=== PATIENT | female | born 1960 | race Caucasian/White ===

== ENCOUNTER → 2016-07-01 | Day surgery (SDC) | payer OTHER ==
[2016-06-04 15:28] VITALS: BMI 42.0
[~2016-07-01] VITALS: Ht 160 cm; Wt 109.1 kg
[~2016-07-01] MED LIST: AMLO-114 PO; ASPI81TA28 PO; ATOR-26 PO; ATROPINE SULFATE 0.1 MG/ML 5ML SYR IV PRN; BUPIVACAINE/EPINEPHRINE 0.5% MPF 1:200,000 30 ML VIAL ONE; CEFAZOLIN 2000 MG/60 ML D5W 60 ML IV SCH; CHOL1TAB42 PO; CRDCD180 PO; EpHEDrine SULFATE INJ 50 MG/ML AMP IV PRN; FENTANYL CITRATE INJ 50 MCG/1 ML 2 ML VIAL IV PRN; FENTANYL CITRATE INJ 50 MCG/1 ML 2 ML VIAL ONE; FRS/40 PO; GLYCOPYRROLATE INJ 0.2 MG/ML VIAL ONE; HYDR-5688 PO; HYDROCODONE/ACETAMOPHEN 5/325MG TAB PO PRN; INSDGI SC; KETAMINE HCL INJ 50 MG/ML 10 ML VIAL ONE; LACTATED RINGER'S 1000ML IV SCH; LEVO50TA60 PO; LIDOCAINE HCL 2% 2 ML VIAL (20MG/ML) ONE; METO1TAB66 PO; MIDAZOLAM HCL 1 MG/ML 2ML VIAL ONE; NSS 1000ML IV SCH; NVLGI/PEN SC; ONDANSETRON INJ 2 MG/ML 2 ML VIAL IV PRN; ONDANSETRON INJ 2 MG/ML 2 ML VIAL ONE; PROPOFOL IV EMULSION 10 MG/ML 20 ML VIAL IV ONE; SODIUM CHLORIDE 0.9% 1000ML 1,000 ML IV SCH; TOLT2TAB9 PO
[2016-07-01 10:46] VITALS: BP 142/60; PULSE 72; TEMP 36.9; O2SAT 96; Ht 160 cm; Wt 109.1 kg
--- NOTE | 2016-07-01 11:43 | History and Physical ---
History & Physical Date Jul 01, 2016. Chief Complaint abnormality found on mammogram...pt was unable to tolerate laying prone for stereotactic bx. History of Present Illness The patient is a 55 year old female with complaints of Past Medical/Surgical History Medical Problems: (1) Diabetes mellitus (2) Edema (3) Hypertension (4) Hypothyroidism (5) Obesity Additional History Hepatic Disease: No Endocrine Disorder: Yes Kidney Disease: Yes Hypertension: Yes Heart Disease: No Bleeding Tendencies: No Infectious Diseases: No Allergies Coded Allergies: Lisinopril (Verified Adverse Reaction, Mild, cough, 07/01/16) Home Medications Scheduled Amlodipine (Norvasc), 10 MG PO QAM Aspirin (Aspirin Ec), 81 MG PO HS Atorvastatin (Lipitor), 80 MG PO HS Cholecalciferol (Vitamin D), 5,000 UNITS PO HS Diltiazem HCl (Diltiazem HCl ER), 180 MG PO QAM Furosemide (Lasix), 40 MG PO BID Insulin Aspart (Novolog Flexpen), 6 UNITS SC QAM Insulin Glargine (Lantus), 40 SC BID Levothyroxine Sodium (Levoxyl), 0.05 MG PO QAM Metoprolol Succinate (Toprol Xl), 75 MG PO BID Tolterodine Tartrate (Tolterodine Tartrate), 2 MG PO BID Physical Examination Skin: warm/dry Eyes: normal inspection, EOMI Head: normocephalic, atraumatic Neck: supple, no adenopathy Respiratory/Chest: no respiratory distress Cardiovascular: no edema Abdomen / GI: non tender Back: normal inspection Extremities: normal inspection Diagnosis left breast mammographic abnormality Plan of Treatment wire LOC with excisional breast bx see office H&P for history details discussed risks/options/ questions answered ok to proceed.
--- NOTE | 2016-07-01 13:35 | Discharge Instructions ---
Discharge Instructions Date of Service Jul 01, 2016. Admission Reason for Admission: Lt Breast Microcalcs, Chronic Kidney Ds/Hosp Loc Discharge Discharge Diagnosis / Problem: abnormal mammogram Discharge Goals Goal(s): Diagnostic testing Activity Recommendations Activity Limitations: as noted below Lifting Limitations: no more than 10 pounds, until after follow-up appointment Exercise/Sports Limitations: until after follow-up appointment May Resume Sexual Activity: after follow-up appointment Shower/Bathe: tomorrow . Instructions / Follow-Up Instructions / Follow-Up follow up with dr. edwards in 1-2 weeks. call [phone] if any questions/ concerns Current Hospital Diet Patient's current hospital diet: Discharge Diet Recommended Diet: Regular Diet Procedures Procedures Performed: excisional breast biopsy Pending Studies Studies pending at discharge: yes List of pending studies: pathology report Medical Emergencies . Who to Call and When: Medical Emergencies: If at any time you feel your situation is an emergency, please call 911 immediately. . Non-Emergent Contact Non-Emergency issues call your: Primary Care Provider, Surgeon Call Non-Emergent contact if: temperature is above 101, wound has increased drainage, wound has increased redness, wound has increased pain . "Provider Documentation" section prepared by Nael Edwards. VTE Core Measure Inpt VTE Proph given/why not?: SCD's
--- NOTE | 2016-07-01 14:40 | [facility] Operative Report ---
Operative Report Operative Date Jul 01, 2016. Pre-Operative Diagnosis Abnoral Mammogram, Left Post-Operative Diagnosis same Procedure(s) Performed excision biopsy of left breast abnormality Surgeon Electrolog Operator Surgeon(s) None Estimated Blood Loss 25ML Findings normal breast tissue throughout Specimens A. Left Breast Mass, 1 Long silk lateral , 2 short superior. Anesthesia MAC/local Complication(s) None Disposition Recovery Room / PACU I attest to the content of the Intraoperative Record and any orders documented therein. Any exceptions are noted below.
--- NOTE | 2016-07-01 14:41 | Medical Student: [facility] ---
Immediate Operative Summary Operative Date Jul 01, 2016. Pre-Operative Diagnosis left breast mass Post-Operative Diagnosis same Procedure(s) Performed excisional left breast biopsy w needle localization Surgeon Dr. Edwards Flight Tower Dispatcher Surgeon(s) none Estimated Blood Loss 25cc Findings normal appearing breast tissue w needle Specimens left breast mass Anesthesia local Complication(s) None Disposition Recovery Room / PACU
--- NOTE | 2016-07-01 15:10 | Anesthesiology Progress Note ---
Anesthesia Post Op Note Date & Time Jul 01, 2016 at 15:11 Vital Signs Pain Intensity: 0 Vital Signs Past 12 Hours Date Time Temp Pulse Resp B/P Pulse Ox O2 Delivery O2 Flow Rate FiO2 07/01/16 15:05 65 18 138/64 93 Nasal Cannula 1 07/01/16 14:55 69 17 139/69 92 Nasal Cannula 2 07/01/16 14:45 56 20 127/62 94 Nasal Cannula 2 07/01/16 14:38 36.4 69 12 125/61 99 Mask 10 07/01/16 10:46 36.9 72 18 142/60 96 Room Air Notes Mental Status: alert / awake / arousable, participated in evaluation Pt Amnestic to Procedure: Yes Nausea / Vomiting: adequately controlled Pain: adequately controlled Airway Patency, RR, SpO2: stable & adequate BP & HR: stable & adequate Hydration State: stable & adequate Anesthetic Complications: no major complications apparent
[2016-07-01 15:23] VITALS: BP 139/67; PULSE 69; TEMP 36.6; O2SAT 98
--- NOTE | 2016-07-01 15:49 | OPERATIVE REPORT ---
DATE OF OPERATION: 07/01/2016 PREOPERATIVE DIAGNOSIS: Abnormality of the left breast/patient unable to tolerate stereotactic biopsy. POSTOPERATIVE DIAGNOSIS: Same. PROCEDURE: Left breast excisional biopsy with needle localization. SURGEON: Dr. Edwards. ESTIMATED BLOOD LOSS: Approximately 30 mL. COMPLICATIONS: No immediate. ANESTHESIA: Monitored anesthesia care with local Marcaine. DESCRIPTION OF PROCEDURE: Prior to coming to the operating room, the patient was taken to the radiology department where ultrasound and mammographic guidance was used to place a guidewire into the area of abnormality seen on mammogram. She was then brought to the operating suite. She was taken into the OR, placed supine and given some IV sedation. It was titrated to effect. After she was adequately sedated, we then sterilely prepped and draped the left breast area including the guidewire. After timeout, I then injected the area with Marcaine and epinephrine. We created the field block around the entire area. I then used a 15 blade scalpel to make a horizontal skin incision. We used electrocautery to create skin flaps. I continued to circumferentially take down breast tissue 360 degrees around the guidewire. Eventually I cut the guidewire and pulled it through the skin and delivered it out through the incision itself. Bleeding was controlled using electrocautery or clamp and tie with 3-0 silk ties. Eventually I was able to completely get below the area of the guidewire and we removed the specimen in 1 piece. It was marked such that 2 short sutures were superior and 1 long one was lateral. We did take an x-ray in the room and did confirm that the appropriate specimen was obtained. We then thoroughly irrigated the wound bed. There was adequate hemostasis. I closed it with 2-0 Vicryl, 3-0 Vicryl and 4-0 Monocryl for the skin. Benzoin and Steri-Strips were placed over the incision. The patient was awakened and transferred to recovery in stable condition. I attest to the content of the Intraoperative Record and any orders documented therein. Any exceptio ns are noted below.
[2016-07-01 15:50] VITALS: BP 134/67; PULSE 72; TEMP 36.6; O2SAT 95
--- NOTE | 2016-07-01 16:08 | MAMMOGRAPHY REPORT ---
NEEDLE LOCALIZATION LEFT BREAST: 07/01/2016 CLINICAL HISTORY: 55 year old woman with an indeterminate clustered microcalcifications in the appro ximate 6:00 posterior left breast. She was unable to tolerate stereotactic guided biopsy and presen ts for preoperative needle and wire localization. COMPARISON: Comparison is made to exams dated: 05/13/2016 mammogram, 04/10/2016 mammogram, 10/09/2015 mammogram - [facility], 03/18/2008, 03/08/2009 mammogram, and 03/06/2010 mammogra m - [facility]. PATIENT CONSENT: The risks of the procedure were explained to the patient and informed consent was o btained. The patient denied eating or drinking anything this morning that would preclude anesthesia . Diagnostic mammograms including spot magnification views dated 04/10/2016 were reviewed. The 4.5 mm cluster of heterogeneous microcalcifications in the 5:00 to 6:00 left breast is the target for preo perative localization. With the patient standing, the left breast was placed in CC from below compr ession. The microcalcifications were identified and targeted using an alpha numeric grid. 1% buffe red lidocaine was administered as local anesthesia after alcohol swabs cleansed the skin of the infe rior left breast. A 5 cm [place] 2 needle and wire combination was inserted into the breast via an inferior approach. Optimal positioning was confirmed in the lateralmedial approach and the needle was removed, leaving the wire in place. The location of the wire was discussed with the operating s urgeon prior to surgery. The specimen radiograph demonstrates the localizing wire and the cluster of microcalcifications in q uestion located at level 9-10 and G-H on the grid. Final pathology is pending. IMPRESSION: NEEDLE LOCALIZATION Status a post successful preoperative needle and wire localization for an indeterminate cluster of m icrocalcifications in the 5:00 to 6:00 posterior left breast. The imaged specimen includes the inte nded abnormality. Final pathology is pending. The patient will receive notification of the biopsy results from her referring physician. Kailey Alfaro M.D. ay/:07/01/2016 15:36:50 [employer] Paralegal: Maria C Calles, [facility]
--- NOTE | 2016-07-04 08:54 | MAMMOGRAPHY REPORT ---
SPECIMEN: 07/01/2016 CLINICAL HISTORY: Surgical specimen. Please refer to the report from left breast needle localization with imaging performed at the same [facility] for full detail. IMPRESSION: SPECIMEN Please refer to the report from left breast needle localization with imaging performed at the same t [facility] for full detail. Kailey Alfaro M.D. ay/:07/01/2016 10:23:45 Rock Loader: Danielle TEMPLETON)(Nora), [facility]
== END | disposition home or self-care (01) ==
LOC: C.ACU 09:25
PROVIDERS: ATTEND Surgery
DX: D24.2 Benign neoplasm of left breast (principal); N60.12 Diffuse cystic mastopathy of left breast; E11.9 Type 2 diabetes mellitus without complications; I10 Essential (primary) hypertension; E66.9 Obesity, unspecified; Z68.41 Body mass index [BMI] 40.0-44.9, adult; Z88.8 Allergy status to other drugs, medicaments and biological substances

== ENCOUNTER 2017-03-02 19:38 | Emergency (ER) | payer OTHER ==
[~2017-03-02] VITALS: Ht 160 cm; Wt 105.0 kg
[~2017-03-02 19:38] MED LIST changes: -ATROPINE SULFATE 0.1 MG/ML 5ML SYR IV PRN; -BUPIVACAINE/EPINEPHRINE 0.5% MPF 1:200,000 30 ML VIAL ONE; -CEFAZOLIN 2000 MG/60 ML D5W 60 ML IV SCH; -EpHEDrine SULFATE INJ 50 MG/ML AMP IV PRN; -FENTANYL CITRATE INJ 50 MCG/1 ML 2 ML VIAL IV PRN; -FENTANYL CITRATE INJ 50 MCG/1 ML 2 ML VIAL ONE; -GLYCOPYRROLATE INJ 0.2 MG/ML VIAL ONE; -HYDR-5688 PO; -HYDROCODONE/ACETAMOPHEN 5/325MG TAB PO PRN; -KETAMINE HCL INJ 50 MG/ML 10 ML VIAL ONE; -LACTATED RINGER'S 1000ML IV SCH; -LIDOCAINE HCL 2% 2 ML VIAL (20MG/ML) ONE; +METO-452 PO; -METO1TAB66 PO; -MIDAZOLAM HCL 1 MG/ML 2ML VIAL ONE; -NSS 1000ML IV SCH; +NVLGI/PEN; -NVLGI/PEN SC; -ONDANSETRON INJ 2 MG/ML 2 ML VIAL IV PRN; -ONDANSETRON INJ 2 MG/ML 2 ML VIAL ONE; -PROPOFOL IV EMULSION 10 MG/ML 20 ML VIAL IV ONE; -SODIUM CHLORIDE 0.9% 1000ML 1,000 ML IV SCH
[2017-03-02 19:48] VITALS: TEMP 37; Ht 160 cm; Wt 105.0 kg
[2017-03-02] MEDS ORDERED: LEVO50TA PO (20:05)
[2017-03-02] MEDS ORDERED: ACETAMINOPHEN 500 MG TAB PO STA (20:20)
[2017-03-02] MEDS ORDERED: DIPHTHERIA/TETANUS/PERTUSSIS 0.5 ML SYR/VIAL IM. ONE (20:30)
--- NOTE | 2017-03-02 21:34 | DIAGNOSTIC IMAGING REPORT ---
L KNEE 3 VIEWS HISTORY: 56 years-old Female fall; L knee pain acute left knee pain status post fall COMPARISON: None available TECHNIQUE: 3 views of the left knee FINDINGS: Bones appear mildly demineralized. Mild tricompartmental osteoarthritis is noted, most pronounced within the patellofemoral joint. There is a moderate joint effusion with mild soft tissue swelling about the knee. There is no acute fracture or dislocation. Vascular calcifications are noted. IMPRESSION: 1. Mild soft tissue swelling and moderate joint effusion without acute fracture or dislocation. 2. Mild tricompartmental osteoarthritis. 3. Peripheral vascular disease. The above report was generated using voice recognition software. It may contain grammatical, syntax or spelling errors. Electronically signed by: David Maldonado M.D. 03/02/2017 9:33 PM Dictated Date/Time: 03/02/2017 9:31 PM
--- NOTE | 2017-03-02 21:40 | DIAGNOSTIC IMAGING REPORT ---
R HAND MIN 3 VIEWS ROUTINE, L HAND MIN 3 VIEWS ROUTINE HISTORY: 56 years-old Female fall; R hand pain acute bilateral hand pain status post fall COMPARISON: None available TECHNIQUE: 3 views of the bilateral hands FINDINGS: LEFT: There is a linear 5 mm calcification within the expected region of the radial collateral ligament of the third metacarpal phalangeal joint. Mild first carpometacarpal and interphalangeal degenerative changes noted. Subcortical cystic changes are seen within the third metacarpal head. Peripheral vascular disease. No acute fracture or dislocation. RIGHT: Mild first carpal metacarpal and multidigit interphalangeal degenerative changes. There is a 4 mm linear calcification within the expected region of the radial collateral ligament of the fifth metacarpal phalangeal joint. No acute fracture or dislocation. The soft tissues are unremarkable. Peripheral vascular disease. IMPRESSION: 1. Mild degenerative changes without acute fracture or dislocation. 2. Peripheral vascular disease. 3. Nonspecific linear periarticular calcifications about the left third and right fifth metacarpal phalangeal joints in the expected region of the radial collateral ligaments . Remote injury or enthesitis are differential considerations. The above report was generated using voice recognition software. It may contain grammatical, syntax or spelling errors. Electronically signed by: David Maldonado M.D. 03/02/2017 9:39 PM Dictated Date/Time: 03/02/2017 9:33 PM
--- NOTE | 2017-03-02 21:42 | DIAGNOSTIC IMAGING REPORT ---
L SHOULDER MIN 2 VIEWS ROUTINE HISTORY: 56 years-old Female fall; L shoulder pain acute left shoulder pain status post fall COMPARISON: None available TECHNIQUE: 3 views of the left shoulder FINDINGS: Mild glenohumeral and moderate acromioclavicular osteoarthritis. No acute fracture or dislocation. No intra-articular loose body. Imaged lung pitts are clear. IMPRESSION: Degenerative changes about the left shoulder without acute fracture or dislocation. The above report was generated using voice recognition software. It may contain grammatical, syntax or spelling errors. Electronically signed by: David Maldonado M.D. 03/02/2017 9:41 PM Dictated Date/Time: 03/02/2017 9:39 PM
--- NOTE | 2017-03-02 21:44 | DIAGNOSTIC IMAGING REPORT ---
L ELBOW MIN 3 VIEWS ROUTINE HISTORY: 56 years-old Female fall; L elbow pain acute left elbow pain status post fall COMPARISON: None available TECHNIQUE: 3 views of the left elbow FINDINGS: There is an acute comminuted intra-articular fracture of the radial head with approximately 2 mm volar and lateral displacement. Small joint effusion. No additional acute fracture or dislocation identified. Mild marginal degenerative spurring about the elbow. Mild soft tissue swelling. IMPRESSION: Acute comminuted intra-articular fracture of the radial head with minimal displacement, small joint effusion and mild soft tissue swelling. The above report was generated using voice recognition software. It may contain grammatical, syntax or spelling errors. Electronically signed by: David Maldonado M.D. 03/02/2017 9:43 PM Dictated Date/Time: 03/02/2017 9:41 PM
[2017-03-02] MEDS ORDERED: NORCO 5/325MG HOME PACK PO ONE (22:00)
[2017-03-02] MEDS ORDERED: HYDR-5688 PO (22:19)
[2017-03-02 22:31] VITALS: BP 134/68; PULSE 82; O2SAT 98
--- NOTE | 2017-03-03 01:53 | EMERGENCY ROOM VISIT NOTE ---
ED Visit Note First contact with patient: 19:55 Chief Complaint: I fell and hurt my left arm. History of Present Illness: Ms. Barajas is a 56-year-old white female who ambulates into the ED accompanied by male friend following a fall. Patient reports she was visiting her parents. She was walking on their driveway and was stepping over a grate and tripped and fell. She reports during the fall she did not strike her head or have a loss of consciousness and since the fall she reports she is not having any symptoms of head injuries. Her fall occurred approximately 50 minutes before arriving in the emergency department Currently she is complaining of proximal left forearm pain, left shoulder pain, lateral and posterior left knee pain, left upper lip pain, tooth #10 pain, bilateral hand pain. Currently she reports her worst pain is her left elbow pain. She places this discomfort over the proximal aspect of the ulna. She describes her pain as throbbing and sharp. She rates her discomfort 7/10. Her pain is nonradiating. Her pain worsens with palpation and flexion and extension of the elbow and pronation and supination of the forearm. She has not identified any alleviating factors related to the pain. She has not taken any medications for pain prior to arrival at the hospital. Associated with her pain she reports she has having left lateral humeral head pain. She describes this as an achy sensation. She does not rate her discomfort. Her pain is nonradiating. Her pain worsens with palpation. She has not identified any alleviating factors related to the pain. Additionally she complains of upper lip pain and swelling, tooth 10 pain, bilateral hand pain over the palmar aspects were she reports she put out her hands during the fall and lateral and posterior left knee pain. She reports all these pains are mild. She does not rate her discomfort. She denies any headache, dizziness, lightheadedness, visual changes, hearing changes, difficulty speaking, difficulty swallowing, difficulty ambulating/ coordinating body movements, neck pain, back pain, upper and lower extremity weakness/numbness/tingling, chest pain, shortness of breath, abdominal pain, nausea, vomiting. Review of Systems: As noted above in history of present illness. All body systems were reviewed and found to be negative as noted above. Past Medical History: Diabetes, hypertension, unspecified skin disorder. Current Medications: Toprol-XL, diltiazem, Norvasc 6, vitamins, aspirin, insulin , Lasix, Lipitor, Synthroid. Allergies to Medications: Lisinopril. Social History: Patient is currently employed; she feels safe in her home environment; she denies tobacco and alcohol use. Physical Examination: Vital Signs: Date Time Temp Pulse Resp B/P (MAP) Pulse Ox O2 Delivery O2 Flow Rate FiO2 03/02/17 22:31 82 18 134/68 98 03/02/17 21:55 82 16 170/79 96 Room Air 03/02/17 19:48 37.0 90 20 119/76 97 Room Air GENERAL: 56-year-old female in moderate distress due to pain, nontoxic-appearing , afebrile and hemodynamically stable. NEUROLOGICAL: Awake, alert and oriented to person, place and time. Answering questions appropriately and following commands. Normal gait. Good short-term and long-term recall. Cranial nerves II through XII grossly intact. SKIN: Warm, dry and pink. Face: Superficial laceration to the left side of the upper lip measuring approximately 4 mm with no active bleeding. This is associated with a moderate amount of swelling and ecchymosis in the same area. There was a small amount of blood around the junction of the 10th tooth and the gingiva. No soft tissue injuries noted at this area. HEENT: Atraumatic and normocephalic. Skull: No bony deformity, bony crepitus, swelling or ecchymosis. No raccoon's eyes or singh signs. No drainage in the ears of the nostril; no hemotympanum. Face: Soft tissue injury as noted above. No bony tenderness of the orbits, zygomatic areas, maxilla or mandible. PERRLA. EOMI without nystagmus. Sclera white and conjunctiva pink. No malocclusion. Tooth tenderness tender to palpation but stable in its socket. There is also a contusion in the oral mucosa in the same area of tooth 10. Airway is patent. Speech is normal and clear. Trachea midline. No jugular venous distention. BACK: No tenderness over the bony cervical, thoracic and lumbar spine. Full range of motion of the cervical spine. No CVA tenderness. THORAX: Lungs sounds are clear to auscultation and equal bilaterally with symmetrical chest wall. No crepitus, tenderness, subcutaneous air or deformities noted. ABDOMEN: Soft and nontender. Positive bowel sounds in all quadrants. No guarding, rigidity or organomegaly. LEFT UPPER EXTREMITY: No gross bony deformity. Mild tenderness over the lateral aspect of the humeral head without bony deformity, swelling or ecchymosis. No tenderness over the acromioclavicular joint, clavicle, scapula. Moderate tenderness over the proximal ulna with mild swelling but no bony deformity or crepitus. She refused to do range of motion exercises due to pain at the elbow and forearm. No tenderness throughout the forearm, wrist or hand. With the elbow stabilize she has full range of motion in flexion, extension and radial and ulnar deviation of the wrist and flexion and extension of all fingers. Throughout the hand the skin was warm and pink and capillary refill is brisk. She is able to distinguish light sensations through all dermatomes. LEFT LOWER EXTREMITY: No gross bony deformity. No shortening or malrotation. No tenderness over the hip or thigh, no tenderness over the lower leg, ankle or foot. Mild tenderness over the lateral and posterior proximal tibia without bony deformity, bony crepitus, swelling or ecchymosis. No laxity of the collateral or cruciate ligaments. Negative patellar apprehension test. Negative ballottement test. Full range of motion in flexion and extension of the knee against resistance. Patient does have full range of motion in flexion and extension of the knee, flexion, extension and internal and external rotation of the hip and plantar flexion and dorsiflexion of the ankles. Throughout the leg the skin was warm and pink and capillary refill is brisk. She is able to distinguish light sensations through all dermatomes. RIGHT SIDED EXTREMITIES: No gross bony deformity. No tenderness in the shoulder , elbow, forearm, wrist, hand, hip, thigh, knee, lower leg, ankle or foot. ED Course: Patient is assessed as noted above. Patient's medication list was reviewed. At patient's request she was given 1 g of Tylenol by mouth for pain. Additionally she reports that her tetanus was not up-to-date and she received an Adacel booster. Left Elbow X-Rays: Were read by myself and the radiologist showing acute, intra- articular fracture of the radial head with minimal displacement, small joint effusion and mild soft tissue swelling. Left Hand X-Rays: Were read by myself and the radiologist and shows mild degenerative change without acute fractures or dislocations. Peripheral vascular disease. Radiologist additionally notes left third metacarpal phalangeal joint periarticular calcification. Right Hand X-Rays: Were read by myself and the radiologist and shows mild degenerative changes without acute fractures or dislocations. Peripheral vascular disease. Radiologist additionally notes periarticular calcifications of the right fifth MCP joint. Left Knee X-Rays: Were read by myself and the radiologist showing mild soft tissue swelling and a moderate joint effusion without fracture dislocations, mild tricompartmental osteoarthritis and peripheral vascular disease. Left Shoulder X-Rays: Were read by myself and the radiologist showing degenerative changes but no acute fractures or dislocations. Patient's superficial lip laceration was cleansed with antibacterial soap and water. Patient's left elbow fracture was placed in a posterior Ortho-Glass splint and sling. Patient was reassessed multiple times during her stay in the emergency department. Patient was educated about today's findings and instructed on her treatment plan ; she verbalizes understanding and agreement with this plan. Clinical Impression: Fall. Left proximal radial head fracture. Left upper lip contusion. Tooth 11 dental pain. Superficial laceration of the upper lip. Left shoulder pain. Right and left palm contusions. Left knee pain. Disposition: Patient discharged home in stable condition accompanied by her ; prior to departure she was reassessed and subjectively reported she was feeling better and rated her discomfort 4/10. Plan: Comfort measures including rest, ice, splint and sling use and a sliding pain medication scale of ibuprofen, acetaminophen and [place] were discussed with the patient; she was given appropriate narcotic precautions and her name was checked in the state database and no red flags were noted. Patient was encouraged to follow-up with [facility] for her elbow fracture. Patient was encouraged to follow-up with dentistry for her dental pain. Patient was encouraged return ED for worsening/uncontrolled pain, left upper extremity/hand weakness/numbness/tingling or any new/concerning symptoms.
== END 2017-03-02 21:25 | disposition home or self-care (01) ==
LOC: C.EDB 19:39 → C.EDD 21:25
DX: S52.122A Displaced fracture of head of left radius, initial encounter for closed fracture (principal); K08.89 Other specified disorders of teeth and supporting structures; S01.511A Laceration without foreign body of lip, initial encounter; S60.221A Contusion of right hand, initial encounter; S60.222A Contusion of left hand, initial encounter; M25.562 Pain in left knee; W01.0XXA Fall on same level from slipping, tripping and stumbling without subsequent striking against object, initial encounter; Y92.014 Private driveway to single-family (private) house as the place of occurrence of the external cause; E11.9 Type 2 diabetes mellitus without complications; I10 Essential (primary) hypertension; L98.9 Disorder of the skin and subcutaneous tissue, unspecified; Z79.4 Long term (current) use of insulin; Z79.82 Long term (current) use of aspirin; Z79.899 Other long term (current) drug therapy

== ENCOUNTER → 2017-06-04 | Outpatient (CLI) | payer OTHER ==
[~2017-06-04] MED LIST changes: +HYDR-5688 PO; +LEVO50TA PO; -LEVO50TA60 PO
--- NOTE | 2017-06-04 15:24 | MAMMOGRAPHY REPORT ---
BILATERAL DIGITAL SCREENING MAMMOGRAM TOMOSYNTHESIS WITH CAD: 06/04/2017 CLINICAL HISTORY: Routine screening. Patient has no complaints. TECHNIQUE: Breast tomosynthesis in addition to standard 2D mammography was performed. Current study was also evaluated with a Computer Aided Detection (CAD) system. COMPARISON: Comparison is made to exams dated: 04/10/2016 mammogram, 03/23/2015 mammogram, 03/16/2014 mammogram, 03/11/2013 mammogram, 03/10/2012 mammogram, and 03/07/2011 mammogram - [facility]. BREAST COMPOSITION: There are scattered areas of fibroglandular density in both breasts. FINDINGS: No suspicious masses, calcifications, or areas of architectural distortion are noted in ei ther breast. There has been no significant interval change compared to prior exams. There are new po st surgical changes in the left breast at approximately 12:00 from prior excisional biopsy which yiel ded benign pathology. New benign rim and dystrophic calcifications are seen at the surgical bed. A linear scar marker denotes a scar on the left breast. Other scattered bilateral benign-appearing christina cifications are noted. IMPRESSION: ACR BI-RADS CATEGORY 2: BENIGN There is no mammographic evidence of malignancy. A 1 year screening mammogram is recommended. The pa tient will receive written notification of the results. Approximately 10% of breast cancers are not detected with mammography. A negative mammographic report should not delay biopsy if a clinically suggestive mass is present. Amy Silva M.D. /:06/04/2017 10:53:54 Phytochemistry Professor: Lilia LAGUERRE(Annie)(Nora), [facility] letter sent: Normal 1/2 BI-RADS Code: ACR BI-RADS Category 2: Benign
== END ==
LOC: C.MAMM 10:20
PROVIDERS: ATTEND Family Medicine
DX: Z12.31 Encounter for screening mammogram for malignant neoplasm of breast (principal)

== ENCOUNTER → 2017-11-17 | Day surgery (SDC) | payer OTHER ==
[2017-11-11 12:46] VITALS: Ht 160 cm; Wt 100.0 kg
[~2017-11-17] VITALS: Ht 160 cm; Wt 100.0 kg
[~2017-11-17] MED LIST changes: +500ML BSSPLUS 0.5ML EPI1:1000 IRRIG ONE; +ACETAMINOPHEN 325 MG TAB PO PRN; -AMLO-114 PO; +AMLO10TA3 PO; +ATROPINE SULFATE 0.1 MG/ML 5ML SYR IV PRN; +ATROPINE SULFATE 1% OP OINT PER APPLICATION CHARGE ONE; +BSS FLUSH ONE; +BUPIVACAINE HCL 0.75% 10 ML AMP/VIAL ONE; +CEFAZOLIN SOD 1 GM VIAL ONE; +DEXAMETHASONE SOD INJ 4 MG/ML VIAL ONE; +EpHEDrine SULFATE INJ 50 MG/ML AMP IV PRN; +EpINEphrine INJ 1MG/ML AMP 1 MG/ML AMP ONE; +FENTANYL CITRATE INJ 50 MCG/1 ML 2 ML VIAL ONE; +HYALURONIDASE HUMAN 150 UNIT/ML INJ ONE; -HYDR-5688 PO; +INDOCYANINE GREEN 25 MG/10 ML ONE; -INSDGI SC; +INSU100I23 SQ; +LACTATED RINGER'S 1000ML 500 ML IV SCH; +LIDOCAINE HCL 2% 2 ML VIAL (20MG/ML) ONE; +MIDAZOLAM HCL 1 MG/ML 2ML VIAL ONE; +NEOMYCIN/POLYMYX/DEXAMETH OP OINT PER APP CHARGE ONE; +OCUCOAT 1 ML SOLN IO ONE; +ONDANSETRON INJ 2 MG/ML 2 ML VIAL IV PRN; +POVIDONE-IODINE OP SOLN (SURGERY CNTR CHARGING ONLY) ONE; +PROPARACAINE 0.5% OP SOLN PER DROP CHARGE OPR SCH; +PROPOFOL IV EMULSION 10 MG/ML 20 ML VIAL ONE; +TETRACAINE HCL (OPHTH) 60 DROPS/4 ML BTL ONE; +TIMOLOL MALEATE 0.5% OP SOLN PER DROP CHARGE ONE; +TRIAMCINOLONE ACETONIDE OPHTH 40 MG/ML VIAL STERILE ONE; +VANCOMYCIN HCL 1000MG/20ML VIAL ONE
[2017-11-17] MEDS: PHENYLEPHRINE HCL 2.5% OP SOLN PER DROP CHARGE OPR SCH ×2 (06:44→06:49)
[2017-11-17] MEDS: TROPICAMIDE 1% OP SOLN PER DROP CHARGE OPR SCH ×2 (06:45→06:50)
--- NOTE | 2017-11-17 07:33 | History & Physical Bridge - SC ---
H&P Re-Evaluation Bridge Note: pt has diabetic retinopathy right eye and is having vitrectomy right eye. I have examined the patient, reviewed the History & Physical and in the interval since the performance of the History & Physical I have noted the following changes of clinical significance: No changes noted
--- NOTE | 2017-11-17 08:37 | [facility] Operative Report ---
Operative Report Date of Service Nov 17, 2017. Operative Report PREOPERATIVE DIAGNOSIS: Diabetic retinopathy with vitreous hemorrhage, right eye. POSTOPERATIVE DIAGNOSIS: same. PROCEDURE: 1. Pars plana vitrectomy, 23 gauge. 2. Membrane segmentation. 3. Endolaser. All to the right eye. CPT CODE: 29374 SURGEON: Ata Raymundo D.O. COMPLICATIONS: None. ESTIMATED BLOOD LOSS: None. SPECIMENS: None. ANESTHESIA: Retrobulbar block and MAC INDICATIONS FOR PROCEDURE: Surgery is indicated to decrease risk of vision loss and potentially improve vision. CONSENT: The risks, benefits and alternatives were discussed with the patient including but not limited to decreased visual acuity, failure to achieve desired results, loss of the eye, infection, pain, glaucoma, lens changes, retinal tears, retinal detachment, the need for more procedures, drooping of the eyelid, blindness, and double vision. The patient is aware of risks and consents to the surgery. Consent is signed and on the chart. OPERATION AND FINDINGS: The patient was brought to the operating room where the patient was identified by name, date, and medical record number. The surgical site was confirmed with the informed written consent. The patient was sedated by the anesthesiology team after which a 50:50 mixture of 2% lidocaine and 0.75% bupivacaine with hyaluronidase was administered in a standard retrobulbar fashion. A total of 4 ml was administered without difficulty. The patient was then prepped and draped in the usual sterile manner for retinal surgery. A wire lid speculum was placed and an Ariel 23-gauge trocar cannula system was employed. The inferior temporal trocar cannula was first placed in an angled fashion 3.75mm posterior to the surgical limbus and the infusion cannula was inserted into this cannula after which the intravitreal position was verified prior to turning the infusion on. Two more trocar cannulas were then inserted in an angled fashion, one in the superior temporal, and one in the superior nasal quadrant both 3.75mm posterior to the surgical limbus. A light pipe and vitrector were then introduced into the eye and the BIOM wide angle viewing system was brought into place. Posterior inspection revealed partially regressed proliferative diabetic retinopathy with neovascularization tags superior and inferior to the temporal arcades. There was also noted previous laser treatment. Standard core vitrectomy was performed and the vitreous was insured to be totally detached from the posterior pole with the aid of the vitrector. The areas of regressed neovascularization were segmented with the vitrector and endo-cautery was applied to any bleeding. Endolaser was used to perform fill-in demarco retinal photocoagulation. At this point scleral depression was performed for 360 degrees and no retinal tears or detachments were noted. The trocar cannulas were then removed and found to be water tight. The intraocular pressure was found to be within normal limits by palpation and subconjunctival injections of Kefzol and dexamethasone were administered inferiorly and superiorly. The wire lid speculum was removed. Maxitrol ointment was applied to the surface of the eye. A light patch and shield were taped over the surface of the eye and the patient left the Operating Room in stable condition having tolerated the procedure well. DISPOSITION: The patient has an appointment the following morning in the Ophthalmology Clinic. The patient is to call immediately if there are any problems overnight. I attest to the content of the Intraoperative Record and any orders documented therein. Any exceptions are noted below.
--- NOTE | 2017-11-17 08:38 | Discharge Instructions-SurgCtr ---
Discharge Instructions Date of Service Nov 17, 2017. Visit Reason for Visit: Right Eye Vitreous Hemorrhage, diabetic retinopathy Discharge Discharge Diagnosis / Problem: same Discharge Goals Goal(s): Improve function Activity Recommendations Activity Limitations: per Instructions/Follow-up section Anesthesia . Post Anesthesia Instructions: If you have had General Anesthesia or IV Sedation: * Do not drive today. * Resume driving when surgeon permits. * Do not make important decisions or sign legal documents today. * Call surgeon for: 1. Temperature elevations greater than 101 degrees F. 2. Uncontrollable pain. 3. Excessive bleeding. 4. Persistent nausea and vomiting. 5. Medication intolerance (nausea, vomiting or rash). * For nausea and vomiting use only clear liquids such as: tea, soda, bouillon until nausea subsides, then gradually increase diet as tolerated. * If you have any concerns or questions, call your surgeon's office. If physician is unavailable and it is an emergency, call 911 or go to the nearest emergency room. . Instructions / Follow-Up Instructions / Follow-Up * May take Tylenol if needed for discomfort. * Do NOT remove eye shield. * NO straining, heavy lifting (>15 pounds) or bending below waist. * Avoid getting water or soap directly into operative eye. * Do NOT rub eye. If you experience increasing eye pain not relieved by medication, please contact us immediately at [phone]. If you are unable to reach someone at the above number, call [phone] and ask to speak with the EYE DOCTOR ENVIRONMENTAL STUDIES PROFESSOR. Inform them that you are a Dr. Raymundo patient who had recent surgery. Diet Recommendations Home Diet: resume previous diet Procedures Procedures Performed: Right Eye 23 Gauge Vitrectomy, Endolaser, Membrane Peeling Pending Studies Studies pending at discharge: no Medical Emergencies . Who to Call and When: Medical Emergencies: If at any time you feel your situation is an emergency, please call 911 immediately. . Non-Emergent Contact Non-Emergency issues call your: Customer Service Clerk . . "Provider Documentation" section prepared by Ata Raymundo. .
[2017-11-17 08:52] VITALS: TEMP 36
--- NOTE | 2017-11-17 09:21 | Anesthesia Progress Nt - [facility] ---
Anesthesia Post Op Note Date & Time Nov 17, 2017 at 09:21 Vital Signs Pain Intensity: 0 Vital Signs Past 12 Hours Date Time Temp Pulse Resp B/P (MAP) Pulse Ox O2 Delivery O2 Flow Rate FiO2 11/17/17 08:52 36.0 81 16 137/79 (98) 94 Room Air 11/17/17 06:40 36.3 82 18 149/81 (103) 97 Room Air Notes Mental Status: alert / awake / arousable, participated in evaluation Pt Amnestic to Procedure: Yes Nausea / Vomiting: adequately controlled Pain: adequately controlled Airway Patency, RR, SpO2: stable & adequate BP & HR: stable & adequate Hydration State: stable & adequate Anesthetic Complications: no major complications apparent
[2017-11-17 09:23] VITALS: BP 147/76; PULSE 76; O2SAT 95
== END | disposition home or self-care (01) ==
LOC: X.SURG 06:27
PROVIDERS: ATTEND Ophthalmology
DX: E11.3591 Type 2 diabetes mellitus with proliferative diabetic retinopathy without macular edema, right eye (principal); E11.22 Type 2 diabetes mellitus with diabetic chronic kidney disease; N18.4 Chronic kidney disease, stage 4 (severe); I50.32 Chronic diastolic (congestive) heart failure; E66.9 Obesity, unspecified; Z68.37 Body mass index [BMI] 37.0-37.9, adult; I10 Essential (primary) hypertension; E78.5 Hyperlipidemia, unspecified; Z79.4 Long term (current) use of insulin

== ENCOUNTER 2018-09-16 18:35 | Inpatient (IN) ==
--- OUTSIDE RECORDS SUMMARY | 2018-09-16 18:38 | External Medical Summary | Continuity of Care Document ---
:1960 Author Name Mehrdad Durbin, Provider Address Unavailable Unavailable , Care Team Providers Name Role Phone Unavailable Unavailable Unavailable Jorge Lombardo M.D. Unavailable [email or web address] [email or web address] DO Unavailable [email or web address] Cleveland [email or web address]. 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 81) (Z01.810) Vitamin D deficiency (268.9) (E55.9) Hypercholesterolemia (272.0) (E78.00) Diabetes mellitus (250.00) (E11.9) Abnormal finding on mammography (793.80) (R92.8) Chronic kidney disease, stage III (moderate) (585.3) (N18.3) Allergies and Adverse Reactions Lisinopril TABS (Allergy) Reaction: Coug h metFORMIN HCl TABS (Allergy) Medications dilTIAZem HCl ER Beads 180 MG Oral Capsu le Extended Release 24 Hour; TAKE 1 CAPSULE DAILY IN THE MORNING. Gifty Lombardo Start: 19-Aug-2013 Quantity: 30 Refills: 11 Metoprolol Succinate ER 50 MG Oral Table t Extended Release 24 Hour; take 1 and 1/2 tablets twice a day SAMARIA Worley Start: 26-Apr-2011 Quantity: 90 Refills: 2 Furosemide 20 MG Oral Tablet; Take one tablet as neede d for edema . Gifty Cleveland Start: 26-Aug-2013 Quantity: 30 Refills: 5 Lantus SoloStar 100 UNIT/ML Subcutaneous Solution Pen-injector; Inject 40 units SUBCU bid Gifty Lombardo Start: 29-Jan-2013 Quantity: 2 3 ML Pen (5 Pens) Refills: 5 BD Pen Needle Mini U/F 31G X 5 MM; Inject twice daily SAMARIA Worley Start: 29-Jan-2013 Quantity: 60 Refills: 5 OneTouch Ultra Blue In Vitro Strip; TEST 4 TIMES DAILY OR DIRECTED Gifty Lombardo Start: 19-Aug-2013 Quantity: 6 25 EA Box Refills: 5 OneTouch Lancets MISC; Test 4 times daily Gifty Lombardo Start: 19-Aug-2013 Quantity: 1 200 EA Box Refills: 3 BD Pen Needle Short U/F 31G X 8 MM; Inject twice daily SAMARIA Worley Start: 10-May-2014 Quantity: 100 Refills: 5 Vitamin D (Ergocalciferol) 05528 UNIT Or al Capsule; Take one capsule a week for 8 weeks, then stop. Gifty Cleveland Start: 05-Nov-2013 Quantity: 8 Refills: 0 Losartan Potassium 25 MG Oral Tablet; Take one tablet each morning. Gifty Cleveland Start: 05-Nov-2013 Quantity: 30 Refills: 5 Simvastatin 40 MG Oral Tablet; TAKE 1 TABLET DAILY DIRECTED. DO Ct Antunez Start: 29-May-2012 Quantity: 30 Refills: 6 Levothyroxine Sodium 50 MCG Oral Tablet; TAKE 1 TABLET BY MOUTH EVERY DAY SAMARIA Worley Start: 17-Jul-2012 Quantity: 30 Refills: 5 Procedures History of Salpingectomy Status: Complet ed History of Supracervical Hysterectomy St atus: Completed History of Oophorectomy - Bilateral (Removal Of Status: Completed Both Ovaries) History of Lysis Of Peritoneal Adhesions Status: Completed History of Breast Surgery Pre-Op Placement Of Status: Completed 01-Jul-2016 0:00 Needle Localization Wire Immunizations Immunizations not documented Family History Mother Family history of Nephrolithiasis Status: Active Social History - Smoking Status Unknown if ever smoked Never smoker Plan of Treatment Planned Observations Planned Goals not documented Results No Known Results Results not documented
[2018-09-16] MEDS ORDERED: ONDANSETRON INJ 2 MG/ML 2 ML VIAL IV STA (19:19)
[2018-09-16] MEDS ORDERED: MoRPHine SULFATE 2 MG/ML CARP IV STA (19:19)
[2018-09-16 20:38] LABS: Basophils # (auto) 0.02 K/uL (0-0.2); Basophils % (auto) 0.2 %; Eosinophils # (auto) 0.45 K/uL (0-0.5); Eosinophils % (auto) 4.2 %; Hematocrit (blood only) 30.2 % (37-47); Hemoglobin 9.9 g/dL (12.0-16.0); Immature Granulocytes # (auto) 0.01 K/uL (0.00-0.02); Immature Granulocytes % (auto) 0.1 %; Lymphocytes % (auto) 23.2 %; Mean Corpuscular Hgb Conc 32.8 g/dL (32-36); Mean Corpuscular Volume 84.6 fL (80-100); Mean Platelet Volume 8.8 fL (7.4-10.4); Monocytes # (auto) 1.23 K/uL (0.11-0.59); Monocytes % (auto) 11.4 %; Neutrophils # (auto) 6.56 K/uL (1.4-6.5); Neutrophils % (auto) 60.9 %; Platelet Count 280 K/uL (130-400); RDW Coefficient of Variation 14.6 % (11.5-14.5); RDW Standard Deviation 45.4 fL (36.4-46.3); Red Blood Count 3.57 M/uL (4.2-5.4); White Blood Count 10.77 K/uL (4.8-10.8)
[2018-09-16 21:03] LABS: Albumin Globulin Ratio 0.6 (0.9-2); Albumin Level 3.2 gm/dl (3.4-5.0); BUN Creatinine Ratio 17.4 (10-20); Bilirubin,Total 0.2 mg/dl (0.2-1); Calcium 11.8 mg/dl (8.5-10.1); Creatinine Clr Calc Pharmacy 13.7 ml/min; Est GFR (African American) 10.7; Est GFR (Non-African American) 9.2; Potassium 3.8 mmol/L (3.5-5.1); Total Protein 8.2 gm/dl (6.4-8.2)
--- NOTE | 2018-09-16 22:50 | CT Scan Report ---
LUMBAR SPINE CT CT DOSE: 1039.74 mGy.cm HISTORY: back pain TECHNIQUE: Multiaxial CT images of the lumbar spine were performed and reformatted in the sagittal an d coronal plane without the use of contrast. A dose lowering technique was utilized adhering to the principles of ALARA. COMPARISON: None. FINDINGS: No fractures. No subluxation. Paraspinal soft tissues are unremarkable. No significant dis c space narrowing. No central canal narrowing by CT technique. The visualized sacrum is intact. IMPRESSION: No fractures within the lumbar spine. Electronically signed by: Ernie Elizabeth M.D. 09/16/2018 10:48 PM
--- NOTE | 2018-09-16 23:03 | CT Scan Report ---
ABDOMEN AND PELVIS CT WITHOUT CONTRAST CT DOSE: HISTORY: Low back pain, elvated creatinine TECHNIQUE: Multiaxial CT images of the abdomen and pelvis were performed without contrast. A dose lo wering technique was utilized adhering to the principles of ALARA. COMPARISON STUDY: Abdomen and pelvis CT 07/24/2013. FINDINGS: A few mildly enlarged mediastinal lymph nodes. Patchy groundglass densities within the lung bases with a few scattered bilateral lower lobe nodules are again noted. Dominant nodule within the right lower lobe measures 8 mm. This has slightly increased in size from the prior study when it saroj ured 7 mm. There is also slight increase in size in a 6 mm nodule within the right middle lobe on jamar ge 25. The left lower lobe nodules are stable to slightly increased in size. Mitral and disc calcific ations are noted. No pneumoperitoneum. No pneumatosis. Stable bone island within the right posterior acetabulum. No hepatic masses are identified. There is a 4.7 cm gallstone. No gallbladder wall thicke bob. Extensive vascular calcifications are noted within the abdomen. There is a new 2.4 cm hypodense lesion within the inferior aspect of the spleen. The unenhanced adrenal glands and pancreas are unre markable. No renal stones or hydronephrosis. There is a 4.4 cm lesion within the left renal sinus. Th is does not clearly represent a simple cyst. No ureteral stones. No bladder wall thickening. The uter us is unremarkable. Subcentimeter retroperitoneal lymph nodes do not meet CT criteria for pathologic involvement. Suboptimal evaluation for bowel pathology due to the lack of intravenous and oral contra st. However, there is no definite bowel wall thickening or obstruction. Normal appendix. Colonic dive rticulosis. No evidence for diverticulitis. IMPRESSION: 1. A 4.4 cm lesion within the left renal sinus which does not clearly represent a simple cyst. Theref ore, dedicated renal CT or MRI is recommended to assess for the possibility of a renal mass. 2. Cholelithiasis. No gallbladder wall thickening. 3. No bowel wall thickening or obstruction. 4. Patchy groundglass densities within the lung bases persists with slight increase in size in a few scattered bilateral pulmonary nodules as described above. These are indeterminate but have only minim ally increased in size in a 5 year time interval. Therefore, this could be due to a long-standing inf lammatory process such as sarcoidosis. Follow-up nonemergent chest CT is recommended. 5. A new 2.4 cm hypodense lesion within the spleen. This is incompletely characterized on this noncon trast study. 6. Additional findings as described above. Electronically signed by: Ernie Elizabeth M.D. 09/16/2018 11:00 PM
--- NOTE | 2018-09-17 00:14 | Emergency Department Note ---
Entered by Dee Gomez acting as a scribe for Jay Renner MD History of Present Illness General Chief complaint: Leg Weakness, Bilateral Stated complaint: PAIN IN LEGS AND FEET, BLOATED, CONSTIPATION Time Seen by Provider: 09/16/18 19:10 Source: patient History of Present Illness Provider complaint: bilateral leg weakness Onset (ago): hour(s) ([employer]) Location: lower extremity (bilateral legs) Radiation: back Pain Consistency: + other (worsening) Maximum Pain Intensity: 4 Associated symptoms: + headaches, + nausea/vomiting and + other (-constipation, burning during urination, +bilateral numbness in legs); no chest pain, no fever/chills (-fever) and no shortness of breath The patient is a 57 year old female who presents to the Emergency Room with complaints of worsening bilateral leg weakness. The patient states that she has numbness and weakness in her lower extremities. She states that her pain starts in her back and radiates to her legs. She states that her pain started 3 weeks ago and it had worsened today. She reports that she went to her PCP today and they did an ultrasound that was normal. She states that they recommended having a specialist exam her back. The patient states that her pain worsens with si tting down, but is alleviated with movement. She reports that she has not been sleeping because of the pain. She states that she is vomiting daily, nausea, on and off headache, constipation, but denies any burning when urinating, chest pain, shortness of breath, or fever. She states that she has chronic kidney issues. The patient notes that she is diabetic. She states that she takes Tylenol for her headaches regularly. She reports that she does not take blood thinners. Home Medications Home Medications Medication Instructions Recorded Confirmed Type Coltonaglar TrentPen U-100 Insulin 50 unit SUBCUT [facility] 05/07/18 09/16/18 History amlodipine 10 mg PO [facility] 05/07/18 09/16/18 History aspirin [Aspirin Low Dose] 81 mg PO HS 05/07/18 09/16/18 History atorvastatin 80 mg PO 05/07/18 09/16/18 History cholecalciferol (vitamin D3) 5,000 unit PO HS 05/07/18 09/16/18 History [Vitamin D3] furosemide 80 mg PO M 05/07/18 09/16/18 History levothyroxine 50 mcg PO QAM 05/07/18 09/16/18 History metoprolol succinate 75 mg PO BID 05/07/18 09/16/18 History tolterodine 2 mg PO BID 05/07/18 09/16/18 History calcitriol [Rocaltrol] 0.25 mcg PO 3XWK 09/16/18 09/16/18 History diltiazem HCl [Cartia XT] 180 mg PO DAILY 09/16/18 09/16/18 History fluticasone propionate [Flonase 2 spray INTRANASAL DAILY 09/16/18 09/16/18 History Allergy Relief] furosemide [Lasix] 40 mg PO QPM 09/16/18 09/16/18 History insulin glargine [Basaglar KwikPen 30 unit SUBCUT QPM 09/16/18 09/16/18 History U-100 Insulin] semaglutide [Ozempic] 0.25 mg SUBCUT WK 09/16/18 09/16/18 History Allergies Allergy/AdvReac Type Severity Reaction Status Date / Time gabapentin Allergy Unknown Verified 09/16/18 20:48 lisinopril AdvReac Intermediate COUGHING Verified 06/23/18 06:38 Past Med/Surg History Medical History Chronic kidney disease Diabetes mellitus, type 2 Hyperlipidemia Hypertension Hypothyroidism Obesity (BMI 30-39.9) Osteoarthritis Peripheral neuropathy BILATERAL LEGS Surgical History H/O bilateral salpingo-oophorectomy History of cataract extraction with lens replacement History of colonoscopy History of hysterectomy RENNY History of vitrectomy Family History Father Family history of diabetes mellitus Mother Family history of diabetes mellitus Social History Preferred Language: Thai Communication Ability: Effective Beliefs That Will Affect Care: None Current Living Situation: Spouse Feels Safe at Home: Yes Smoking Status: Never smoker Second Hand Exposure: No Hx Alcohol Use: No Hx Substance Use: No Review of Systems See HPI for pertinent positives & negatives. and A total of 10 systems reviewed and were otherwise negative Physical Exam Vital Signs Vital Signs - 24 hr 09/16/18 18:49 09/16/18 20:20 09/16/18 22:44 Temperature 36.8 C Temperature Source Oral Sepsis Recent Fever Within 48 Hours No Sepsis Action Taken by Nursing No Action Required Pulse Rate 72 Pulse Rate [Radial] 70 70 Pulse Rhythm [Radial] Regular Regular Respiratory Rate 16 20 20 Respiratory Effort / Characteristics Non-Labored Spontaneous Non-Labored Spontaneous Non-Labored Spontaneous Respiratory Depth Normal Normal Normal Respiratory Pattern Regular Regular Regular Blood Pressure 120/73 Blood Pressure [Right Arm] 153/76 H 147/75 H Blood Pressure Mean 88 Blood Pressure Mean [Right Arm] 101 99 Blood Pressure Position Lying Blood Pressure Position [Right Arm] Pulse Oximetry 94 95 90 Oxygen Delivery Method Room Air Room Air Room Air Oxygen Flow Rate 09/16/18 23:00 09/17/18 00:30 Temperature Temperature Source Sepsis Recent Fever Within 48 Hours Sepsis Action Taken by Nursing Pulse Rate Pulse Rate [Radial] 64 Pulse Rhythm [Radial] Respiratory Rate 18 Respiratory Effort / Characteristics Non-Labored Spontaneous Respiratory Depth Normal Respiratory Pattern Regular Blood Pressure Blood Pressure [Right Arm] 147/63 H Blood Pressure Mean Blood Pressure Mean [Right Arm] 91 Blood Pressure Position Blood Pressure Position [Right Arm] Sitting Pulse Oximetry 98 91 Oxygen Delivery Method Nasal Cannula Room Air Oxygen Flow Rate 2 General: Chronically-ill appearing older female in no acute distress. HEENT: Normal cephalic atraumatic. Pupils are equal round and reactive to light. Extraocular movements are intact. Oropharynx is pink with moist mucous membranes. No swelling of the mouth lips or tongue. Neck: Supple with a midline trachea. No meningeal signs or stiffness, no JVD or bruits. No Stridor. Chest: Clear to auscultation bilaterally. No wheezes or rhonchi. No increased work of breathing. Heart: regular rate and rhythm. Abdomen: Soft nontender, nondistended without rebound guarding or rigidity. Extremities: No cyanosis clubbing or edema. No calf tenderness or asymmetry Spine/Back. Mildly tender lumbar spine. No CVA tenderness Skin: Good turgor without rashes. Neurologic exam: Cranial nerves two through 12 are intact. Motor and sensation are intact and symmetrical throughout. Course 1910: The patient was evaluated in room B6, and a complete history and physical examination were performed. 2142: I reevaluated the patient and discussed her test results with her. 2152: I reevaluated the patient and she is currently resting comfortably. I discussed the use of an MRI, which the patient refused. The patient stated that over sedation she is willing to do a CAT scan. The patient's creatine level was elevated at 4.8 at this time. 2341: I discussed the patient's case with Dr. Robe Winn Hospitalist, where he will further evaluated the patient. Reevaluation(s) Reevaluation #1: Dr. Robe Winn Hospitalist Time: 23:41 Administered Medications Discontinued Medications Morphine Sulfate (Morphine Sulfate) 2 mg IV NOW STA Stop: 09/16/18 19:20 Last Admin: 09/16/18 20:17 Dose: 2 mg Documented by: [id number] Ondansetron HCl (Zofran) 4 mg IV NOW STA Stop: 09/16/18 19:20 Last Admin: 09/16/18 20:17 Dose: 4 mg Documented by: [id number] Medical Decision Making Differential Diagnosis Differentials include lumbar disc disease, cauda equine, infection, UTI, electrolyte abnormalities, and metabolic derangement. Medical Records Attestation: I reviewed the patient's medical records. Home Medications Current Medication List: was personally reviewed by me Laboratory Data Attestation: I reviewed the patient's lab results. Result diagrams: 09/16/18 20:16 09/16/18 20:16 Lab Results 09/16/18 09/16/18 09/17/18 Range/Units 20:16 20:16 00:25 WBC 10.77 (4.8-10.8) K/uL RBC 3.57 L (4.2-5.4) M/uL Hgb 9.9 L (12.0-16.0) g/dL Hct 30.2 L (37-47) % MCV 84.6 (80-100) fL MCH 27.7 (25-34) pg MCHC 32.8 (32-36) g/dL RDW Std Deviation 45.4 (36.4-46.3) fL RDW Coeff of Talisha 14.6 H (11.5-14.5) % Plt Count 280 (130-400) K/uL MPV 8.8 (7.4-10.4) fL Immature Gran % (Auto) 0.1 % Neut % (Auto) 60.9 % Lymph % (Auto) 23.2 % [place] % (Auto) 11.4 % Eos % (Auto) 4.2 % Baso % (Auto) 0.2 % Immature Gran # (Auto) 0.01 (0.00-0.02) K/uL Neut # (Auto) 6.56 H (1.4-6.5) K/uL Lymph # (Auto) 2.50 (1.2-3.4) K/uL [place] # (Auto) 1.23 H (0.11-0.59) K/uL Eos # (Auto) 0.45 (0-0.5) K/uL Baso # (Auto) 0.02 (0-0.2) K/uL Sodium 136 (136-145) mmol/L Potassium 3.8 (3.5-5.1) mmol/L Chloride 96 L (98-107) mmol/L Carbon Dioxide 29 (21-32) mmol/L Anion Gap 12.0 H (3-11) BUN 84 H (7-18) mg/dl Creatinine 4.83 H* (0.6-1.2) mg/dl Est Cr Clr Drug Dosing 13.7 ml/min Est GFR ( Amer) 10.7 Est GFR (Non-Af Amer) 9.2 BUN/Creatinine Ratio 17.4 (10-20) Glucose 153 H (70-99) mg/dl Calcium 11.8 H (8.5-10.1) mg/dl Total Bilirubin 0.2 (0.2-1) mg/dl AST 14 L (15-37) U/L ALT 18 (12-78) U/L Alkaline Phosphatase 108 (45-117) U/L Total Protein 8.2 (6.4-8.2) gm/dl Albumin 3.2 L (3.4-5.0) gm/dl Globulin 5.0 H (2.5-4.0) gm/dl Albumin/Globulin Ratio 0.6 L (0.9-2) Lipase 233 (73-393) U/L Urine Color Yellow Urine Appearance Clear (Clear) Urine pH 6.5 (4.5-7.5) Ur Specific Webb 1.015 (1.000-1.030) Urine Protein 3+ H (Negative) Urine Glucose (UA) Trace H (Negative) Urine Ketones Negative (Negative) Urine Blood 1+ H (Negative) Urine Nitrite Negative (Negative) Urine Bilirubin Negative (Negative) Urine Urobilinogen Negative (Negative) Ur Leukocyte Esterase Trace H (Negative) Urine WBC (Auto) 5-10 H (0-5) /hpf U Hyaline Cast (Auto) 1-5 (0-5) /lpf U Epithel Cells (Auto) >30 H (0-5) /lpf Urine Bacteria (Auto) Negative (Negative) Imaging Data Radiologist's Impression: Radiology results as stated below per my review and the radiologist's interpretation: ABDOMEN AND PELVIS CT WITHOUT CONTRAST CT DOSE: HISTORY: Low back pain, elvated creatinine TECHNIQUE: Multiaxial CT images of the abdomen and pelvis were performed without contrast. A dose lowering technique was utilized adhering to the principles of ALARA. COMPARISON STUDY: Abdomen and pelvis CT 07/24/2013. FINDINGS: A few mildly enlarged mediastinal lymph nodes. Patchy groundglass densities within the lung bases with a few scattered bilateral lower lobe nodules are again noted. Dominant nodule within the right lower lobe measures 8 mm. This has slightly increased in size from the prior study when it measured 7 mm. There is also slight increase in size in a 6 mm nodule within the right middle lobe on image 25. The left lower lobe nodules are stable to slightly increased in size. Mitral and disc calcifications are noted. No pneumoperiton eum. No pneumatosis. Stable bone island within the right posterior acetabulum. No hepatic masses are identified. There is a 4.7 cm gallstone. No gallbladder wall thickening. Extensive vascular calcifications are noted within the abdomen. There is a new 2.4 cm hypodense lesion within the inferior aspect of the spleen. The unenhanced adrenal glands and pancreas are unremarkable. No renal stones or hydronephrosis. There is a 4.4 cm lesion within the left renal sinus. This does not clearly represent a simple cyst. No ureteral stones. No bladder wall thickening. The uterus is unremarkable. Subcentimeter retroperitoneal lymph nodes do not meet CT criteria for pathologic involvement. Suboptimal evaluation for bowel pathology due to the lack of intravenous and oral contrast. However, there is no definite bowel wall thickening or obstruction. Normal appendix. Colonic diverticulosis. No evidence for diverticulitis. IMPRESSION: 1. A 4.4 cm lesion within the left renal sinus which does not clearly represent a simple cyst. Therefore, dedicated renal CT or MRI is recommended to assess for the possibility of a renal mass. 2. Cholelithiasis. No gallbladder wall thickening. 3. No bowel wall thickening or obstruction. 4. Patchy groundglass densities within the lung bases persists with slight i ncrease in size in a few scattered bilateral pulmonary nodules as described above. These are indeterminate but have only minimally increased in size in a 5 year time interval. Therefore, this could be due to a long-standing inflammatory process such as sarcoidosis. Follow-up nonemergent chest CT is recommended. 5. A new 2.4 cm hypodense lesion within the spleen. This is incompletely characterized on this noncontrast study. 6. Additional findings as described above. Electronically signed by: Ernie Elizabeth M.D. 09/16/2018 11:[address] DOSE: 1039.74 mGy.cm HISTORY: back pain TECHNIQUE: Multiaxial CT images of the lumbar spine were performed and reformatted in the sagittal and coronal plane without the use of contrast. A dose lowering technique was utilized adhering to the principles of ALARA. COMPARISON: None. FINDINGS: No fractures. No subluxation. Paraspinal soft tissues are unremarkable. No significant disc space narrowing. No central canal narrowing by CT technique. The visualized sacrum is intact. IMPRESSION: No fractures within the lumbar spine. Electronically signed by: Ernie Elizabeth M.D. 09/16/2018 10:48 PM Blood Pressure Blood Pressure Findings: Elevated blood pressure Blood Pressure Disposition: Referred to patients primary care provider MDM Narrative This patient comes in as described above. She has multiple medical problems including diabetes and renal insufficiency, comes in with several complaints. The main complaint tonight seems to be back pain and leg pain and tingling and weakness. She is also had a headache. She has had no fever or chills. She is complaining that she needs something for the pain. She was given IV morphine 2 mg IV as well as Zofran 4 mg IV. Blood work was obtained she was found to be anemic with a hemoglobin 9.9. She has no white count or fever to suggest infection. Her creatinine was significantly elevated at 4.8. The case picker got labs from [facility] and it looks like the most recent creatinine there was 3.2 so this is significantly elevated compared to her baseline. Her potassium is unremarkable. I attempted to do an MRI given her back pain and tingling/and pain in her legs. She could not tolerate it. I offered to give her anxiolytics but she refused and says she could not do it tonight. She has no acute neurologic deficits. I did a CAT scan without contrast. There is a renal cyst/mass which may be need further imaging on the right kidney. There is a gallstone but no cholecystitis. There is a splenic lesion. The lumbar spine looks unremarkable. I do think she needs to be admitted/observe for further inpatient treatment and evaluation, I am concerned about her worsening of her renal function and she will likely need to be on dialysis sooner than later. Her failing kidneys may be causing her symptoms as well. I have consulted Dr. Church to see her in the ER for these measures. Impression & Plan Back pain, Renal failure, Diabetes mellitus, Numbness and tingling of both legs, Mass of right kidney Discharge Plan Visit Data Chief Complaint: Leg Weakness, Bilateral Stated Complaint: PAIN IN LEGS AND FEET, BLOATED, CONSTIPATION ED Provider: Jay Renner Discharge Problem: Back pain, Renal failure, Diabetes mellitus, Numbness and tingling of both legs, Mass of right kidney Patient Disposition: Being Evaluated by Hospitalist Forms Stand Alone Forms: [facility] Prescriptions Prescriptions: No Action furosemide [Lasix] 40 mg tablet 40 mg PO QPM RF: 0 diltiazem HCl [Cartia XT] 180 mg capsule,extended release 24hr 180 mg PO DAILY RF: 0 fluticasone propionate [Flonase Allergy Relief] 50 mcg/actuation [place],Suspension 2 spray INTRANASAL DAILY RF: 0 calcitriol [Rocaltrol] 0.25 mcg capsule 0.25 mcg PO 3XWK RF: 0 Basaglar KwikPen U-100 Insulin 100 unit/mL (3 mL) insulin pen 30 unit subcut QPM RF: 0 Ozempic 0.25 mg or 0.5 mg(2 mg/1.5 mL) pen injector 0.25 mg subcut WK RF: 0 furosemide 40 mg Tablet 80 mg PO QAM RF: 0 atorvastatin 80 mg Tablet 80 mg PO HS RF: 0 metoprolol succinate 50 mg Tablet Extended Release 24 Hr 75 mg PO BID RF: 0 aspirin [Aspirin Low Dose] 81 mg Tablet,Delayed Release (Dr/Ec) 81 mg PO HS RF: 0 tolterodine 2 mg Tablet 2 mg PO BID RF: 0 amlodipine 10 mg Tablet 10 mg PO QAM RF: 0 levothyroxine 50 mcg Tablet 50 mcg PO QAM RF: 0 Basaglar KwikPen U-100 Insulin 100 unit/mL (3 mL) Insulin Pen 50 unit SUBCUT QAM RF: 0 cholecalciferol (vitamin D3) [Vitamin D3] 5,000 unit Tablet 5,000 unit PO HS RF: 0 Referrals Referrals: Jose Magallanes MD [Primary Care Provider] - The scribe's documentation has been prepared under my direction and personally reviewed by me in its entirety. I confirm that the note above accurately reflects all work, treatment, procedures, and medical decision making performed by me.
[2018-09-17 00:52] LABS: Appearance Urine Clear (Clear); Bilirubin Urine Negative (Negative); Blood Urine 1+ (Negative); Color Urine Yellow; Epithelial Cell Urine Auto >30 /lpf (0-5); Glucose Urine UA Trace (Negative); Ketones Urine Negative (Negative); Leukocyte Esterase Urine Trace (Negative); Nitrite Urine Negative (Negative); Protein Urine 3+ (Negative); Specific Gravity Urine 1.015 (1.000-1.030); Urobilinogen Urine Negative (Negative); pH Urine 6.5 (4.5-7.5)
[2018-09-17 01:15] LABS: Bacteria Urine Automated 2+ (Negative); RBC Urine Automated 0-4 /hpf (0-4)
[2018-09-17] MEDS ORDERED: POLYETHYLENE (MIRALAX) 17 GM PACK PO PRN ×2 (01:39→09:40)
[2018-09-17] MEDS ORDERED: NITROGLYCERIN SL 0.4 MG/TAB TAB SL PRN (01:39)
[2018-09-17] MEDS ORDERED: SODIUM CHLORIDE 0.9% 1000ML 1,000 ML IV SCH (01:39)
[2018-09-17] MEDS ORDERED: ACETAMINOPHEN 325 MG TAB PO PRN (01:39)
[2018-09-17] MEDS ORDERED: GLUCOSE 10 TABS/TUBE PO PRN (03:30)
[2018-09-17] MEDS ORDERED: GLUCAGON FOR INJ 1 MG VIAL SQ PRN (03:30)
[2018-09-17] MEDS ORDERED: GLUCOSE 40% GEL 15 GM TUBE PO PRN (03:30)
[2018-09-17] MEDS ORDERED: CARBOHYDRATES FOR HYPOGLYCEMIA PO PRN (03:30)
[2018-09-17] MEDS ORDERED: DEXTROSE 50% 50 ML SYRINGE IV PRN (03:30)
[2018-09-17 05:30] LABS: Basophils # (auto) 0.02 K/uL (0-0.2); Basophils % (auto) 0.2 %; Eosinophils # (auto) 0.42 K/uL (0-0.5); Eosinophils % (auto) 4.3 %; Hematocrit (blood only) 29.2 % (37-47); Hemoglobin 9.7 g/dL (12.0-16.0); Immature Granulocytes # (auto) 0.01 K/uL (0.00-0.02); Immature Granulocytes % (auto) 0.1 %; Lymphocytes # (auto) 2.23 K/uL (1.2-3.4); Lymphocytes % (auto) 22.7 %; Mean Corpuscular Hgb Conc 33.2 g/dL (32-36); Mean Corpuscular Volume 84.9 fL (80-100); Mean Platelet Volume 8.6 fL (7.4-10.4); Monocytes # (auto) 0.94 K/uL (0.11-0.59); Monocytes % (auto) 9.6 %; Neutrophils # (auto) 6.22 K/uL (1.4-6.5); Neutrophils % (auto) 63.1 %; Platelet Count 211 K/uL (130-400); RDW Coefficient of Variation 14.5 % (11.5-14.5); RDW Standard Deviation 45.1 fL (36.4-46.3); Red Blood Count 3.44 M/uL (4.2-5.4); White Blood Count 9.84 K/uL (4.8-10.8)
[2018-09-17] MEDS: LEVOTHYROXINE SODIUM 50 MCG TABLET PO SCH (06:05)
[2018-09-17 06:07] LABS: Calcium 10.8 mg/dl (8.5-10.1); Creatinine Clr Calc Pharmacy 14.2 ml/min; Est GFR (African American) 11.3; Est GFR (Non-African American) 9.8; Magnesium 2.4 mg/dl (1.8-2.4); Potassium 3.6 mmol/L (3.5-5.1)
[2018-09-17 06:25] LABS: Estimated Average Glucose 174 mg/dl; Hemoglobin A1C 7.7 % (4.5-5.6)
[2018-09-17] MEDS: METOPROLOL SUCC 50MG EXT REL TAB PO SCH ×2 (07:35→21:05)
[2018-09-17] MEDS: AMLODIPINE BESYLATE 5 MG TAB PO SCH (07:35)
[2018-09-17] MEDS: TOLTERODINE TARTRATE 2 MG TAB PO SCH ×2 (07:35→21:07)
[2018-09-17] MEDS: FLUTICASONE PROPIONATE NA SPR 16 GM BTL SCH (07:35)
[2018-09-17] MEDS: dilTIAZem HCL 180 MG CAPCR PO SCH (07:36)
--- NOTE | 2018-09-17 08:03 | History and Physical Report ---
DATE OF ADMISSION: 09/17/2018 CHIEF COMPLAINT: Back pain and lower extremity numbness. HISTORY OF PRESENT ILLNESS: This is a 57-year-old female with past medical history significant for type 2 diabetes, proliferative diabetic retinopathy, hypoparathyroidism, hyperlipidemia, hypothyroidism, diastolic CHF, chronic kidney disease stage V, nephrotic range proteinuria, morbid obesity, presents with back pain. The patient says since last 2 weeks she is having back pain which is getting progressively worsened. She is also having some numbness in the lower extremity. In the ER, she received morphine and now says the pain is gone and even the numbness is gone. She got panic attack for the MRI, she could not do MRI. Lumbar spine CT was okay. The patient is ambulating okay at home. She no longer can climb steps. . Lives with her . Having headaches, recently she had cataract surgeries and the cataract are not settled yet . 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 No earache, has some runny nose, no sore throat, no difficulty swallowing. No dizziness. Appetite is not that great. No nausea, no vomiting, no chest pain, no shortness of breath, no cough, no fever, no chills, no abdominal pain, makes some urine but no bloody micturition or blood in the urine. She is constipated, but last bowel movement was over 4 days ago. No black stools or blood in the stools. No rash seen. Currently hemodynamically stable. She follows with nephrology for chronic kidney disease, creatinine was about 3.8 in june 2018. She says she checks her sugars at home regularly, but does not check her blood pressure, she states her sugar was at 144 in the morning today. ALLERGIES: LISINOPRIL AND GABAPENTIN. PAST MEDICAL HISTORY: As mentioned above. PAST SURGICAL HISTORY: Injection of the bilateral eyes, partial removal of the eye fluid, treatment of extensive retinopathy, photocoagulation. MEDICATIONS: The patient is on amlodipine 10 mg p.o. daily, aspirin 81 mg p.o. at bedtime, atorvastatin 80 mg p.o. at bedtime, basaglar insulin 15 units in a.m. and 30 units in p.m., calcitriol 0.25 mg p.o. 3 times a week, vitamin D 5000 units p.o. at bedtime, diltiazem 180 mg p.o. daily, Flonase 2 sprays intranasally daily, Lasix 80 mg in the a.m. and 40 mg in p.m., levothyroxine 50 mcg p.o. daily a.m., Toprol-XL 25 mg p.o. b.i.d., semaglutide 0.25 mg subcutaneous weekly, tolterodine 2 mg p.o. b.i.d. FAMILY HISTORY: Significant for father has vascular disease of legs, diabetes, mental disorder. Mother has diabetes, gastrointestinal disorder. Brother has [id number]-[id number]. SOCIAL HISTORY: Lives with her . No smoking history. No alcohol use, no drug use. REVIEW OF SYMPTOMS: As per HPI. Rest of review of systems is negative. PHYSICAL EXAMINATION: GENERAL: The patient is obese, not in acute distress. VITAL SIGNS: Temperature 36.8, pulse 70, respiratory rate 20, blood pressure 147/75, oxygen 98% on 2 liters. HEENT: No pallor, no icterus. Pupils equal, round, reactive to light. NECK: No JVD. No neck masses, no carotid bruits. CARDIOVASCULAR: S1, S2 heard, regular rate and rhythm, no murmur, no gallop. RESPIRATORY SYSTEM: Normal AP diameter. No accessory muscle use. No wheezing, no crackles. ABDOMEN: Soft, bowel sounds present. Mild right lower quadrant discomfort. No guarding, no rigidity. CENTRAL NERVOUS SYSTEM: Cranial nerves II-XII grossly nonfocal. MUSCULOSKELETAL: Mild lower lumbar spine point tenderness present. EXTREMITIES: Mild bilateral pedal edema. Power 5/5 in lower extremities. LABORATORIESS: WBC 10.7, hemoglobin 10.9, hematocrit 30.2, platelets 280. Sodium 136, potassium 3.8, chloride 96, bicarbonate 29, BUN 84, creatinine 4.8, serum glucose 153, calcium 11.8, total bilirubin 0.2, AST 14, ALT 18, alkaline phosphatase 108, total lipase 233. Lumbar spine CT, no fractures within the lumbar spine. CT of abdomen and pelvis. A 4.4 cm lesion within the left renal sinus, which does not clearly represent simple cyst. Therefore, dedicated renal CT or MRI is recommended. Cholelithiasis, no gallbladder wall thickening, patchy ground-glass densities at the lung bases persist with slight increase in size few scattered bilateral pulmonary nodules as described above. These are indeterminate but only minimally increased in size in the 5 years' time interval.This could be due to longstanding inflammatory processes such as sarcoidosis. Follow up nonemergent chest CT is recommended. A new 2.4 cm hypodense lesion of the spleen. This is incompletely characterized on this noncontrast study. ASSESSMENT AND PLAN: This 57-year-old female presents with back pain. Also found to have acute kidney injury on chronic kidney stage V. 1. Back pain with leg numbness going on for last 2 weeks. Her symptoms improved with pain medication in the ER. CT scan of the lumbar spine was okay. The patient refused MRI as she panicked and she is willing to try tomorrow with IV Ativan. We will control the pain with IV Dilaudid p.r.n. PT, OT. Currently, her symptoms improved,. The patient has no incontinence of bowel or bladder. Numbness could be from diabetic peripheral neuropathy. 2. Acute kidney injury on chronic kidney disease stage V. patient's creatinine was slowly worsening last several months, last creatinine was 3.8 in June. Follows with nephrology, stage V chronic kidney disease secondary to diabetes and hypertension. Creatinine is 4.8 today. We are holding the Lasix and giving gentle fluids. Monitor for volume overload and consult nephrology for further recommendations.Follow labs in am. 3. Diabetes. Continue home Lantus. ISS. Will follow HbA1c levels. 4. Hypertension. Continue home medication of Cardizem and Toprol-XL and amlodipine. We will monitor the blood pressure. 5. History of hypothyroidism. Continue Synthroid. 6. Diastolic congestive heart failure, holding the diuretics and on gentle fluids. Monitor for volume overload. 7. Obesity, needs counseling. 8. Splenic lesion on ct scan. Will follow ultrasound. 9.Possible sarcoidosis on Ct abd/pelvis. Will do ct chest when more stable. 10. Left renal lesion 4.4cm within renal sinus. Recommends MRI . Needs followup. 11. Deep venous thrombosis prophylaxis, SCDs for now. 12. Disposition: Close monitoring in med/surge tele. Level 1 full code. PT/OT prior to discharge. Social service to help with discharge planning. [facility]
--- NOTE | 2018-09-17 08:32 | Ultrasound Report ---
SPLEEN ULTRASOUND HISTORY: Splenic lesion. COMPARISON: CT of the abdomen and pelvis September 16, 2018. TECHNIQUE: Sonography of the spleen was performed. FINDINGS: Several septated cystic lesions within the spleen measure up to 2.6 cm. The size of the spl een is at the upper limits of normal, measuring 12.5 cm in maximal dimension. There is no adjacent fl uid. IMPRESSION: A few septated cystic lesions within the spleen that measure up to 2.6 cm. These are likely benign. Electronically signed by: Sergo Figueroa M.D. 09/17/2018 8:31 AM
[2018-09-17] MEDS ORDERED: INSULIN GLARGINE 100 UNIT/ML VIAL SQ SCH ×2 (09:00→21:00)
[2018-09-17] MEDS: INSULIN ASPART 100 UNITS/ML 3 ML PEN SC SCH ×4 (09:19→20:44)
--- NOTE | 2018-09-17 10:03 | Nephrology Consultation ---
Date of Consultation September 17, 2018 Assessment & Plan (1) CKD (chronic kidney disease) stage 5, GFR less than 15 ml/min: Patient with the CKD stage V due to diabetic nephropathy. She has nephrotic range proteinuria. Creatinine on admission was 4.8 and down 4.6 this morning after IV fluids. She had a baseline creatinine of 3.82 months ago. This is likely progressive diabetic nephropathy. Her electrolytes are stable with no signs of volume overload. No indication for dialysis. Recommend stopping IV fluids. Avoid nephrotoxins such as contrast unless lifesaving. Patient can resume her home diuretics on discharge. From renal stand point, she can be discharged and see me int he office next week. (2) Hypertension: Her blood pressure is above target today. This could be due to back pain. Recommend continuing her current antihypertensive regimen. (3) Anemia of chronic renal failure, stage 5: Hemoglobin of 9.9 today. Will check iron stores. She might need WILLIAM but this can be given as an outpatient. (4) Back pain: Back pain likely musculoskeletal pain. Continue pain medication as needed. She might benefit from sports medicine orthopedic evaluation. Avoid NSAIDs. I discussed avoiding NSAIDs with the patient. (5) Renal mass, left: Patient was found to have a 4.4 cm lesion on the left kidney on CT ab domen. She has no hematuria on urinalysis yesterday. We will follow-up with repeat imaging as an outpatient. History of Present Illness Reason for Consultation: Acute kidney injury on CKD Requesting Physician: Ranjit Peng MD Attending Physician: Champ Min MD History of Present Illness This is a 57-year-old female with type 2 diabetes for over 18 years, hypertensi on, hypothyroidism and CKD stage IV-V with baseline creatinine around 3.8 in June 2018 was admitted on 09/16/2018 with back pain. She has been having low back pain for the past several weeks but progressively getting worse. 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 She also had tingling and numbness in the feet up to the knees. She denied dysuria or hematuria. No shortness of breath. She is been constipated for about 5 days. She is having nausea and vomiting. Her blood sugars are fairly well controlled between 100-1 50. Recent A1c was 8 per patient report. Her creatinine on admission was 4.8 and is down to 4.6 this morning. Her back pain is improved after dose of morphine in the ER. She is getting normal saline at 50 mL/h Allergies Allergy/AdvReac Type Severity Reaction Status Date / Time gabapentin Allergy Unknown Verified 09/16/18 20:48 lisinopril AdvReac Intermediate COUGHING Verified 06/23/18 06:38 Home Medications Home Medications Medication Instructions Recorded Confirmed Type Basaglar KwikPen U-100 Insulin 50 unit SUBCUT QAM 05/07/18 09/16/18 History amlodipine 10 mg PO QAM 05/07/18 09/16/18 History aspirin [Aspirin Low Dose] 81 mg PO HS 05/07/18 09/16/18 History atorvastatin 80 mg PO HS 05/07/18 09/16/18 History cholecalciferol (vitamin D3) 5,000 unit PO HS 05/07/18 09/16/18 History [Vitamin D3] furosemide 80 mg PO QAM 05/07/18 09/16/18 History levothyroxine 50 mcg PO QAM 05/07/18 09/16/18 History metoprolol succinate 75 mg PO BID 05/07/18 09/16/18 History tolterodine 2 mg PO BID 05/07/18 09/16/18 History calcitriol [Rocaltrol] 0.25 mcg PO 3XWK 09/16/18 09/16/18 History diltiazem HCl [Cartia XT] 180 mg PO DAILY 09/16/18 09/16/18 History fluticasone propionate [Flonase 2 spray INTRANASAL DAILY 09/16/18 09/16/18 History Allergy Relief] furosemide [Lasix] 40 mg PO QPM 09/16/18 09/16/18 History insulin glargine [Basaglar KwikPen 30 unit SUBCUT QPM 09/16/18 09/16/18 History U-100 Insulin] semaglutide [Ozempic] 0.25 mg SUBCUT WK 09/16/18 09/16/18 History Patient History Medical History Chronic kidney disease Diabetes mellitus, type 2 Hyperlipidemia Hypertension Hypothyroidism Obesity (BMI 30-39.9) Osteoarthritis Peripheral neuropathy BILATERAL LEGS Surgical History H/O bilateral salpingo-oophorectomy History of cataract extraction with lens replacement History of colonoscopy History of hysterectomy RENNY History of vitrectomy Family History Father Family history of diabetes mellitus Mother Family history of diabetes mellitus Social History Preferred Language: Egyptian Communication Ability: Effective Editor Producer Required: No Beliefs That Will Affect Care: None Current Living Situation: Spouse Feels Safe at Home: Yes Safety Concerns: Feels Safe At This Time Smoking Status: Never smoker Second Hand Exposure: No Hx Alcohol Use: No Hx Substance Use: No Review of Systems Review of Systems: All systems reviewed & are unremarkable except as noted in HPI & below Physical Exam Physical Exam: General exam: Appears comfortable, no acute distress HEENT: Pupils are equal and reactive to light Neck: No JVD, neck is supple trachea is midline Respiratory system: Clear breath sounds bilaterally. Gastrointestinal: Abdomen is soft, non distended, non tender, bowel sounds are present CVS: Regular rate and rhythm. No murmurs, rubs or gallops Musculoskeletal: No joint or muscle tenderness Extremities: Non tender, no edema, peripheral pulses are present Neuro: Oriented, no tremors, no focal neurological deficits Skin: No rashes Results & Data Vital Signs (Past 12 Hours) Vital Signs Temp Pulse Pulse Resp BP BP Pulse Ox 09/17/18 07:00 36.4 C L 74 20 149/76 H 90 09/17/18 01:41 36.5 C 61 20 128/75 93 09/17/18 01:20 81 18 131/54 L 94 09/17/18 00:30 64 18 147/63 H 91 09/16/18 23:00 98 09/16/18 22:44 70 20 147/75 H 90 Laboratory Results Laboratory Results - last 24 hr 09/16/18 09/16/18 09/17/18 20:16 20:16 00:25 WBC 10.77 RBC 3.57 L Hgb 9.9 L Hct 30.2 L MCV 84.6 MCH 27.7 MCHC 32.8 RDW Std Deviation 45.4 RDW Coeff of Talisha 14.6 H Plt Count 280 MPV 8.8 Immature Gran % (Auto) 0.1 Neut % (Auto) 60.9 Lymph % (Auto) 23.2 [place] % (Auto) 11.4 Eos % (Auto) 4.2 Baso % (Auto) 0.2 Immature Gran # (Auto) 0.01 Neut # (Auto) 6.56 H Lymph # (Auto) 2.50 [place] # (Auto) 1.23 H Eos # (Auto) 0.45 Baso # (Auto) 0.02 Sodium 136 Potassium 3.8 Chloride 96 L Carbon Dioxide 29 Anion Gap 12.0 H BUN 84 H Creatinine 4.83 H* Est Cr Clr Drug Dosing 13.7 Est GFR ( Amer) 10.7 Est GFR (Non-Af Amer) 9.2 BUN/Creatinine Ratio 17.4 Glucose 153 H POC Glucose Estimat Average Glucose Hemoglobin A1c Calcium 11.8 H Magnesium Total Bilirubin 0.2 AST 14 L ALT 18 Alkaline Phosphatase 108 Total Protein 8.2 Albumin 3.2 L Globulin 5.0 H Albumin/Globulin Ratio 0.6 L Lipase 233 Urine Color Yellow Urine Appearance Clear Urine pH 6.5 Ur Specific [place] 1.015 Urine Protein 3+ H Urine Glucose (UA) Trace H Urine Ketones Negative Urine Blood 1+ H Urine Nitrite Negative Urine Bilirubin Negative Urine Urobilinogen Negative Ur Leukocyte Esterase Trace H Urine WBC (Auto) 10-30 H Urine RBC (Auto) 0-4 U Hyaline Cast (Auto) 1-5 U Epithel Cells (Auto) >30 H Urine Bacteria (Auto) 2+ H 09/17/18 09/17/18 09/17/18 02:01 05:19 05:19 WBC 9.84 RBC 3.44 L Hgb 9.7 L Hct 29.2 L MCV 84.9 MCH 28.2 MCHC 33.2 RDW Std Deviation 45.1 RDW Coeff of Talisha 14.5 Plt Count 211 MPV 8.6 Immature Gran % (Auto) 0.1 Neut % (Auto) 63.1 Lymph % (Auto) 22.7 [place] % (Auto) 9.6 Eos % (Auto) 4.3 Baso % (Auto) 0.2 Immature Gran # (Auto) 0.01 Neut # (Auto) 6.22 Lymph # (Auto) 2.23 [place] # (Auto) 0.94 H Eos # (Auto) 0.42 Baso # (Auto) 0.02 Sodium 137 Potassium 3.6 Chloride 100 Carbon Dioxide 29 Anion Gap 8.0 BUN 85 H Creatinine 4.62 H* Est Cr Clr Drug Dosing 14.2 Est GFR ( Amer) 11.3 Est GFR (Non-Af Amer) 9.8 BUN/Creatinine Ratio 18.0 Glucose 111 H POC Glucose 111 H Estimat Average Glucose Hemoglobin A1c Calcium 10.8 H Magnesium 2.4 Total Bilirubin AST ALT Alkaline Phosphatase Total Protein Albumin Globulin Albumin/Globulin Ratio Lipase Urine Color Urine Appearance Urine pH Ur Specific [place] Urine Protein Urine Glucose (UA) Urine Ketones Urine Blood Urine Nitrite Urine Bilirubin Urine Urobilinogen Ur Leukocyte Esterase Urine WBC (Auto) Urine RBC (Auto) U Hyaline Cast (Auto) U Epithel Cells (Auto) Urine Bacteria (Auto) 09/17/18 09/17/18 05:19 07:27 WBC RBC Hgb Hct MCV MCH MCHC RDW Std Deviation RDW Coeff of Talisha Plt Count MPV Immature Gran % (Auto) Neut % (Auto) Lymph % (Auto) [place] % (Auto) Eos % (Auto) Baso % (Auto) Immature Gran # (Auto) Neut # (Auto) Lymph # (Auto) [place] # (Auto) Eos # (Auto) Baso # (Auto) Sodium Potassium Chloride Carbon Dioxide Anion Gap BUN Creatinine Est Cr Clr Drug Dosing Est GFR ( Amer) Est GFR (Non-Af Amer) BUN/Creatinine Ratio Glucose POC Glucose 106 H Estimat Average Glucose 174 Hemoglobin A1c 7.7 H Calcium Magnesium Total Bilirubin AST ALT Alkaline Phosphatase Total Protein Albumin Globulin Albumin/Globulin Ratio Lipase Urine Color Urine Appearance Urine pH Ur Specific [place] Urine Protein Urine Glucose (UA) Urine Ketones Urine Blood Urine Nitrite Urine Bilirubin Urine Urobilinogen Ur Leukocyte Esterase Urine WBC (Auto) Urine RBC (Auto) U Hyaline Cast (Auto) U Epithel Cells (Auto) Urine Bacteria (Auto) (1) Back pain Back pain laterality: bilateral Back pain location: low back pain Chronicity: acute Sciatica laterality: bilateral sciatica Sciatica presence: with sciatica Qualified Code(s): M54.42 - Lumbago with sciatica, left side; M54.41 - Lumbago with sciatica, right side
[2018-09-17] MEDS ORDERED: DOCUSATE SODIUM 100 MG CAP PO ONE (10:21)
[2018-09-17] MEDS: ONDANSETRON INJ 2 MG/ML 2 ML VIAL IV PRN ×2 (12:07→19:32)
--- NOTE | 2018-09-17 14:32 | Hospitalist Progress Note ---
Date of Service September 17, 2018 Assessment & Plan (1) Back pain: Patient is a 57 Yr female who presents with progressively worsening back pain, leg numbness, constipation. She was found to have JEN on CKD, Hypercalcemia, Abnormal UA, renal mass. Back pain/leg numbness Gradually worsening over weeks as per patient Symptoms resolved with pain medications Lumbar CT:No fractures within the lumbar spine. Consider MRI spine if recurrence of symptoms DD: musculoskeletal in origin, ? muscle pain due to Hypercalcemia Numbness could be from diabetic neuropathy PT/OT consulted Acute kidney injury on CKD V Baseline Cr: 3.82 likely progressive diabetic nephropathy Cr: 4.83>>4.62 Received gentle IV fluids Avoid Nephrotoxic agents as able No indication for dialysis currently Appreciate Nephrology Input Resume diuretics as able Needs follow up with Nephrology upon discharge Left Renal Mass: CT ABD: 4.4 cm lesion within the left renal sinus which does not clearly represent a simple cyst. Therefore, dedicated renal CT or MRI is recommended to assess for the possibility of a renal mass. No hematuria Needs Renal CT/ MRI as outpatient Hypercalcemia Constipation On Calcitriol and Vitamin D supplements at home Received IV fluids Calcium levels: 11.8>>>10.8 Monitor calcium levels Check PTH, Vit D 25 OH levels, Ionized calcium Hold Vit D supplements Further work up based on above results Continue bowel regimen for constipation Splenic Lesion: Incidental finding on CT USD:A few septated cystic lesions within the spleen that measure up to 2.6 cm. These are likely benign. Abnormal UA: Likely contaminated sample Patient denies urinary symptoms Afebrile, No leukocytosis Urine Culture:pending No Antibiotics for now DM II: A1C:7.7 Continue ISS, Lantus Hypertension Stable Continue Amlodipine, Cardizem and Toprol-XL Monitor Hypothyroidism Continue Levothyroxine Check TSH H/O Diastolic congestive heart failure No signs of volume overload Resume diuretics as able Possible sarcoidosis Incidental finding on CT Reports chronic dry cough Needs further work up--CT chest as outpatient DVT Px: SCDs Code Status: Full Code Disposition: PT/OT prior to discharge Subjective Patient is seen and examined at bedside Reports chronic dry cough unchanged Also reports constipation Back pain, leg numbness resolved with pain medication Denies any chest pain, shortness of breath, dizziness, nausea, dysuria, hematuria, increased urinary frequency, abdominal pain Eager to get discharged Review of Systems Review of Systems: All systems reviewed & are unremarkable except as noted in HPI & below Physical Exam Physical Exam: Physical Exam: Vitals signs as noted above General Appearance:Obese, no apparent distress Head: normocephalic, Atraumatic Eyes: normal inspection, EOMI Neck: supple, Trachea midline Respiratory/Chest: Normal breath sounds, CTA Cardiovascular: S1, S2, No murmur Abdomen/GI:Soft, Non tender, Bowel sounds present Extremities/Musculoskelatal:normal inspection, 1+ B/L LE edema Neurologic/Psych:AAOX3, grossly no focal neurological deficits Skin: normal color, warm Results & Data Vital Signs (Past 12 Hours) Vital Signs Temp Pulse Resp BP Pulse Ox 09/17/18 11:32 36.5 C 68 18 133/73 95 09/17/18 07:00 36.4 C L 74 20 149/76 H 90 Laboratory Results Short CBC 09/16/18 09/17/18 Range/Units 20:16 05:19 WBC 10.77 9.84 (4.8-10.8) K/uL Hgb 9.9 L 9.7 L (12.0-16.0) g/dL Hct 30.2 L 29.2 L (37-47) % Plt Count 280 211 (130-400) K/uL BMP 09/16/18 09/17/18 20:16 05:19 Sodium 136 137 Potassium 3.8 3.6 Chloride 96 L 100 Carbon Dioxide 29 29 BUN 84 H 85 H Creatinine 4.83 H* 4.62 H* Glucose 153 H 111 H Calcium 11.8 H 10.8 H Liver Function 09/16/18 Range/Units 20:16 Total Bilirubin 0.2 (0.2-1) mg/dl AST 14 L (15-37) U/L ALT 18 (12-78) U/L Alkaline Phosphatase 108 (45-117) U/L Albumin 3.2 L (3.4-5.0) gm/dl Urine 09/17/18 Range/Units 00:25 Urine Color Yellow Urine Appearance Clear (Clear) Urine pH 6.5 (4.5-7.5) Ur Specific [place] 1.015 (1.000-1.030) Urine Protein 3+ H (Negative) Urine Glucose (UA) Trace H (Negative) (1) Back pain Back pain laterality: bilateral Back pain location: low back pain Chronicity: acute Sciatica laterality: bilateral sciatica Sciatica presence: with sciatica Qualified Code(s): M54.42 - Lumbago with sciatica, left side; M54.41 - Lumbago with sciatica, right side
[2018-09-17] MEDS ORDERED: PHARMACY GLYCEMIC MGMT CONSULT PRN (20:51)
[2018-09-17] MEDS ORDERED: ASPIRIN 81 MG ECTAB PO SCH (21:00)
[2018-09-17] MEDS ORDERED: ATORVASTATIN 40 MG TAB PO SCH (21:00)
[2018-09-17] MEDS ORDERED: CHOLECALCIFEROL 1,000 UNITS TAB PO SCH (21:00)
[2018-09-17] MEDS: DOCUSATE SODIUM 100 MG CAP PO SCH (21:07)
[2018-09-18] MEDS: HYDROmorphone INJ 0.5 MG/0.5 ML SYR IV PRN ×2 (00:03→00:24)
[2018-09-18] MEDS ORDERED: INSULIN ASPART 100 UNITS/ML 3 ML PEN SC SCH (02:00)
[2018-09-18] MEDS: LEVOTHYROXINE SODIUM 50 MCG TABLET PO SCH (06:17)
[2018-09-18 07:15] LABS: Hematocrit (blood only) 29.3 % (37-47); Hemoglobin 9.7 g/dL (12.0-16.0); Mean Corpuscular Hgb Conc 33.1 g/dL (32-36); Mean Corpuscular Volume 84.9 fL (80-100); Mean Platelet Volume 8.8 fL (7.4-10.4); Platelet Count 217 K/uL (130-400); RDW Coefficient of Variation 14.5 % (11.5-14.5); RDW Standard Deviation 45.1 fL (36.4-46.3); Red Blood Count 3.45 M/uL (4.2-5.4); White Blood Count 10.12 K/uL (4.8-10.8)
[2018-09-18] MEDS: DOCUSATE SODIUM 100 MG CAP PO SCH (07:34)
[2018-09-18] MEDS: TOLTERODINE TARTRATE 2 MG TAB PO SCH (07:34)
[2018-09-18] MEDS: dilTIAZem HCL 180 MG CAPCR PO SCH (07:34)
[2018-09-18] MEDS: AMLODIPINE BESYLATE 5 MG TAB PO SCH (07:34)
[2018-09-18] MEDS: METOPROLOL SUCC 50MG EXT REL TAB PO SCH (07:34)
[2018-09-18] MEDS: FLUTICASONE PROPIONATE NA SPR 16 GM BTL SCH (07:35)
[2018-09-18 07:57] LABS: BUN Creatinine Ratio 17.4 (10-20); Creatinine Clr Calc Pharmacy 14.1 ml/min; Est GFR (African American) 11.3; Est GFR (Non-African American) 9.7; Magnesium 2.6 mg/dl (1.8-2.4); Potassium 3.6 mmol/L (3.5-5.1)
[2018-09-18 08:16] LABS: T4 Free Thyroxine 1.39 ng/dl (0.8-1.6)
[2018-09-18] MEDS: INSULIN ASPART 100 UNITS/ML 3 ML PEN SC SCH ×2 (08:50→12:00)
[2018-09-18] MEDS ORDERED: INSULIN GLARGINE SOLOSTAR 100 UNITS/ML 3 ML PEN SC ONE (09:00)
[2018-09-18] MEDS ORDERED: CALCITRIOL 0.25 MCG CAPSULE PO SCH (09:00)
[2018-09-18] MEDS ORDERED: INSULIN GLARGINE 100 UNIT/ML VIAL SQ ONE (09:00)
--- NOTE | 2018-09-18 11:25 | Nephrology Progress Note ---
Date of Service September 18, 2018 Assessment & Plan (1) CKD (chronic kidney disease) stage 5, GFR less than 15 ml/min: Patient with the CKD stage V due to diabetic nephropathy. She has nephrotic range proteinuria. Creatinine on admission was 4.8 and down 4.6 this morning. She had a baseline creatinine of 3.8, 2 months ago. This is likely progressive diabetic nephropathy. Her electrolytes are stable with no signs of volume overload. No indication for dialysis today but she is close to needing HD. Will continue dialysis preparations outpatient. Avoid nephrotoxins such as contrast unless lifesaving. Patient can be discharged on lasix 40mg bid. From renal stand point, she can be discharged and see me in the office next week. She is also seeing a surgeon next week to discuss AVF creation. (2) Hypertension: Her blood pressure is Controlled on current regimen. Continue her current antihypertensive regimen. (3) Anemia of chronic renal failure, stage 5: Hemoglobin of 9.9 today. Will check iron stores. She might need WILLIAM but this can be given as an outpatient. (4) Back pain: Back pain likely musculoskeletal pain. Continue pain medication as needed. She might benefit from sports medicine orthopedic evaluation. Avoid NSAIDs. I discussed avoiding NSAIDs with the patient. (5) Renal mass, left: Patient was found to have a 4.4 cm lesion on the left kidney on CT abdomen. She has no hematuria on urinalysis yesterday. We will follow-up with repeat imaging as an outpatient. (6) Hyperparathyroidism due to renal insufficiency: Ca is above target. She might have a component of primary hyperparathyroidism. Will stop calcitriol as she is vit D replete. Subjective Patient seen in follow up for CKD 5 and back pain. She feels better and wants to go home. She is seeing a surgeon next week to discuss AV fistula creation. No SOB or urinary symptoms. No leg swelling. Back pain improved with pain medicine. She is anxious of MRI machine. Review of Systems Review of Systems: All systems reviewed & are unremarkable except as noted in HPI & below Physical Exam Physical Exam: General exam: Appears comfortable, no acute distress HEENT: Pupils are equal and reactive to light Neck: No JVD, neck is supple trachea is midline Respiratory system: Clear breath sounds bilaterally. Gastrointestinal: Abdomen is soft, non distended, non tender, bowel sounds are present CVS: Regular rate and rhythm. No murmurs, rubs or gallops Musculoskeletal: No joint or muscle tenderness Extremities: Non tender, no edema, peripheral pulses are present Neuro: Oriented, no tremors, no focal neurological deficits Skin: No rashes Results & Data Vital Signs (Past 12 Hours) Vital Signs Temp Pulse Resp BP BP Pulse Ox 09/18/18 11:14 36.9 C 67 18 130/65 96 09/18/18 07:04 36.4 C L 73 18 132/67 90 09/18/18 04:30 36.4 C L 76 16 138/68 91 09/17/18 23:41 36.5 C 78 18 110/62 91 Laboratory Results Laboratory Results - last 24 hr 09/17/18 09/17/18 09/17/18 11:48 16:42 20:15 WBC RBC Hgb Hct MCV MCH MCHC RDW Std Deviation RDW Coeff of Talisha Plt Count MPV Sodium Potassium Chloride Carbon Dioxide Anion Gap BUN Creatinine Est Cr Clr Drug Dosing Est GFR ( Amer) Est GFR (Non-Af Amer) BUN/Creatinine Ratio Glucose POC Glucose 167 H 132 H 74 Calcium Ionized Calcium Magnesium 25-OH Vitamin D Total TSH Free T4 PTH Intact 09/18/18 09/18/18 09/18/18 02:01 06:46 06:46 WBC 10.12 RBC 3.45 L Hgb 9.7 L Hct 29.3 L MCV 84.9 MCH 28.1 MCHC 33.1 RDW Std Deviation 45.1 RDW Coeff of Talisha 14.5 Plt Count 217 MPV 8.8 Sodium 139 Potassium 3.6 Chloride 102 Carbon Dioxide 30 Anion Gap 7.0 BUN 81 H Creatinine 4.63 H* Est Cr Clr Drug Dosing 14.1 Est GFR ( Amer) 11.3 Est GFR (Non-Af Amer) 9.7 BUN/Creatinine Ratio 17.4 Glucose 89 POC Glucose 83 Calcium 11.0 H Ionized Calcium Magnesium 2.6 H 25-OH Vitamin D Total TSH 0.151 L Free T4 1.39 PTH Intact 09/18/18 09/18/18 09/18/18 06:46 06:46 06:46 WBC RBC Hgb Hct MCV MCH MCHC RDW Std Deviation RDW Coeff of Talisha Plt Count MPV Sodium Potassium Chloride Carbon Dioxide Anion Gap BUN Creatinine Est Cr Clr Drug Dosing Est GFR ( Amer) Est GFR (Non-Af Amer) BUN/Creatinine Ratio Glucose POC Glucose Calcium Ionized Calcium 1.36 H Magnesium 25-OH Vitamin D Total 41.8 TSH Free T4 PTH Intact 58.6 09/18/18 07:35 WBC RBC Hgb Hct MCV MCH MCHC RDW Std Deviation RDW Coeff of Talisha Plt Count MPV Sodium Potassium Chloride Carbon Dioxide Anion Gap BUN Creatinine Est Cr Clr Drug Dosing Est GFR ( Amer) Est GFR (Non-Af Amer) BUN/Creatinine Ratio Glucose POC Glucose 103 H Calcium Ionized Calcium Magnesium 25-OH Vitamin D Total TSH Free T4 PTH Intact (1) Back pain Back pain laterality: bilateral Back pain location: low back pain Chronicity: acute Sciatica laterality: bilateral sciatica Sciatica presence: with sciatica Qualified Code(s): M54.42 - Lumbago with sciatica, left side; M54.41 - Lumbago with sciatica, right side
--- NOTE | 2018-09-18 11:39 | Pharmacy Report ---
Glycemic Control Consultation - Date of Service September 18, 2018 - Scope Scope: Glycemic Pharmacist consulted for glycemic control and to write orders per [facility] inpatient glycemic control protocol - Objective Weight: 90.1 kg Accuchecks BSG (last 24hrs): 09/17/18 09/17/18 09/17/18 11:48 16:42 20:15 Glucose POC Glucose 167 H 132 H 74 09/18/18 09/18/18 09/18/18 02:01 06:46 07:35 Glucose 89 POC Glucose 83 103 H Laboratory Data (last 24hrs): 09/18/18 06:46 Potassium 3.6 Carbon Dioxide 30 Anion Gap 7.0 Creatinine 4.63 H* Est Cr Clr Drug Dosing 14.1 HbA1c: 7.7 % (4.5-5.6) H 09/17/18 05:19 - Recent Pertinent Medications Outpatient Anti-diabetic Regimen: * Basaglar 50 units SC qAM, 30 units qPM * Semaglutide 0.25 mg SC qWK * A1c = 7.7 % on 09/17/18 The patient is currently receiving: * Basal insulin: Lantus 50 units SC x1 530 AM * Correctional Insulin: Novolog Correction per scale ACHS Goal Range: Low 120 mg/dL - High 160 mg/dL Correction Factor: 30 mg/dL/unit * Prandial insulin: Per carb ratio of 1 unit per 10 grams CHO consumed Risk Factors for Insulin Resistance: * Diet: T2DM - Assessment & Plan Assessment & Plan: ASSESSMENT: * 57 yo F with T2DM admitted with back pain, leg numbness, constipation; found to have JEN on CKD, hypercalcemia, renal mass * Pharmacy consulted 09/17 PM 2nd near hypoglycemic event - BSG ranged 74-167 mg/dL yesterday * Patient's outpatient Basaglar regimen will likely be too aggressive as an inpatient as Basaglar is the only insulin and likely covers some CHO intake. Will therefore decrease basal insulin significantly ongoing (as compared to outpatient) * BSG's decreased significantly from dinner to HS yesterday (132 to 74 mg/dL) - possibly 2nd too aggressive CHO ratio. Will loosen, starting at lunch. * BSG also decreased slightly from breakfast to lunch today (103 to 94 mg/dL) - Will loosen further, starting at dinner. PLAN FOR INPATIENT GLYCEMIC CONTROL: * Basal insulin * Lantus 45 units SQ x1 this AM * Bolus insulin * NovoLog per scale ACHS or Q6hrs while NPO * Goal Range: Low 120 mg/dL - High 150 mg/dL * Correction Factor: 35 mg/dL/unit * Nutritional / Prandial insulin per carb ratio of 1 unit per 14 grams CHO consumed * Please note that the plan above was derived based on current level of insulin resistance and hospital stress. These recommendations are appropriate for inpatient admission only. Plan of care upon discharge will need to be reassessed to avoid potential outpatient hypo/hyperglycemia. Thank you.
--- NOTE | 2018-09-18 13:59 | Hospitalist Progress Note ---
Date of Service September 18, 2018 Assessment & Plan (1) Acute kidney injury: Serum creatinine at time of admission 4.83 compared to baseline of 3.8. Acute kidney injury superimposed on CKD 5. Nephrology consulted. Hemodialysis anticipated in the near future, but no need for emergent dialysis. (2) CKD (chronic kidney disease) stage 5, GFR less than 15 ml/min: As discussed above. (3) Hypercalcemia: Serum calcium at time of admission was 11.8. Calcitriol and cholecalciferol were held. 25 hydroxy vitamin D level was 41. PTH was 58 (normal range 1880). Calcium 11.0 on day of discharge. Should have outpatient SPEP / UIEP if not already done. Follow. (4) Renal mass, left: Noted to have 4.4 lesion within the left renal sinus. MRI recommended for further evaluation, but patient declined due to severe claustrophobia. Lesion probably benign, but follow-up recommended. Further evaluation per Nephrology. (5) Splenic lesion: Splenic lesion measuring 2.[address] was noted on [address] of abdomen. Ultrasound demonstrated a few septated cystic lesions within the spleen that measured up to 2.6 cm, felt likely to be benign. (6) Anemia of chronic renal failure, stage 5: Hemoglobin 9.79.9.. Probable anemia of chronic kidney disease stage V. Management per Nephrology. (7) Numbness and tingling of both legs: Patient has been experiencing paresthesia of both lower extremities for some time. Tried gabapentin, but did not tolerate it. Scheduled for outpatient nerve conduction velocities. CT of lumbar spine did not show any cord/root concerns. Probable diabetic neuropathy. Symptoms may have been worsened by hypercalcemia. Check outpatient nerve conduction studies as scheduled. (8) Hypertension: Continue amlodipine, diltiazem, metoprolol, furosemide. (9) Diabetes mellitus: Hemoglobin A1c 7.7. Continue usual regimen. (10) Hypothyroidism: TSH low at 0.151, but free T4 normal. Continue levothyroxine 50 mcg daily. Follow TFTs. (11) DVT prophylaxis: SCDs ordered. Ambulating. (12) Discharge planning issues: Discharge to home. Family Medicine follow-up with Dr. Magallanes. Renal follow-up with [facility]. Subjective Recheck for hypercalcemia and other problems. Feels better. Weakness and lower extremity paresthesiae improved. No fever. No chest pain, cough, shortness of breath. No nausea, vomiting, abdominal pain. Physical Exam Constitutional: no acute distress Respiratory: no respiratory distress Auscultation: lungs clear to auscultation bilaterally Cardiovascular: Rate/Rhythm: regular rate and regular rhythm Vessels: no JVD Extremities: normal capillary refill; no calf tenderness and no edema Gastrointestinal (Abdomen): normal bowel sounds, soft, nontender, no hepatosplenomegaly Musculoskeletal: Extremities: no cyanosis Skin: no rashes, warm and dry Psychiatric: Orientation: alert and oriented x 3 Results & Data Vital Signs (Past 12 Hours) Vital Signs Temp Pulse Resp BP BP Pulse Ox 09/18/18 11:14 36.9 C 67 18 130/65 96 09/18/18 07:04 36.4 C L 73 18 132/67 90 09/18/18 04:30 36.4 C L 76 16 138/68 91 Laboratory Results Sodium 139, potassium 3.6, chloride 102, CO2 30, BUN 81, creatinine 4.63, glucose 89, calcium 11.0, ionized calcium 1.36. (1) Diabetes mellitus Diabetes mellitus complication status: with unspecified complications Diabetes mellitus prison insulin use: unspecified prison insulin use status Diabetes mellitus type: other specified (including GERALD) Qualified Code(s): E13.8 - Other specified diabetes mellitus with unspecified complications
[2018-09-18] MEDS ORDERED: FUROSEMIDE 40 MG TAB PO SCH (17:00)
--- NOTE | 2018-09-21 00:05 | Discharge Summary ---
Date of Service Date of Admission: 09/17/18 Date of Discharge: 09/18/18 Admission HPI Per Admitting Provider This is a 57-year-old female with past medical history significant for type 2 diabetes, proliferative diabetic retinopathy, hypoparathyroidism, hyperlipidemia, hypothyroidism, diastolic CHF, chronic kidney disease stage V, nephrotic range proteinuria, morbid obesity, presents with back pain. The patient says since last 2 weeks she is having back pain which is getting progressively worsened. She is also having some numbness in the lower extremity. In the ER, she received morphine and now says the pain is gone and even the numbness is gone. She got panic attack for the MRI, she could not do MRI. Lumbar spine CT was okay. The patient is ambulating okay at home. She no longer can climb steps. . Lives with her . Having headaches, recently she had cataract surgeries and the cataract are not settled yet . 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 No earache, has some runny nose, no sore throat, no difficulty swallowing. No dizziness. Appetite is not that great. No nausea, no vomiting, no chest pain, no shortness of breath, no cough, no fever, no chills, no abdominal pain, makes some urine but no bloody micturition or blood in the urine. She is constipated, but last bowel movement was over 4 days ago. No black stools or blood in the stools. No rash seen. Currently hemodynamically stable. She follows with nephrology for chronic kidney disease, creatinine was about 3.8 in june 2018. She says she checks her sugars at home regularly, but does not check her blood pressure, she states her sugar was at 144 in the morning today. Admission Exam Per Admitting Provider GENERAL: The patient is obese, not in acute distress. VITAL SIGNS: Temperature 36.8, pulse 70, respiratory rate 20, blood pressure 147/75, oxygen 98% on 2 liters. HEENT: No pallor, no icterus. Pupils equal, round, reactive to light. NECK: No JVD. No neck masses, no carotid bruits. CARDIOVASCULAR: S1, S2 heard, regular rate and rhythm, no murmur, no gallop. RESPIRATORY SYSTEM: Normal AP diameter. No accessory muscle use. No wheezing, no crackles. ABDOMEN: Soft, bowel sounds present. Mild right lower quadrant discomfort. No guarding, no rigidity. CENTRAL NERVOUS SYSTEM: Cranial nerves II-XII grossly nonfocal. MUSCULOSKELETAL: Mild lower lumbar spine point tenderness present. EXTREMITIES: Mild bilateral pedal edema. Power 5/5 in lower extremities. Principal Diagnosis acute kidney injury CKD V hypercalcemia left renal mass lower extremity paresthesiae Discharge Data Allergies Allergy/AdvReac Type Severity Reaction Status Date / Time gabapentin Allergy Unknown Verified 09/16/18 20:48 lisinopril AdvReac Intermediate COUGHING Verified 06/23/18 06:38 Consultations 09/16/18 23:32 ED Decision to Admit Stat 09/17/18 01:39 Consult Case Management - Discharge Planning Routine 09/17/18 08:00 Consult Nephrology Routine Ordered Studies 09/16/18 21:48 CT abd pelvis wo con Stat CT lumbar spine wo con Stat 09/17/18 07:18 US abdomen limited Routine Hospital Course (1) Acute kidney injury: Serum creatinine at time of admission 4.83 compared to baseline of 3.8. Acute kidney injury superimposed on CKD 5. Nephrology consulted. Hemodialysis anticipated in the near future, but no need for emergent dialysis. (2) CKD (chronic kidney disease) stage 5, GFR less than 15 ml/min: As discussed above. (3) Hypercalcemia: Serum calcium at time of admission was 11.8. Calcitriol and cholecalciferol were held. 25 hydroxy vitamin D level was 41. PTH was 58 (normal range 1880). Calcium 11.0 on day of discharge. Should have outpatient SPEP / UIEP if not already done. Follow. (4) Renal mass, left: Noted to have 4.4 lesion within the left renal sinus. MRI recommended for further evaluation, but patient declined due to severe claustrophobia. Lesion probably benign, but follow-up recommended. Further evaluation per Nephrology. (5) Splenic lesion: Splenic lesion measuring 2.[address] cm was noted on CT of abdomen. Ultrasound demonstrated a few septated cystic lesions within the spleen that measured up to 2.6 cm, felt likely to be benign. (6) Anemia of chronic renal failure, stage 5: Hemoglobin 9.79.9.. Probable anemia of chronic kidney disease stage V. Management per Nephrology. (7) Numbness and tingling of both legs: Patient has been experiencing paresthesia of both lower extremities for some time. Tried gabapentin, but did not tolerate it. Scheduled for outpatient nerve conduction velocities. CT of lumbar spine did not show any cord/root concerns. Probable diabetic neuropathy. Symptoms may have been worsened by hypercalcemia. Check outpatient nerve conduction studies as scheduled. (8) Hypertension: Continue amlodipine, diltiazem, metoprolol, furosemide. (9) Diabetes mellitus: Hemoglobin A1c 7.7. Continue usual regimen. (10) Hypothyroidism: TSH low at 0.151, but free T4 normal. Continue levothyroxine 50 mcg daily. Follow TFTs. (11) DVT prophylaxis: SCDs ordered. Ambulating. (12) Discharge planning issues: Discharge to home. Family Medicine follow-up with Dr. Magallanes. Renal follow-up with [facility]. Total Time Total Time Spent Total Time Spent (In Minutes): 40 Discharge Plan Discharge Items Patient Disposition: Home - Self-Care Reason For Visit: burning & numbness in legs Discharge Diagnosis: burning & numbness in legs high calcium level Condition: Fair Discharge Goals: Decrease discomfort Activity: As commented below Activity Comment: no heavy lifting Non-emergency contact: Primary Care Provider, Hospitalist and Wire Charger Call non-emergency contact if: you have any medication questions, your symptoms worsen and your pain is not controlled Follow-up/Referrals: Jose Magallanes MD [Primary Care Provider] - (09/28/2018 10:00 AM Jose Magallanes MD) Clarke Diamond MD [Physician] - (09/21/2018 9:20 AM Clarke Diamond MD Neurophysiology [facility]) Frank Santana M.D. [Staff Physician] - (09/24/2018 9:30 AM [facility]) Eugenia Mireles MD [Physician] - (09/25/2018 3:20 PM Eugenia Mireles MD) Diet: Carb Consistent or DM2, Heart Healthy, Low Potassium (2gm) and Low Sodium (2gm) Addtl Provider Instructions: Stop taking cholecalciferol (vitmin D) and calcitriol (Rocaltrol) for now- they can cause high calcium levels. Change furosemide (Lasix) to 40 mg twice a day. Try tramadol (Ultram) for pain. May take 50 mg twice a day as needed. Do not take any anti-inflammatory pain medications like ibuprofen (Advil, Motrin, and others), naproxen (Aleve), or other similar medications. They can be harmful to kidneys. Your leg discomfort may be due to high calcium level, neuropathy, or a combination of the 2. Nerve studies to be done on 09/21 may give more information. Please discuss results with Dr. Padilla when you see him. There was a spot in the left kidney. Dr. Mireles will follow. OTHER INSTRUCTIONS: Seek medical attention if you have: * temperature above 101 * chest pain or trouble breathing * abdominal pain, nausea, vomiting * diarrhea, dark stools or bloody stools * any unanswered questions or concerns Call 911 if symptoms are severe. Call if you have any questions or problems. My cell # is [phone]. You can also reach a [facility] hospitalist on duty at [facility] 24 hours a day by calling [phone]. Prescriptions: New furosemide 40 mg tablet 40 mg PO BID Qty: 60 RF: 0 tramadol 50 mg tablet 50 mg PO BID PRN (Reason: pain) Qty: 10 RF: 0 Continued diltiazem HCl [Cartia XT] 180 mg capsule,extended release 24hr 180 mg PO DAILY RF: 0 fluticasone propionate [Flonase Allergy Relief] 50 mcg/actuation [place],Suspension 2 spray INTRANASAL DAILY RF: 0 Basaglar KwikPen U-100 Insulin 100 unit/mL (3 mL) insulin pen See Rx Instructions .ROUTE .COMPLEX RF: 0 Ozempic 0.25 mg or 0.5 mg(2 mg/1.5 mL) pen injector 0.25 mg subcut WK RF: 0 atorvastatin 80 mg Tablet 80 mg PO HS RF: 0 metoprolol succinate 50 mg Tablet Extended Release 24 Hr 75 mg PO BID RF: 0 aspirin [Aspirin Low Dose] 81 mg Tablet,Delayed Release (Dr/Ec) 81 mg PO HS RF: 0 tolterodine 2 mg Tablet 2 mg PO BID RF: 0 amlodipine 10 mg Tablet 10 mg PO QAM RF: 0 levothyroxine 50 mcg Tablet 50 mcg PO QAM RF: 0 Basaglar KwikPen U-100 Insulin 100 unit/mL (3 mL) Insulin Pen 50 unit SUBCUT QAM RF: 0 Discontinued furosemide [Lasix] 40 mg tablet 40 mg PO QPM RF: 0 calcitriol [Rocaltrol] 0.25 mcg capsule 0.25 mcg PO 3XWK RF: 0 furosemide 40 mg Tablet 80 mg PO QAM RF: 0 cholecalciferol (vitamin D3) [Vitamin D3] 5,000 unit Tablet 5,000 unit PO HS RF: 0 Stand-Alone Forms: [facility] [employer] [facility]/Other Patient Handouts: Hyperglycemia, Hypoglycemia, Diabetes Type 2 Coping Discharge Orders: Discharge Order (Routine); Ordered 09/18/18 Ordered By: Clarke Womack Admission Data Admit Date/Time: 09/17/18 00:16 Attending Provider: Clarke Womack Admit Provider: aDnish [employer] Primary Care Provider: Jose Magallanes Other Providers: Danish [employer] ; Maria C Griffiths ; Mike Izquierdo ; Ernesto Christensen I ; Brianda Agee ; Ramona Christie Japheth E. ; Champ Min Service: Telemetry Other Interventions: Discharge Summary Assessment (RN) Last Done: 09/18/18 15:06 DC Date/Time DO NOT enter until pt leaves facility: 09/18/18 16:42
== END 2018-09-18 16:42 | disposition home or self-care (01) | DRG 683 ==
LOC: ED 18:35 → 2W 09-17 00:16 → SUATTDRO 09-17 00:16 → 2W 09-17 01:20

== ENCOUNTER 2019-03-04 18:58 | Inpatient (IN) ==
[2019-03-04] MEDS ORDERED: SODIUM CHLORIDE 0.9% 1000ML 1,000 ML IV SCH (19:30)
[2019-03-04 19:58] LABS: Basophils # (auto) 0.01 K/uL (0-0.2); Basophils % (auto) 0.1 %; Eosinophils # (auto) 0.34 K/uL (0-0.5); Eosinophils % (auto) 3.5 %; Hematocrit (blood only) 28.8 % (37-47); Hemoglobin 9.3 g/dL (12.0-16.0); Immature Granulocytes # (auto) 0.01 K/uL (0.00-0.02); Immature Granulocytes % (auto) 0.1 %; Lymphocytes % (auto) 18.5 %; Mean Corpuscular Hemoglobin 27.2 pg (25-34); Mean Corpuscular Hgb Conc 32.3 g/dL (32-36); Mean Corpuscular Volume 84.2 fL (80-100); Mean Platelet Volume 9.3 fL (7.4-10.4); Monocytes # (auto) 0.63 K/uL (0.11-0.59); Monocytes % (auto) 6.5 %; Neutrophils # (auto) 6.93 K/uL (1.4-6.5); Neutrophils % (auto) 71.3 %; Platelet Count 264 K/uL (130-400); RDW Coefficient of Variation 14.4 % (11.5-14.5); RDW Standard Deviation 43.5 fL (36.4-46.3); Red Blood Count 3.42 M/uL (4.2-5.4); White Blood Count 9.72 K/uL (4.8-10.8)
[2019-03-04 20:01] LABS: Base Excess VBG -3.6 mEq/L; Oxygen Saturation VBG 78.2 %; pH VBG 7.33 (7.36-7.41)
[2019-03-04 20:15] LABS: Alanine Aminotransferase 16 U/L (12-78); Albumin Level 2.7 gm/dl (3.4-5.0); Aspartate Aminotransferase 8 U/L (15-37); BUN Creatinine Ratio 16.8 (10-20); Blood Urea Nitrogen 74 mg/dl (7-18); Calcium 10.8 mg/dl (8.5-10.1); Carbon Dioxide 20 mmol/L (21-32); Chloride 103 mmol/L (98-107); Creatinine Clr Calc Pharmacy 13.8 ml/min; Est GFR (African American) 11.9; Est GFR (Non-African American) 10.3; Glucose 293 mg/dl (70-99); Lipase 224 U/L (73-393); Magnesium 2.1 mg/dl (1.8-2.4); Potassium 4.1 mmol/L (3.5-5.1); Sodium 136 mmol/L (136-145)
[2019-03-04 20:17] LABS: Partial Thromboplastin Time 26.8 Seconds (21.0-31.0)
[2019-03-04 20:26] LABS: Albumin Globulin Ratio 0.5 (0.9-2); Alkaline Phosphatase 129 U/L (45-117); Bilirubin,Total 0.2 mg/dl (0.2-1); Total Protein 7.7 gm/dl (6.4-8.2); Troponin I < 0.015 ng/ml (0-0.045)
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
[2019-03-04 22:00] LABS: Appearance Urine Clear (Clear); Bacteria Urine Automated Negative (Negative); Bilirubin Urine Negative (Negative); Blood Urine 1+ (Negative); Color Urine Yellow; Epithelial Cell Urine Auto >30 /lpf (0-5); Glucose Urine UA 3+ (Negative); Ketones Urine Negative (Negative); Leukocyte Esterase Urine Trace (Negative); Nitrite Urine Negative (Negative); Protein Urine 3+ (Negative); RBC Urine Automated 0-4 /hpf (0-4); Specific Gravity Urine 1.018 (1.000-1.030); Urobilinogen Urine Negative (Negative)
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
[2019-03-05] MEDS ORDERED: ACETAMINOPHEN 325 MG TAB PO PRN (00:47)
[2019-03-05] MEDS ORDERED: TRAMADOL HCL 50 MG TABLET PO PRN (00:47)
[2019-03-05] MEDS ORDERED: POLYETHYLENE (MIRALAX) 17 GM PACK PO PRN (00:47)
[2019-03-05] MEDS ORDERED: NITROGLYCERIN SL 0.4 MG/TAB TAB SL PRN (00:47)
[2019-03-05] MEDS ORDERED: ONDANSETRON INJ 2 MG/ML 2 ML VIAL IV PRN (00:47)
[2019-03-05] MEDS ORDERED: LORazepam 0.5 MG/1 ML VIAL IV STA (01:06)
[2019-03-05] MEDS ORDERED: LORazepam 2 MG/4 ML VIAL ONE (01:20)
[2019-03-05] MEDS ORDERED: GLUCAGON FOR INJ 1 MG VIAL IM PRN (01:30)
[2019-03-05] MEDS ORDERED: CARBOHYDRATES FOR HYPOGLYCEMIA PO PRN (01:30)
[2019-03-05] MEDS ORDERED: GLUCOSE 10 TABS/TUBE PO PRN (01:30)
[2019-03-05] MEDS ORDERED: DEXTROSE 50% 50 ML SYRINGE IV PRN (01:30)
[2019-03-05] MEDS ORDERED: GLUCOSE 40% GEL 15 GM TUBE PO PRN (01:30)
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
[2019-03-05 05:33] LABS: Basophils # (auto) 0.01 K/uL (0-0.2); Basophils % (auto) 0.1 %; Eosinophils # (auto) 0.46 K/uL (0-0.5); Eosinophils % (auto) 3.5 %; Hematocrit (blood only) 29.5 % (37-47); Hemoglobin 9.7 g/dL (12.0-16.0); Immature Granulocytes # (auto) 0.03 K/uL (0.00-0.02); Immature Granulocytes % (auto) 0.2 %; Lymphocytes # (auto) 1.92 K/uL (1.2-3.4); Lymphocytes % (auto) 14.7 %; Mean Corpuscular Hemoglobin 27.5 pg (25-34); Mean Corpuscular Hgb Conc 32.9 g/dL (32-36); Mean Corpuscular Volume 83.6 fL (80-100); Mean Platelet Volume 8.8 fL (7.4-10.4); Monocytes # (auto) 0.91 K/uL (0.11-0.59); Neutrophils # (auto) 9.76 K/uL (1.4-6.5); Neutrophils % (auto) 74.5 %; Platelet Count 276 K/uL (130-400); RDW Coefficient of Variation 14.4 % (11.5-14.5); RDW Standard Deviation 43.9 fL (36.4-46.3); Red Blood Count 3.53 M/uL (4.2-5.4); White Blood Count 13.09 K/uL (4.8-10.8)
[2019-03-05 06:03] LABS: BUN Creatinine Ratio 16.4 (10-20); Calcium 10.3 mg/dl (8.5-10.1); Creatinine Clr Calc Pharmacy 14.8 ml/min; Est GFR (African American) 12.1; Est GFR (Non-African American) 10.5; Magnesium 2.1 mg/dl (1.8-2.4); Potassium 4.4 mmol/L (3.5-5.1)
[2019-03-05] MEDS: LEVOTHYROXINE SODIUM 50 MCG TABLET PO SCH (06:10)
[2019-03-05 06:26] LABS: Estimated Average Glucose 203 mg/dl; Hemoglobin A1C 8.7 % (4.5-5.6)
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
[2019-03-05] MEDS: dilTIAZem HCL 180 MG CAPCR PO SCH (09:48)
[2019-03-05] MEDS: METOPROLOL SUCC 25MG EXT REL TAB PO SCH ×2 (09:48→20:36)
[2019-03-05] MEDS: TOLTERODINE TARTRATE 2 MG TAB PO SCH ×2 (09:48→20:37)
[2019-03-05] MEDS: FUROSEMIDE 40 MG TAB PO SCH ×2 (09:48→20:34)
[2019-03-05] MEDS: AMLODIPINE BESYLATE 5 MG TAB PO SCH (09:48)
[2019-03-05] MEDS: INSULIN GLARGINE SOLOSTAR 100 UNITS/ML 3 ML PEN SQ SCH ×2 (09:49→20:44)
[2019-03-05] MEDS: INSULIN ASPART 100 UNITS/ML 3 ML PEN SC SCH ×4 (09:51→20:43)
[2019-03-05] MEDS: PREGABALIN 25 MG CAP PO SCH ×2 (09:56→20:39)
--- NOTE | 2019-03-05 10:21 | Electroencephalogram ---
EEG Procedure Note Date of Service March 05, 2019 Start / End Times Start Time: 0 800 End Time: [address] Church History Recurrent syncope question seizures Home Medication List Home Medications Medication Instructions Recorded Confirmed Type Basaglar KwikPen U-100 Insulin 50 unit SUBCUT QAM 05/07/18 03/04/19 History amlodipine 10 mg PO QAM 05/07/18 03/04/19 History aspirin [Aspirin Low Dose] 81 mg PO HS 05/07/18 03/04/19 History atorvastatin 80 mg PO HS 05/07/18 03/04/19 History levothyroxine 50 mcg PO QAM 05/07/18 03/04/19 History metoprolol succinate 75 mg PO BID 05/07/18 03/04/19 History tolterodine 2 mg PO BID 05/07/18 03/04/19 History Basaglar KwikPen U-100 Insulin 30 unit SUBCUT 09/16/18 03/04/19 History diltiazem HCl [Cartia XT] 180 mg PO QAM 09/16/18 03/04/19 History furosemide 40 mg PO BID #60 tab 09/18/18 03/04/19 Rx tramadol 50 mg PO BID PRN #10 tab 09/18/18 03/04/19 Rx ondansetron HCl 4 mg PO Q8H PRN 10/20/18 03/04/19 History polyethylene glycol 3350 [Miralax] 17 gm PO BID PRN 10/20/18 03/04/19 History pregabalin [Lyrica] 25 mg PO BID 03/04/19 03/04/19 History Inpatient Medication List Amlodipine Besylate (Norvasc) 10 mg PO QAM [facility] Stop: 04/04/19 08:59 Last Admin: 03/05/19 09:48 Dose: 10 mg Documented by: [id number] Diltiazem HCl (Cardizem Cd) 180 mg PO QAM [facility] Stop: 04/04/19 08:59 Last Admin: 03/05/19 09:48 Dose: 180 mg Documented by: [id number] Furosemide (Lasix) 40 mg PO BID [facility] Stop: 04/04/19 08:59 Last Admin: 03/05/19 09:48 Dose: 40 mg Documented by: [id number] Insulin Aspart (Novolog Flexpen) 0 units SC ACHS [facility] Stop: 04/04/19 07:29 Last Admin: 03/05/19 09:51 Dose: 3 units Documented by: [id number] Cosigned by: [id number] Insulin Glargine (Lantus Solostar Pen) 50 units SQ QAM [facility] Stop: 04/04/19 08:59 Last Admin: 03/05/19 09:49 Dose: 50 units Documented by: [id number] Cosigned by: [id number] Levothyroxine Sodium (Synthroid) 50 mcg PO DAILYBB [facility]TY Stop: 04/04/19 06:29 Last Admin: 03/05/19 06:10 Dose: 50 mcg Documented by: [id number] Metoprolol Succinate (Toprol Xl) 75 mg PO BID BETTY Stop: 04/04/19 08:59 Last Admin: 03/05/19 09:48 Dose: 75 mg Documented by: [id number] Pregabalin (Lyrica) 25 mg PO BID BETTY Stop: 04/04/19 08:59 Last Admin: 03/05/19 09:56 Dose: 25 mg Documented by: [id number] Tolterodine Tartrate (Detrol) 2 mg PO BID BETTY Stop: 04/04/19 08:59 Last Admin: 03/05/19 09:48 Dose: 2 mg Documented by: [id number] Discontinued Medications Sodium Chloride (Nss 1000ml) 1,000 mls @ 999 mls/hr IV .Q1H1M BETTY Stop: 03/04/19 20:30 Last Infusion: 03/04/19 21:00 Dose: 0 mls/hr Documented by: [id number] Admin: 03/04/19 19:40 Dose: 999 mls/hr Documented by: [id number] Lorazepam (Ativan) 0.5 mg in 1 mls @ 1 mls/min IV NOW STA Stop: 03/05/19 01:07 Last Admin: 03/05/19 01:24 Dose: Not Given Documented by: [id number] Lorazepam (Ativan) Confirm Administered Dose 2 mg .ROUTE .STK-MED ONE Stop: 03/05/19 01:21 Last Admin: 03/05/19 01:23 Dose: 0.5 mg Documented by: [id number] Description This is a 21 electrode EEG with a single channel dedicated to limited EKG. The electrodes were placed in accordance with the International 10-20 system. . This is a bedside recording without any photic stimulation or recorded drowsiness or light sleep. Patient does demonstrate quite a bit of movements and these artifacts are seen on the EEG tracing but sufficient amounts of artifact free recording are available for interpretation. During wakefulness there is evidence for a low amplitude background alpha rhythm of up to 10 Hz and maximum frequency and 20 V of maximal amplitude which is maximum posterior head regions bilaterally symmetrical. Polymorphic mid frequency relatively low amplitude theta activity is seen in a symmetrical fashion over the central regions. Beta activity seen bifrontally. At No time is there any evidence for potentially epileptogenic activity in the form of polyspike and spike-wave burst, focal sharp waves or focal spikes Interpretation This is a normal EEG during wakefulness without evidence for a focal generalized encephalopathy or evidence for potentially epileptogenic activity Clinical Correlation ssThis is a normal EEG revealing no evidence focal or generalized slow-wave activity and specifically no evidence for potentially epileptogenic discharges Clarke Diamond MD
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
[2019-03-05] MEDS: ATORVASTATIN 40 MG TAB PO SCH (20:35)
[2019-03-06] MEDS: LEVOTHYROXINE SODIUM 50 MCG TABLET PO SCH (06:34)
--- NOTE | 2019-03-06 08:41 | XRay Report ---
KUB HISTORY: Generalized abdominal pain COMPARISON: Chest and abdominal series 10/12/2018. FINDINGS: The bowel gas pattern is unremarkable. There are no dilated loops of small bowel to suggest an obstruction. No renal calculi. No ureteral calculi. No pneumoperitoneum or pneumatosis. Vascular calcifications are noted within the pelvis. Splenic artery calcifications are also identified. Small amount of well-formed stool within the colon. IMPRESSION: No evidence for bowel obstruction. Electronically signed by: Ernie Elizabeth M.D. 03/06/2019 8:40 AM
[2019-03-06] MEDS: TOLTERODINE TARTRATE 2 MG TAB PO SCH ×2 (09:06→21:01)
[2019-03-06] MEDS: METOPROLOL SUCC 25MG EXT REL TAB PO SCH ×2 (09:06→21:02)
[2019-03-06] MEDS: dilTIAZem HCL 180 MG CAPCR PO SCH (09:06)
[2019-03-06] MEDS: FUROSEMIDE 40 MG TAB PO SCH ×2 (09:06→21:01)
[2019-03-06] MEDS: AMLODIPINE BESYLATE 5 MG TAB PO SCH (09:06)
[2019-03-06] MEDS: INSULIN GLARGINE SOLOSTAR 100 UNITS/ML 3 ML PEN SQ SCH ×2 (09:07→21:09)
[2019-03-06] MEDS: INSULIN ASPART 100 UNITS/ML 3 ML PEN SC SCH ×4 (09:09→21:03)
[2019-03-06] MEDS: PREGABALIN 25 MG CAP PO SCH ×2 (09:10→21:11)
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
[2019-03-06] MEDS: ATORVASTATIN 40 MG TAB PO SCH (21:02)
[2019-03-07] MEDS: LEVOTHYROXINE SODIUM 50 MCG TABLET PO SCH (06:36)
[2019-03-07 06:52] LABS: BUN Creatinine Ratio 16.8 (10-20); Calcium 10.5 mg/dl (8.5-10.1); Creatinine Clr Calc Pharmacy 14.3 ml/min; Est GFR (African American) 11.6; Potassium 4.2 mmol/L (3.5-5.1)
[2019-03-07] MEDS: FUROSEMIDE 40 MG TAB PO SCH (09:02)
[2019-03-07] MEDS: INSULIN GLARGINE SOLOSTAR 100 UNITS/ML 3 ML PEN SQ SCH (09:02)
[2019-03-07] MEDS: METOPROLOL SUCC 25MG EXT REL TAB PO SCH (09:02)
[2019-03-07] MEDS: TOLTERODINE TARTRATE 2 MG TAB PO SCH (09:02)
[2019-03-07] MEDS: AMLODIPINE BESYLATE 5 MG TAB PO SCH (09:02)
[2019-03-07] MEDS: dilTIAZem HCL 180 MG CAPCR PO SCH (09:02)
[2019-03-07] MEDS: PREGABALIN 25 MG CAP PO SCH (09:04)
[2019-03-07] MEDS: INSULIN ASPART 100 UNITS/ML 3 ML PEN SC SCH ×2 (09:04→12:59)
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
== END 2019-03-07 13:49 | disposition home or self-care (01) | DRG 189 ==
LOC: ED 18:58 → 2E 23:07 → 4W 03-05 18:48

== ENCOUNTER 2019-06-29 01:33 | Inpatient (IN) ==
[2019-06-29] MEDS ORDERED: RAPID SEQUENCE INDUCTION BAG ONE (01:40)
[2019-06-29] MEDS ORDERED: INSULIN HUMAN REGULAR PER UNIT 10 UNITS in SYRINGE 9.9 ML IV SCH (01:44)
[2019-06-29] MEDS ORDERED: INSULIN HUMAN REGULAR SC STA (01:51)
[2019-06-29] MEDS ORDERED: SODIUM BICARB 8.4% INJ 50 MEQ/50 ML SYR IV STA (01:51)
[2019-06-29] MEDS ORDERED: CALCIUM GLUCONATE 10% 1,000 MG in SODIUM CHLORIDE 0.9% 50 ML IV STA ×2 (01:51→02:26)
[2019-06-29] MEDS ORDERED: DEXTROSE 50% 50 ML SYRINGE IV ONE (01:51)
[2019-06-29] MEDS ORDERED: ALBUT/IPRATROP 3MG/0.5MG NEB 3 ML VIAL NEB ONE (01:51)
[2019-06-29] MEDS ORDERED: NovoLIN-R INSULIN PER UNIT CHARGE ONE (01:58)
[2019-06-29 02:01] LABS: iSTAT Creatinine 5.5 mg/dl (0.6-1.3); iSTAT Hemoglobin 10.5 g/dl (12.0-16.0); iSTAT Ionized Calcium 1.06 mmol/l (1.12-1.32); iSTAT Potassium 5.8 mmol/L (3.3-5.0)
[2019-06-29 02:04] LABS: Basophils # (auto) 0.01 K/uL (0-0.2); Basophils % (auto) 0.1 %; Eosinophils # (auto) 0.15 K/uL (0-0.5); Eosinophils % (auto) 1.2 %; Hematocrit (blood only) 31.7 % (37-47); Hemoglobin 10.2 g/dL (12.0-16.0); Immature Granulocytes # (auto) 0.04 K/uL (0.00-0.02); Immature Granulocytes % (auto) 0.3 %; Lymphocytes # (auto) 1.28 K/uL (1.2-3.4); Lymphocytes % (auto) 10.5 %; Mean Corpuscular Hemoglobin 28.6 pg (25-34); Mean Corpuscular Hgb Conc 32.2 g/dL (32-36); Mean Corpuscular Volume 88.8 fL (80-100); Mean Platelet Volume 9.3 fL (7.4-10.4); Monocytes # (auto) 0.96 K/uL (0.11-0.59); Monocytes % (auto) 7.9 %; Neutrophils # (auto) 9.71 K/uL (1.4-6.5); Platelet Count 268 K/uL (130-400); RDW Coefficient of Variation 17.3 % (11.5-14.5); RDW Standard Deviation 56.4 fL (36.4-46.3); Red Blood Count 3.57 M/uL (4.2-5.4); White Blood Count 12.15 K/uL (4.8-10.8)
[2019-06-29] MEDS ORDERED: STAT IV Infusion **Titration per Protocol STA ×2 (02:10→07:52)
[2019-06-29] MEDS: propofoL 1,000 MG/100 ML VIAL IV SCH ×3 (02:20→11:42)
[2019-06-29] MEDS ORDERED: fentaNYL citrate 100 MCG/2 ML VIAL IV STA ×2 (02:20→03:09)
[2019-06-29] MEDS ORDERED: FUROSEMIDE 40 MG/4 ML VIAL IV STA ×2 (02:20→03:22)
[2019-06-29] MEDS ORDERED: MIDAZOLAM HCL 5 MG/ML 1 ML VIAL IV STA ×2 (02:20→03:09)
[2019-06-29 02:32] LABS: Influenza B virus by PCR Neg for Influ B (Neg)
[2019-06-29 02:36] LABS: Potassium 5.7 mmol/L (3.5-5.1)
[2019-06-29 02:38] LABS: Alanine Aminotransferase 19 U/L (12-78); Albumin Level 2.7 gm/dl (3.4-5.0); Alkaline Phosphatase 194 U/L (45-117); Aspartate Aminotransferase 21 U/L (15-37); BUN Creatinine Ratio 19.2 (10-20); Bilirubin,Total 0.2 mg/dl (0.2-1); Blood Urea Nitrogen 102 mg/dl (7-18); Calcium 8.4 mg/dl (8.5-10.1); Carbon Dioxide 17 mmol/L (21-32); Chloride 111 mmol/L (98-107); Creatinine Clr Calc Pharmacy 11.3 ml/min; Est GFR (African American) 9.5; Est GFR (Non-African American) 8.2; Glucose 127 mg/dl (70-99); Sodium 139 mmol/L (136-145); Total Protein 8.1 gm/dl (6.4-8.2); Troponin I < 0.015 ng/ml (0-0.045)
[2019-06-29 02:39] LABS: iSTAT Arterial Blood Gas HCO3 19 meg/L (19-24); iSTAT Arterial Blood Gas pCO2 43 mmHg (35-46); iSTAT Arterial Blood Gas pH 7.24 (7.35-7.45); iSTAT Arterial Blood Gas pO2 78 mmHg (80-95); iSTAT Carbon Dioxide 20 mmol/L (24-31); iSTAT Hematocrit 29 % (37-47); iSTAT Hemoglobin 9.9 g/dl (12.0-16.0); iSTAT Potassium 5.5 mmol/L (3.3-5.0); iSTAT Sodium 140 mmol/L (135-144)
[2019-06-29] MEDS ORDERED: OSELTAMIVIR PHOSPHATE 75 MG CAP PO STA (02:40)
--- NOTE | 2019-06-29 02:48 | Emergency Department Note ---
ED Visit Note Endotracheal intubation was performed under direct supervision by Dr. Mcleod. Procedure: Endotracheal Intubation Indication: Pulmonary edema, respiratory failure The patient was being bagged by respiratory with BVM. Suction, airway equipment, RSI drugs, respiratory equipment, and appropriate personnel were prepared prior to the initiation of the procedure. A time out was taken. Induction was performed per Dr. Mcleod. After observing the clinical benefit of the medications, the airway was easily visualized utilizing a glide scope. A 7.5 size ETT tube was placed atraumatically to 24 cm using standard technique. The cuff inflated without signs of malfunction. There were bilateral breath sounds, positive colormetric change, no gastric sounds, a good capnography waveform, and post procedure pulse oximetry was 89%. Post intubation sedation and paralysis was administered per Dr. Mcleod. There was concern for slow air leak post intubation. Subsequent intubation performed by Dr. Mcleod.
[2019-06-29 02:51] LABS: Appearance Urine Cloudy (Clear); Bacteria Urine Automated Negative (Negative); Bilirubin Urine Negative (Negative); Blood Urine 1+ (Negative); Color Urine Yellow; Epithelial Cell Urine Auto >30 /lpf (0-5); Glucose Urine UA Trace (Negative); Ketones Urine Negative (Negative); Leukocyte Esterase Urine 1+ (Negative); Nitrite Urine Negative (Negative); Protein Urine 2+ (Negative); RBC Urine Automated 0-4 /hpf (0-4); Specific Gravity Urine 1.019 (1.000-1.030); Urobilinogen Urine Negative (Negative)
[2019-06-29 03:06] LABS: Amorphous Sediment Urine Present (None Prsent); Cast Urine Automated 0 /lpf (0-5)
[2019-06-29 03:08] LABS: INR 1.1 (0.9-1.1); Partial Thromboplastin Ratio 1.1; Partial Thromboplastin Time 29.6 Seconds (21.0-31.0); Prothrombin Time 11.9 Seconds (9.0-12.0)
[2019-06-29] MEDS ORDERED: MIDAZOLAM HCL 5 MG/ML VIAL ONE (03:11)
--- NOTE | 2019-06-29 03:12 | Critical Care Consultation ---
Date of Consultation June 29, 2019 Assessment & Plan (1) Admitted to intensive care unit: Reason Critically Ill: 58-year-old female with acute on chronic renal failure with profound pulmonary edema in the setting of volume overload with likely superimposed infiltrative process with associated influenza A positive diagnosis requiring close hemodynamic monitoring, airway protection, and electrolyte replacement while awaiting emergent hemodialysis. NEURO - * CAM ICU: Unable to assess secondary to level of sedation. * Sedation: Propofol * Pain: Fentanyl CARDIAC/VASCULAR - * Hypertension: * Hold off on home medications at this time given need for emergent hemodialysis and unknown hemodynamic effects it may have. * EKG: Sinus tachycardia at a rate of 114 bpm. Peak T waves noted in the septal leads. No acute ST segment elevations noted. QTc 438 ms. * Monitor on telemetry. RESPIRATORY - * Acute hypoxic respiratory failure: * Secondary to volume overload with possible underlying infiltrative process. * Patient in severe ARDS with a PF ratio slightly less than 100. * Will continue with high PEEP, low FiO2 at this time. * Patient will require hemodialysis for removal of excess volume. * Continue to support with ventilator settings at this time. GI/NUTRITION - * N.p.o. except meds. * Prophylaxis: Famotidine RENAL/LYTES - * Acute on chronic renal failure: * Known history of CKD 5 with previous failed LEFT upper extremity fistula. * Metabolically acidotic with hyperkalemia. * Fragile state, however she has slightly corrected with medication intervention at this point. * Required emergent hemodialysis for volume status as well as electrolyte derangements. * Per attending, patient treated with an additional 140 mg IV Lasix in an effort to increase urine production and offload excess potassium. - * Funk in place - Strict I&Os. ENDO - * History of diabetes and hypothyroidism. * BSGs per unit protocol. ISS --> gtt per unit policy. HEME - * Chronic anemia secondary to CKD 5 ID - * Influenza A: * Renally dosed Tamiflu. * Question of underlying infiltrative changes on chest x-ray: * Agree with initial treatment of Rocephin and doxycycline until able to further differentiate sources. LINES/IV ACCESS - * PIVs x2 * ET tube * Funk * RIGHT radial arterial line DVT PROPHYLAXIS - * Heparin * SCDs I have personally spent 76 minutes of critical care time in the direct management of this patient. This is a life/limb threatening event. This includes time spent evaluating patient, direct bedside care, chart review, placing orders, interpretation of diagnostic studies, discussion with consultants, patient, and family members, as well as other required patient management act ivities. This time is exclusive of all separately billable procedures, and teaching time and separate from and in addition to any other critical care service time. Thank you for allowing us to participate in the care of this patient. Please refer to my attending physician's documentation for any further recommendations. (2) Need for acute hemodialysis: (3) Acute pulmonary edema: (4) Acute respiratory failure: (5) Acute on chronic renal failure: (6) Hyperkalemia: (7) Influenza A: (8) Chronic anemia: (9) Chronic kidney disease: (10) CKD (chronic kidney disease) stage 5, GFR less than 15 ml/min: History of Present Illness History of Present Illness Patient is an unfortunate 58-year-old female with a significant past medical history of diabetes, chronic kidney disease stage V, hypertension, hypothyroidism, subdural hematoma, chronic anemia, and renal mass who presented to the emergency department with worsening shortness of breath over the last few hours. The patient has not been feeling well over the last few days. Patient was with worsening shortness of breath with prompted 911 call. Upon arrival in the emergency department, the patient is hypoxic on CPAP with saturations in the low 80s. She is tachypneic. She is hypertensive. Patient was intubated by emergency department staff. Her potassium was treated aggressively with 2 A of bicarb, 80 mg IV Lasix, insulin, and calcium gluconate. Chest x-ray noted for significant pulmonary edema. She was found to be influenza A positive. On assessment in the emergency department, the patient is sedated. She is significantly ill secondary to acute on chronic renal failure, metabolic acidosis, hyperkalemia, and oliguria. Per initial evaluation, it was my concern the patient required emergent hemodialysis as she presented to the emergency department at approximately 2 AM. Emergency provider did initially speak with [facility] and it was suggested that he speak with nephrology locally prior to accepting transfer. [facility] nephrology orientation and mobility instructor would rather keep the patient in this facility and treat medically with the intent for emergent hemodialysis in the morning. I did reach out to my attending physician to explain situation. We are agreeable to keep the patient in the event that she has not worsened from a metabolic standpoint. Repeat labs demonstrate a slightly worsening acidosis, however degree of this is likely related to hypercapnia and need for improvement in ventilator settings. Her potassium has corrected with the above-mentioned treatments. At this point, the patient was accepted to our facility with the intent for likely need for emergent hemodialysis soon as possible in the morning. This information was relayed to the patient's who is in agreement with staying at this point. Allergies Allergy/AdvReac Type Severity Reaction Status Date / Time gabapentin Allergy Intermediate Dizziness Verified 05/30/19 17:45 lisinopril AdvReac Intermediate Cough Verified 05/30/19 17:45 Home Medications Home Medications Medication Instructions Recorded Confirmed Type Basaglar KwikPen U-100 Insulin 50 unit SUBCUT QAM 05/07/18 06/29/19 History amlodipine 10 mg PO QAM 05/07/18 06/29/19 History aspirin [Aspirin Low Dose] 81 mg PO HS 05/07/18 06/29/19 History atorvastatin 80 mg PO HS 05/07/18 06/29/19 History levothyroxine 50 mcg PO QAM 05/07/18 06/29/19 History metoprolol succinate 75 mg PO BID 05/07/18 06/29/19 History tolterodine 2 mg PO BID 05/07/18 06/29/19 History Basaglar KwikPen U-100 Insulin 30 unit SUBCUT HS 09/16/18 06/29/19 History diltiazem HCl [Cartia XT] 180 mg PO QAM 09/16/18 06/29/19 History tramadol 50 mg PO BID PRN #10 tab 09/18/18 06/29/19 Rx polyethylene glycol 3350 [Miralax] 17 gm PO BID PRN 10/20/18 06/29/19 History pregabalin [Lyrica] 25 mg PO BID 03/04/19 06/29/19 History albuterol sulfate [Proventil HFA] 2 puffs INH Q6H PRN #8 gm 05/30/19 06/29/19 Rx benzonatate [Tessalon Perles] 100 mg PO TID PRN #20 cap 05/30/19 06/29/19 Rx Patient History Medical History Bronchitis Chronic kidney disease Diabetes mellitus (Chronic) Diabetes mellitus, type 2 Hyperlipidemia Hypertension (Chronic) Hypertension Hypothyroidism (Chronic) Hypothyroidism Obesity (BMI 30-39.9) Osteoarthritis Otitis media (Acute) Ovarian mass (Acute) Peripheral neuropathy BILATERAL LEGS Sinusitis (Acute) Surgical History H/O bilateral salpingo-oophorectomy History of cataract extraction with lens replacement History of colonoscopy History of hysterectomy RENNY History of vitrectomy S/P BSO (bilateral salpingo-oophorectomy) (Acute 08/06/13) Family History Father Family history of diabetes mellitus Mother Family history of diabetes mellitus Social History Preferred Language: Slovenian Communication Ability: Effective Care Team Coordinator Scheduler Required: No Beliefs That Will Affect Care: None marital status: Current Living Situation: Family Other Information That Helps Us Care for You: No Feels Safe at Home: Yes Safety Concerns: Feels Safe At This Time Smoking Status: Never smoker Second Hand Exposure: No ; Hx Alcohol Use: No Hx Substance Use: No Review of Systems Review of Systems: Unobtainable due to endotracheal tube and Unobtainable due to reduced consciousness Physical Exam Physical Exam: VITAL SIGNS - Vital signs and nursing notes were reviewed. GENERAL - 58-year-old female appearing her stated age who is in moderate distress. Intubated and sedated. SKIN - Without rashes. HEAD - NC/AT. EYES - PERRL with EOMI bilaterally. Sclera anicteric. EARS - No deformities of external structures noted on gross examination bilaterally. NOSE - Midline and without cyanosis. No epistaxis or purulent drainage noted. MOUTH/OROPHARYNX - Without perioral cyanosis. ET Tube in place. NECK - Neck with FROM. Supple to palpation. No lymphadenopathy noted. No nuchal rigidity. LUNGS -coarse breath sounds with rales appreciated throughout all lung pitts. CARDIAC - RRR with S1/S2. No murmur, rubs, or gallops appreciated. ABDOMEN - Abdominal contour obese without pulsations or visible masses. BS normoactive all four quadrants. No tenderness, palpable masses, hepatosplenomegaly, or ascites noted. EXTREMITIES - No clubbing or peripheral cyanosis. No pretibial edema present. +3/5 radial and dorsalis pedis pulses palpated throughout. NEUROLOGIC/PSYCH - Unable to fully assess secondary to current state of sedation. No focal neurological deficits appreciated. Results & Data ([facility]) Vital Signs (Past 12 Hours) Vital Signs Temp Pulse Pulse Resp BP BP Pulse Ox 06/29/19 02:48 102 H 20 141/62 H 90 06/29/19 02:35 96 06/29/19 02:15 113 H 22 163/70 H 95 06/29/19 01:40 37.4 C 107 H 24 159/72 H 69 L Coding Level of Care Code Critical Care 1st 30-74 mins Diagnoses Admitted to intensive care unit Z78.9 Need for acute hemodialysis Z99.2 Acute pulmonary edema J81.0 Acute respiratory failure J96.00 Respiratory failure complication: unspecified whether with hypoxia or hypercapnia Acute on chronic renal failure N17.9; N18.9 Acute renal failure type: unspecified Chronic kidney disease stage: unspecified stage Hyperkalemia E87.5 Influenza A J10.1 Chronic anemia D64.9 Chronic kidney disease N18.9 Chronic kidney disease stage: unspecified stage CKD (chronic kidney disease) stage 5, GFR less than 15 ml/min N18.5 Time Spent (min) 76 (1) Acute respiratory failure Respiratory failure complication: unspecified whether with hypoxia or hypercapnia Qualified Code(s): J96.00 - Acute respiratory failure, unspecified whether with hypoxia or hypercapnia (2) Chronic kidney disease Chronic kidney disease stage: unspecified stage Qualified Code(s): N18.9 - Chronic kidney disease, unspecified (3) Acute on chronic renal failure Acute renal failure type: unspecified Chronic kidney disease stage: unspecified stage Qualified Code(s): N17.9 - Acute kidney failure, unspecified; N18.9 - Chronic kidney disease, unspecified
--- NOTE | 2019-06-29 03:12 | Procedure Note ---
Procedure Note Date of Service June 29, 2019 Attending: Dr. Post APC: Juan Rust PA-C Indication: Monitoring on Pressors Anesthesia: Lidocaine 1% Emergent consent implied in the setting of need for frequent ABGs, blood pressure monitoring, and serial PRPs. A time-out was completed verifying correct patient, procedure, site, pos itioning, and implant(s) or special equipment if applicable. Allens test was performed to ensure adequate perfusion. Patients RIGHT wrist was prepped and draped in the usual sterile fashion. Ultrasound guidance was used to aid needle placement. A 20g Arrow arterial line was introduced into the RIGHT artery. Catheter was threaded, and the needle was removed with appropriate blood return. Good waveform was observed. The patient tolerated the procedure well. Confirmation of placement with ultrasound. Blood Loss: Minimal Complications: None Procedural Ultrasound Guidance: Procedure Date: 06/29/2019 Indication: ABGs, Frequent Labs, Hemodynamics Attending: Dr. Post APC: Juan Rust PA-C Artery Identified: YES Line confirmed in Artery with ultrasound: YES Complications: NONE Patient tolerated procedure: WELL Coding CPT Codes Tubes, Drains, and Vasc Access - Tubes, Drains, and Vasc Access: [id number] Place Catheter In Artery ([id number]) [facility] [place]Charges) Tubes, Drains, and Vasc Access Procedure 1: Tubes, Drains, and Vasc Access: [id number] Place Catheter In Artery
[2019-06-29] MEDS ORDERED: FUROSEMIDE 10 MG/ML 10 ML VIAL IV ONE (03:25)
[2019-06-29 03:31] LABS: iSTAT Arterial Blood Gas HCO3 21 meg/L (19-24); iSTAT Arterial Blood Gas pCO2 56 mmHg (35-46); iSTAT Arterial Blood Gas pH 7.19 (7.35-7.45); iSTAT Arterial Blood Gas pO2 75 mmHg (80-95); iSTAT Carbon Dioxide 23 mmol/L (24-31); iSTAT Hematocrit 26 % (37-47); iSTAT Hemoglobin 8.8 g/dl (12.0-16.0); iSTAT Potassium 4.9 mmol/L (3.3-5.0); iSTAT Sodium 144 mmol/L (135-144)
[2019-06-29 03:58] LABS: BUN Creatinine Ratio 19.8 (10-20); Creatinine Clr Calc Pharmacy 11.5 ml/min; Est GFR (African American) 9.7; Est GFR (Non-African American) 8.3; Potassium 4.9 mmol/L (3.5-5.1)
[2019-06-29] MEDS ORDERED: ICU PROTOCOL FOR HYPERGLYCEMIA PRN (04:17)
[2019-06-29] MEDS ORDERED: ALBUTEROL HFA 8 GM INHALER INH PRN (04:17)
[2019-06-29] MEDS ORDERED: GLUCAGON FOR INJ 1 MG VIAL IM PRN (04:30)
[2019-06-29] MEDS ORDERED: CARBOHYDRATES FOR HYPOGLYCEMIA PO PRN (04:30)
[2019-06-29] MEDS ORDERED: GLUCOSE 10 TABS/TUBE PO PRN (04:30)
[2019-06-29] MEDS ORDERED: GLUCOSE 40% GEL 15 GM TUBE PO PRN (04:30)
--- NOTE | 2019-06-29 05:10 | Emergency Department Note ---
Entered by Chad Mares acting as a scribe for ED Provider Note Name: Cynthia Barajas Age: 58 Arrives Via: EMS Informant: EMS, CC: SOB HPI: The patient is a 58 year old female who presents to the emergency department with complaints of worsening SOB beginning today. Per EMS, the patient was diagnosed with bronchitis 2 weeks ago. He states that the patient has had fluid buildup since, and he notes that her legs are swollen. He reports that the patient developed worsening SOB today. He states that the patient also has a fever. The patient also complains of nausea. HPI limited secondary to the patient's clinical condition. ROS: ROS limited secondary to the patient's clinical condition. Past Medical History: Bronchitis, chronic kidney disease, diabetes, hypertension, hypothyroidism Past Surgical History: BSO, hysterectomy, vitrectomy Family History: Diabetes Social History: , never smoker, does not drink alcohol, does not use drugs Home Medications: Please see medication list Allergies: Gabapentin, lisinopril Physical: Vitals: BP 141/ 62, Pulse 102, Resp 20, Temp 99.3 F, O2 Sat 90 Exam: GENERAL: Patient is severely ill appearing and in severe distress. Periodically dry heaving. EYES: No scleral icterus, unremarkable pupils. ENT: Mucous membranes moist, no nasal congestion. NECK: No masses appreciated, no meningismus, trachea is midline. RESPIRATORY: Equal bilaterally. No wheeze, no rhonchi. Dyspneic, tachypneic, diffuse wet crackles, poor respiratory effort even on BiPAP. CARDIOVASCULAR: Regular rhythm and tachycardic. No murmurs, rubs, gallops appreciated. GASTROINTESTINAL: Abdomen soft, non-tender, no peritonitis. Bowel sounds positive. No masses appreciated. BACK: No midline tenderness, no CVA tenderness EXTREMITIES: Normal motion all extremities, no cyanosis. 4+ edema to the bilateral lower legs. NEUROLOGIC: No acute motor or sensory deficits, no focal weakness, cranial nerves grossly intact. Somnolent/obtunded. SKIN: No rash, no jaundice, no diaphoresis. ED Course: Prior Medical Record, Triage/Nursing Notes, Medications, Allergies reviewed by Me 0136: The patient was evaluated in room B1. A complete history and physical exam was performed. 0143: I spoke to the patients . He states that the patient has been doing well until this morning. He notes that she has been confused throughout the day and slumped over in her chair. He reports that she developed difficulty breathing and then decompensated this evening. He did not notice whether she had a fever and he states that she has not vomited. He notes that she has not been intubated before. He is agreeable to intubation. 0150: POC BNP reveals a potassium of 5.8, an elevated creatinine, and an elevated BUN. The patient is supposed to be on dialysis but her dialysis fistula failed. 0210: The patient was intubated. It was a difficult intubation due to significant pulmonary edema filling the patients oropharynx. Intubation was successful on first pass attempt; however, there was a large air leak noticed shortly after. The tube was removed and replaced by me. 0220: I had a long conversation with the patients about findings. He is agreeable to transfer. 0225: I discussed the patients case with Dr. Church Hospitalist, [facility]. He advised discussing the patients case with the ICU in [place] for emergency dialysis. 0232: I discussed the patient's case with Dr. Garcia - ICU, [place]. He requested discussing the patient's case with nephrology here. 0237: I discussed the patient's case with Dr. Mireles - Nephrology, [facility]. He suggested discussing with critical care to see if they are agreeable to keep the patient in this facility. He will attempt dialysis in the morning. 0249: Upon reevaluation, the patient is stable. I discussed the findings and the treatment plan with the patient. She expresses agreement and understanding. [facility] The patient will be evaluated for further management. 0308: Critical care is at bedside placing a line. The patient is starting to fight against the vent. Versed and fentanyl were ordered. 0323: I reevaluated the patient. She is well sedated. She is oxygenating well and her vitals are stable. Repeat ABG shows acidosis with an elevated PCO2. Rate is increased on the vent. Vital Signs: reviewed and remarkable for hypoixa Labs: Reviewed and remarkable for hyperK, elevated CR&BUN, flu a positive, acidotic Interventions: saline lock, bicarb 2 amps IV, christina gluconate 3gm IV, lasix 80mg IV, insulin 10U IV, d50 1 amp, propofol iv, etomidate IV, succinylcholine IV, versed IV, fentanyl IV Imaging: CHEST X-RAY: Pulmonary edema EKG: Per My Interpretation: Indication SHOB: Sinus Tach 114 bpm, qtc 438. No Ectopy. No Ischemia. Compared to EKG 05/30/19 T waves are now peaking Consults: 0225: I discussed the patients case with Dr. Church [facility]. He advised discussing the patients case with the ICU in [place] for emergency dialysis. 0232: I discussed the patient's case with Dr. Garcia - ICU, [place]. He reque sted discussing the patient's case with nephrology here. 0237: I discussed the patient's case with Dr. Mireles - Nephrology, [place]. He suggested discussing with critical care to see if they are agreeable to keep the patient in this facility. He will attempt dialysis in the morning. 0249: I reviewed the patient's case with Dr. Church - [facility]. He will evaluate the patient for further management. Blood pressure: Elevated - Will be monitored by hospitalist. Disposition: Hospitalization Continuous Cardiac Monitoring: An order was placed for continuous cardiac monitoring. The monitor shows a rate of 100 with sinus rhythm. Endotracheal Intubation Indication: Respiratory Failure and airleak in initial Tube The patient was being bagged by respiratory through original 7.5cm Tube. Patient already sedated and paralyzed prior to start. Suction, airway equipment, RSI drugs, respiratory equipment, and appropriate personnel were prepared prior to the initiation of the procedure. A time out was taken. The airway was easily visualized utilizing a S3 Glidescope blade. Large amounts of pulmonary edema were noted throughout airway. No gastric secretions were appreciated. A 7.0 size ETT tube was placed atraumatically to 24 cm using standard technique. The cuff inflated without signs of malfunction. There were bilateral breath sounds, positive colormetric change, no gastric sounds, a good capnography waveform, and post procedure pulse oximetry was 88%. Post intubation sedation and paralysis was administered using propofol, versed, fentanyl. There were no complications. Differential: Infectious, Reactive Airway Disease, Pneumonia, Pneumothorax, COPD, CHF, ACS, Pulmonary Embolism, MSK, GI, Dissection, amongst other etiologies entertained. Medical Decision Makin yr old chronically unwell female with ESRD who had left arm fistula placed several months ago that failed, arrives for acute worsening of shortness of breath and altered mental status. She apparently has been sick last few days but rapidly decompensated today. Exam consistent with pulmonary edema and patient very somnolent. She was initially placed on bipap while iv established. Mental status did improve some and answering some questions but clearly too somnolent to continue like this. After IV obtained patient was intubated by Kristie Billingsley PA-C on first pass attempt. Unfortunately after this it was noted large air leak developed and due to difficulty keeping positive pressure I felt that re-intubation necessary. I personally intubated patient without difficulty at this time. Copiously required suctioning due to pulmonary edema noted on intubation. POC labs with hyperK and with peaked Ts on EKG she was treated for acute renal failure/hyperK with meds as above. K was confirmed by Lab K shortly thereafter. CXR with pulmonary edema. She is flu positive but clearly she will require urgent dialysis on top of this. Reviewed with Hospitalist and CCM PA and thus discussed with [facility] ICU who request further review with our Nephro here. Nephro here feels comfortable keeping patient at [facility] with medical management until later this morning when dialysis can be completed as we can not do so at night. Aware it may be 5-6 hours before dialysis can be done. I reviewed with Hospitalist and CCM and they will keep patient here with understanding if worsening may need emergent transfer at that time. [place] placed by [facility]. I did do some vent management due to some worsening acidosis and we further sedated patient to get better vent setting and no bucking vent. With Flu a positive she was given tamiflu. Can't rule out underlying pna but will defer abx to hospitalist/ccm, however cultures were obtained. Patient vitals much better at time of transfer to ICU. Impression: Acute pulmonary edema, Acute respiratory failure, Acute on chronic renal failure, Hyperkalemia, Influenza A Critical Care Time: I have personally spent 80 minutes of critical care time in the direct ma nagement of this patient. Acute respiratory failure requiring intubation with acute on chronic renal failure requiring treatment for hyperkalemia. This was a life/limb threatening event. This 80 minutes is in excess of all separately billable procedures. Tim Mcleod MD The scribe's documentation has been prepared under my direction and personally reviewed by me in its entirety. I confirm that the note above accurately reflects all work, treatment, procedures, and medical decision making performed by me. Impression & Plan Acute pulmonary edema, Acute respiratory failure, Acute on chronic renal failure, Hyperkalemia, Influenza A Past Med/Surg History Medical History Bronchitis Chronic kidney disease Diabetes mellitus (Chronic) Diabetes mellitus, type 2 Hyperlipidemia Hypertension (Chronic) Hypertension Hypothyroidism (Chronic) Hypothyroidism Obesity (BMI 30-39.9) Osteoarthritis Otitis media (Acute) Ovarian mass (Acute) Peripheral neuropathy BILATERAL LEGS Sinusitis (Acute) Surgical History H/O bilateral salpingo-oophorectomy History of cataract extraction with lens replacement History of colonoscopy History of hysterectomy RENNY History of vitrectomy S/P BSO (bilateral salpingo-oophorectomy) (Acute 08/06/13) Family History Father Family history of diabetes mellitus Mother Family history of diabetes mellitus Social History Preferred Language: Palestinian Communication Ability: Effective Uniform Attendant Required: No Beliefs That Will Affect Care: None marital status: Current Living Situation: Family Other Information That Helps Us Care for You: No Feels Safe at Home: Yes Safety Concerns: Feels Safe At This Time Smoking Status: Never smoker Second Hand Exposure: No ; Hx Alcohol Use: No Hx Substance Use: No Results & Data Vital Signs Vital Signs - 24 hr 06/29/19 01:40 06/29/19 01:44 06/29/19 01:49 Temperature 37.4 C Temperature Source Rectal Pulse Rate 107 H 104 H 104 H Pulse Rate [Right Finger] Pulse Rate from SpO2 Sensor 105 H 104 H Pulse Rhythm Regular Pulse Strength Normal Respiratory Rate 24 Respiratory Effort / Characteristics Respiratory Depth Respiratory Pattern Blood Pressure 159/72 H 159/72 H Blood Pressure [Left Arm] Blood Pressure Mean 101 91 Blood Pressure Mean [Left Arm] Blood Pressure Position Sitting Blood Pressure Position [Left Arm] Pulse Oximetry 69 L 100 100 Oxygen Delivery Method Room Air Oxygen Flow Rate Fraction of Inspired Oxygen Sepsis Recent Fever Within 48 Hours Yes Sepsis New/Unexplained Change in Mental Status No Sepsis Action Taken by Nursing Physician Notified Arterial BP Systolic Arterial BP Diastolic Arterial BP Mean Arterial Pulse Rate End-Tidal CO2 06/29/19 01:51 06/29/19 01:56 06/29/19 02:00 Temperature Temperature Source Pulse Rate 103 H 104 H Pulse Rate [Right Finger] 112 H Pulse Rate from SpO2 Sensor 103 H 104 H Pulse Rhythm Pulse Strength Respiratory Rate 22 Respiratory Effort / Characteristics Labored Mechanically Ventilated Respiratory Depth Respiratory Pattern Regular Blood Pressure 163/70 H Blood Pressure [Left Arm] Blood Pressure Mean 103 Blood Pressure Mean [Left Arm] Blood Pressure Position Blood Pressure Position [Left Arm] Pulse Oximetry 92 97 Oxygen Delivery Method Nasal Cannula CPAP Mechanical Vent Oxygen Flow Rate 6 Fraction of Inspired Oxygen 100 Sepsis Recent Fever Within 48 Hours Sepsis New/Unexplained Change in Mental Status Sepsis Action Taken by Nursing Arterial BP Systolic Arterial BP Diastolic Arterial BP Mean Arterial Pulse Rate End-Tidal CO2 06/29/19 02:15 06/29/19 02:25 06/29/19 02:30 Temperature Temperature Source Pulse Rate 115 H 115 H Pulse Rate [Right Finger] 113 H Pulse Rate from SpO2 Sensor 115 H 115 H Pulse Rhythm Pulse Strength Respiratory Rate 22 Respiratory Effort / Characteristics Mechanically Ventilated Respiratory Depth Normal Respiratory Pattern Blood Pressure 189/71 H Blood Pressure [Left Arm] 163/70 H Blood Pressure Mean 90 Blood Pressure Mean [Left Arm] 101 Blood Pressure Position Blood Pressure Position [Left Arm] Lying Pulse Oximetry 95 97 95 Oxygen Delivery Method Mechanical Vent Oxygen Flow Rate Fraction of Inspired Oxygen Sepsis Recent Fever Within 48 Hours Sepsis New/Unexplained Change in Mental Status Sepsis Action Taken by Nursing Arterial BP Systolic Arterial BP Diastolic Arterial BP Mean Arterial Pulse Rate End-Tidal CO2 44 46 06/29/19 02:35 06/29/19 02:46 06/29/19 02:48 Temperature Temperature Source Pulse Rate 102 H Pulse Rate [Right Finger] 102 H Pulse Rate from SpO2 Sensor 102 H Pulse Rhythm Pulse Strength Respiratory Rate 20 Respiratory Effort / Characteristics Mechanically Ventilated Respiratory Depth Normal Respiratory Pattern Blood Pressure 141/62 H Blood Pressure [Left Arm] 141/62 H Blood Pressure Mean 95 Blood Pressure Mean [Left Arm] 88 Blood Pressure Position Blood Pressure Position [Left Arm] Lying Pulse Oximetry 96 88 L 90 Oxygen Delivery Method Mechanical Vent Mechanical Vent Oxygen Flow Rate Fraction of Inspired Oxygen Sepsis Recent Fever Within 48 Hours Sepsis New/Unexplained Change in Mental Status Sepsis Action Taken by Nursing Arterial BP Systolic Arterial BP Diastolic Arterial BP Mean Arterial Pulse Rate End-Tidal CO2 40 06/29/19 03:00 06/29/19 03:02 06/29/19 03:15 Temperature Temperature Source Pulse Rate 106 H 102 H 93 H Pulse Rate [Right Finger] Pulse Rate from SpO2 Sensor 106 H 103 H 93 H Pulse Rhythm Pulse Strength Respiratory Rate Respiratory Effort / Characteristics Respiratory Depth Respiratory Pattern Blood Pressure 151/66 H 127/61 Blood Pressure [Left Arm] Blood Pressure Mean 91 83 Blood Pressure Mean [Left Arm] Blood Pressure Position Blood Pressure Position [Left Arm] Pulse Oximetry 91 96 94 Oxygen Delivery Method Oxygen Flow Rate Fraction of Inspired Oxygen Sepsis Recent Fever Within 48 Hours Sepsis New/Unexplained Change in Mental Status Sepsis Action Taken by Nursing Arterial BP Systolic 134 Arterial BP Diastolic 59 Arterial BP Mean 78 Arterial Pulse Rate 93 H End-Tidal CO2 50 45 35 Laboratory Data Result diagrams: 06/29/19 05:13 06/29/19 05:13 Lab Results 06/29/19 06/29/19 06/29/19 Range/Units 01:40 01:40 01:45 WBC 12.15 H (4.8-10.8) K/uL RBC 3.57 L (4.2-5.4) M/uL Hgb 10.2 L (12.0-16.0) g/dL POC Hgb (12.0-16.0) g/dl Hct 31.7 L (37-47) % POC Hct (37-47) % MCV 88.8 (80-100) fL MCH 28.6 (25-34) pg MCHC 32.2 (32-36) g/dL RDW Std Deviation 56.4 H (36.4-46.3) fL RDW Coeff of Talisha 17.3 H (11.5-14.5) % Plt Count 268 (130-400) K/uL MPV 9.3 (7.4-10.4) fL Immature Gran % (Auto) 0.3 % Neut % (Auto) 80.0 % Lymph % (Auto) 10.5 % Dundy % (Auto) 7.9 % Eos % (Auto) 1.2 % Baso % (Auto) 0.1 % Immature Gran # (Auto) 0.04 H (0.00-0.02) K/uL Neut # (Auto) 9.71 H (1.4-6.5) K/uL Lymph # (Auto) 1.28 (1.2-3.4) K/uL [place]undy # (Auto) 0.96 H (0.11-0.59) K/uL Eos # (Auto) 0.15 (0-0.5) K/uL Baso # (Auto) 0.01 (0-0.2) K/uL PT INR APTT PTT Ratio POC pH (7.35-7.45) POC pCO2 (35-46) mmHg POC pO2 (80-95) mmHg POC HCO3 (19-24) robert/L POC Base Excess (-9-1.8) robert/L POC Sodium (135-144) mmol/L Sodium 139 (136-145) mmol/L POC Potassium (3.3-5.0) mmol/L Potassium 5.7 H (3.5-5.1) mmol/L POC Chloride (101-112) mmol/L Chloride 111 H (98-107) mmol/L Carbon Dioxide 17 L (21-32) mmol/L POC Total CO2 (24-31) mEq/l Anion Gap 11.0 (3-11) POC Anion Gap (16-25) mmol/L POC BUN (7-18) mg/dl BUN 102 H (7-18) mg/dl Creatinine 5.32 H* (0.6-1.2) mg/dl POC Creatinine (0.6-1.3) mg/dl Est Cr Clr Drug Dosing 11.3 ml/min Est GFR ( Amer) 9.5 Est GFR (Non-Af Amer) 8.2 BUN/Creatinine Ratio 19.2 (10-20) Glucose 127 H (70-99) mg/dl POC Glucose (other) (70-99) mg/dl Calcium 8.4 L (8.5-10.1) mg/dl POC Ioniz Calcium Lori (1.12-1.32) mmol/l Magnesium 2.0 (1.8-2.4) mg/dl Total Bilirubin 0.2 (0.2-1) mg/dl Direct Bilirubin (0-0.2) mg/dl AST 21 (15-37) U/L ALT 19 (12-78) U/L Alkaline Phosphatase 194 H (45-117) U/L Troponin I < 0.015 (0-0.045) ng/ml Total Protein 8.1 (6.4-8.2) gm/dl Albumin 2.7 L (3.4-5.0) gm/dl Urine Color Urine Appearance (Clear) Urine pH (4.5-7.5) Ur Specific [place] (1.000-1.030) Urine Protein (Negative) Urine Glucose (UA) (Negative) Urine Ketones (Negative) Urine Blood (Negative) Urine Nitrite (Negative) Urine Bilirubin (Negative) Urine Urobilinogen (Negative) Ur Leukocyte Esterase (Negative) Urine WBC (Auto) (0-5) /hpf Urine RBC (Auto) (0-4) /hpf U Hyaline Cast (Auto) (0-5) /lpf U Epithel Cells (Auto) (0-5) /lpf Urine Bacteria (Auto) (Negative) Ur Renal Epithelial Cell Amorphous Sediment (None Prsent) Urine Yeast Influenza Type A (PCR) Pos for Influ A A* (Neg) Influenza Type B (PCR) Neg for Influ B (Neg) 06/29/19 06/29/19 06/29/19 Range/Units 01:48 01:57 01:58 WBC (4.8-10.8) K/uL RBC (4.2-5.4) M/uL Hgb (12.0-16.0) g/dL POC Hgb 10.5 L 9.9 L (12.0-16.0) g/dl Hct (37-47) % POC Hct 31 L 29 L (37-47) % MCV (80-100) fL MCH (25-34) pg MCHC (32-36) g/dL RDW Std Deviation (36.4-46.3) fL RDW Coeff of Talisha (11.5-14.5) % Plt Count (130-400) K/uL MPV (7.4-10.4) fL Immature Gran % (Auto) % Neut % (Auto) % Lymph % (Auto) % [place] % (Auto) % Eos % (Auto) % Baso % (Auto) % Immature Gran # (Auto) (0.00-0.02) K/uL Neut # (Auto) (1.4-6.5) K/uL Lymph # (Auto) (1.2-3.4) K/uL [place] # (Auto) (0.11-0.59) K/uL Eos # (Auto) (0-0.5) K/uL Baso # (Auto) (0-0.2) K/uL PT Cancelled INR Cancelled APTT Cancelled PTT Ratio Cancelled POC pH 7.24 L (7.35-7.45) POC pCO2 43 (35-46) mmHg POC pO2 78 L (80-95) mmHg POC HCO3 19 (19-24) robert/L POC Base Excess -9.0 (-9-1.8) robert/L POC Sodium 141 140 (135-144) mmol/L Sodium (136-145) mmol/L POC Potassium 5.8 H 5.5 H (3.3-5.0) mmol/L Potassium (3.5-5.1) mmol/L POC Chloride 112 (101-112) mmol/L Chloride (98-107) mmol/L Carbon Dioxide (21-32) mmol/L POC Total CO2 20 L 20 L (24-31) mEq/l Anion Gap (3-11) POC Anion Gap 15.0 L (16-25) mmol/L POC BUN 113 H* (7-18) mg/dl BUN (7-18) mg/dl Creatinine (0.6-1.2) mg/dl POC Creatinine 5.5 H* (0.6-1.3) mg/dl Est Cr Clr Drug Dosing ml/min Est GFR ( Amer) Est GFR (Non-Af Amer) BUN/Creatinine Ratio (10-20) Glucose (70-99) mg/dl POC Glucose (other) 129 H (70-99) mg/dl Calcium (8.5-10.1) mg/dl POC Ioniz Calcium Lori 1.06 L (1.12-1.32) mmol/l Magnesium (1.8-2.4) mg/dl Total Bilirubin (0.2-1) mg/dl Direct Bilirubin (0-0.2) mg/dl AST (15-37) U/L ALT (12-78) U/L Alkaline Phosphatase (45-117) U/L Troponin I (0-0.045) ng/ml Total Protein (6.4-8.2) gm/dl Albumin (3.4-5.0) gm/dl Urine Color Urine Appearance (Clear) Urine pH (4.5-7.5) Ur Specific [place] (1.000-1.030) Urine Protein (Negative) Urine Glucose (UA) (Negative) Urine Ketones (Negative) Urine Blood (Negative) Urine Nitrite (Negative) Urine Bilirubin (Negative) Urine Urobilinogen (Negative) Ur Leukocyte Esterase (Negative) Urine WBC (Auto) (0-5) /hpf Urine RBC (Auto) (0-4) /hpf U Hyaline Cast (Auto) (0-5) /lpf U Epithel Cells (Auto) (0-5) /lpf Urine Bacteria (Auto) (Negative) Ur Renal Epithelial Cell Amorphous Sediment (None Prsent) Urine Yeast Influenza Type A (PCR) (Neg) Influenza Type B (PCR) (Neg) 06/29/19 06/29/19 06/29/19 Range/Units 02:39 02:45 02:45 WBC (4.8-10.8) K/uL RBC (4.2-5.4) M/uL Hgb (12.0-16.0) g/dL POC Hgb (12.0-16.0) g/dl Hct (37-47) % POC Hct (37-47) % MCV (80-100) fL MCH (25-34) pg MCHC (32-36) g/dL RDW Std Deviation (36.4-46.3) fL RDW Coeff of Talisha (11.5-14.5) % Plt Count (130-400) K/uL MPV (7.4-10.4) fL Immature Gran % (Auto) % Neut % (Auto) % Lymph % (Auto) % [place] % (Auto) % Eos % (Auto) % Baso % (Auto) % Immature Gran # (Auto) (0.00-0.02) K/uL Neut # (Auto) (1.4-6.5) K/uL Lymph # (Auto) (1.2-3.4) K/uL [place] # (Auto) (0.11-0.59) K/uL Eos # (Auto) (0-0.5) K/uL Baso # (Auto) (0-0.2) K/uL PT 11.9 INR 1.1 APTT 29.6 PTT Ratio 1.1 POC pH (7.35-7.45) POC pCO2 (35-46) mmHg POC pO2 (80-95) mmHg POC HCO3 (19-24) robert/L POC Base Excess (-9-1.8) robert/L POC Sodium (135-144) mmol/L Sodium Cancelled (136-145) mmol/L POC Potassium (3.3-5.0) mmol/L Potassium Cancelled (3.5-5.1) mmol/L POC Chloride (101-112) mmol/L Chloride Cancelled (98-107) mmol/L Carbon Dioxide Cancelled (21-32) mmol/L POC Total CO2 (24-31) mEq/l Anion Gap Cancelled (3-11) POC Anion Gap (16-25) mmol/L POC BUN (7-18) mg/dl BUN Cancelled (7-18) mg/dl Creatinine Cancelled (0.6-1.2) mg/dl POC Creatinine (0.6-1.3) mg/dl Est Cr Clr Drug Dosing Cancelled ml/min Est GFR ( Amer) Cancelled Est GFR (Non-Af Amer) Cancelled BUN/Creatinine Ratio Cancelled (10-20) Glucose Cancelled (70-99) mg/dl POC Glucose (other) (70-99) mg/dl Calcium Cancelled (8.5-10.1) mg/dl POC Ioniz Calcium Lori (1.12-1.32) mmol/l Magnesium (1.8-2.4) mg/dl Total Bilirubin (0.2-1) mg/dl Direct Bilirubin < 0.1 (0-0.2) mg/dl AST (15-37) U/L ALT (12-78) U/L Alkaline Phosphatase (45-117) U/L Troponin I (0-0.045) ng/ml Total Protein (6.4-8.2) gm/dl Albumin (3.4-5.0) gm/dl Urine Color Yellow Urine Appearance Cloudy A (Clear) Urine pH 5.0 (4.5-7.5) Ur Specific [place] 1.019 (1.000-1.030) Urine Protein 2+ H (Negative) Urine Glucose (UA) Trace H (Negative) Urine Ketones Negative (Negative) Urine Blood 1+ H (Negative) Urine Nitrite Negative (Negative) Urine Bilirubin Negative (Negative) Urine Urobilinogen Negative (Negative) Ur Leukocyte Esterase 1+ H (Negative) Urine WBC (Auto) 10-30 H (0-5) /hpf Urine RBC (Auto) 0-4 (0-4) /hpf U Hyaline Cast (Auto) 0 (0-5) /lpf U Epithel Cells (Auto) >30 H (0-5) /lpf Urine Bacteria (Auto) Negative (Negative) Ur Renal Epithelial Cell Not Reportable Amorphous Sediment Present A (None Prsent) Urine Yeast Not Reportable Influenza Type A (PCR) (Neg) Influenza Type B (PCR) (Neg) 06/29/19 Range/Units 03:17 WBC (4.8-10.8) K/uL RBC (4.2-5.4) M/uL Hgb (12.0-16.0) g/dL POC Hgb 8.8 L (12.0-16.0) g/dl Hct (37-47) % POC Hct 26 L (37-47) % MCV (80-100) fL MCH (25-34) pg MCHC (32-36) g/dL RDW Std Deviation (36.4-46.3) fL RDW Coeff of Talisha (11.5-14.5) % Plt Count (130-400) K/uL MPV (7.4-10.4) fL Immature Gran % (Auto) % Neut % (Auto) % Lymph % (Auto) % [place] % (Auto) % Eos % (Auto) % Baso % (Auto) % Immature Gran # (Auto) (0.00-0.02) K/uL Neut # (Auto) (1.4-6.5) K/uL Lymph # (Auto) (1.2-3.4) K/uL [place] # (Auto) (0.11-0.59) K/uL Eos # (Auto) (0-0.5) K/uL Baso # (Auto) (0-0.2) K/uL PT INR APTT PTT Ratio POC pH 7.19 L* (7.35-7.45) POC pCO2 56 H (35-46) mmHg POC pO2 75 L (80-95) mmHg POC HCO3 21 (19-24) robert/L POC Base Excess -7.0 (-9-1.8) robert/L POC Sodium 144 (135-144) mmol/L Sodium (136-145) mmol/L POC Potassium 4.9 (3.3-5.0) mmol/L Potassium (3.5-5.1) mmol/L POC Chloride (101-112) mmol/L Chloride (98-107) mmol/L Carbon Dioxide (21-32) mmol/L POC Total CO2 23 L (24-31) mEq/l Anion Gap (3-11) POC Anion Gap (16-25) mmol/L POC BUN (7-18) mg/dl BUN (7-18) mg/dl Creatinine (0.6-1.2) mg/dl POC Creatinine (0.6-1.3) mg/dl Est Cr Clr Drug Dosing ml/min Est GFR ( Amer) Est GFR (Non-Af Amer) BUN/Creatinine Ratio (10-20) Glucose (70-99) mg/dl POC Glucose (other) (70-99) mg/dl Calcium (8.5-10.1) mg/dl POC Ioniz Calcium Lori (1.12-1.32) mmol/l Magnesium (1.8-2.4) mg/dl Total Bilirubin (0.2-1) mg/dl Direct Bilirubin (0-0.2) mg/dl AST (15-37) U/L ALT (12-78) U/L Alkaline Phosphatase (45-117) U/L Troponin I (0-0.045) ng/ml Total Protein (6.4-8.2) gm/dl Albumin (3.4-5.0) gm/dl Urine Color Urine Appearance (Clear) Urine pH (4.5-7.5) Ur Specific [place] (1.000-1.030) Urine Protein (Negative) Urine Glucose (UA) (Negative) Urine Ketones (Negative) Urine Blood (Negative) Urine Nitrite (Negative) Urine Bilirubin (Negative) Urine Urobilinogen (Negative) Ur Leukocyte Esterase (Negative) Urine WBC (Auto) (0-5) /hpf Urine RBC (Auto) (0-4) /hpf U Hyaline Cast (Auto) (0-5) /lpf U Epithel Cells (Auto) (0-5) /lpf Urine Bacteria (Auto) (Negative) Ur Renal Epithelial Cell Amorphous Sediment (None Prsent) Urine Yeast Influenza Type A (PCR) (Neg) Influenza Type B (PCR) (Neg) Administered Medications Fentanyl Citrate (Fentanyl Citrate) 50 mcg IV Q2H PRN PRN Reason: Moderate Pain (4,5,6) Stop: 07/13/19 05:45 Last Admin: 06/29/19 04:55 Dose: 25 mcg Documented by: [id number] Propofol (Diprivan) 1,000 mg in 100 mls @ 2.58 mls/hr IV .Q24H BETTY; Protocol Stop: 07/02/19 02:14 Last Titration: 06/29/19 02:56 Dose: 10 mcg/kg/min, 5.2 mls/hr Documented by: [id number] Admin: 06/29/19 02:20 Dose: 5 mcg/kg/min, 2.6 mls/hr Documented by: [id number] Cosigned by: [id number] Doxycycline Hyclate 100 mg/ (Dextrose) 110 mls @ 50 mls/hr IV Q12H BETTY Stop: 07/06/19 04:59 Last Admin: 06/29/19 05:51 Dose: 50 mls/hr Documented by: [id number] Discontinued Medications Albuterol (Duoneb) 12 ml NEB ONE ONE Stop: 06/29/19 01:52 Last Admin: 06/29/19 03:53 Dose: 12 ml Documented by: [id number] Dextrose (Dextrose 50%) 50 ml IV NOW ONE Stop: 06/29/19 01:52 Last Admin: 06/29/19 02:01 Dose: 50 ml Documented by: [id number] Fentanyl Citrate (Fentanyl Citrate) 50 mcg IV NOW STA Stop: 06/29/19 02:21 Last Admin: 06/29/19 02:34 Dose: 50 mcg Documented by: [id number] Fentanyl Citrate (Fentanyl Citrate) 50 mcg IV NOW STA Stop: 06/29/19 03:10 Last Admin: 06/29/19 03:13 Dose: 50 mcg Documented by: [id number] Furosemide (Lasix) 80 mg IV NOW STA Stop: 06/29/19 02:21 Last Admin: 06/29/19 02:33 Dose: 80 mg Documented by: [id number] Furosemide (Lasix) 140 mg IV NOW STA Stop: 06/29/19 03:23 Last Admin: 06/29/19 03:29 Dose: 140 mg Documented by: [id number] Furosemide (Lasix) Confirm Administered Dose 10 mg IV .STK-MED ONE Stop: 06/29/19 03:26 Last Admin: 06/29/19 04:44 Dose: Not Given Documented by: [id number] Calcium Gluconate 1,000 mg/ (Sodium Chloride) 60 mls @ 240 mls/hr IV NOW STA Stop: 06/29/19 02:05 Last Infusion: 06/29/19 02:40 Dose: 0 mls/hr Documented by: [id number] Admin: 06/29/19 02:13 Dose: 240 mls/hr Documented by: [id number] Insulin Human Regular 10 units (/ Syringe) 10 mls @ 30 mls/min IV TODAY@0144 BETTY Stop: 06/29/19 02:15 Last Admin: 06/29/19 02:11 Dose: 30 mls/min Documented by: [id number] Cosigned by: [id number] Calcium Gluconate 1,000 mg/ (Sodium Chloride) 60 mls @ 240 mls/hr IV NOW STA Stop: 06/29/19 02:40 Last Infusion: 06/29/19 03:14 Dose: 0 mls/hr Documented by: [id number] Admin: 06/29/19 02:56 Dose: 240 mls/hr Documented by: [id number] Calcium Gluconate 1,000 mg/ (Sodium Chloride) 60 mls @ 240 mls/hr IV NOW STA Stop: 06/29/19 02:40 Last Infusion: 06/29/19 03:14 Dose: 0 mls/hr Documented by: [id number] Admin: 06/29/19 02:43 Dose: 240 mls/hr Documented by: [id number] Insulin Human Regular (Novolin R U-100 Per Unit) Confirm Administered Dose 10 units .ROUTE .STK-MED ONE Stop: 06/29/19 01:59 Last Admin: 06/29/19 02:12 Dose: Not Given Documented by: [id number] Midazolam HCl (Versed) 3 mg IV NOW STA Stop: 06/29/19 02:21 Last Admin: 06/29/19 02:34 Dose: 3 mg Documented by: [id number] Midazolam HCl (Versed) 5 mg IV NOW STA Stop: 06/29/19 03:10 Last Admin: 06/29/19 03:13 Dose: 5 mg Documented by: [id number] Midazolam HCl (Versed) Confirm Administered Dose 10 mg .ROUTE .STK-MED ONE Stop: 06/29/19 03:12 Last Admin: 06/29/19 03:13 Dose: Not Given Documented by: [id number] Miscellaneous () Confirm Administered Dose 1 ea .ROUTE .STK-MED ONE Stop: 06/29/19 01:41 Last Admin: 06/29/19 02:02 Dose: 1 ea Documented by: [id number] Sodium Bicarbonate (Sodium Bicarbonate 8.4%) 100 meq IV NOW STA Stop: 06/29/19 01:52 Last Admin: 06/29/19 01:55 Dose: 100 meq Documented by: [id number] Discharge Plan Visit Data *Final* Discharge Date/Time: 06/29/19 04:17 Chief Complaint: Shortness of Breath/Dyspnea ED Provider: Tim Mcleod Discharge Problem: Acute pulmonary edema, Acute respiratory failure, Acute on chronic renal failure, Hyperkalemia, Influenza A Patient Disposition: Admitted As Inpatient Discharge Instructions Interventions: ED Discharge Assessment Last Done: 06/29/19 04:17 Discharge Problem: Acute respiratory failure Qualifiers: Respiratory failure complication: unspecified whether with hypoxia or hypercapnia Qualified Code(s): J96.00 - Acute respiratory failure, unspecified whether with hypoxia or hypercapnia Acute on chronic renal failure Qualifiers: Acute renal failure type: unspecified Chronic kidney disease stage: unspecified stage Qualified Code(s): N17.9 - Acute kidney failure, unspecified The scribe's documentation has been prepared under my direction and personally reviewed by me in its entirety. I confirm that the note above accurately reflects all work, treatment, procedures, and medical decision making performed by me.
[2019-06-29 05:26] LABS: Basophils # (auto) 0.01 K/uL (0-0.2); Basophils % (auto) 0.1 %; Eosinophils # (auto) 0.04 K/uL (0-0.5); Eosinophils % (auto) 0.4 %; Hematocrit (blood only) 28.2 % (37-47); Hemoglobin 8.7 g/dL (12.0-16.0); Immature Granulocytes # (auto) 0.03 K/uL (0.00-0.02); Immature Granulocytes % (auto) 0.3 %; Lymphocytes # (auto) 0.45 K/uL (1.2-3.4); Lymphocytes % (auto) 4.8 %; Mean Corpuscular Hemoglobin 27.8 pg (25-34); Mean Corpuscular Hgb Conc 30.9 g/dL (32-36); Mean Corpuscular Volume 90.1 fL (80-100); Mean Platelet Volume 9.1 fL (7.4-10.4); Monocytes # (auto) 0.85 K/uL (0.11-0.59); Neutrophils # (auto) 8.02 K/uL (1.4-6.5); Neutrophils % (auto) 85.4 %; Platelet Count 207 K/uL (130-400); RDW Coefficient of Variation 17.4 % (11.5-14.5); RDW Standard Deviation 56.8 fL (36.4-46.3); Red Blood Count 3.13 M/uL (4.2-5.4)
--- NOTE | 2019-06-29 05:31 | History and Physical Report ---
DATE OF ADMISSION: 06/29/2019 CHIEF COMPLAINT: Shortness of breath and respiratory failure. HISTORY OF PRESENT ILLNESS: This is a 58-year-old female with past medical history significant for type 2 diabetes, severe proliferative diabetic retinopathy, nephrotic range proteinuria, chronic kidney disease stage V. The patient recently had AV fistula placed, not on dialysis yet. Hyperlipidemia, hypothyroidism, pulmonary nodules, chronic diastolic CHF. Was in the hospital in February 2019 with syncope and it was , thought to be from her sleep apnea . At that time, imaging studies MRI showing bilateral small subdural hygromas. Plan was to repeat MRI in 2-4 weeks, seems to be not done yet. Lives with her . Presents because of shortness of breath and lethargy. As per , since 1 week she is having cough, bringing up some yellowish phlegm and very weak, could not get up from the chair. Appetite is down and progressive worsening of shortness of breath. That is the reason she was brought in here. She was hypoxic at 69% when she came in. She is status post intubation currently. Her blood gas shows pH of 7.19, pCO2 of 56, pO2 of 75, creatinine of 5.5, potassium of 5.7. Urinalysis positive for trace leukocyte esterase and influenza A was positive. Chest x-ray shows bilateral pulmonary edema. EKG shows sinus tachycardia. Because of no dialysis in the nighttime, plan was to transfer to [facility], but [facility] did not accept the patient in transfer. So the patient is going to stay here in the ICU. The patient was given IV calcium gluconate, fentanyl, high dose of Lasix, sodium bicarbonate, nebs, and Tamiflu. Nephrology notified. Critical care on board. ALLERGIES: GABAPENTIN, LISINOPRIL. PAST MEDICAL HISTORY: As mentioned above. PAST SURGICAL HISTORY: AV access, injection of the eyes, bilateral oophorectomy, treatment of extensive retinopathy with photocoagulation. MEDICATIONS: The patient is on albuterol 2 puffs every 6 hours p.r.n., amlodipine 10 mg p.o. a.m., aspirin 81 mg p.o. at bedtime, atorvastatin 80 mg p.o. at bedtime, Basaglar insulin 30 units at bedtime, 50 units in the a.m., Tessalon Perles 100 mg p.o. t.i.d. p.r.n., Cartia XT 180 mg p.o. a.m., levothyroxine 50 mcg p.o. a.m., Toprol-XL 75 mg p.o. b.i.d., MiraLax 17 grams p.o. b.i.d. p.r.n., Lyrica 25 mg p.o. b.i.d., tolterodine 2 mg p.o. b.i.d., tramadol 50 mg p.o. b.i.d. p.r.n. FAMILY HISTORY: Significant for father has vascular disease in his legs, diabetes, Alzheimer dementia. Mother has diabetes, gastrointestinal disorder. SOCIAL HISTORY: . No smoking, no alcohol, no drug use. REVIEW OF SYSTEMS: GENERAL: The patient is intubated and sedated. VITAL SIGNS: Temperature 37.4, pulse 89, respiratory rate 26, blood pressure 114/51, oxygen 69% when she came in, currently 100% on mechanical vent, 100% FIO2. NECK: No neck masses. CARDIOVASCULAR: S1, S2 heard. Regular rate and rhythm. No murmur, no gallop. RESPIRATORY SYSTEM: Normal AP diameter. Mild bibasilar crackles. No obvious wheezing appreciated. ABDOMEN: Soft, bowel sounds present. No distention. CENTRAL NERVOUS SYSTEM: Status post intubated and sedated. EXTREMITIES: Bilateral lower extremity gross edema present. LABORATORY DATA: WBC 12.15, hemoglobin 10.2, hematocrit 31.7, platelets 288. PT 11.9, INR 1.1, APTT 29.6. Point of care pH 7.19, pCO2 of 56, bicarbonate 21. Sodium 154, potassium 5.7, chloride 111, CO2 of 17, anion gap 11, BUN 102, creatinine 5.3, serum glucose 127, calcium 8.4, ionized calcium 1.06, magnesium 2, total bilirubin 0.2, direct bilirubin less than 0.1, AST 21, ALT 19, alkaline phosphatase 194. Troponin I less than 0.015. Urinalysis, cloudy, proteinuria +2, leukocyte esterase positive. Influenza A positive. IMAGING DATA: Chest x-ray, bilateral pulmonary edema present. EKG: Sinus tachycardia with rate of 114, no significant change from previous EKG. ASSESSMENT AND PLAN: This is a 58-year-old female who presents with acute respiratory distress. 1. Acute respiratory distress . Acute hypoxic respiratory failure secondary to possible pulmonary edema, volume overload, , and also flu positive, possible underlying pneumonia with leukocytosis. Patient required intubation in the ER, received Tamiflu. Vent management as per critical care. Got high dose of Lasix. As the patient is hyperkalemic and required dialysis for volume overload, there was plan for transfer to [facility], but [facility] denied the patient in transfer. Nephrology was notified Plan for dialysis in the a.m. Closely monitor in the ICU. 2. Influenza A. Tamiflu with renal dosing, possible underlying pneumonia. We will place on antibiotics, Rocephin and doxycycline. Follow the cultures. 3. Possible urinary tract infection. Follow the cultures, on Rocephin. 4. Diabetes. We will place her on Lantus 15 units b.i.d as patient is npo currently.., insulin sliding scale. Follow the blood sugars. 5. History of sleep apnea, currently status post intubation. 6. History of possible elmqn-bw-npgabra diastolic dysfunction. Plan for dialysis. We will also follow echocardiogram. 7. Recent syncope, we will monitor. 8. Chronic subdural hygromas, needs followup. 9. Hypothyroidism, we will place on IV Synthroid. 10. Chronic kidney disease, stage V. Plan for dialysis. 11. Anemia of chronic kidney disease, hemoglobin of 10.2, at baseline. 12. Hypertension, on Cartia XT, Toprol-XL, and amlodipine which we hold for now As the patient is not able to take p.o., we will place on IV Lopressor p.r.n. Monitor the blood pressure. 13. Questionable left renal lesion in the recent admission. Needs followup. 14. Deep venous thrombosis prophylaxis, sequential compression devices for now. 15. Disposition: Closely monitor in the ICU. Level 1 full code. MTDD
--- NOTE | 2019-06-29 05:43 | Procedure Note ---
Procedure Note Date of Service June 29, 2019 Procedure: Science Professor Indwelling Peripherally Inserted IV Catheter Placement Attending: Dr. Post APC: Juan Rust PA-C Indication: Need for IV Access, Poor Vascular Access Anesthesia: None Verbal consent was obtained from patient prior to performing the procedure. A time-out was completed verifying correct patient, procedure, site, positioning, and implant(s) or special equipment if applicable. Utilizing bedside ultrasound, vascularity of the LEFT upper extremity was assessed. Vessel size was noted for appropriate catheter selection and skin was marked with gentle pressure. Patients LEFT upper extremity was prepped and draped in the usual sterile fashion utilizing chlorhexidine. Ultrasound guidance was used to aid needle placement. An 18 g Endurance Catheter was introduced into the LEFT brachial vein under direct ultrasound guidance. Guide wire was easily deployed without resistance. Catheter was threaded over the guide wire without resistance and the entire apparatus was removed intact. Good venous blood return was noted in the catheter. The IV catheter was easily flushed with sterile saline flush. Sterile clave was attached to the end of the catheter and good blood return was again noted. Tourniquet was released. StatLock device and sterile dressing were applied. The patient tolerated the procedure well. Blood Loss: Minimal Complications: None Procedural Ultrasound Guidance: Procedure Date: 06/29/2019 Indication: Poor Vascular Access Attending: Dr. Post APC: Juan Rust PA-C Artery/Veins Identified: YES Access confirmed in Vein with ultrasound: YES Complications: NONE Patient tolerated procedure: WELL Coding
[2019-06-29] MEDS ORDERED: fentaNYL citrate 100 MCG/2 ML VIAL IV PRN (05:46)
[2019-06-29] MEDS: DOXYCYCLINE HYCLATE 100 MG in DEXTROSE 5% 100 ML IV SCH ×2 (05:51→18:07)
[2019-06-29 06:00] LABS: iSTAT Allen Test Pass; iSTAT Art Bld Gas pCO2 Correct 43 mmHg (35-46); iSTAT Art Bld Gas pH Corrected 7.269 (7.35-7.45); iSTAT Arterial Blood Gas HCO3 20 meg/L (19-24); iSTAT Arterial Blood Gas pCO2 43 mmHg (35-46); iSTAT Arterial Blood Gas pH 7.27 (7.35-7.45); iSTAT Arterial Blood Gas pO2 99 mmHg (80-95); iSTAT Arterial Blood Gas pO2 C 100; iSTAT Carbon Dioxide 21 mmol/L (24-31); iSTAT FiO2 100 %; iSTAT Hematocrit 25 % (37-47); iSTAT Hemoglobin 8.5 g/dl (12.0-16.0); iSTAT Potassium 5.2 mmol/L (3.3-5.0); iSTAT Site Art Line; iSTAT Sodium 143 mmol/L (135-144)
[2019-06-29 06:12] LABS: BUN Creatinine Ratio 19.2 (10-20); Calcium 8.5 mg/dl (8.5-10.1); Creatinine Clr Calc Pharmacy 12.2 ml/min; Est GFR (African American) 9.5; Est GFR (Non-African American) 8.2; Phosphorus 8.6 mg/dl (2.5-4.9); Potassium 5.1 mmol/L (3.5-5.1)
[2019-06-29] MEDS: INSULIN ASPART 100 UNITS/ML 3 ML PEN SC SCH ×3 (06:31→18:59)
[2019-06-29] MEDS: cefTRIAXone SODIUM 2,000 MG in DEXTROSE 5% 50 ML IV SCH (06:31)
--- NOTE | 2019-06-29 06:35 | XRay Report ---
XR chest 1V portable CLINICAL HISTORY: Congestive failure COMPARISON STUDY: May 30, 2019 FINDINGS: The cardiac and mediastinal contours remain stable. There has been interval placement of en dotracheal 29 mm above the haley. There are progressive extensive bilateral pulmonary airspace opaci ties. The findings could represent pulmonary edema, or a multifocal pneumonia/ARDS. Clinical and radi ographic follow-up is recommended. No large pleural effusions are visualized.[ IMPRESSION: 1. Interval placement of an endotracheal tube 2.9 cm above the haley 2. Progressive extensive bilateral pulmonary airspace opacities ACT 112: Negative or not required by law. Electronically signed by: Antonio Phillips M.D. 06/29/2019 6:34 AM
--- NOTE | 2019-06-29 07:00 | XRay Report ---
XR chest 1V portable CLINICAL HISTORY: f/u COMPARISON STUDY: 06/29/2019 FINDINGS: The endotracheal tube is 3.5 cm above the haley. There has been interval placement of naso gastric tube which passes into the stomach. There are persistent extensive bilateral pulmonary airspa ce opacities with equivocal slight improvement[ IMPRESSION: 1. Persistent bilateral pulmonary airspace opacities 2. Endotracheal tube 3.5 cm above the haley 3. Interval placement of a nasogastric tube which passes into the stomach ACT 112: Negative or not required by law. Electronically signed by: Antonio Phillips M.D. 06/29/2019 6:58 AM
[2019-06-29] MEDS ORDERED: HEPARIN SOD (PORCINE) 1000 UNIT/ML 10 ML VIAL IV ONE (07:43)
[2019-06-29] MEDS ORDERED: FENTANYL BOLUS FROM BAG IV PRN (08:14)
[2019-06-29] MEDS: OSELTAMIVIR PHOSPHATE SUSP 30 MG/5 ML UDP NG SCH (08:19)
[2019-06-29] MEDS ORDERED: ETOMIDATE 2 MG/ML 20 ML VIAL IV ONE (08:36)
[2019-06-29] MEDS ORDERED: fentaNYL citrate 100 MCG/2 ML CARP IV ONE (08:36)
[2019-06-29] MEDS ORDERED: MIDAZOLAM HCL 5 MG/ML VIAL IV ONE (08:36)
[2019-06-29] MEDS ORDERED: ROCURONIUM BROMIDE 10 MG/ML 5 ML VIAL IV ONE (08:36)
[2019-06-29] MEDS: FUROSEMIDE 100 MG in DEXTROSE 5% 90 ML IV SCH ×3 (08:41→19:19)
[2019-06-29] MEDS: INSULIN GLARGINE SOLOSTAR 100 UNITS/ML 3 ML PEN SC SCH ×2 (08:41→20:58)
[2019-06-29 09:00] LABS: iSTAT Art Bld Gas pCO2 Correct 37 mmHg (35-46); iSTAT Art Bld Gas pH Corrected 7.327 (7.35-7.45); iSTAT Arterial Blood Gas HCO3 20 meg/L (19-24); iSTAT Arterial Blood Gas pCO2 38 mmHg (35-46); iSTAT Arterial Blood Gas pH 7.32 (7.35-7.45); iSTAT Arterial Blood Gas pO2 58 mmHg (80-95); iSTAT Arterial Blood Gas pO2 C 56; iSTAT Carbon Dioxide 21 mmol/L (24-31); iSTAT FiO2 60 %; iSTAT Hematocrit 21 % (37-47); iSTAT Hemoglobin 7.1 g/dl (12.0-16.0); iSTAT Potassium 4.9 mmol/L (3.3-5.0); iSTAT Site Art Line; iSTAT Sodium 141 mmol/L (135-144)
[2019-06-29] MEDS ORDERED: FAMOTIDINE 20 MG in SYRINGE 3 ML IV SCH (09:00)
--- NOTE | 2019-06-29 09:03 | Nephrology Consultation ---
Date of Consultation June 29, 2019 Assessment & Plan (1) Acute on chronic renal failure: Patient with the CKD stage V baseline creatinine of 4.3 on 06/14/2019. She now comes in with a creatinine of 5.2 and a BUN of 100. She also has pulmonary edema and hyperkalemia. Patient is now end-stage renal disease. Her fistula is not mature. Patient was seen by vascular surgeon who recommended a fistulogram and patient was booked for 1 on 07/09/2019. Recommendations 1. Remove PICC line on the left arm and put a wrist band showing AV fistula and no vascular access on that arm. 2. Placed temporary dialysis catheter. 3. We will dialyze her today for 3 hours with target UF of 3 L. She will be dialyzed again tomorrow (2) Acute respiratory failure: Due to influenza A and pulmonary edema. Patient is on antibiotics and Tamiflu per ICU team. We will optimize volume status with dialysis. Agree with Lasix in the meantime. (3) Hyperkalemia: Due to renal failure. We will dialyze on a 2K bath. (4) Influenza A: Continue Tamiflu per primary team. History of Present Illness Attending Physician: Joshua Rock DO History of Present Illness This is a 58-year-old female with a significant past medical history of diabetes, chronic kidney disease stage V, hypertension, hypothyroidism, subdural hematoma and chronic anemia who was admitted on 06/28/2019 with acute pulmonary edema status post intubation and mechanical ventilation. She follows with me in CKD clinic. We have been asked to evaluate her for dialysis support. She has a left forearm AV fistula which is about 2 months old. Per patient's family, vascular surgeon told them the fistula was not mature and they plan to put in another fistula higher up in the arm. Patient was also found to be flu A+. She is now being treated with the Tamiflu and antibiotics. She is oliguric despite Lasix. She is unable to give history. History obtained from the father who also consented to dialysis. Allergies Allergy/AdvReac Type Severity Reaction Status Date / Time gabapentin Allergy Intermediate Dizziness Verified 05/30/19 17:45 lisinopril AdvReac Intermediate Cough Verified 05/30/19 17:45 Home Medications Home Medications Medication Instructions Recorded Confirmed Type Basaglar KwikPen U-100 Insulin 50 unit SUBCUT QAM 05/07/18 06/29/19 History amlodipine 10 mg PO QAM 05/07/18 06/29/19 History aspirin [Aspirin Low Dose] 81 mg PO HS 05/07/18 06/29/19 History atorvastatin 80 mg PO HS 05/07/18 06/29/19 History levothyroxine 50 mcg PO QAM 05/07/18 06/29/19 History metoprolol succinate 75 mg PO BID 05/07/18 06/29/19 History tolterodine 2 mg PO BID 05/07/18 06/29/19 History Andra Rutherford U-100 Insulin 30 unit SUBCUT HS 09/16/18 06/29/19 History diltiazem HCl [Cartia XT] 180 mg PO QAM 09/16/18 06/29/19 History tramadol 50 mg PO BID PRN #10 tab 09/18/18 06/29/19 Rx polyethylene glycol 3350 [Miralax] 17 gm PO BID PRN 10/20/18 06/29/19 History pregabalin [Lyrica] 25 mg PO BID 03/04/19 06/29/19 History albuterol sulfate [Proventil HFA] 2 puffs INH Q6H PRN #8 gm 05/30/19 06/29/19 Rx benzonatate [Tessalon Perles] 100 mg PO TID PRN #20 cap 05/30/19 06/29/19 Rx Patient History Medical History Bronchitis Chronic kidney disease Diabetes mellitus (Chronic) Diabetes mellitus, type 2 Hyperlipidemia Hypertension (Chronic) Hypertension Hypothyroidism (Chronic) Hypothyroidism Obesity (BMI 30-39.9) Osteoarthritis Otitis media (Acute) Ovarian mass (Acute) Peripheral neuropathy BILATERAL LEGS Sinusitis (Acute) Surgical History H/O bilateral salpingo-oophorectomy History of cataract extraction with lens replacement History of colonoscopy History of hysterectomy RENNY History of vitrectomy S/P BSO (bilateral salpingo-oophorectomy) (Acute 08/06/13) Family History Father Family history of diabetes mellitus Mother Family history of diabetes mellitus Social History Preferred Language: [place] Communication Ability: Effective Interchange Agent Required: No Beliefs That Will Affect Care: None marital status: Current Living Situation: Family Other Information That Helps Us Care for You: No Feels Safe at Home: Yes Safety Concerns: Feels Safe At This Time Smoking Status: Never smoker Second Hand Exposure: No ; Hx Alcohol Use: No Hx Substance Use: No Review of Systems Review of Systems: All systems reviewed & are unremarkable except as noted in HPI & below Physical Exam Physical Exam: General exam: Intubated and sedated HEENT: Pupils are equal and reactive to light Neck: No JVD, neck is supple trachea is midline Respiratory system: Clear breath sounds bilaterally. Gastrointestinal: Abdomen is soft, non distended, non tender, bowel sounds are present CVS: Regular rate and rhythm. No murmurs, rubs or gallops Musculoskeletal: No joint or muscle tenderness Extremities: Non tender, 2+ edema, peripheral pulses are present Neuro: Oriented, no tremors, no focal neurological deficits Skin: No rashes Access: Left forearm AV fistula with good bruit. Patient has PICC line which was placed just proximal to the fistula Results & Data Vital Signs (Past 12 Hours) Vital Signs Temp Pulse Pulse Resp BP BP Pulse Ox 06/29/19 08:07 86 30 H 94 06/29/19 05:00 86 98 06/29/19 04:31 92 H 89 L 06/29/19 04:29 37.2 C 92 H 137/69 92 06/29/19 04:17 91 H 20 142/58 H 97 06/29/19 04:15 37.2 C 92 H 92 H 26 H 165/53 H 89 L 06/29/19 04:01 84 105/68 99 06/29/19 04:00 88 98 06/29/19 03:51 82 82 26 H 102/64 100 06/29/19 03:45 85 84/61 L 100 06/29/19 03:31 87 91/52 L 100 06/29/19 03:30 88 100 06/29/19 03:21 89 26 H 114/51 L 100 06/29/19 03:15 93 H 127/61 94 06/29/19 03:02 102 H 151/66 H 96 06/29/19 03:00 106 H 91 06/29/19 02:48 102 H 20 141/62 H 90 06/29/19 02:46 102 H 141/62 H 88 L 06/29/19 02:35 96 06/29/19 02:30 115 H 95 06/29/19 02:25 115 H 189/71 H 97 06/29/19 02:15 113 H 22 163/70 H 95 06/29/19 02:00 104 H 112 H 22 97 06/29/19 01:56 103 H 163/70 H 92 06/29/19 01:49 104 H 100 06/29/19 01:44 104 H 159/72 H 100 06/29/19 01:40 37.4 C 107 H 24 159/72 H 69 L Pulse Ox 06/29/19 08:07 06/29/19 05:00 06/29/19 04:31 06/29/19 04:29 06/29/19 04:17 100 06/29/19 04:15 06/29/19 04:01 06/29/19 04:00 06/29/19 03:51 06/29/19 03:45 06/29/19 03:31 06/29/19 03:30 06/29/19 03:21 06/29/19 03:15 06/29/19 03:02 06/29/19 03:00 06/29/19 02:48 06/29/19 02:46 06/29/19 02:35 06/29/19 02:30 06/29/19 02:25 06/29/19 02:15 06/29/19 02:00 06/29/19 01:56 06/29/19 01:49 06/29/19 01:44 06/29/19 01:40 Laboratory Results 06/29/19 05:13 06/29/19 06/29/19 06/29/19 01:40 01:40 05:13 WBC 12.15 H 9.40 RBC 3.57 L 3.13 L MCV 88.8 90.1 MCH 28.6 27.8 MCHC 32.2 30.9 L RDW Std Deviation 56.4 H 56.8 H RDW Coeff of Talisha 17.3 H 17.4 H Plt Count 268 207 MPV 9.3 9.1 Phosphorus Albumin 2.7 L 06/29/19 05:13 WBC RBC MCV MCH MCHC RDW Std Deviation RDW Coeff of Atlisha Plt Count MPV Phosphorus 8.6 H Albumin (1) Acute on chronic renal failure Acute renal failure type: unspecified Chronic kidney disease stage: unspecified stage Qualified Code(s): N17.9 - Acute kidney failure, unspecified; N18.9 - Chronic kidney disease, unspecified (2) Acute respiratory failure Respiratory failure complication: unspecified whether with hypoxia or hypercapnia Qualified Code(s): J96.00 - Acute respiratory failure, unspecified whether with hypoxia or hypercapnia
[2019-06-29 09:37] LABS: iSTAT Art Bld Gas pCO2 Correct 42 mmHg (35-46); iSTAT Art Bld Gas pH Corrected 7.287 (7.35-7.45); iSTAT Arterial Blood Gas HCO3 20 meg/L (19-24); iSTAT Arterial Blood Gas pCO2 42 mmHg (35-46); iSTAT Arterial Blood Gas pH 7.28 (7.35-7.45); iSTAT Arterial Blood Gas pO2 74 mmHg (80-95); iSTAT Arterial Blood Gas pO2 C 72; iSTAT Carbon Dioxide 21 mmol/L (24-31); iSTAT FiO2 60 %; iSTAT Hematocrit 21 % (37-47); iSTAT Hemoglobin 7.1 g/dl (12.0-16.0); iSTAT Potassium 4.8 mmol/L (3.3-5.0); iSTAT Site Art Line; iSTAT Sodium 142 mmol/L (135-144)
[2019-06-29 09:59] LABS: Hepatitis B Surface Ab Quant 90.59 mIU/mL (>or=10mIU/mL Immune); Hepatitis B Surface Antibody Immune
[2019-06-29 10:09] LABS: Hepatitis B Surface Antigen Neg (Neg)
[2019-06-29] MEDS: fentaNYL DRIP 1,250 MCG/250 ML BAG IV SCH (10:33)
[2019-06-29] MEDS ORDERED: HEPARIN SOD (PORCINE) 1000 UNIT/ML 10 ML VIAL ONE (10:43)
[2019-06-29] MEDS: PANTOprazole 40 MG in SYRINGE 0 ML IV SCH ×2 (11:13→20:57)
--- NOTE | 2019-06-29 11:13 | Procedure Note ---
Procedure Note Date of Service June 29, 2019 Note Right INTERNAL JUGULAR Trialysis LINE PROCEDURE NOTE: Procedure: Internal Jugular Central Line Placement Indication: Central Drug Administration, dialysis, poor Venous Access, Multiple Lab Draws Necessary, etc. Anesthesia: Lidocaine was utilized, fentanyl and propofol. Consent was signed and placed on the chart prior to procedure. Indication, risks, and benefits were explained at length. A time-out was completed verifying correct patient, procedure, site, positioning, and implants(s) or special equipment if applicable. Patients right neck was cleansed and draped in the typical sterile fashion using Chloraprep. The Internal Jugular Vein and Carotid Artery were identified using ultrasound. The superficial tissue was anesthetized using 8 mL of 1% lidocaine without epinephrine under direct visualization with the ultrasound. After adequate anesthetization was achieved, the Internal Jugular vein was cannulated under direct ultrasound guidance using an introducer needle on a syringe. Good venous blood return was maintained prior to removal of syringe from introducer needle. Using Seldinger Technique, a guide wire was advanced through the introducer needle without resistance. The introducer needle was removed and ultrasound images were obtained of the guide wire within the Internal Jugular Vein and saved to the patients medical record. A small incision was made in penetrating fashion at the guide wire insertion site utilizing an 11 blade scalpel. The dilator was advanced to the vessel without resistance. The dilator was exchanged for the triple lumen catheter which was advanced into the vessel without resistance. The guide wire was removed intact from the catheter without issue. Claves were placed on each catheter tip with confirmation of good blood flow from each lumen. Each port was easily flushed with sterile saline. The catheter was placed at 13 cm and sutured in place. BioPatch was applied to the catheter and a sterile Tegaderm dressing was applied over the catheter with careful attention to sterility. Patient tolerated procedure well. No immediate complications were met. Post procedure x-ray was completed, placement was appropriate and no pneumothorax was noted. Images obtained are saved for permanent record Procedural Ultrasound Guidance used Images obtained are saved for permanent record. Coding CPT Codes Tubes, Drains, and Vasc Access - Tubes, Drains, and Vasc Access: [id number] Insertion of cannula for hemodialysis ([id number]) Tubes, Drains, and Vasc Access - Tubes, Drains, and Vasc Access: [id number] Ultrasound Guidance For Vascular ([id number]) [facility] [place]) Tubes, Drains, and Vasc Access Procedure 1: Tubes, Drains, and Vasc Access: [id number] Insertion of cannula for hemodialysis Procedure 2: Tubes, Drains, and Vasc Access: [id number] Ultrasound Guidance For Vascular
--- NOTE | 2019-06-29 11:29 | XRay Report ---
XR chest 1V portable CLINICAL HISTORY: Central line placement COMPARISON STUDY: 06/29/2019 FINDINGS: There is an endotracheal tube 31 mm above the haley. There is a nasogastric tube which pas ses into the stomach. There is been interval placement of a right internal jugular central venous cat heter which projects at the superior vena cava. There is no pneumothorax. There are persistent bilate ral pulmonary airspace opacities/edema. IMPRESSION: Interval placement of a right internal jugular central venous catheter. No evidence of pn eumothorax. ACT 112: Negative or not required by law. Electronically signed by: Antonio Phillips M.D. 06/29/2019 11:27 AM
[2019-06-29 11:56] LABS: Eosinophils # (auto) 0.01 K/uL (0-0.5); Eosinophils % (auto) 0.2 %; Hematocrit (blood only) 23.4 % (37-47); Hemoglobin 7.4 g/dL (12.0-16.0); Immature Granulocytes # (auto) 0.01 K/uL (0.00-0.02); Immature Granulocytes % (auto) 0.2 %; Lymphocytes # (auto) 0.66 K/uL (1.2-3.4); Mean Corpuscular Hemoglobin 27.9 pg (25-34); Mean Corpuscular Hgb Conc 31.6 g/dL (32-36); Mean Corpuscular Volume 88.3 fL (80-100); Mean Platelet Volume 8.7 fL (7.4-10.4); Monocytes # (auto) 0.52 K/uL (0.11-0.59); Monocytes % (auto) 8.7 %; Neutrophils # (auto) 4.79 K/uL (1.4-6.5); Neutrophils % (auto) 79.9 %; Platelet Count 170 K/uL (130-400); RDW Coefficient of Variation 17.5 % (11.5-14.5); RDW Standard Deviation 56.9 fL (36.4-46.3); Red Blood Count 2.65 M/uL (4.2-5.4); White Blood Count 5.99 K/uL (4.8-10.8)
[2019-06-29 12:18] LABS: RBC Morphology Unremarkable
[2019-06-29] MEDS ORDERED: HEPARIN SOD 5,000 UNIT/0.5 ML VIAL SQ SCH (14:00)
--- NOTE | 2019-06-29 14:58 | Electrocardiogram Report ---
Test Reason : Blood Pressure : / mmHG Vent. Rate : 114 BPM Atrial Rate : 114 BPM P-R Int : 156 ms QRS Dur : 080 ms QT Int : 318 ms P-R-T Axes : 054 004 049 degrees QTc Int : 438 ms Sinus tachycardia Possible Left atrial enlargement Borderline ECG When compared with ECG of 30-MAY-2019 17:27, No significant change was found Confirmed by Shine Woody ([id number]) on 06/29/2019 2:58:17 PM Referred By: REFERRED SELF Confirmed By:Shine Woody
[2019-06-29] MEDS: LEVOTHYROXINE SODIUM 50 MCG TABLET NG SCH (15:17)
--- NOTE | 2019-06-29 15:24 | Electrocardiogram Report ---
Test Reason : Blood Pressure : / mmHG Vent. Rate : 087 BPM Atrial Rate : 087 BPM P-R Int : 160 ms QRS Dur : 082 ms QT Int : 360 ms P-R-T Axes : 069 020 049 degrees QTc Int : 433 ms Normal sinus rhythm Normal ECG When compared with ECG of 29-JUN-2019 02:20, (unconfirmed) No significant change was found Confirmed by Shine Woody ([id number]) on 06/29/2019 3:23:30 PM Referred By: REFERRED SELF Confirmed By:Shine Woody
[2019-06-29] MEDS: ACETAMINOPHEN 1,000 MG/100 ML VIAL IV PRN (19:51)
[2019-06-29 21:10] LABS: iSTAT Art Bld Gas pCO2 Correct 46 mmHg (35-46); iSTAT Art Bld Gas pH Corrected 7.369 (7.35-7.45); iSTAT Arterial Blood Gas HCO3 26 meg/L (19-24); iSTAT Arterial Blood Gas pCO2 44 mmHg (35-46); iSTAT Arterial Blood Gas pH 7.38 (7.35-7.45); iSTAT Arterial Blood Gas pO2 54 mmHg (80-95); iSTAT Arterial Blood Gas pO2 C 57; iSTAT Carbon Dioxide 28 mmol/L (24-31); iSTAT FiO2 35 %; iSTAT Hematocrit 25 % (37-47); iSTAT Hemoglobin 8.5 g/dl (12.0-16.0); iSTAT Potassium 4.2 mmol/L (3.3-5.0); iSTAT Site Art Line; iSTAT Sodium 139 mmol/L (135-144)
[2019-06-29] MEDS: METOPROLOL TARTRATE 1 MG/ML VIAL IV PRN (21:11)
[2019-06-29 23:59] LABS: iSTAT Art Bld Gas pCO2 Correct 39 mmHg (35-46); iSTAT Art Bld Gas pH Corrected 7.414 (7.35-7.45); iSTAT Arterial Blood Gas HCO3 25 meg/L (19-24); iSTAT Arterial Blood Gas pCO2 38 mmHg (35-46); iSTAT Arterial Blood Gas pH 7.42 (7.35-7.45); iSTAT Arterial Blood Gas pO2 61 mmHg (80-95); iSTAT Arterial Blood Gas pO2 C 63; iSTAT Carbon Dioxide 26 mmol/L (24-31); iSTAT FiO2 35 %; iSTAT Hematocrit 42 % (37-47); iSTAT Hemoglobin 14.3 g/dl (12.0-16.0); iSTAT Potassium 4.2 mmol/L (3.3-5.0); iSTAT Site Art Line; iSTAT Sodium 139 mmol/L (135-144)
[2019-06-30] MEDS: INSULIN ASPART 100 UNITS/ML 3 ML PEN SC SCH ×5 (00:12→20:37)
[2019-06-30] MEDS: DOXYCYCLINE HYCLATE 100 MG in DEXTROSE 5% 100 ML IV SCH ×2 (05:09→16:15)
[2019-06-30] MEDS: cefTRIAXone SODIUM 2,000 MG in DEXTROSE 5% 50 ML IV SCH (05:10)
[2019-06-30] MEDS: OSELTAMIVIR PHOSPHATE SUSP 30 MG/5 ML UDP NG SCH (05:11)
[2019-06-30] MEDS: LEVOTHYROXINE SODIUM 50 MCG TABLET NG SCH (05:11)
[2019-06-30] MEDS: propofoL 1,000 MG/100 ML VIAL IV SCH ×4 (05:22→23:10)
[2019-06-30] MEDS ORDERED: ICU PROTOCOL FOR HYPERGLYCEMIA PRN (05:37)
[2019-06-30] MEDS ORDERED: GLUCAGON FOR INJ 1 MG VIAL SQ PRN (05:37)
[2019-06-30] MEDS ORDERED: GLUCOSE 10 TABS/TUBE PO PRN (05:37)
[2019-06-30] MEDS ORDERED: DEXTROSE 50% 50 ML SYRINGE IV PRN (05:37)
[2019-06-30] MEDS ORDERED: CARBOHYDRATES FOR HYPOGLYCEMIA PO PRN (05:37)
[2019-06-30] MEDS ORDERED: GLUCOSE 40% GEL 15 GM TUBE PO PRN (05:37)
[2019-06-30] MEDS: DEXTROSE 50% 50 ML SYRINGE IV PRN ×2 (05:39→15:43)
[2019-06-30 05:46] LABS: Basophils # (auto) 0.01 K/uL (0-0.2); Basophils % (auto) 0.1 %; Eosinophils # (auto) 0.06 K/uL (0-0.5); Eosinophils % (auto) 0.8 %; Hematocrit (blood only) 25.5 % (37-47); Immature Granulocytes # (auto) 0.02 K/uL (0.00-0.02); Immature Granulocytes % (auto) 0.3 %; Lymphocytes # (auto) 1.19 K/uL (1.2-3.4); Lymphocytes % (auto) 16.1 %; Mean Corpuscular Hemoglobin 27.7 pg (25-34); Mean Corpuscular Hgb Conc 31.4 g/dL (32-36); Mean Corpuscular Volume 88.2 fL (80-100); Mean Platelet Volume 9.3 fL (7.4-10.4); Monocytes # (auto) 0.82 K/uL (0.11-0.59); Monocytes % (auto) 11.1 %; Neutrophils % (auto) 71.6 %; Platelet Count 174 K/uL (130-400); RDW Coefficient of Variation 17.5 % (11.5-14.5); RDW Standard Deviation 57.7 fL (36.4-46.3); Red Blood Count 2.89 M/uL (4.2-5.4)
[2019-06-30 05:50] LABS: Base Excess ABG 0.9 mEq/L (-9-1.8); HCO3 ABG 25 mmol/L (19-24); Oxygen Saturation ABG 87.6 % (90-95); PCO2 ABG 39 mmHg (35-46); PO2 ABG 57 mmHg (80-95); pH ABG 7.43 (7.35-7.45)
[2019-06-30 05:56] LABS: Allen Test Pos (Pos)
[2019-06-30 06:19] LABS: BUN Creatinine Ratio 15.7 (10-20); Creatinine Clr Calc Pharmacy 17.3 ml/min; Est GFR (African American) 14.6; Est GFR (Non-African American) 12.6; Magnesium 1.8 mg/dl (1.8-2.4); Potassium 4.1 mmol/L (3.5-5.1)
[2019-06-30 06:33] LABS: Estimated Average Glucose 160 mg/dl; Hemoglobin A1C 7.2 % (4.5-5.6)
--- NOTE | 2019-06-30 07:12 | XRay Report ---
XR chest 1V portable HISTORY: 58 years-old Female Post dialysis acute respiratory failure COMPARISON: Chest radiograph 06/29/2019 TECHNIQUE: Portable AP view of the chest FINDINGS: Endotracheal tube terminates 1.8 cm superior to the haley. Dual-lumen right IJ central venous cathet er distal tip terminates in the expected location of the mid SVC. Enteric tube is noted with distal t ip in the expected location of the mid gastric lumen. Cardiac silhouette is enlarged. Calcified plaqu e of the thoracic aortic arch. No pneumothorax. Mixed interstitial and alveolar opacities have not si gnificantly changed. Probable trace pleural effusions. Pulmonary vascular congestion. Degenerative ch anges of the shoulders and spine. Multiple telemetry leads are "of the chest. IMPRESSION: 1. Satisfactory positioning of lines and tubes as above. 2. Cardiomegaly with persistent bilateral mixed interstitial and alveolar opacities. 3. Probable trace pleural effusions. ACT 112: Negative or not required by law. The above report was generated using voice recognition software. It may contain grammatical, syntax o r spelling errors. Electronically signed by: David Maldonado M.D. 06/30/2019 7:11 AM
[2019-06-30] MEDS ORDERED: PHARMACY GLYCEMIC MGMT CONSULT PRN (07:57)
--- NOTE | 2019-06-30 08:23 | Critical Care Progress Note ---
Date of Service June 30, 2019 Assessment & Plan (1) Admitted to intensive care unit: Patient underwent hemodialysis yesterday and 3 L of fluid was removed. Oxygenation is much improved today. She is currently on 40% FiO2 and 10 of PEEP. ABGs were reviewed and are reasonable. Plateau pressure 24. She is responding on sedation. We will hold a spontaneous breathing trial today given her requirements on the vent. We will perform a sedation vacation tomorrow and likely spontaneous breathing trial tomorrow. Possible further dialysis today with further fluid removal. Chest x-ray appears mildly improved but still with significant vascular congestion and alveolar infiltrates. All lines and tubes in place and stable. Continue antibiotics empirically. Cultures are negative thus far. Echo reviewed no acute evidence of wall motion abnormality. Will initiate tube feeds today. Reinitiate heparin 3 times daily today given that her hemoglobin has been stable. She does have anemia of chronic disease. MRSA screen negative. CRITICAL CARE TIME - I have personally spent 30 minutes of critical care time in the direct management of this patient. This is a life/limb threatening event. This includes time spent evaluating patient, direct bedside care, chart review, placing order s, interpretation of diagnostic studies, discussion with consultants, patient, and family members, as well as other required patient management activities. This time is exclusive of all separately billable procedures, and teaching time and separate from and in addition to any other critical care service time. (2) Need for acute hemodialysis: (3) Acute pulmonary edema: (4) Acute respiratory failure: (5) Acute on chronic renal failure: (6) Influenza A: Subjective Patient is intubated and sedated today. She is following commands. When asked if she has any pain she nods her head no. Otherwise review of systems is very limited. No overnight events. Currently on 20 of propofol and 50 of fentanyl. Physical Exam Physical Exam: VITAL SIGNS - Vital signs and nursing notes were reviewed. GENERAL - 58-year-old female appearing her stated age who is in moderate distress. Intubated and sedated. SKIN - Without rashes. HEAD - NC/AT. EYES - PERRL with EOMI bilaterally. Sclera anicteric. EARS - No deformities of external structures noted on gross examination bilaterally. NOSE - Midline and without cyanosis. No epistaxis or purulent drainage noted. MOUTH/OROPHARYNX - Without perioral cyanosis. ET Tube in place. NECK - Neck with FROM. Supple to palpation. No lymphadenopathy noted. No nuchal rigidity. LUNGS -coarse breath sounds with rales appreciated throughout all lung pitts. CARDIAC - RRR with S1/S2. No murmur, rubs, or gallops appreciated. ABDOMEN - Abdominal contour obese without pulsations or visible masses. BS normoactive all four quadrants. No tenderness, palpable masses, hepatosplenomegaly, or ascites noted. EXTREMITIES - No clubbing or peripheral cyanosis. No pretibial edema present. +3/5 radial and dorsalis pedis pulses palpated throughout. NEUROLOGIC/PSYCH - Unable to fully assess secondary to current state of sedation. No focal neurological deficits appreciated. Results & Data ([facility]) Vital Signs (Past 12 Hours) Vital Signs Pulse Resp BP Pulse Ox 06/30/19 07:41 28 H 06/30/19 07:35 83 30 H 92 06/30/19 06:00 89 92 06/30/19 05:20 90 30 H 154/68 H 91 06/30/19 05:00 79 95 06/30/19 04:20 78 124/61 95 06/30/19 04:00 78 95 06/30/19 03:20 80 125/51 L 93 06/30/19 02:22 79 30 H 94 06/30/19 02:00 79 94 06/30/19 01:00 80 95 06/30/19 00:05 74 30 H 94 06/30/19 00:00 83 89 L 06/29/19 23:00 74 94 06/29/19 22:59 75 06/29/19 22:00 79 93 06/29/19 21:11 103 H 194/54 H 06/29/19 21:06 101 H 90 06/29/19 21:05 102 H 135/62 89 L 06/29/19 21:00 100 H 92 06/29/19 20:43 100 H 30 H 91 Coding Level of Care Code Critical Care 1st 30-74 mins Diagnoses Admitted to intensive care unit Z78.9 Need for acute hemodialysis Z99.2 Acute pulmonary edema J81.0 Acute respiratory failure J96.00 Respiratory failure complication: unspecified whether with hypoxia or hypercapnia Acute on chronic renal failure N17.9; N18.9 Acute renal failure type: unspecified Chronic kidney disease stage: unspecified stage Influenza A J10.1 Time Spent (min) 30 (1) Acute respiratory failure Respiratory failure complication: unspecified whether with hypoxia or hypercapnia Qualified Code(s): J96.00 - Acute respiratory failure, unspecified whether with hypoxia or hypercapnia (2) Acute on chronic renal failure Acute renal failure type: unspecified Chronic kidney disease stage: unspecified stage Qualified Code(s): N17.9 - Acute kidney failure, unspecified; N18.9 - Chronic kidney disease, unspecified
[2019-06-30] MEDS ORDERED: SODIUM CHLORIDE 0.9% 1000ML 1,000 ML IV PRN (08:29)
[2019-06-30] MEDS: fentaNYL DRIP 1,250 MCG/250 ML BAG IV SCH (08:57)
[2019-06-30] MEDS: HEPARIN SOD 5,000 UNIT/0.5 ML VIAL SQ SCH ×3 (08:58→23:10)
[2019-06-30] MEDS ORDERED: EPOETIN ALFA 10,000 UNITS in SYRINGE 0 ML IV SCH (09:45)
[2019-06-30] MEDS ORDERED: EPOETIN ALFA 10,000 UNITS/ML VIAL IV SCH (10:00)
[2019-06-30] MEDS: METOPROLOL TARTRATE 1 MG/ML VIAL IV PRN (10:28)
[2019-06-30] MEDS: PANTOprazole 40 MG in SYRINGE 0 ML IV SCH ×2 (10:30→21:35)
[2019-06-30] MEDS: PEPTAMEN INTENSE VHP 1.0 CAL 1,000 ML BAG GT SCH (11:11)
[2019-06-30] MEDS: ACETAMINOPHEN 1,000 MG/100 ML VIAL IV PRN ×2 (12:36→19:30)
--- NOTE | 2019-06-30 14:03 | Nephrology Progress Note ---
Date of Service June 30, 2019 Assessment & Plan (1) Acute on chronic renal failure: Patient with the CKD stage V baseline creatinine of 4.3 on 06/14/2019. She now comes in with a creatinine of 5.2 and a BUN of 100. She also has pulmonary edema and hyperkalemia. Patient is now end-stage renal disease. Her fistula is not mature. Patient was seen by vascular surgeon who recommended a fistulogram and patient was booked for 1 on 07/09/2019. She had HD on 06/28. -Will do HD today for 2hrs and UF 3litres. -Will plan HD tomorrow as well (2) Acute respiratory failure: Due to influenza A and pulmonary edema. Patient is on antibiotics and Tamiflu per ICU team. We will optimize volume status with dialysis. Agree with Lasix in the meantime. (3) Hyperkalemia: Due to renal failure. We will dialyze on a 2K bath. (4) Influenza A: Continue Tamiflu per primary team. Admission and Anticipated Discharge Date Admission Date: June 29, 2019 Subjective Patent is intubated, unable to give history. She was dialysed yesterday with net UF 3litres. She is still volume overload. Review of Systems Review of Systems: Unobtainable due to endotracheal tube Physical Exam Physical Exam: General exam: Intubated and sedated HEENT: Pupils are equal and reactive to light Neck: No JVD, neck is supple trachea is midline Respiratory system: Clear breath sounds bilaterally. Gastrointestinal: Abdomen is soft, non distended, non tender, bowel sounds are present CVS: Regular rate and rhythm. No murmurs, rubs or gallops Musculoskeletal: No joint or muscle tenderness Extremities: Non tender, 2+ edema, peripheral pulses are present Neuro: Sedated, moves to pain Skin: No rashes Access: left FA AVF, good bruit and right IJ Results & Data ([facility]) Vital Signs (Past 12 Hours) Vital Signs Pulse Resp BP Pulse Ox 06/30/19 13:45 77 28 H 95 06/30/19 12:00 89 97 06/30/19 11:00 92 H 94 06/30/19 10:36 96 H 29 H 92 06/30/19 10:28 92 H 174/56 H 06/30/19 10:00 89 94 06/30/19 09:20 88 134/56 L 96 06/30/19 08:20 89 134/61 96 06/30/19 08:00 83 06/30/19 07:41 28 H 06/30/19 07:35 83 30 H 92 06/30/19 07:20 76 119/51 L 92 06/30/19 07:00 81 96 06/30/19 06:00 89 92 06/30/19 05:20 90 30 H 154/68 H 91 06/30/19 05:00 79 95 06/30/19 04:20 78 124/61 95 06/30/19 04:00 78 95 06/30/19 03:20 80 125/51 L 93 06/30/19 02:22 79 30 H 94 06/30/19 02:00 79 94 Laboratory Results 06/30/19 05:29 06/30/19 06/30/19 05:29 05:29 WBC 7.40 RBC 2.89 L MCV 88.2 MCH 27.7 MCHC 31.4 L RDW Std Deviation 57.7 H RDW Coeff of Talisha 17.5 H Plt Count 174 MPV 9.3 Phosphorus 6.0 H D (1) Acute on chronic renal failure Acute renal failure type: unspecified Chronic kidney disease stage: unspecified stage Qualified Code(s): N17.9 - Acute kidney failure, unspecified; N18.9 - Chronic kidney disease, unspecified (2) Acute respiratory failure Respiratory failure complication: unspecified whether with hypoxia or hypercapnia Qualified Code(s): J96.00 - Acute respiratory failure, unspecified whether with hypoxia or hypercapnia
--- NOTE | 2019-06-30 14:35 | Pharmacy Report ---
Pharmacy Glycemic Short Note 2 - Date of Service June 30, 2019 - Glycemic Short BSG Results (Last 24 hours): 06/29/19 06/29/19 06/29/19 18:09 20:55 23:37 Glucose POC Glucose 101 H 108 H 85 06/30/19 06/30/19 06/30/19 05:29 05:33 05:34 Glucose 61 L POC Glucose 62 L* 61 L* 06/30/19 06/30/19 05:54 11:16 Glucose POC Glucose 162 H 74 OUTPATIENT ANTIDIABETIC REGIMEN: * Lantus 50 units Q AM + 30 units Q PM * A1c = 7.2% ASSESSMENT: * Type 2 diabetic admitted to ICU for influenza A, respiratory failure and pulm edema requiring intubation / mechanical ventilation as well as JEN and need for hemodialysis * BSGs well controlled yesterday, however pt became hypoglycemic overnight - likely due to excess basal insulin in the setting of ongoing NPO status. Of note, basal insulin dose was less than half out-pt dose and was equivalent to "moderate" stress level weight-based dosing. * Basal insulin held this AM. Will resume basal insulin this evening per scale to lessen risk of hypoglycemia * Continuous tube feeds started today, with titration orders. Will cover carbs in tube feeds with Novolog carb ratio Q 4 hrs * Of note, pt may be extubated 06/30 if clinical improvement continues PLAN FOR INPATIENT GLYCEMIC CONTROL: * Basal insulin * Lantus SQ BID per scale: * 0 units if less than 120 * 8 units if 120-180 * 15 units if greater than 180 * Bolus insulin * NovoLog per scale Q 4 hrs * Goal Range: Low 120 mg/dL - High 150 mg/dL * Correction Factor: 20 mg/dL/unit * Nutritional / Prandial insulin per carb ratio of 1 unit per 8 grams CHO consumed PLAN FOR DISCHARGE: * to be determined
--- NOTE | 2019-06-30 19:25 | Hospitalist Progress Note ---
Date of Service June 30, 2019 Assessment & Plan (1) Acute respiratory failure: 2/2 flu pneumonia. Mechanical ventilation with management per ICU team. (2) Acute on chronic renal failure: AV fistula in place but not mature. Hemodialysis catheter placed with initiation of HD per Nephro. (3) Influenza A: Tamiflu and coverage of pneumonia with Rocephin and Doxy (4) Hypothyroidism: Synthroid replacement (5) Diabetes mellitus: Insulin management per ICU team. (6) Anemia of chronic renal failure, stage 5: Transfusions per Nephro and ICU team. (7) DVT prophylaxis: heparin stress ulcer prophylaxis-protonix Full Code Dispo-uncertain, very ill patient requiring continued ventilation, cont ICU care. Rachelle Kuhn DO [facility] Admission and Anticipated Discharge Date Admission Date: June 29, 2019 Anticipated date of discharge: 07/05/19 Subjective ROS unobtainable as patient is vented and sedated. Review of Systems Review of Systems: Unobtainable due to endotracheal tube Physical Exam Physical Exam: CONSTITUTIONAL: WNWD, vitals as above, intubated, sedated EYES: pupils are equal and round bilaterally, normal conjunctivae, no scleral icterus ENT: external ear and nose normal, NG tube in place for feeds, ETT in place. NECK: trachea midline, R IJ in place RESPIRATORY: clear to auscultation bilaterally, no crackles, rales or wheezes, vented, limited exam 2/2 sedation CARDIOVASCULAR: regular rate and rhythm, S1 and 2 heard without murmurs, gallops or rubs, no JVD, no peripheral edema. LUE fistula in place with palpable thrill GASTROINTESTINAL: normal bowel sounds, soft, nondistended MUSCULOSKELETAL: cannot obtain as patient is sedated SKIN: warm and dry, some roughness to the posterior leg skin noted. Full exam deferred to nurse who reports no breakdown. NEUROLOGIC: sedated Results & Data ([facility]) Vital Signs (Past 12 Hours) Vital Signs Temp Pulse Pulse Resp BP BP Pulse Ox 06/30/19 18:30 85 128/58 L 98 06/30/19 18:17 81 103/48 L 06/30/19 18:13 37.1 C 101/46 L 06/30/19 18:10 79 101/46 L 06/30/19 18:04 80 94/44 L 06/30/19 17:55 76 92/44 L 06/30/19 17:45 77 97/45 L 06/30/19 17:31 75 101/47 L 06/30/19 17:27 75 108/51 L 96 06/30/19 17:15 74 100/47 L 06/30/19 17:00 76 103/47 L 06/30/19 16:45 76 123/51 L 06/30/19 16:30 37.1 C 78 78 28 H 133/59 L 97 06/30/19 16:00 75 126/54 L 96 06/30/19 14:50 77 28 H 96 06/30/19 14:00 76 95 06/30/19 13:45 77 28 H 95 06/30/19 12:44 95 H 151/33 H 94 06/30/19 12:00 89 97 06/30/19 11:00 92 H 94 06/30/19 10:36 96 H 29 H 92 06/30/19 10:28 92 H 174/56 H 06/30/19 10:00 89 94 06/30/19 09:20 88 134/56 L 96 06/30/19 08:20 89 134/61 96 06/30/19 08:00 83 06/30/19 07:41 28 H 06/30/19 07:35 83 30 H 92 Laboratory Results Short CBC 06/30/19 Range/Units 05:29 WBC 7.40 (4.8-10.8) K/uL Hgb 8.0 L (12.0-16.0) g/dL Hct 25.5 L (37-47) % Plt Count 174 (130-400) K/uL BMP 06/30/19 05:29 Sodium 138 Potassium 4.1 D Chloride 105 Carbon Dioxide 24 BUN 58 H Creatinine 3.71 H D Glucose 61 L Calcium 8.0 L Diagnostic Findings XR chest 1V portable HISTORY: 58 years-old Female Post dialysis acute respiratory failure COMPARISON: Chest radiograph 06/29/2019 TECHNIQUE: Portable AP view of the chest FINDINGS: Endotracheal tube terminates 1.8 cm superior to the haley. Dual-lumen right IJ central venous catheter distal tip terminates in the expected location of the mid SVC. Enteric tube is noted with distal tip in the expected location of the mid gastric lumen. Cardiac silhouette is enlarged. Calcified plaque of the thoracic aortic arch. No pneumothorax. Mixed interstitial and alveolar opacities have not significantly changed. Probable trace pleural effusions. Pulmonary vascular congestion. Degenerative changes of the shoulders and spine. Multiple telemetry leads are "of the chest. IMPRESSION: 1. Satisfactory positioning of lines and tubes as above. 2. Cardiomegaly with persistent bilateral mixed interstitial and alveolar opacities. 3. Probable trace pleural effusions. Medications Administered Current Inpatient Medications Albuterol (Ventolin Hfa) 2 puffs INH Q6H PRN PRN Reason: shortness of breath or wheezing Stop: 07/29/19 04:16 Dextrose (Dextrose 50%) 25 - 50 ml IV UD PRN; Protocol PRN Reason: Hypoglycemia Protocol Stop: 07/29/19 04:29 Last Admin: 06/30/19 15:43 Dose: 25 ml Documented by: Fentanyl Citrate (Fentanyl Bolus From Bag) 25 mcg IV ONE PRN PRN Reason: Pain/Sedation while on drip Glucagon (Glucagen) 1 mg IM UD PRN; Protocol PRN Reason: Hypoglycemia Protocol Stop: 07/29/19 04:29 Glucose (Glucose 40%) 15 - 30 gm PO UD PRN; Protocol PRN Reason: Hypoglycemia Protocol Stop: 07/29/19 04:29 Glucose (Dex4 Glucose) 4 - 8 tabs PO UD PRN; Protocol PRN Reason: Hypoglycemia Protocol Stop: 07/29/19 04:29 Heparin Sodium (Porcine) (Heparin Sodium (Porcine)) 5,000 units SQ Q8H [facility] Stop: 07/30/19 07:59 Last Admin: 06/30/19 15:44 Dose: 5,000 units Documented by: Propofol (Diprivan) 1,000 mg in 100 mls @ 10.32 mls/hr IV .Q9H42M [facility]; Protocol Stop: 07/02/19 02:14 Last Titration: 06/30/19 19:03 Dose: 20 mcg/kg/min, 10.3 mls/hr Documented by: Ceftriaxone Sodium 2,000 mg/ (Dextrose) 70 mls @ 100 mls/hr IV Q24H [facility]; Protocol Stop: 07/06/19 05:59 Last Infusion: 06/30/19 05:52 Dose: Infused Documented by: Doxycycline Hyclate 100 mg/ (Dextrose) 110 mls @ 50 mls/hr IV Q12H [facility] Stop: 07/06/19 04:59 Last Infusion: 06/30/19 18:30 Dose: Infused Documented by: Fentanyl Citrate (Fentanyl Drip) 1,250 mcg in 250 mls @ 10 mls/hr IV .Q24H [facility]; Protocol Stop: 07/13/19 08:29 Last Titration: 06/30/19 19:03 Dose: 50 mcg/hr, 10 mls/hr Documented by: Pantoprazole Sodium 40 mg/ (Syringe) 10 mls @ 5 mls/min IV Q12H [facility] Stop: 07/29/19 09:59 Last Admin: 06/30/19 10:30 Dose: 5 mls/min Documented by: Acetaminophen (Ofirmev) 1,000 mg in 100 mls @ 400 mls/hr IV Q8H PRN PRN Reason: Fever Stop: 07/02/19 19:20 Last Admin: 06/30/19 19:30 Dose: 400 mls/hr Documented by: Insulin Aspart (Novolog Flexpen) 0 units SC Q4 [facility] Stop: 07/30/19 11:59 Last Admin: 06/30/19 15:44 Dose: Not Given Documented by: Insulin Glargine (Lantus Solostar Pen) 0 units SC Q12H [facility]; Protocol Stop: 07/30/19 19:59 Levothyroxine Sodium (Synthroid) 50 mcg NG DAILYBB [facility] Stop: 07/29/19 10:59 Last Admin: 06/30/19 05:11 Dose: 50 mcg Documented by: Metoprolol Tartrate (Lopressor) 5 mg IV Q6 PRN PRN Reason: Hypertension Stop: 07/29/19 04:16 Last Admin: 06/30/19 10:28 Dose: 5 mg Documented by: Miscellaneous (Carbohydrates For Hypoglycemia) 15 - 30 gm PO UD PRN PRN Reason: Hypoglycemia Treatment Stop: 07/29/19 04:29 Miscellaneous Information (Consult Glycemic Management Pharmacy) 1 ea N/A UD PRN PRN Reason: Consult Stop: 07/30/19 07:56 Nutritional Formula (Peptamen Intense Vhp 1.0 Ziggy) 1,000 ml GT DAILY@1100 [facility]; Protocol Stop: 07/30/19 10:59 Last Admin: 06/30/19 11:11 Dose: 1,000 ml Documented by: Oseltamivir Phosphate (Tamiflu) 30 mg NG Q24H [facility]; Protocol Stop: 07/04/19 05:59 Last Admin: 06/30/19 05:11 Dose: 30 mg Documented by: (1) Diabetes mellitus Diabetes mellitus complication status: with unspecified complications Diabetes mellitus [facility] insulin use: unspecified ad terminal makeup operator insulin use status Diabetes mellitus type: other specified (including GERALD) Qualified Code(s): E13.8 - Other specified diabetes mellitus with unspecified complications (2) Acute respiratory failure Respiratory failure complication: unspecified whether with hypoxia or hypercapnia Qualified Code(s): J96.00 - Acute respiratory failure, unspecified whether with hypoxia or hypercapnia (3) Acute on chronic renal failure Acute renal failure type: unspecified Chronic kidney disease stage: unspecified stage Qualified Code(s): N17.9 - Acute kidney failure, unspecified; N18.9 - Chronic kidney disease, unspecified
[2019-06-30] MEDS: INSULIN GLARGINE SOLOSTAR 100 UNITS/ML 3 ML PEN SC SCH (20:36)
[2019-06-30 20:57] LABS: iSTAT Art Bld Gas pCO2 Correct 46 mmHg (35-46); iSTAT Art Bld Gas pH Corrected 7.401 (7.35-7.45); iSTAT Arterial Blood Gas HCO3 28 meg/L (19-24); iSTAT Arterial Blood Gas pCO2 44 mmHg (35-46); iSTAT Arterial Blood Gas pH 7.42 (7.35-7.45); iSTAT Arterial Blood Gas pO2 60 mmHg (80-95); iSTAT Arterial Blood Gas pO2 C 65; iSTAT Carbon Dioxide 30 mmol/L (24-31); iSTAT FiO2 30 %; iSTAT Hematocrit 23 % (37-47); iSTAT Hemoglobin 7.8 g/dl (12.0-16.0); iSTAT Potassium 4.1 mmol/L (3.3-5.0); iSTAT Site Art Line; iSTAT Sodium 138 mmol/L (135-144)
[2019-07-01] MEDS: INSULIN ASPART 100 UNITS/ML 3 ML PEN SC SCH ×4 (00:21→11:51)
[2019-07-01] MEDS: ACETAMINOPHEN 1,000 MG/100 ML VIAL IV PRN (04:01)
[2019-07-01] MEDS: DOXYCYCLINE HYCLATE 100 MG in DEXTROSE 5% 100 ML IV SCH (04:19)
[2019-07-01 04:39] LABS: Basophils # (auto) 0.01 K/uL (0-0.2); Basophils % (auto) 0.2 %; Eosinophils # (auto) 0.11 K/uL (0-0.5); Eosinophils % (auto) 2.3 %; Hematocrit (blood only) 24.5 % (37-47); Hemoglobin 7.6 g/dL (12.0-16.0); Immature Granulocytes # (auto) 0.02 K/uL (0.00-0.02); Immature Granulocytes % (auto) 0.4 %; Lymphocytes # (auto) 1.09 K/uL (1.2-3.4); Lymphocytes % (auto) 22.7 %; Mean Corpuscular Hemoglobin 27.4 pg (25-34); Mean Corpuscular Volume 88.4 fL (80-100); Monocytes # (auto) 0.68 K/uL (0.11-0.59); Monocytes % (auto) 14.1 %; Neutrophils % (auto) 60.3 %; Platelet Count 159 K/uL (130-400); RDW Coefficient of Variation 17.7 % (11.5-14.5); RDW Standard Deviation 57.9 fL (36.4-46.3); Red Blood Count 2.77 M/uL (4.2-5.4); White Blood Count 4.81 K/uL (4.8-10.8)
[2019-07-01 04:48] LABS: Base Excess ABG 0.6 mEq/L (-9-1.8); HCO3 ABG 25 mmol/L (19-24); PCO2 ABG 41 mmHg (35-46); PO2 ABG 69 mmHg (80-95); pH ABG 7.41 (7.35-7.45)
[2019-07-01 04:50] LABS: Allen Test Pos (Pos)
[2019-07-01 04:58] LABS: BUN Creatinine Ratio 13.5 (10-20); Calcium 7.6 mg/dl (8.5-10.1); Creatinine Clr Calc Pharmacy 19.1 ml/min; Est GFR (African American) 16.3; Magnesium 1.8 mg/dl (1.8-2.4); Potassium 3.9 mmol/L (3.5-5.1)
[2019-07-01 05:00] LABS: Phosphorus 5.6 mg/dl (2.5-4.9)
[2019-07-01 05:11] LABS: RBC Morphology Unremarkable
[2019-07-01] MEDS: OSELTAMIVIR PHOSPHATE SUSP 30 MG/5 ML UDP NG SCH (05:35)
[2019-07-01] MEDS: LEVOTHYROXINE SODIUM 50 MCG TABLET NG SCH (05:35)
[2019-07-01] MEDS: cefTRIAXone SODIUM 2,000 MG in DEXTROSE 5% 50 ML IV SCH (06:29)
--- NOTE | 2019-07-01 06:59 | XRay Report ---
XR chest 1V portable CLINICAL HISTORY: 58 years-old Female presenting with f/u. TECHNIQUE: Portable upright AP view of the chest was obtained. COMPARISON: 06/30/2019. FINDINGS: Endotracheal tube terminates approximately 2 cm from the haley. Nasogastric tube descends below the diaphragm terminating in the body of the stomach, sidehole likely also within the gastric lumen. Larg e bore right internal jugular central venous catheter terminates in the mid SVC. Numerous overlying e xternal leads to grating image quality. Atherosclerosis of the aortic arch. Cardiac silhouette moderately enlarged as on prior. Pulmonary vas cular prominence and interstitial prominence similar to prior. Stable to slight decrease in basilar a nd perihilar predominant opacities. Underlying left pleural effusion may be present. No pneumothorax. Degenerative changes of the thoracic spine. Upper abdomen normal. IMPRESSION: 1. Stable to slight decrease in pulmonary edema with persistent advanced congestive change in the se tting of cardiomegaly. 2. Appropriately positioned lines and tubes. ACT 112: Negative or not required by law. Electronically signed by: Jose Gonsales M.D. 07/01/2019 6:57 AM
[2019-07-01] MEDS ORDERED: metroNIDAZOLE 500 MG/100 ML BAG IV SCH (08:00)
[2019-07-01] MEDS ORDERED: STAT IV Infusion **Titration per Protocol STA ×2 (08:03→08:57)
[2019-07-01] MEDS: DEXMEDETOMIDINE HCL 200 MCG in SODIUM CHLORIDE 0.9% 48 ML IV SCH ×2 (08:32→13:53)
[2019-07-01] MEDS: INSULIN GLARGINE SOLOSTAR 100 UNITS/ML 3 ML PEN SC SCH (08:37)
[2019-07-01] MEDS: HEPARIN SOD 5,000 UNIT/0.5 ML VIAL SQ SCH (08:37)
[2019-07-01] MEDS ORDERED: SODIUM CHLORIDE 0.9% 1000ML 1,000 ML IV PRN (08:42)
[2019-07-01 08:45] LABS: Bilirubin Direct 0.1 mg/dl (0-0.2); Bilirubin,Total 0.3 mg/dl (0.2-1); Total Protein 6.6 gm/dl (6.4-8.2)
[2019-07-01] MEDS ORDERED: CEFEPIME 2,000 MG in SYRINGE 7.5 ML IV SCH (09:00)
[2019-07-01] MEDS ORDERED: DOCUSATE SODIUM/SENNA 50/8.6MG TAB PO SCH (09:00)
[2019-07-01] MEDS ORDERED: fentaNYL DRIP 1,250 MCG/250 ML BAG IV SCH (09:00)
--- NOTE | 2019-07-01 09:03 | Critical Care Progress Note ---
Date of Service July 01, 2019 Assessment & Plan (1) Admitted to intensive care unit: Patient failed her spontaneous breathing trial today due to tachypnea and tachycardia. Will reinitiate fentanyl. I am stopping her propofol and switching her to Precedex. Her alk phos has gone up precipitously and she is spiking fevers. I am highly suspecting a calculus cholecystitis. We are going to obtain a CT of her abdomen and her chest. May also need to obtain a right upper quadrant ultrasound. If there is evidence of cholecystitis or other GI process, will likely involve our surgery colleagues. We are checking a lipase level as well to evaluate for the possibility of pancreatitis especially in light of the fact that she has been on propofol. She may need a Meli cystostomy tube. I have also broaden her antibiotics to cefepime and Flagyl from ceftriaxone. Continue doxycycline for 5 days total. Her MRSA screen notably was negative prior to today. Possibility of a necrotizing pneumonia is less likely given the chest x-ray findings which only show some mild interstitial alveolar infiltrates. Continue tube feeds. Continue DVT prophylaxis. Insulin per pharmacy protocol. CRITICAL CARE TIME - I have personally spent 40 minutes of critical care time in the direct management of this patient. This is a life/limb threatening event. This includes time spent evaluating patient, direct bedside care, chart review, placing orders, interpretation of diagnostic studies, discussion with consultants, patient, and family members, as well as other required patient management activities. This time is exclusive of all separately billable procedures, and teaching time and separate from and in addition to any other critical care service time. (2) Need for acute hemodialysis: (3) Acute pulmonary edema: (4) Acute respiratory failure: (5) Acute on chronic renal failure: (6) Influenza A: (7) Transaminitis: Subjective Patient much more awake and alert today. We weaned off all her sedation and she appears very anxious. Reportedly had some abdominal tenderness earlier today. She is not doing well on her spontaneous breathing trial and becoming very tachypneic and tachycardic. Maintaining saturations of 92% on 7/5 at 35% FiO2. Physical Exam Physical Exam: VITAL SIGNS - Vital signs and nursing notes were reviewed. GENERAL - 58-year-old female appearing her stated age who is in moderate distress. Intubated and sedated. SKIN - Without rashes. HEAD - NC/AT. EYES - PERRL with EOMI bilaterally. Sclera anicteric. EARS - No deformities of external structures noted on gross examination bilaterally. NOSE - Midline and without cyanosis. No epistaxis or purulent drainage noted. MOUTH/OROPHARYNX - Without perioral cyanosis. ET Tube in place. NECK - Neck with FROM. Supple to palpation. No lymphadenopathy noted. No nuchal rigidity. LUNGS -coarse breath sounds with rales appreciated throughout all lung pitts. CARDIAC - RRR with S1/S2. No murmur, rubs, or gallops appreciated. ABDOMEN - Abdominal contour obese without pulsations or visible masses. BS normoactive all four quadrants. No tenderness, palpable masses, hepatosplenomegaly, or ascites noted. EXTREMITIES - No clubbing or peripheral cyanosis. No pretibial edema present. +3/5 radial and dorsalis pedis pulses palpated throughout. NEUROLOGIC/PSYCH -awake and alert. Anxious. Results & Data ([facility]) Vital Signs (Past 12 Hours) Vital Signs Temp Pulse Pulse Resp BP BP Pulse Ox 07/01/19 08:30 117 H 157/79 H 93 07/01/19 08:10 105 H 27 H 91 07/01/19 07:30 89 142/58 H 93 07/01/19 06:30 86 128/52 L 93 07/01/19 06:00 90 92 07/01/19 05:46 90 30 H 90 07/01/19 05:31 92 H 98 07/01/19 05:30 88 135/47 L 92 07/01/19 05:00 100.8 F H 77 28 H 125/53 L 96 07/01/19 04:00 100.8 F H 83 28 H 122/55 L 97 07/01/19 03:00 100.8 F H 84 28 H 125/53 L 97 07/01/19 02:30 85 125/61 95 07/01/19 02:28 83 28 H 95 07/01/19 02:00 83 95 07/01/19 01:30 84 117/53 L 95 07/01/19 01:00 85 28 H 126/57 L 95 07/01/19 00:00 100.4 F H 79 28 H 108/51 L 98 06/30/19 23:14 79 28 H 98 06/30/19 23:00 78 28 H 110/50 L 98 06/30/19 22:00 100.4 F H 78 28 H 107/50 L 97 06/30/19 21:00 85 95 Pulse Ox 07/01/19 08:30 07/01/19 08:10 07/01/19 07:30 07/01/19 06:30 07/01/19 06:00 07/01/19 05:46 07/01/19 05:31 07/01/19 05:30 07/01/19 05:00 07/01/19 04:00 97 07/01/19 03:00 07/01/19 02:30 07/01/19 02:28 07/01/19 02:00 07/01/19 01:30 07/01/19 01:00 07/01/19 00:00 06/30/19 23:14 06/30/19 23:00 06/30/19 22:00 06/30/19 21:00 Coding Level of Care Code Critical Care 1st 30-74 mins Diagnoses Admitted to intensive care unit Z78.9 Need for acute hemodialysis Z99.2 Acute pulmonary edema J81.0 Acute respiratory failure J96.00 Respiratory failure complication: unspecified whether with hypoxia or hypercapnia Acute on chronic renal failure N17.9; N18.9 Acute renal failure type: unspecified Chronic kidney disease stage: unspecified stage Influenza A J10.1 Transaminitis R74.0 Time Spent (min) 40 (1) Acute respiratory failure Respiratory failure complication: unspecified whether with hypoxia or hypercapnia Qualified Code(s): J96.00 - Acute respiratory failure, unspecified whether with hypoxia or hypercapnia (2) Acute on chronic renal failure Acute renal failure type: unspecified Chronic kidney disease stage: unspecified stage Qualified Code(s): N17.9 - Acute kidney failure, unspecified; N18.9 - Chronic kidney disease, unspecified
[2019-07-01] MEDS: PANTOprazole 40 MG in SYRINGE 0 ML IV SCH (09:23)
[2019-07-01 09:38] LABS: Appearance Urine Turbid (Clear); Bacteria Urine Automated 1+ (Negative); Bilirubin Urine Negative (Negative); Blood Urine 2+ (Negative); Color Urine Dark Yellow; Epithelial Cell Urine Auto >30 /lpf (0-5); Glucose Urine UA Negative (Negative); Ketones Urine Negative (Negative); Leukocyte Esterase Urine 2+ (Negative); Nitrite Urine Negative (Negative); Protein Urine 3+ (Negative); Urobilinogen Urine Negative (Negative); WBC Urine Automated >30 /hpf (0-5)
[2019-07-01] MEDS ORDERED: ondansetron HCL 6 MG in DEXTROSE 5% 50 ML IV PRN (09:43)
[2019-07-01 09:51] LABS: Cast Urine Automated >30 /lpf (0-5)
[2019-07-01] MEDS ORDERED: ONDANSETRON INJ 2 MG/ML 2 ML VIAL IV PRN (09:52)
[2019-07-01] MEDS ORDERED: ONDANSETRON INJ 2 MG/ML 2 ML VIAL ONE (09:53)
[2019-07-01 09:54] LABS: Mucus Urine Present (None Prsent)
--- NOTE | 2019-07-01 11:57 | Ultrasound Report ---
US abdomen limited CLINICAL HISTORY: 58 years-old Female presenting with RUQ pain, concern for acalculus onofre,. TECHNIQUE: Real-time grayscale and limited color Doppler ultrasound imaging of the abdomen limited to the right upper quadrant was performed. COMPARISON: CT from 10/31/2018. FINDINGS: Pancreas: Visualized portions of the pancreatic head and body normal. Top normal prominence of the pa ncreatic duct. Liver: Normal echogenicity and echotexture. The liver measures 18.4 cm in maximal sagittal dimension. No sonographic evidence of hepatic mass. Main portal vein patent with normal directional flow. Biliary: Central intrahepatic biliary ductal dilatation. Common bile duct measures up to 13 mm in vonnie meter. Gallbladder: Gallstones. Top normal gallbladder wall thickness measuring 3 mm. Trace pericholecystic fluid. The gallbladder is also distended. Unable to assess sonographic Cary's sign. Right kidney: Cortical thinning suggested. Hyperechogenic renal parenchyma. No hydronephrosis. Ascites: None. Other: None. IMPRESSION: 1. Cholelithiasis with borderline gallbladder wall thickening and trace pericholecystic fluid in the distended gallbladder. Acute calculus cholecystitis may be present. This could be confirmed with HID A scan. Surgical consultation is recommended. 2. Choledocholithiasis may be present given the presence of biliary ductal dilatation. 3. Suspected medical renal disease. The report will be called/faxed according to standard departmental protocol. ACT 112: Negative or not required by law. Electronically signed by: Jose Gonsales M.D. 07/01/2019 11:56 AM
--- NOTE | 2019-07-01 12:04 | Hospitalist Progress Note ---
Date of Service July 01, 2019 Assessment & Plan (1) Acute respiratory failure: 2/2 flu pneumonia. Mechanical ventilation with management per ICU team. (2) Acute on chronic renal failure: AV fistula in place but not mature. Hemodialysis catheter placed with initiation of HD per Nephro. (3) Influenza A: Tamiflu and coverage of pneumonia with Rocephin and Doxy (4) Hypothyroidism: Synthroid replacement (5) Diabetes mellitus: Insulin management per ICU team. (6) Anemia of chronic renal failure, stage 5: Transfusions per Nephro and ICU team. (7) DVT prophylaxis: heparin stress ulcer prophylaxis-protonix Full Code Dispo-uncertain, very ill patient requiring continued ventilation, cont ICU care. Rachelle Kuhn DO [place] Hospitalist Admission and Anticipated Discharge Date Admission Date: June 29, 2019 Anticipated date of discharge: 07/05/19 Results & Data ([facility]) Vital Signs (Past 12 Hours) Vital Signs Temp Pulse Pulse Resp BP BP Pulse Ox 07/01/19 09:30 85 25 H 130/55 L 91 07/01/19 09:00 103 H 92 07/01/19 08:30 117 H 157/79 H 93 07/01/19 08:10 105 H 27 H 91 07/01/19 08:00 87 07/01/19 07:30 89 142/58 H 93 07/01/19 06:30 86 128/52 L 93 07/01/19 06:00 90 92 07/01/19 05:46 90 30 H 90 07/01/19 05:31 92 H 98 07/01/19 05:30 88 135/47 L 92 07/01/19 05:00 38.2 C H 77 28 H 125/53 L 96 07/01/19 04:00 38.2 C H 83 28 H 122/55 L 97 07/01/19 03:00 38.2 C H 84 28 H 125/53 L 97 07/01/19 02:30 85 125/61 95 07/01/19 02:28 83 28 H 95 07/01/19 02:00 83 95 07/01/19 01:30 84 117/53 L 95 07/01/19 01:00 85 28 H 126/57 L 95 Pulse Ox 07/01/19 09:30 07/01/19 09:00 07/01/19 08:30 07/01/19 08:10 07/01/19 08:00 07/01/19 07:30 07/01/19 06:30 07/01/19 06:00 07/01/19 05:46 07/01/19 05:31 07/01/19 05:30 07/01/19 05:00 07/01/19 04:00 97 07/01/19 03:00 07/01/19 02:30 07/01/19 02:28 07/01/19 02:00 07/01/19 01:30 07/01/19 01:00 Laboratory Results Short CBC 07/01/19 Range/Units 04:31 WBC 4.81 (4.8-10.8) K/uL Hgb 7.6 L (12.0-16.0) g/dL Hct 24.5 L (37-47) % Plt Count 159 (130-400) K/uL BMP 07/01/19 04:31 Sodium 137 Potassium 3.9 Chloride 103 Carbon Dioxide 25 BUN 46 H Creatinine 3.40 H D Glucose 97 Calcium 7.6 L Liver Function 07/01/19 Range/Units 08:16 Total Bilirubin 0.3 (0.2-1) mg/dl Direct Bilirubin 0.1 (0-0.2) mg/dl AST 62 H (15-37) U/L ALT 29 (12-78) U/L Alkaline Phosphatase 669 H (45-117) U/L Albumin 2.0 L (3.4-5.0) gm/dl Urine 07/01/19 Range/Units 09:00 Urine Color Dark Yellow Urine Appearance Turbid A (Clear) Urine pH 5.0 (4.5-7.5) Ur Specific [place] 1.020 (1.000-1.030) Urine Protein 3+ H (Negative) Urine Glucose (UA) Negative (Negative) Medications Administered Current Inpatient Medications Albuterol (Ventolin Hfa) 2 puffs INH Q6H PRN PRN Reason: shortness of breath or wheezing Stop: 07/29/19 04:16 Dextrose (Dextrose 50%) 25 - 50 ml IV UD PRN; Protocol PRN Reason: Hypoglycemia Protocol Stop: 07/29/19 04:29 Last Admin: 06/30/19 15:43 Dose: 25 ml Documented by: Glucagon (Glucagen) 1 mg IM UD PRN; Protocol PRN Reason: Hypoglycemia Protocol Stop: 07/29/19 04:29 Glucose (Glucose 40%) 15 - 30 gm PO UD PRN; Protocol PRN Reason: Hypoglycemia Protocol Stop: 07/29/19 04:29 Glucose (Dex4 Glucose) 4 - 8 tabs PO UD PRN; Protocol PRN Reason: Hypoglycemia Protocol Stop: 07/29/19 04:29 Heparin Sodium (Porcine) (Heparin Sodium (Porcine)) 5,000 units SQ Q8H BETTY Stop: 07/30/19 07:59 Last Admin: 07/01/19 08:37 Dose: 5,000 units Documented by: Pantoprazole Sodium 40 mg/ (Syringe) 10 mls @ 5 mls/min IV Q12H BETTY Stop: 07/29/19 09:59 Last Admin: 07/01/19 09:23 Dose: 5 mls/min Documented by: Acetaminophen (Ofirmev) 1,000 mg in 100 mls @ 400 mls/hr IV Q8H PRN PRN Reason: Fever Stop: 07/02/19 19:20 Last Infusion: 07/01/19 04:20 Dose: Infused Documented by: Metronidazole (Flagyl) 500 mg in 100 mls @ 100 mls/hr IV Q8H BETTY Stop: 07/03/19 07:59 Last Infusion: 07/01/19 11:07 Dose: Infused Documented by: Dexmedetomidine HCl 200 mcg/ (Sodium Chloride) 50 mls @ 9.16 mls/hr IV .Q5H28M BETTY; Protocol Stop: 07/05/19 08:14 Last Titration: 07/01/19 09:05 Dose: 0.4 mcg/kg/hr, 9.2 mls/hr Documented by: Sodium Chloride (Nss 1000ml) 1,000 mls @ 0 mls/hr IV .Q0M PRN PRN Reason: For Hemodialysis Use ONLY Stop: 07/01/19 14:41 Fentanyl Citrate (Fentanyl Drip) 1,250 mcg in 250 mls @ 10 mls/hr IV .Q24H BETTY; Protocol Stop: 07/15/19 08:59 Last Titration: 07/01/19 09:55 Dose: 50 mcg/hr, 10 mls/hr Documented by: Cefepime HCl 500 mg/ Syringe 5.65 mls @ 5.5 mls/min IV Q24H [facility] Stop: 07/12/19 13:59 Insulin Aspart (Novolog Flexpen) 0 units SC Q4 BETTY Stop: 07/30/19 11:59 Last Admin: 07/01/19 08:37 Dose: Not Given Documented by: Insulin Glargine (Lantus Solostar Pen) 0 units SC Q12H BETTY; Protocol Stop: 07/30/19 19:59 Last Admin: 07/01/19 08:37 Dose: Not Given Documented by: Levothyroxine Sodium (Synthroid) 50 mcg NG DAILYBB [facility] Stop: 07/29/19 10:59 Last Admin: 07/01/19 05:35 Dose: 50 mcg Documented by: Metoprolol Tartrate (Lopressor) 5 mg IV Q6 PRN PRN Reason: Hypertension Stop: 07/29/19 04:16 Last Admin: 06/30/19 10:28 Dose: 5 mg Documented by: Miscellaneous (Carbohydrates For Hypoglycemia) 15 - 30 gm PO UD PRN PRN Reason: Hypoglycemia Treatment Stop: 07/29/19 04:29 Miscellaneous Information (Consult Glycemic Management Pharmacy) 1 ea N/A UD PRN PRN Reason: Consult Stop: 07/30/19 07:56 Nutritional Formula (Peptamen Intense Vhp 1.0 Ziggy) 1,000 ml GT DAILY@1100 BETTY; Protocol Stop: 07/30/19 10:59 Last Admin: 06/30/19 11:11 Dose: 1,000 ml Documented by: Ondansetron HCl (Zofran) 4 mg IV Q8H PRN PRN Reason: Nausea Stop: 07/31/19 09:51 Last Admin: 07/01/19 09:55 Dose: 4 mg Documented by: Oseltamivir Phosphate (Tamiflu) 30 mg NG Q24H BETTY; Protocol Stop: 07/04/19 05:59 Last Admin: 07/01/19 05:35 Dose: 30 mg Documented by: Senna/Docusate Sodium (Senokot S) 1 tab PO QAM [facility] Stop: 07/31/19 08:59 Last Admin: 07/01/19 08:39 Dose: 1 tab Documented by: (1) Acute respiratory failure Respiratory failure complication: unspecified whether with hypoxia or hypercapnia Qualified Code(s): J96.00 - Acute respiratory failure, unspecified whether with hypoxia or hypercapnia (2) Acute on chronic renal failure Acute renal failure type: unspecified Chronic kidney disease stage: unspecified stage Qualified Code(s): N17.9 - Acute kidney failure, unspecified; N18.9 - Chronic kidney disease, unspecified (3) Diabetes mellitus Diabetes mellitus complication status: with unspecified complications Diabetes mellitus intermediate project manager insulin use: unspecified nursing home insulin use status Diabetes mellitus type: other specified (including GERALD) Qualified Code(s): E13.8 - Other specified diabetes mellitus with unspecified complications
[2019-07-01] MEDS ORDERED: IOVERSOL 100ml IV PRN (13:17)
[2019-07-01] MEDS ORDERED: VANCOMYCIN CONSULT ACTIVE PRN (13:37)
--- NOTE | 2019-07-01 13:38 | CT Scan Report ---
CT abd pelvis oral and IV con CLINICAL HISTORY: 58 years-old Female presenting with abdomen pain, fever, flu, scheduled for dialysi s this afternoon. TECHNIQUE: Multidetector CT of the abdomen and pelvis was performed after the administration of oral and intravenous contrast. IV contrast: 93 mL of Optiray 320. One or more dose lowering techniques wer e used consistent with the principles of ALARA (as low as reasonably achievable), including automatic exposure control, mA or kV adjustment to individual patient size, and/or use of iterative reconstruc tion. COMPARISON: 10/31/2018. CT DOSE (mGy.cm): The estimated cumulative dose is 2370.63 mGy.cm. FINDINGS: Science Manager topogram: Cardiomegaly. Right IJ Alberto catheter terminates in the SVC. Endotracheal tube term inates in the midthoracic trachea. Nasogastric tube terminates in the stomach. Diffuse lung opacities . Lung bases: Prominent mitral annular calcification. Mild multichamber enlargement of the heart. Coron samira artery calcification also noted. Small bilateral pleural effusions. Layering fluid fluid level no loreto suggested on the right though this may be artifactual. Extensive bibasilar consolidation. Patchy calcification within the lung parenchyma, which is new from prior. Patchy groundglass opacity and mos aic attenuation also noted. Focal solid 9 mm nodule in the right middle lobe as on prior exam. Additi onal nodules partially obscured. Liver: Normal morphology. No liver lesion. Patent hepatic vasculature. Biliary: Mild central intrahepatic and extra hepatic biliary ductal dilatation. Prominent gallstone i n the moderate distended gallbladder. Trace pericholecystic fluid. No significant gallbladder wall th ickening. Pancreas: Mild parenchymal atrophy. Spleen: Multiple splenic lesions, likely lymphangiomas or hemangiomas. Adrenal glands: Normal. Kidneys and ureters: 5 cm lesion in the parapelvic region of the left kidney as on prior exam, indete rminate by density. Prominent renovascular calcification. No hydronephrosis. Bladder: Decompressed with a Funk catheter. Pelvic organs: Uterus partially absent or atrophic. Bowel: A temperature probe is in place within the rectum. The appendix is normal. No bowel obstructio n. Nasogastric tube terminates in the body the stomach. Peritoneal cavity: No free fluid or intraperitoneal gas. Lymph nodes: Numerous subcentimeter retroperitoneal lymph nodes, nonspecific and unchanged from prior . Vasculature: Extensive calcified atherosclerotic plaque. No evidence of abdominal aortic aneurysm. IV C and pelvic veins patent. Abdominal wall: Extensive infiltration of the subcutaneous fat, which is most severe in the region of the buttocks as well as the lower anterior abdominal wall. Musculoskeletal: Mild sclerosis of the medullary bone may suggest renal osteodystrophy. Bone island n oted in the right hemipelvis. Mild degenerative changes of the spine. IMPRESSION: 1. Bilateral pleural effusions and suspected pulmonary edema in the setting of cardiomegaly. 2. Extensive bilateral lower lobe consolidation most likely represents extensive atelectasis. 3. Interval development of patchy calcification in the lung parenchyma. This most likely relates to metastatic pulmonary calcification in the setting of chronic renal insufficiency. 4. Underlying pulmonary nodules again noted. 5. Nonspecific extensive subcutaneous fat infiltration of the anterior abdominal wall and buttocks. While this may represent nonspecific body wall edema, cellulitis should be excluded. 6. Appropriately positioned lines and tubes. 7. Distended gallbladder with trace pericholecystic fluid in the setting of gallstones raises concer n for acute calculus cholecystitis. As the patient is intubated with expected limited assessment for right upper quadrant symptomatology, consider HIDA scan for further assessment. 8. Indeterminant 5 cm parapelvic left renal lesion. This could be evaluated with nonurgent renal ult rasound. ACT 112: Negative or not required by law. Electronically signed by: Jose Gonsales M.D. 07/01/2019 1:37 PM
[2019-07-01] MEDS: PEPTAMEN INTENSE VHP 1.0 CAL 1,000 ML BAG GT SCH (13:51)
[2019-07-01] MEDS ORDERED: VANCOMYCIN HCL 2,000 MG in SODIUM CHLORIDE 0.9% 500 ML IV ONE (14:00)
--- NOTE | 2019-07-01 14:13 | Surgery Consultation ---
Date of Consultation July 01, 2019 Assessment & Plan (1) Transaminitis: US and CT show trace pericholecystic fluid, white count remains normal. CBD 13 mm with intrahepatic biliary dilation, would recommend GI eval for CBD stone vs Mirizzi syndrome. Given the complexity of her situation, would recommend further surgical, IR, and possibly GI evaluation at a tertiary center. History of Present Illness Attending Physician: Rachelle Kuhn DO History of Present Illness 58 y/o female admitted to ICU two days ago for pulmonary edema/resp failure tested positive for influenza A and also with acute on chronic renal failure. Was intubated and remains so. Alk phos was elevated this AM which led to U/S and CT. We were asked to see her for possible cholecystitis. Allergies Allergy/AdvReac Type Severity Reaction Status Date / Time gabapentin Allergy Intermediate Dizziness Verified 05/30/19 17:45 lisinopril AdvReac Intermediate Cough Verified 05/30/19 17:45 Home Medications Home Medications Medication Instructions Recorded Confirmed Type Basaglar KwikPen U-100 Insulin 50 unit SUBCUT QAM 05/07/18 06/29/19 History amlodipine 10 mg PO QAM 05/07/18 06/29/19 History aspirin [Aspirin Low Dose] 81 mg PO HS 05/07/18 06/29/19 History atorvastatin 80 mg PO HS 05/07/18 06/29/19 History levothyroxine 50 mcg PO QAM 05/07/18 06/29/19 History metoprolol succinate 75 mg PO BID 05/07/18 06/29/19 History tolterodine 2 mg PO BID 05/07/18 06/29/19 History Basaglar KwikPen U-100 Insulin 30 unit SUBCUT 09/16/18 06/29/19 History diltiazem HCl [Cartia XT] 180 mg PO QAM 09/16/18 06/29/19 History tramadol 50 mg PO BID PRN #10 tab 09/18/18 06/29/19 Rx polyethylene glycol 3350 [Miralax] 17 gm PO BID PRN 10/20/18 06/29/19 History pregabalin [Lyrica] 25 mg PO BID 03/04/19 06/29/19 History albuterol sulfate [Proventil HFA] 2 puffs INH Q6H PRN #8 gm 05/30/19 06/29/19 Rx benzonatate [Tessalon Perles] 100 mg PO TID PRN #20 cap 05/30/19 06/29/19 Rx Patient History Medical History Bronchitis Chronic kidney disease Diabetes mellitus (Chronic) Diabetes mellitus, type 2 Hyperlipidemia Hypertension (Chronic) Hypertension Hypothyroidism (Chronic) Hypothyroidism Obesity (BMI 30-39.9) Osteoarthritis Otitis media (Acute) Ovarian mass (Acute) Peripheral neuropathy BILATERAL LEGS Sinusitis (Acute) Transaminitis Surgical History H/O bilateral salpingo-oophorectomy History of cataract extraction with lens replacement History of colonoscopy History of hysterectomy RENNY History of vitrectomy S/P BSO (bilateral salpingo-oophorectomy) (Acute 08/06/13) Family History Father Family history of diabetes mellitus Mother Family history of diabetes mellitus Social History Preferred Language: Slovak Communication Ability: Unable Aircraft Instrument Tester Required: No Beliefs That Will Affect Care: None marital status: Current Living Situation: Family Feels Safe at Home: Yes Smoking Status: Never smoker Second Hand Exposure: No ; Hx Alcohol Use: No Hx Substance Use: No Review of Systems Review of Systems: Unobtainable due to endotracheal tube Physical Exam Constitutional: + mechanically ventilated Gastrointestinal (Abdomen): Percussion/Palpation: + abdomen tender (withdrawls to plapation RUQ) Results & Data Vital Signs (Past 12 Hours) Vital Signs Temp Pulse Pulse Resp BP BP Pulse Ox 07/01/19 11:42 83 25 H 93 07/01/19 09:30 85 25 H 130/55 L 91 07/01/19 09:00 103 H 92 07/01/19 08:30 117 H 157/79 H 93 07/01/19 08:10 105 H 27 H 91 07/01/19 08:00 87 07/01/19 07:30 89 142/58 H 93 07/01/19 06:30 86 128/52 L 93 07/01/19 06:00 90 92 07/01/19 05:46 90 30 H 90 07/01/19 05:31 92 H 98 07/01/19 05:30 88 135/47 L 92 07/01/19 05:00 38.2 C H 77 28 H 125/53 L 96 07/01/19 04:00 38.2 C H 83 28 H 122/55 L 97 07/01/19 03:00 38.2 C H 84 28 H 125/53 L 97 07/01/19 02:30 85 125/61 95 07/01/19 02:28 83 28 H 95 Pulse Ox 07/01/19 11:42 07/01/19 09:30 07/01/19 09:00 07/01/19 08:30 07/01/19 08:10 07/01/19 08:00 07/01/19 07:30 07/01/19 06:30 07/01/19 06:00 07/01/19 05:46 07/01/19 05:31 07/01/19 05:30 07/01/19 05:00 07/01/19 04:00 97 07/01/19 03:00 07/01/19 02:30 07/01/19 02:28 PG Care Time/CCT Total # of Minutes Spent Total Time Spent with Patient: Total time spent is greater than 50% in coordination of care (as documented) at patient's floor/unit and/or counseling patient: Coding Level of Care Code 33141 Inpt Consult Level 3 Diagnoses Transaminitis R74.0
--- NOTE | 2019-07-01 14:28 | CT Scan Report ---
CT chest w con CLINICAL HISTORY: 58 years-old Female presenting with fevers, respiratory failure, flu, dialysis this afternoon TECHNIQUE: Multidetector CT imaging of the chest was performed after the administration of intravenou s contrast. IV contrast: 93 mL of Optiray 320. One or more dose lowering techniques were used consist ent with the principles of ALARA (as low as reasonably achievable), including automatic exposure cont rol, mA or kV adjustment to individual patient size, and/or use of iterative reconstruction. COMPARISON: None. CT DOSE (mGy.cm): The estimated cumulative dose is 2370.63. 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 Cardiomegaly. Diffuse opacities. Soft tissues: Soft tissue emphysema noted in the right upper arm (series 6 image 96). This may relate to line placement. Mild enlargement and nodular appearance of the thyroid. Right internal jugular ce ntral venous catheter terminates in the upper SVC. Endotracheal tube terminates in the mid to lower t horacic trachea. Nasogastric tube descends below the diaphragm. Numerous prominent mediastinal lymph nodes, which are largely subcentimeter. An index node in the right paratracheal region measures 8 mm in short axis. Atherosclerosis of the aorta. Mitral annular calcification. Mild coronary artery calci fication. Multichamber enlargement of the heart. Small to moderate right and small left pleural effus ions. No pericardial effusion. Lungs and airways: No pneumothorax. Subsegmental airways are partially occluded. Expiratory phase of respiration of the trachea. Pulmonary arteries are enlarged relative to adjacent bronchi. No interlob ular septal thickening. Extensive consolidation in the lower lobes with volume loss. Patchy dependent lower lobe calcification. Comment mosaic attenuation. There is also extensive patchy nodular solid c onsolidation in the upper lobes. Musculoskeletal: Normal osseous structures. IMPRESSION: 1. Right greater than left pleural effusions with extensive suspected atelectasis in the lower lobes . 2. Multifocal patchy solid consolidation in the lungs with prominent mosaic attenuation. This findin g is nonspecific. Infection should be excluded. Apparently the patient has a history of sarcoidosis, which may account for this appearance. 3. Mediastinal lymphadenopathy may also relate to reported sarcoidosis. 4. Cardiomegaly with volume overload. Some degree of pulmonary edema is likely present. 5. Findings suggest metastatic pulmonary calcification in the setting of chronic renal disease. 6. Appropriately positioned lines and tubes. ACT 112: Negative or not required by law. Electronically signed by: Jose Gonsales M.D. 07/01/2019 2:27 PM
--- NOTE | 2019-07-01 14:31 | Pharmacy Report ---
Pharmacy Abx Initial Consult - Date of Service July 01, 2019 - Pharmacy Dosing Scope Date of Consult: 06/30 Consultation requested by: Dr. Nieves Pharmacy is consulted to initiate vancomycin IV/PO dosing therapy, order appropriate labs and adjust drug dose/frequency. - Subjective The patient is a 58 year old F admitted on 06/29/19 03:20. - Objective Height: 5 ft 1 in Weight: 91.6 kg Vital Signs (Past 12hrs): Vital Signs Temp Pulse Pulse Resp BP BP Pulse Ox 07/01/19 14:00 82 88 L 07/01/19 13:30 91 H 85 L 07/01/19 12:30 82 149/61 H 94 07/01/19 11:42 83 25 H 93 07/01/19 11:30 82 152/62 H 92 07/01/19 10:30 79 137/56 L 93 07/01/19 09:30 85 25 H 130/55 L 91 07/01/19 09:00 103 H 92 07/01/19 08:30 117 H 157/79 H 93 07/01/19 08:10 105 H 27 H 91 07/01/19 08:00 87 07/01/19 07:30 89 142/58 H 93 07/01/19 06:30 86 128/52 L 93 07/01/19 06:00 90 92 07/01/19 05:46 90 30 H 90 07/01/19 05:31 92 H 98 07/01/19 05:30 88 135/47 L 92 07/01/19 05:00 38.2 C H 77 28 H 125/53 L 96 07/01/19 04:00 38.2 C H 83 28 H 122/55 L 97 07/01/19 03:00 38.2 C H 84 28 H 125/53 L 97 07/01/19 02:30 85 125/61 95 07/01/19 02:28 83 28 H 95 Pulse Ox 07/01/19 14:00 07/01/19 13:30 07/01/19 12:30 07/01/19 11:42 07/01/19 11:30 07/01/19 10:30 07/01/19 09:30 07/01/19 09:00 07/01/19 08:30 07/01/19 08:10 07/01/19 08:00 07/01/19 07:30 07/01/19 06:30 07/01/19 06:00 07/01/19 05:46 07/01/19 05:31 07/01/19 05:30 07/01/19 05:00 07/01/19 04:00 97 07/01/19 03:00 07/01/19 02:30 07/01/19 02:28 Lab Results (24hrs): Laboratory Tests (24 Hours) 07/01/19 07/01/19 07/01/19 04:31 04:31 04:31 WBC 4.81 Neut # (Auto) 2.90 Creatinine 3.40 H D Est Cr Clr Drug Dosing 19.1 Procalcitonin 2.81 H Micro Results: 07/01/19 09:49 Gram Stain - Final Sputum,Vent Suction Sputum Culture - Pending 06/30/19 14:45 Gram Stain - Final Sputum,Trach 07/01/19 09:00 Urine Culture - Pending Urine,Clean Catch 06/29/19 02:39 Urine Culture - Final Urine,Straight Cath No growth - less than 1,000 colonies/mL. 07/01/19 07:21 Aerobic Blood Culture - Pending Blood Anaerobic Blood Culture - Pending 07/01/19 07:03 Aerobic Blood Culture - Pending Blood Anaerobic Blood Culture - Pending - Assessment & Plan Assessment 58 year old F admitted with PMH including type II diabetes, CKD stage V, chronic diastolic CHF, presented with lethargy and SOB. Intubated in the emergency department, flu A positive, started on ceftriaxone, doxycycline, tamiflu. Today was day 3 of these antibiotics, continued to be febrile, abdominal CT with possible calculus cholecystitis. Antibiotics broadened to cefepime/flagyl and now adding vancomycin. Doxycycline was discontinued. Patient received HD two previous days, was scheduled for 2 hours today, uncertain of transfer at this time. Plan Vancomycin IV * Patient currently on HD- will dose by levels * Loading dose: 2000 mg (21 mg/kg) * Further doses to be determined by level, will order tomorrow morning to assist with dosing * Patient has possible dialysis this afternoon if not transferred, scheduled for 2 hours Received 2 gm dose of cefepime today, further dosing at 500 mg q24H to be given after hemodialysis Day 3 of tamiflu- should only be given after hemodialysis session, for maximum of 5 doses. Pharmacy will continue to follow and will adjust dose/frequency as necessary. Thank you.
[2019-07-01 14:36] LABS: INR 1.1 (0.9-1.1); Partial Thromboplastin Ratio 1.3; Partial Thromboplastin Time 36.4 Seconds (21.0-31.0); Prothrombin Time 11.4 Seconds (9.0-12.0)
--- NOTE | 2019-07-01 14:44 | Electrocardiogram Report ---
Test Reason : Blood Pressure : / mmHG Vent. Rate : 086 BPM Atrial Rate : 086 BPM P-R Int : 156 ms QRS Dur : 090 ms QT Int : 366 ms P-R-T Axes : 063 002 040 degrees QTc Int : 437 ms Normal sinus rhythm Poor R wave progression, consider anterior VT vs. lead placement vs. LVH Abnormal ECG When compared with ECG of 29-JUN-2019 07:16, No significant change was found Confirmed by Pelon Granado ([id number]) on 07/01/2019 2:44:11 PM Referred By: REFERRED SELF Confirmed By:Pelon Granado
--- NOTE | 2019-07-01 14:51 | Discharge Summary ---
Date of Service July 01, 2019 Admission HPI Per Admitting Provider HISTORY OF PRESENT ILLNESS: This is a 58-year-old female with past medical history significant for type 2 diabetes, severe proliferative diabetic retinopathy, nephrotic range proteinuria, chronic kidney disease stage V. The patient recently had AV fistula placed, not on dialysis yet. Hyperlipidemia, hypothyroidism, pulmonary nodules, chronic diastolic CHF. Was in the hospital in February 2019 with syncope and it was , thought to be from her sleep apnea . At that time, imaging studies MRI showing bilateral small subdural hygromas. Plan was to repeat MRI in 2-4 weeks, seems to be not done yet. Lives with her . Presents because of shortness of breath and lethargy. As per , since 1 week she is having cough, bringing up some yellowish phlegm and very weak, could not get up from the chair. Appetite is down and progressive worsening of shortness of breath. That is the reason she was brought in here. She was hypoxic at 69% when she came in. She is status post intubation currently. Her blood gas shows pH of 7.19, pCO2 of 56, pO2 of 75, creatinine of 5.5, potassium of 5.7. Urinalysis positive for trace leukocyte esterase and influenza A was positive. Chest x-ray shows bilateral pulmonary edema. EKG shows sinus tachycardia. Because of no dialysis in the nighttime, plan was to transfer to [facility], but [facility] did not accept the patient in transfer. So the patient is going to stay here in the ICU. The patient was given IV calcium gluconate, fentanyl, high dose of Lasix, sodium bicarbonate, nebs, and Tamiflu. Nephrology notified. Critical care on board. Admission Exam Per Admitting Provider VITAL SIGNS - Vital signs and nursing notes were reviewed. GENERAL - 58-year-old female appearing her stated age who is in moderate distress. Intubated and sedated. SKIN - Without rashes. HEAD - NC/AT. EYES - PERRL with EOMI bilaterally. Sclera anicteric. EARS - No deformities of external structures noted on gross examination bilaterally. NOSE - Midline and without cyanosis. No epistaxis or purulent drainage noted. MOUTH/OROPHARYNX - Without perioral cyanosis. ET Tube in place. NECK - Neck with FROM. Supple to palpation. No lymphadenopathy noted. No nuchal rigidity. LUNGS -coarse breath sounds with rales appreciated throughout all lung pitts. CARDIAC - RRR with S1/S2. No murmur, rubs, or gallops appreciated. ABDOMEN - Abdominal contour obese without pulsations or visible masses. BS normoactive all four quadrants. No tenderness, palpable masses, hepatosplenomegaly, or ascites noted. EXTREMITIES - No clubbing or peripheral cyanosis. No pretibial edema present. +3/5 radial and dorsalis pedis pulses palpated throughout. NEUROLOGIC/PSYCH - Unable to fully assess secondary to current state of sedation. No focal neurological deficits appreciated. Principal Diagnosis Acute respiratory failure Acute on chronic renal failure with initiation of hemodialysis this admission Influenza A Pneumonia Anemia of chronic renal failure Possible developing acute calculus cholecystitis Discharge Data Allergies Allergy/AdvReac Type Severity Reaction Status Date / Time gabapentin Allergy Intermediate Dizziness Verified 05/30/19 17:45 lisinopril AdvReac Intermediate Cough Verified 05/30/19 17:45 Consultations 06/29/19 02:50 ED Decision to Admit Stat 06/29/19 04:17 Consult Case Management - Discharge Planning Routine Consult Ripsaw Grader Routine Consult Nephrology Routine 07/01/19 13:13 Consult General Surgery Routine 07/01/19 14:10 Burn CD for patient Stat Ordered Studies 06/29/19 10:19 US point of care ultrasound Stat 07/01/19 09:04 US point of care ultrasound Urgent 07/01/19 09:44 US abdomen limited Stat 07/01/19 11:30 CT abd pelvis oral and IV con Urgent CT chest w con Urgent Hospital Course (1) Acute respiratory failure: (2) Acute on chronic renal failure: (3) Influenza A: (4) Anemia of chronic renal failure, stage 5: 58-year-old female with diabetes and CKD stage V who had recently received an AV fistula in preparation for dialysis but not quite on dialysis yet presented to the hospital with shortness of breath and respiratory failure. She was intubated in the ER and was found to have flu pneumonia. She was placed in the ICU for ongoing treatment with Tamiflu and antibiotics. She did receive high-dose Lasix initially and was notably hyperkalemic requiring dialysis for this and volume overload (pulmonary edema). There was an initial transfer plan to [facility] but that was unable to move forward so the ICU physician placed a hemodialysis catheter in her right IJ and hemodialysis was initiated on 06/28. 3 L of fluid was removed via ultrafiltration during hemodialysis. Oxygenation was notably improved the following day. An echocardiogram was performed revealing ejection fraction of 60 to 65% with normal left ventricular systolic function. Hemodialysis was performed again on 06/29 with 3 L ultrafiltrate again removed. On 06/19 2 she failed her spontaneous breathing trial due to tachypnea and tachycardia fentanyl was reinitiated and she was sedated further with Precedex her alkaline phosphatase had gone up to over 600 and she continues to spike fevers with cholecystitis suspected. Right upper quadrant ultrasound was performed revealing possible acute calculus cholecystitis and a follow-up CT of the abdomen and pelvis was performed revealing a distended gallbladder with trace pericholecystic fluid in the setting of gallstones raising concern for acute calculus cholecystitis. A CT of the chest was also performed revealing right greater than left pleural effusions with extensive suspected atelectasis in the lower lobes. Multifocal patchy solid condyle consolidation of the lungs with prominent mosaic attenuation was also present. Notably the patient has a history of sarcoidosis. General surgery was consulted. Per general surgery ultrasound and CT did show trace pericholecystic fluid but the white count remains normal. Common bile duct measures 13 mm with intrahepatic biliary di lation and GI evaluation is recommended for common bile duct stone versus Leatha E syndrome. Given the complexity of her situation transfer to tertiary care center was recommended for further surgical IR and possible GI evaluation. Of note there are limited ERCP capabilities at this facility, furthering the justification for transfer in this complex patient. She was transferred to the ICU in [facility] in critical status for further work-up and management. Appreciate the acceptance of care in this patient by the intensive care team at [facility]. At time of discharge she remains on cefepime, Flagyl and vancomycin for antibiotic coverage in addition to Tamiflu. Current Inpatient Medications Albuterol (Ventolin Hfa) 2 puffs INH Q6H PRN PRN Reason: shortness of breath or wheezing Stop: 07/29/19 04:16 Dextrose (Dextrose 50%) 25 - 50 ml IV UD PRN; Protocol PRN Reason: Hypoglycemia Protocol Stop: 07/29/19 04:29 Last Admin: 06/30/19 15:43 Dose: 25 ml Documented by: Glucagon (Glucagen) 1 mg IM UD PRN; Protocol PRN Reason: Hypoglycemia Protocol Stop: 07/29/19 04:29 Glucose (Glucose 40%) 15 - 30 gm PO UD PRN; Protocol PRN Reason: Hypoglycemia Protocol Stop: 07/29/19 04:29 Glucose (Dex4 Glucose) 4 - 8 tabs PO UD PRN; Protocol PRN Reason: Hypoglycemia Protocol Stop: 07/29/19 04:29 Heparin Sodium (Porcine) (Heparin Sodium (Porcine)) 5,000 units SQ Q8H BETTY Stop: 07/30/19 07:59 Last Admin: 07/01/19 08:37 Dose: 5,000 units Documented by: Pantoprazole Sodium 40 mg/ (Syringe) 10 mls @ 5 mls/min IV Q12H BETTY Stop: 07/29/19 09:59 Last Admin: 07/01/19 09:23 Dose: 5 mls/min Documented by: Acetaminophen (Ofirmev) 1,000 mg in 100 mls @ 400 mls/hr IV Q8H PRN PRN Reason: Fever Stop: 07/02/19 19:20 Last Infusion: 07/01/19 04:20 Dose: Infused Documented by: Metronidazole (Flagyl) 500 mg in 100 mls @ 100 mls/hr IV Q8H BETTY Stop: 07/03/19 07:59 Last Infusion: 07/01/19 11:07 Dose: Infused Documented by: Dexmedetomidine HCl 200 mcg/ (Sodium Chloride) 50 mls @ 9.16 mls/hr IV .Q5H28M BETTY; Protocol Stop: 07/05/19 08:14 Last Admin: 07/01/19 13:53 Dose: 0.4 mcg/kg/hr, 9.2 mls/hr Documented by: Fentanyl Citrate (Fentanyl Drip) 1,250 mcg in 250 mls @ 10 mls/hr IV .Q24H BETTY; Protocol Stop: 07/15/19 08:59 Last Titration: 07/01/19 09:55 Dose: 50 mcg/hr, 10 mls/hr Documented by: Cefepime HCl 500 mg/ Syringe 5.65 mls @ 5.5 mls/min IV Q24H BETTY Stop: 07/12/19 13:59 Vancomycin HCl 2,000 mg/ (Sodium Chloride) 540 mls @ 200 mls/hr IV NOW ONE Stop: 07/01/19 16:41 Last Admin: 07/01/19 14:06 Dose: 200 mls/hr Documented by: Insulin Aspart (Novolog Flexpen) 0 units SC Q4 BETTY Stop: 07/30/19 11:59 Last Admin: 07/01/19 11:51 Dose: Not Given Documented by: Insulin Glargine (Lantus Solostar Pen) 0 units SC Q12H BETTY; Protocol Stop: 07/30/19 19:59 Last Admin: 07/01/19 08:37 Dose: Not Given Documented by: Ioversol (Optiray 320 100ml) 93 ml IV ONCE PRN PRN Reason: Interaction Checking Stop: 07/05/19 13:16 Last Admin: 07/01/19 13:18 Dose: 93 ml Documented by: Levothyroxine Sodium (Synthroid) 50 mcg NG DAILYBB BETTY Stop: 07/29/19 10:59 Last Admin: 07/01/19 05:35 Dose: 50 mcg Documented by: Metoprolol Tartrate (Lopressor) 5 mg IV Q6 PRN PRN Reason: Hypertension Stop: 07/29/19 04:16 Last Admin: 06/30/19 10:28 Dose: 5 mg Documented by: Miscellaneous (Carbohydrates For Hypoglycemia) 15 - 30 gm PO UD PRN PRN Reason: Hypoglycemia Treatment Stop: 07/29/19 04:29 Miscellaneous Information (Consult Glycemic Management Pharmacy) 1 ea N/A UD PRN PRN Reason: Consult Stop: 07/30/19 07:56 Miscellaneous Information (Consult) 1 ea N/A UD PRN PRN Reason: Consult Stop: 07/31/19 13:36 Nutritional Formula (Peptamen Intense Vhp 1.0 Ziggy) 1,000 ml GT DAILY@1100 BETTY; Protocol Stop: 07/30/19 10:59 Last Admin: 07/01/19 13:51 Dose: Not Given Documented by: Ondansetron HCl (Zofran) 4 mg IV Q8H PRN PRN Reason: Nausea Stop: 07/31/19 09:51 Last Admin: 07/01/19 09:55 Dose: 4 mg Documented by: Oseltamivir Phosphate (Tamiflu) 30 mg NG Q24H BETTY; Protocol Stop: 07/04/19 05:59 Last Admin: 07/01/19 05:35 Dose: 30 mg Documented by: Senna/Docusate Sodium (Senokot S) 1 tab PO QAM [facility] Stop: 07/31/19 08:59 Last Admin: 07/01/19 08:39 Dose: 1 tab Documented by: Total Time Total Time Spent Total Time Spent (In Minutes): 60 Total Time Includes: Examination of the Patient, Discharge Planning, Medication Reconciliation, Communication With Other Providers and Other (coordination of transfer) Discharge Plan Discharge Items Patient Disposition: Transfer Acute Care Hospital Reason For Visit: SOB Discharge Diagnosis: Acute respiratory failure Acute on chronic renal failure with initiation of hemodialysis this admission Influenza A Pneumonia Anemia of chronic renal failure Possible developing acute calculus cholecystitis Condition on Discharge: Critical Activity: Resume your previous activity Non-emergency contact: Primary Care Provider Call non-emergency contact if: you have any medication questions and your symptoms worsen Follow-up/Referrals: Jose Magallanes MD [Primary Care Provider] - Diet: Carb Consistent or DM2 and Dialysis Renal Stand-Alone Forms: My [facility] Skilled Items Patient informed of condition?: Yes DNR: No Discharge Level of Care: Other Communicable Disease: Yes Discharge Prognosis: Deteriorating Lines: Peripheral IV Urinary Catheter: Yes Medications and DC Order Prescriptions: No Action diltiazem HCl [Cartia XT] 180 mg capsule,extended release 24hr 180 mg PO QAM RF: 0 Basaglar KwikPen U-100 Insulin 100 unit/mL (3 mL) insulin pen 30 unit subcut HS RF: 0 tramadol 50 mg tablet 50 mg PO BID PRN (Reason: pain) Qty: 10 RF: 0 polyethylene glycol 3350 [Miralax] 17 gram powder in packet 17 gm PO BID PRN (Reason: Constipation) RF: 0 atorvastatin 80 mg Tablet 80 mg PO HS RF: 0 metoprolol succinate 50 mg Tablet Extended Release 24 Hr 75 mg PO BID RF: 0 aspirin [Aspirin Low Dose] 81 mg Tablet,Delayed Release (Dr/Ec) 81 mg PO HS RF: 0 tolterodine 2 mg Tablet 2 mg PO BID RF: 0 amlodipine 10 mg Tablet 10 mg PO QAM RF: 0 levothyroxine 50 mcg Tablet 50 mcg PO QAM RF: 0 Basaglar KwikPen U-100 Insulin 100 unit/mL (3 mL) Insulin Pen 50 unit SUBCUT QAM RF: 0 pregabalin [Lyrica] 25 mg Capsule 25 mg PO BID RF: 0 albuterol sulfate [Proventil HFA] 90 mcg/actuation HFA aerosol inhaler 2 puffs INH Q6H PRN (Reason: shortness of breath or wheezing) Qty: 8 RF: 0 benzonatate [Tessalon Perles] 100 mg capsule 100 mg PO TID PRN (Reason: cough) Qty: 20 RF: 0 Admission Data Admit Date/Time: 06/29/19 03:20 Attending Provider: Rachelle Kuhn Admit Provider: [employer] Primary Care Provider: Jose Magallanes Other Providers: [employer] ; Jay Flood ; Eugenia Mireles ; Nael Edwards
--- NOTE | 2019-07-01 17:19 | Nephrology Progress Note ---
Date of Service July 01, 2019 Assessment & Plan (1) Acute on chronic renal failure: Patient with the CKD stage V baseline creatinine of 4.3 on 06/14/2019. She now comes in with a creatinine of 5.2 and a BUN of 100. She also has pulmonary edema and hyperkalemia. Patient is now end-stage renal disease. Her fistula is not mature. Patient was seen by vascular surgeon who recommended a fistulogram and patient was booked for 1 on 07/09/2019. She had HD on 06/28 and 06/29 with net UF 3 litres. -Will do HD today for 2hrs and UF 3litres. (2) Acute respiratory failure: Due to influenza A and pulmonary edema. Patient is on antibiotics and Tamiflu per ICU team. We will optimize volume status with dialysis. (3) Hyperkalemia: Due to renal failure. We will dialyze on a 2K bath. (4) Influenza A: Continue Tamiflu per primary team. Admission and Anticipated Discharge Date Admission Date: June 29, 2019 Anticipated date of discharge: 07/05/19 Subjective Patient seen during morning rounds. She is intubated but awake. She is still volume overload on CXR. Planned for transfer to [facility] – [place] Review of Systems Review of Systems: Unobtainable due to endotracheal tube Physical Exam Physical Exam: General exam: Intubated but awake HEENT: Pupils are equal and reactive to light Neck: No JVD, neck is supple trachea is midline Respiratory system: Clear breath sounds bilaterally. Gastrointestinal: Abdomen is soft, non distended, non tender, bowel sounds are present CVS: Regular rate and rhythm. No murmurs, rubs or gallops Musculoskeletal: No joint or muscle tenderness Extremities: Non tender, 1+ edema, peripheral pulses are present Skin: No rashes Results & Data ([facility]) Vital Signs (Past 12 Hours) Vital Signs Temp Pulse Pulse Pulse Resp BP Pulse Ox 07/01/19 15:06 38.2 C H 77 78 25 H 92 07/01/19 14:10 81 25 H 89 L 07/01/19 14:00 82 88 L 07/01/19 13:30 91 H 85 L 07/01/19 12:30 82 149/61 H 94 07/01/19 11:42 83 25 H 93 07/01/19 11:30 82 152/62 H 92 07/01/19 10:30 79 137/56 L 93 07/01/19 09:30 85 25 H 130/55 L 91 07/01/19 09:00 103 H 92 07/01/19 08:30 117 H 157/79 H 93 07/01/19 08:10 105 H 27 H 91 07/01/19 08:00 87 07/01/19 07:30 89 142/58 H 93 07/01/19 06:30 86 128/52 L 93 07/01/19 06:00 90 92 07/01/19 05:46 90 30 H 90 07/01/19 05:31 92 H 98 07/01/19 05:30 88 135/47 L 92 Laboratory Results 07/01/19 04:31 07/01/19 07/01/19 07/01/19 04:31 04:31 08:16 WBC 4.81 RBC 2.77 L MCV 88.4 MCH 27.4 MCHC 31.0 L RDW Std Deviation 57.9 H RDW Coeff of Talisha 17.7 H Plt Count 159 MPV 9.0 Phosphorus 5.6 H Albumin 2.0 L (1) Acute on chronic renal failure Acute renal failure type: unspecified Chronic kidney disease stage: u nspecified stage Qualified Code(s): N17.9 - Acute kidney failure, unspecified; N18.9 - Chronic kidney disease, unspecified (2) Acute respiratory failure Respiratory failure complication: unspecified whether with hypoxia or hypercapnia Qualified Code(s): J96.00 - Acute respiratory failure, unspecified whether with hypoxia or hypercapnia
[2019-07-02] MEDS ORDERED: CEFEPIME 500 MG in SYRINGE 0 ML IV SCH (14:00)
== END 2019-07-01 15:30 | disposition short-term general hospital (02) | DRG 208 ==
LOC: ED 01:33 → 1E 03:20 → SUATTDRO 03:20 → 1E 04:17

== ENCOUNTER 2019-08-20 07:43 | Inpatient (IN) ==
--- NOTE | 2019-08-20 08:08 | Emergency Department Note ---
History of Present Illness General Chief complaint: Illness Source: patient, family () and EMS Mode of arrival: EMS Limitations: altered mental status History of Present Illness Provider complaint: Confusion Onset (ago): hour(s) 5 Location: head Current Pain Intensity: 5 Quality: + aching Relieved By: + immobilization Exacerbated By: + movement Associated symptoms: + confusion, + nausea/vomiting, + shortness of breath and + weakness; no cough, no headaches and no seizure Treatments prior to arrival: none Patient is a 58 year old female that presents to the Emergency Department after she was complaining of not being able to breathe last evening, collapsed while going to bathroom. Disoriented @ 0330 for the second time in past two weeks Had to be picked up by after collapsing but he denies that she hit or head or injured herself. This morning she was again Short of breath and complaining of abdominal pain. She describes the pain is burning and in the right upper quadrant. She normally receives dialysis on Friday and Saturdays. She went to dialysis yesterday without a problem. Home Medications Home Medications Medication Instructions Recorded Confirmed Type amlodipine 10 mg PO QAM 05/07/18 08/20/19 History aspirin [Aspirin Low Dose] 81 mg PO HS 05/07/18 08/20/19 History atorvastatin 80 mg PO HS 05/07/18 08/20/19 History levothyroxine 50 mcg PO QAM 05/07/18 08/20/19 History metoprolol succinate 75 mg PO BID 05/07/18 08/20/19 History Basaglar KwikPen U-100 Insulin 0 unit SUBCUT UD 09/16/18 08/20/19 History diltiazem HCl [Cartia XT] 180 mg PO QAM 09/16/18 08/20/19 History albuterol sulfate [Proventil HFA] 2 puffs INH Q6H PRN #8 gm 05/30/19 08/20/19 Rx benzonatate [Tessalon Perles] 100 mg PO TID PRN #20 cap 05/30/19 08/20/19 Rx polyethylene glycol 3350 [Miralax] 17 g PO DAILY PRN 08/20/19 08/20/19 History pregabalin 75 mg PO DAILY 08/20/19 08/20/19 History sevelamer carbonate [Renvela] See Rx Instructions .ROUTE .COMPLEX 08/20/1905/10 History simethicone 80 mg PO Q6 PRN 08/20/19 08/20/19 History Allergies Allergy/AdvReac Type Severity Reaction Status Date / Time gabapentin Allergy Intermediate Dizziness Verified 08/20/19 09:57 lisinopril AdvReac Intermediate Cough Verified 08/20/19 09:57 Past Med/Surg History Medical History (Updated 08/20/19 @ 14:14 by Tamra Sloan PA-C) AV fistula Bronchitis Chronic kidney disease Diabetes mellitus (Chronic) Diabetes mellitus, type 2 Hyperlipidemia Hyperparathyroidism due to renal insufficiency (Chronic) Hypertension (Chronic) Hypertension Hypothyroidism (Chronic) Hypothyroidism Obesity (BMI 30-39.9) Osteoarthritis Peripheral neuropathy BILATERAL LEGS Renal mass, left (Chronic) Splenic lesion (Chronic) Subdural hematoma (Chronic) Surgical History (Updated 08/20/19 @ 14:13 by Tamra Sloan PA-C) H/O bilateral salpingo-oophorectomy History of cataract extraction with lens replacement History of colonoscopy History of hysterectomy RENNY History of vitrectomy Family History Father Family history of diabetes mellitus Mother Family history of diabetes mellitus Social History Preferred Language: Finnish Communication Ability: Effective 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 Beliefs That Will Affect Care: None marital status: Current Living Situation: Spouse Other Information That Helps Us Care for You: No Feels Safe at Home: Yes Safety Concerns: Feels Safe At This Time Smoking Status: Never smoker Second Hand Exposure: No ; Hx Alcohol Use: No Hx Substance Use: No Review of Systems A total of 10 systems reviewed and were otherwise negative Physical Exam Vital Signs Vital Signs - 24 hr 08/20/19 07:46 08/20/19 08:15 08/20/19 08:16 Temperature 36.6 C Temperature Source Oral Pulse Rate 80 82 82 Pulse Rate from SpO2 Sensor 81 82 Pulse Rhythm Regular Pulse Strength Normal Respiratory Rate 22 20 25 H Respiratory Effort / Characteristics Non-Labored Spontaneous Respiratory Depth Normal Respiratory Pattern Regular Blood Pressure 94/49 L 94/49 L Blood Pressure Mean 58 64 Blood Pressure Position Lying Pulse Oximetry 96 99 95 Oxygen Delivery Method Room Air Sepsis Recent Fever Within 48 Hours No Sepsis Action Taken by Nursing No Action Required 08/20/19 08:24 08/20/19 08:30 08/20/19 08:31 Temperature Temperature Source Pulse Rate 80 81 89 Pulse Rate from SpO2 Sensor 81 82 79 Pulse Rhythm Pulse Strength Respiratory Rate 22 13 23 Respiratory Effort / Characteristics Respiratory Depth Respiratory Pattern Blood Pressure 83/41 L 93/52 L Blood Pressure Mean 51 68 Blood Pressure Position Pulse Oximetry 98 99 99 Oxygen Delivery Method Sepsis Recent Fever Within 48 Hours Sepsis Action Taken by Nursing 08/20/19 09:02 08/20/19 09:03 08/20/19 09:30 Temperature Temperature Source Pulse Rate 81 79 83 Pulse Rate from SpO2 Sensor 81 79 82 Pulse Rhythm Pulse Strength Respiratory Rate 17 25 H 18 Respiratory Effort / Characteristics Respiratory Depth Respiratory Pattern Blood Pressure 91/64 L 113/55 L Blood Pressure Mean 69 65 Blood Pressure Position Pulse Oximetry 95 95 96 Oxygen Delivery Method Sepsis Recent Fever Within 48 Hours Sepsis Action Taken by Nursing 08/20/19 09:31 08/20/19 10:00 08/20/19 10:01 Temperature Temperature Source Pulse Rate 81 84 85 Pulse Rate from SpO2 Sensor 81 85 85 Pulse Rhythm Pulse Strength Respiratory Rate 14 18 18 Respiratory Effort / Characteristics Respiratory Depth Respiratory Pattern Blood Pressure 111/51 L Blood Pressure Mean 62 Blood Pressure Position Pulse Oximetry 98 97 97 Oxygen Delivery Method Sepsis Recent Fever Within 48 Hours Sepsis Action Taken by Nursing 08/20/19 10:30 08/20/19 11:00 08/20/19 11:30 Temperature Temperature Source Pulse Rate 87 87 86 Pulse Rate from SpO2 Sensor 87 87 86 Pulse Rhythm Pulse Strength Respiratory Rate 15 19 22 Respiratory Effort / Characteristics Respiratory Depth Respiratory Pattern Blood Pressure Blood Pressure Mean Blood Pressure Position Pulse Oximetry 98 99 95 Oxygen Delivery Method Sepsis Recent Fever Within 48 Hours Sepsis Action Taken by Nursing 08/20/19 12:00 Temperature Temperature Source Pulse Rate 85 Pulse Rate from SpO2 Sensor Pulse Rhythm Pulse Strength Respiratory Rate 13 Respiratory Effort / Characteristics Respiratory Depth Respiratory Pattern Blood Pressure Blood Pressure Mean Blood Pressure Position Pulse Oximetry Oxygen Delivery Method Sepsis Recent Fever Within 48 Hours Sepsis Action Taken by Nursing GENERAL: Patient is a well-nourished female, seems confused HEAD: Normocephalic atraumatic EYES: Ocular movements intact pupils equal and react to light OROPHARYNX mucous membranes are moist no exudates present no erythema or edema present NECK: Supple no nuchal rigidity CHEST: Good equal expansion, Dialysis port catheter in place Rt chest wall LUNGS: Clear and equal to auscultation CARDIAC: Normal S1 and S2 ABDOMEN: Soft Tender in RUQ no guarding, Biliary tube in place draining jane fluid BACK: No CVA tenderness EXTREMITIES: No pain upon palpation normal muscle strength in all groups no clubbing cyanosis or edema NEURO: Patient is following commands is answering questions appropriately. Alert and oriented x3 Cranial Nerves 2-12 grossly intact Course Administered Medications Polyethylene Glycol (Miralax Powder Packet) 17 gm PO DAILY BETTY Stop: 09/19/19 11:59 Last Admin: 08/20/19 14:30 Dose: Not Given Documented by: [id number] Discontinued Medications Bisacodyl (Dulcolax) 10 mg TX NOW STA Stop: 08/20/19 11:47 Last Admin: 08/20/19 12:24 Dose: 10 mg Documented by: [id number] Sodium Chloride (Nss 1000ml) 1,000 mls @ 999 mls/hr IV .Q1H1M ONE Stop: 08/20/19 09:36 Last Infusion: 08/20/19 10:56 Dose: 0 mls/hr Documented by: [id number] Admin: 08/20/19 09:04 Dose: 999 mls/hr Documented by: [id number] Acetaminophen (Ofirmev) 1,000 mg in 100 mls @ 400 mls/hr IV NOW STA Stop: 08/20/19 11:30 Last Infusion: 08/20/19 12:25 Dose: 0 mls/hr Documented by: [id number] Admin: 08/20/19 11:24 Dose: 400 mls/hr Documented by: [id number] Magnesium Citrate (Citrate) 148 ml PO NOW STA Stop: 08/20/19 11:16 Last Admin: 08/20/19 12:23 Dose: Not Given Documented by: [id number] Metoclopramide HCl (Reglan) 10 mg IV NOW STA Stop: 08/20/19 11:16 Last Admin: 08/20/19 11:24 Dose: 10 mg Documented by: [id number] Medical Decision Making Differential Diagnosis Infection, dehydration, metabolic abnormality, hypo/hyperglycemia, electrolyte disturbance, anemia, hypoxia, cardiac sources, intracerebral event, toxicologic, neurologic, as well as other pathologies. Medical Records Attestation: I reviewed the patient's medical records. Home Medications Current Medication List: was personally reviewed by me Laboratory Data Attestation: I reviewed the patient's lab results. Result diagrams: 08/20/19 07:55 08/20/19 07:55 Lab Results 08/20/19 08/20/19 08/20/19 Range/Units 07:55 07:55 07:55 WBC 6.40 (4.8-10.8) K/uL RBC 2.67 L (4.2-5.4) M/uL Hgb 8.1 L (12.0-16.0) g/dL Hct 26.0 L (37-47) % MCV 97.4 (80-100) fL MCH 30.3 (25-34) pg MCHC 31.2 L (32-36) g/dL RDW Std Deviation 67.5 H (36.4-46.3) fL RDW Coeff of Talisha 18.9 H (11.5-14.5) % Plt Count 253 (130-400) K/uL MPV 9.1 (7.4-10.4) fL Immature Gran % (Auto) 0.3 % Neut % (Auto) 48.9 % Lymph % (Auto) 36.7 % [place] % (Auto) 12.5 % Eos % (Auto) 1.3 % Baso % (Auto) 0.3 % Immature Gran # (Auto) 0.02 (0.00-0.02) K/uL Neut # (Auto) 3.13 (1.4-6.5) K/uL Lymph # (Auto) 2.35 (1.2-3.4) K/uL [place] # (Auto) 0.80 H (0.11-0.59) K/uL Eos # (Auto) 0.08 (0-0.5) K/uL Baso # (Auto) 0.02 (0-0.2) K/uL ESR 59 H (0-21) mm/hr PT 11.9 (9.0-12.0) Seconds INR 1.1 (0.9-1.1) APTT 25.9 (21.0-31.0) Seconds PTT Ratio 0.9 Sodium (136-145) mmol/L Potassium (3.5-5.1) mmol/L Chloride (98-107) mmol/L Carbon Dioxide (21-32) mmol/L Anion Gap (3-11) BUN (7-18) mg/dl Creatinine (0.6-1.2) mg/dl Est Cr Clr Drug Dosing ml/min Est GFR ( Amer) Est GFR (Non-Af Amer) BUN/Creatinine Ratio (10-20) Glucose (70-99) mg/dl Lactate (0.4-2.0) mmol/L Calcium (8.5-10.1) mg/dl Magnesium (1.8-2.4) mg/dl Iron (35-150) mcg/dl TIBC (250-450) mcg/dl Transferrin (200-360) mg/dl Ferritin (8-388) ng/ml Total Bilirubin (0.2-1) mg/dl AST (15-37) U/L ALT (12-78) U/L Alkaline Phosphatase (45-117) U/L Total Creatine Kinase (26-192) U/L Troponin I (0-0.045) ng/ml C-Reactive Protein (0-0.29) mg/dl Total Protein (6.4-8.2) gm/dl Albumin (3.4-5.0) gm/dl Globulin (2.5-4.0) gm/dl Albumin/Globulin Ratio (0.9-2) Lipase (73-393) U/L Procalcitonin (0-0.5) ng/ml TSH (0.300-4.500) uIu/ml Free T4 (0.8-1.6) ng/dl Specimen Hemolysis COVID-19 PCR (Negative) Influenza Type A (PCR) (Neg) Influenza Type B (PCR) (Neg) SARS-CoV-2 RNA (RT-PCR) 08/20/19 08/20/19 08/20/19 Range/Units 07:55 07:55 07:55 WBC (4.8-10.8) K/uL RBC (4.2-5.4) M/uL Hgb (12.0-16.0) g/dL Hct (37-47) % MCV (80-100) fL MCH (25-34) pg MCHC (32-36) g/dL RDW Std Deviation (36.4-46.3) fL RDW Coeff of Talisha (11.5-14.5) % Plt Count (130-400) K/uL MPV (7.4-10.4) fL Immature Gran % (Auto) % Neut % (Auto) % Lymph % (Auto) % [place] % (Auto) % Eos % (Auto) % Baso % (Auto) % Immature Gran # (Auto) (0.00-0.02) K/uL Neut # (Auto) (1.4-6.5) K/uL Lymph # (Auto) (1.2-3.4) K/uL [place] # (Auto) (0.11-0.59) K/uL Eos # (Auto) (0-0.5) K/uL Baso # (Auto) (0-0.2) K/uL ESR (0-21) mm/hr PT (9.0-12.0) Seconds INR (0.9-1.1) APTT (21.0-31.0) Seconds PTT Ratio Sodium 135 L (136-145) mmol/L Potassium 3.6 (3.5-5.1) mmol/L Chloride 101 (98-107) mmol/L Carbon Dioxide 27 (21-32) mmol/L Anion Gap 8.0 (3-11) BUN 13 (7-18) mg/dl Creatinine 3.12 H (0.6-1.2) mg/dl Est Cr Clr Drug Dosing 19.5 ml/min Est GFR ( Amer) 18.0 Est GFR (Non-Af Amer) 15.6 BUN/Creatinine Ratio 4.2 L (10-20) Glucose 184 H (70-99) mg/dl Lactate 3.3 H* (0.4-2.0) mmol/L Calcium 9.3 (8.5-10.1) mg/dl Magnesium 2.0 (1.8-2.4) mg/dl Iron (35-150) mcg/dl TIBC (250-450) mcg/dl Transferrin (200-360) mg/dl Ferritin 719.8 H (8-388) ng/ml Total Bilirubin 0.2 (0.2-1) mg/dl AST 25 (15-37) U/L ALT 17 (12-78) U/L Alkaline Phosphatase 125 H (45-117) U/L Total Creatine Kinase (26-192) U/L Troponin I < 0.015 (0-0.045) ng/ml C-Reactive Protein 8.73 H (0-0.29) mg/dl Total Protein 6.2 L (6.4-8.2) gm/dl Albumin 1.9 L (3.4-5.0) gm/dl Globulin 4.3 H (2.5-4.0) gm/dl Albumin/Globulin Ratio 0.4 L (0.9-2) Lipase (73-393) U/L Procalcitonin 2.28 H (0-0.5) ng/ml TSH (0.300-4.500) uIu/ml Free T4 (0.8-1.6) ng/dl Specimen Hemolysis COVID-19 PCR (Negative) Influenza Type A (PCR) (Neg) Influenza Type B (PCR) (Neg) SARS-CoV-2 RNA (RT-PCR) 08/20/19 08/20/19 08/20/19 Range/Units 07:55 07:55 07:55 WBC (4.8-10.8) K/uL RBC (4.2-5.4) M/uL Hgb (12.0-16.0) g/dL Hct (37-47) % MCV (80-100) fL MCH (25-34) pg MCHC (32-36) g/dL RDW Std Deviation (36.4-46.3) fL RDW Coeff of Talisha (11.5-14.5) % Plt Count (130-400) K/uL MPV (7.4-10.4) fL Immature Gran % (Auto) % Neut % (Auto) % Lymph % (Auto) % [place] % (Auto) % Eos % (Auto) % Baso % (Auto) % Immature Gran # (Auto) (0.00-0.02) K/uL Neut # (Auto) (1.4-6.5) K/uL Lymph # (Auto) (1.2-3.4) K/uL [place] # (Auto) (0.11-0.59) K/uL Eos # (Auto) (0-0.5) K/uL Baso # (Auto) (0-0.2) K/uL ESR (0-21) mm/hr PT (9.0-12.0) Seconds INR (0.9-1.1) APTT (21.0-31.0) Seconds PTT Ratio Sodium (136-145) mmol/L Potassium (3.5-5.1) mmol/L Chloride (98-107) mmol/L Carbon Dioxide (21-32) mmol/L Anion Gap (3-11) BUN (7-18) mg/dl Creatinine (0.6-1.2) mg/dl Est Cr Clr Drug Dosing ml/min Est GFR ( Amer) Est GFR (Non-Af Amer) BUN/Creatinine Ratio (10-20) Glucose (70-99) mg/dl Lactate (0.4-2.0) mmol/L Calcium (8.5-10.1) mg/dl Magnesium (1.8-2.4) mg/dl Iron (35-150) mcg/dl TIBC (250-450) mcg/dl Transferrin (200-360) mg/dl Ferritin (8-388) ng/ml Total Bilirubin (0.2-1) mg/dl AST (15-37) U/L ALT (12-78) U/L Alkaline Phosphatase (45-117) U/L Total Creatine Kinase (26-192) U/L Troponin I (0-0.045) ng/ml C-Reactive Protein (0-0.29) mg/dl Total Protein (6.4-8.2) gm/dl Albumin (3.4-5.0) gm/dl Globulin (2.5-4.0) gm/dl Albumin/Globulin Ratio (0.9-2) Lipase 114 (73-393) U/L Procalcitonin (0-0.5) ng/ml TSH (0.300-4.500) uIu/ml Free T4 (0.8-1.6) ng/dl Specimen Hemolysis COVID-19 PCR (Negative) Influenza Type A (PCR) Neg for Influ A (Neg) Influenza Type B (PCR) Neg for Influ B (Neg) SARS-CoV-2 RNA (RT-PCR) Cancelled 08/20/19 08/20/19 08/20/19 Range/Units 07:55 08:15 10:09 WBC (4.8-10.8) K/uL RBC (4.2-5.4) M/uL Hgb (12.0-16.0) g/dL Hct (37-47) % MCV (80-100) fL MCH (25-34) pg MCHC (32-36) g/dL RDW Std Deviation (36.4-46.3) fL RDW Coeff of Talisha (11.5-14.5) % Plt Count (130-400) K/uL MPV (7.4-10.4) fL Immature Gran % (Auto) % Neut % (Auto) % Lymph % (Auto) % [place] % (Auto) % Eos % (Auto) % Baso % (Auto) % Immature Gran # (Auto) (0.00-0.02) K/uL Neut # (Auto) (1.4-6.5) K/uL Lymph # (Auto) (1.2-3.4) K/uL [place] # (Auto) (0.11-0.59) K/uL Eos # (Auto) (0-0.5) K/uL Baso # (Auto) (0-0.2) K/uL ESR (0-21) mm/hr PT (9.0-12.0) Seconds INR (0.9-1.1) APTT (21.0-31.0) Seconds PTT Ratio Sodium (136-145) mmol/L Potassium (3.5-5.1) mmol/L Chloride (98-107) mmol/L Carbon Dioxide (21-32) mmol/L Anion Gap (3-11) BUN (7-18) mg/dl Creatinine (0.6-1.2) mg/dl Est Cr Clr Drug Dosing ml/min Est GFR ( Amer) Est GFR (Non-Af Amer) BUN/Creatinine Ratio (10-20) Glucose (70-99) mg/dl Lactate 1.7 (0.4-2.0) mmol/L Calcium (8.5-10.1) mg/dl Magnesium (1.8-2.4) mg/dl Iron 41 (35-150) mcg/dl TIBC 141 L (250-450) mcg/dl Transferrin 123 L (200-360) mg/dl Ferritin (8-388) ng/ml Total Bilirubin (0.2-1) mg/dl AST (15-37) U/L ALT (12-78) U/L Alkaline Phosphatase (45-117) U/L Total Creatine Kinase 26 (26-192) U/L Troponin I (0-0.045) ng/ml C-Reactive Protein (0-0.29) mg/dl Total Protein (6.4-8.2) gm/dl Albumin (3.4-5.0) gm/dl Globulin (2.5-4.0) gm/dl Albumin/Globulin Ratio (0.9-2) Lipase (73-393) U/L Procalcitonin (0-0.5) ng/ml TSH 0.281 L (0.300-4.500) uIu/ml Free T4 1.54 (0.8-1.6) ng/dl Specimen Hemolysis COVID-19 PCR NEGATIVE (Negative) Influenza Type A (PCR) (Neg) Influenza Type B (PCR) (Neg) SARS-CoV-2 RNA (RT-PCR) Imaging Data Radiologist's Impression: [place] [phone] CT Scan Report Patient: JORDYN ADAM Admit Date: 08/20/19 MR#: [id number] Address1: [address] [place] [address] Acct ID:[id number] Address2: Date: 1960 [facility] Zip: [place] [address] Age: 58 Location: ED Sex: F Room/Bed: Att Phy: Diagnosis: SOB,BLOATING-LEAKING FROM DRAIN,HEADACHE Fely Phy: Jose Magallanes MD Service Date: 08/20/19 [facility] Phy: Interpreting Phy: Abimael Maldonado Admit Phy: Ordering Phy: Alfredito Elizondo MD cc: ~ ABDOMEN AND PELVIS CT WITHOUT CONTRAST CT DOSE: 1042.38 mGycm HISTORY: Acute generalized abdominal pain Pt c/o abd pain TECHNIQUE: Multiaxial CT images of the abdomen and pelvis were performed without contrast. A dose lowering technique was utilized adhering to the principles of ALARA. COMPARISON STUDY: CT abdomen and pelvis 07/01/2019, 07/01/2019, CT abdomen and pelvis 10/31/2018. FINDINGS: Respiratory motion limits evaluation of the lung bases. Patchy bibasilar groundglass opacities are present. Are a few scattered solid pulmonary nodules of the lung bases redemonstrated measuring up to 6 mm which are unchanged. There is no pneumatosis or pneumoperitoneum. The imaged inferior cardiac chambers are moderately enlarged. Coronary arterial and mitral annular calcifications. Trace pericardial effusion. Spleen is mildly enlarged, 14.1 cm. There are multiple scattered hypodense lesio ns of the spleen redemonstrated, largest which measures 2.9 cm inferiorly, unchanged. Extensive vascular calcifications of the abdomen and pelvis. Unremarkable pancreas. There is mild intrahepatic and extrahepatic biliary ductal dilation with equivocal layering hyperdensities within the distal common bile duct. Cholelithiasis with gallbladder wall thickening and mild pericholecystic edema. Cholecystostomy tube in place. No drainable fluid collection. Liver is otherwise unremarkable. Indeterminate intermediate density circumscribed lesion of the interpolar left kidney, 3.8 x 4.9 cm extensive renal vascular calcifications. Mild nonspecific bilateral perinephric stranding. No obstructive uropathy. Unremarkable appearance of the uterus. No adnexal mass lesions. No aortic aneurysm or adenopathy. Small duodenal diverticulum. Mild fecal retention. Normal appendix. Diffuse subcutaneous edema of the lower body wall. No drainable fluid collection. Degenerative changes of the pelvis and spine. IMPRESSION: 1. Cholelithiasis with bladder wall thickening and pericholecystic edema suggestive of acute cholecystitis. There is satisfactory positioning of the cholecystostomy tube with decreased gallbladder distention from comparison. 2. There is mild intrahepatic and extrahepatic biliary ductal dilation with equivocal layering hyperdensities of the distal common bile duct. Findings could be correlated with laboratory analysis and ERCP to exclude choledocholithiasis. 3. No bowel obstruction or bowel wall thickening. Normal appendix. 4. Intermediate density 4.9 cm lesion of the interpolar left kidney extending into the renal sinus redemonstrated suggestive of a complex renal cyst versus neoplasm. 5. Additional findings as above. ACT 112: Negative or not required by law. The above report was generated using voice recognition software. It may contain grammatical, syntax or spelling errors. Electronically signed by: David Maldonado M.D. 08/20/2019 9:19 AM Dictated: 08/20/19906 Transcribed: 08/20/19906 [place] [phone] XRay Report Patient: JORDYN ADAM Admit Date: 08/20/19 MR#: [id number] Address1: [address] [place] [address] Acct ID:[id number] Address2: Date: 1960 [facility] Zip: [place] [address] Age: 58 Location: ED Sex: F Room/Bed: Att Phy: Diagnosis: SOB,BLOATING-LEAKING FROM DRAIN,HEADACHE Fely Phy: Jose Magallanes MD Service Date: 08/20/19 [facility] Phy: Interpreting Phy: Abimael Maldonado Admit Phy: Ordering Phy: Alfredito Elizondo MD cc: ~ XR chest 1V portable HISTORY: 58 years-old Female SEPSIS acute sepsis COMPARISON: Chest radiograph and CT chest 07/01/2019 TECHNIQUE: Portable AP view of the chest. FINDINGS: Dual lumen right IJ central venous catheter is noted with distal tip terminating in the expected location of the right atrium. Calcified plaque of the thoracic aortic arch. There is no pneumothorax, pleural effusion, focal airspace consolidation or overt pulmonary edema. Mild pulmonary vascular congestion. Degenerative changes of the shoulders and spine. Linear hyperdensities of the left axilla may reflect soft tissue calcifications. Partially imaged catheter p rojects over the abdominal right upper quadrant. IMPRESSION: Cardiomegaly with mild pulmonary vascular congestion. ACT 112: Negative or not required by law. The above report was generated using voice recognition software. It may contain grammatical, syntax or spelling errors. Electronically signed by: David Maldonado M.D. 08/20/2019 8:36 AM Dictated: 08/20/19834 Transcribed: 08/20/19834 ECG Data Attestation: I personally reviewed and interpreted this ECG as follows: Indication: + weakness Rate (beats per minute): 82 Rhythm: + normal sinus ECG [place]: + Normal ECG ST segments: no ST depression and no ST elevation Comparison ECG Date: from [facility] Narrative This is a 58-year-old female who presents the emergency department confused as well as weak after dialysis yesterday. She does appear to be dry on physical ex amination therefore was given a normal saline bolus. She was sent for CAT scan of the abdomen pelvis which was concerning for acute cholecystitis however she does have a biliary drain in place and does not have an elevation in her white blood cell count. She was given Dilaudid as well as Tylenol for her pain. Chest x-ray does not show any evidence of pneumonia. Due to the patient's multiple comorbidities as well as her weakness I felt she should be admitted to the hospital. The patient was evaluated during the global COVID-19 pandemic, and that diagnosis was suspected/considered upon their initial presentation. Their evaluation, treatment and testing was consistent with current guidelines for patients who present with complaints or symptoms that may be related to COVID- 19. Cardiac monitoring: An order was placed for continuous cardiac monitoring. The monitor shows a rate of 85 with Normal Sinus rhythm. Impression & Plan Acute hypotension, Weakness Discharge Plan Visit Data *Final* Discharge Date/Time: 08/20/19 13:31 Chief Complaint: Illness ED Provider: Alfredito Elizondo Discharge Problem: Acute hypotension, Weakness Patient Disposition: Admitted As Inpatient Discharge Instructions Interventions: ED Discharge Assessment Last Done: 08/20/19 13:31
[2019-08-20 08:16] LABS: Basophils # (auto) 0.02 K/uL (0-0.2); Basophils % (auto) 0.3 %; Eosinophils # (auto) 0.08 K/uL (0-0.5); Eosinophils % (auto) 1.3 %; Hemoglobin 8.1 g/dL (12.0-16.0); Immature Granulocytes # (auto) 0.02 K/uL (0.00-0.02); Immature Granulocytes % (auto) 0.3 %; Lymphocytes # (auto) 2.35 K/uL (1.2-3.4); Lymphocytes % (auto) 36.7 %; Mean Corpuscular Hemoglobin 30.3 pg (25-34); Mean Corpuscular Hgb Conc 31.2 g/dL (32-36); Mean Corpuscular Volume 97.4 fL (80-100); Mean Platelet Volume 9.1 fL (7.4-10.4); Monocytes % (auto) 12.5 %; Neutrophils # (auto) 3.13 K/uL (1.4-6.5); Neutrophils % (auto) 48.9 %; Platelet Count 253 K/uL (130-400); RDW Coefficient of Variation 18.9 % (11.5-14.5); RDW Standard Deviation 67.5 fL (36.4-46.3); Red Blood Count 2.67 M/uL (4.2-5.4)
[2019-08-20 08:30] LABS: INR 1.1 (0.9-1.1); Partial Thromboplastin Ratio 0.9; Partial Thromboplastin Time 25.9 Seconds (21.0-31.0); Prothrombin Time 11.9 Seconds (9.0-12.0)
[2019-08-20] MEDS ORDERED: SODIUM CHLORIDE 0.9% 1000ML 1,000 ML IV ONE (08:36)
--- NOTE | 2019-08-20 08:37 | XRay Report ---
XR chest 1V portable HISTORY: 58 years-old Female SEPSIS acute sepsis COMPARISON: Chest radiograph and CT chest 07/01/2019 TECHNIQUE: Portable AP view of the chest. FINDINGS: Dual lumen right IJ central venous catheter is noted with distal tip terminating in the expected loca tion of the right atrium. Calcified plaque of the thoracic aortic arch. There is no pneumothorax, ple ural effusion, focal airspace consolidation or overt pulmonary edema. Mild pulmonary vascular congest ion. Degenerative changes of the shoulders and spine. Linear hyperdensities of the left axilla may re flect soft tissue calcifications. Partially imaged catheter projects over the abdominal right upper q uadrant. IMPRESSION: Cardiomegaly with mild pulmonary vascular congestion. ACT 112: Negative or not required by law. The above report was generated using voice recognition software. It may contain grammatical, syntax o r spelling errors. Electronically signed by: David Maldonado M.D. 08/20/2019 8:36 AM
[2019-08-20 08:38] LABS: Alanine Aminotransferase 17 U/L (12-78); Albumin Level 1.9 gm/dl (3.4-5.0); Aspartate Aminotransferase 25 U/L (15-37); BUN Creatinine Ratio 4.2 (10-20); Blood Urea Nitrogen 13 mg/dl (7-18); C Reactive Protein 8.73 mg/dl (0-0.29); Calcium 9.3 mg/dl (8.5-10.1); Carbon Dioxide 27 mmol/L (21-32); Chloride 101 mmol/L (98-107); Creatinine Clr Calc Pharmacy 19.5 ml/min; Est GFR (Non-African American) 15.6; Glucose 184 mg/dl (70-99); Potassium 3.6 mmol/L (3.5-5.1); Sodium 135 mmol/L (136-145)
[2019-08-20 08:41] LABS: Albumin Globulin Ratio 0.4 (0.9-2); Alkaline Phosphatase 125 U/L (45-117); Bilirubin,Total 0.2 mg/dl (0.2-1); Ferritin 719.8 ng/ml (8-388); Globulin 4.3 gm/dl (2.5-4.0); Total Protein 6.2 gm/dl (6.4-8.2); Troponin I < 0.015 ng/ml (0-0.045)
[2019-08-20 09:00] LABS: Influenza A virus by PCR Neg for Influ A (Neg); Influenza B virus by PCR Neg for Influ B (Neg)
--- NOTE | 2019-08-20 09:20 | CT Scan Report ---
ABDOMEN AND PELVIS CT WITHOUT CONTRAST CT DOSE: 1042.38 mGycm HISTORY: Acute generalized abdominal pain Pt c/o abd pain TECHNIQUE: Multiaxial CT images of the abdomen and pelvis were performed without contrast. A dose lo wering technique was utilized adhering to the principles of ALARA. COMPARISON STUDY: CT abdomen and pelvis 07/01/2019, 07/01/2019, CT abdomen and pelvis 10/31/2018. FINDINGS: Respiratory motion limits evaluation of the lung bases. Patchy bibasilar groundglass opacities are pr esent. Are a few scattered solid pulmonary nodules of the lung bases redemonstrated measuring up to 6 mm which are unchanged. There is no pneumatosis or pneumoperitoneum. The imaged inferior cardiac ruben mbers are moderately enlarged. Coronary arterial and mitral annular calcifications. Trace pericardial effusion. Spleen is mildly enlarged, 14.1 cm. There are multiple scattered hypodense lesions of the spleen rede monstrated, largest which measures 2.9 cm inferiorly, unchanged. Extensive vascular calcifications of the abdomen and pelvis. Unremarkable pancreas. There is mild intrahepatic and extrahepatic biliary d uctal dilation with equivocal layering hyperdensities within the distal common bile duct. Cholelithia sis with gallbladder wall thickening and mild pericholecystic edema. Cholecystostomy tube in place. N o drainable fluid collection. Liver is otherwise unremarkable. Indeterminate intermediate density circumscribed lesion of the interpolar left kidney, 3.8 x 4.9 cm e xtensive renal vascular calcifications. Mild nonspecific bilateral perinephric stranding. No obstruct rodolfo uropathy. Unremarkable appearance of the uterus. No adnexal mass lesions. No aortic aneurysm or a denopathy. Small duodenal diverticulum. Mild fecal retention. Normal appendix. Diffuse subcutaneous e oswaldo of the lower body wall. No drainable fluid collection. Degenerative changes of the pelvis and sp ine. IMPRESSION: 1. Cholelithiasis with bladder wall thickening and pericholecystic edema suggestive of acute cholecys titis. There is satisfactory positioning of the cholecystostomy tube with decreased gallbladder diste ntion from comparison. 2. There is mild intrahepatic and extrahepatic biliary ductal dilation with equivocal layering hyperd ensities of the distal common bile duct. Findings could be correlated with laboratory analysis and ER CP to exclude choledocholithiasis. 3. No bowel obstruction or bowel wall thickening. Normal appendix. 4. Intermediate density 4.9 cm lesion of the interpolar left kidney extending into the renal sinus re demonstrated suggestive of a complex renal cyst versus neoplasm. 5. Additional findings as above. ACT 112: Negative or not required by law. The above report was generated using voice recognition software. It may contain grammatical, syntax o r spelling errors. Electronically signed by: David Maldonado M.D. 08/20/2019 9:19 AM
[2019-08-20 11:14] LABS: Appearance Urine Turbid (Clear); Bacteria Urine Automated 2+ (Negative); Bilirubin Urine Negative (Negative); Blood Urine 2+ (Negative); Color Urine Yellow; Epithelial Cell Urine Auto >30 /lpf (0-5); Glucose Urine UA Negative (Negative); Ketones Urine Negative (Negative); Leukocyte Esterase Urine 3+ (Negative); Nitrite Urine Negative (Negative); Specific Gravity Urine 1.016 (1.000-1.030); Urobilinogen Urine Negative (Negative); WBC Urine Automated >30 /hpf (0-5); pH Urine 7.5 (4.5-7.5)
[2019-08-20] MEDS ORDERED: METOCLOPRAMIDE HCL INJ 5 MG/ML 2 ML VIAL IV STA (11:15)
[2019-08-20] MEDS ORDERED: MAGNESIUM CITRATE 296 ML/BTL PO STA (11:15)
[2019-08-20] MEDS ORDERED: HYDROmorphone INJ 0.5 MG/0.5 ML SYR IV PRN (11:15)
[2019-08-20] MEDS ORDERED: ACETAMINOPHEN 1,000 MG/100 ML VIAL IV STA (11:16)
[2019-08-20 11:22] LABS: Protein Urine 3+ (Negative)
[2019-08-20 11:23] LABS: Sulfosalicylic Acid Urine Positive (Negative)
[2019-08-20 11:28] LABS: Amorphous Sediment Urine Present (None Prsent)
[2019-08-20] MEDS ORDERED: bisacodyL 10 MG SUPP PR STA (11:46)
[2019-08-20 12:48] LABS: Thyroid Stimulating Hormone 0.281 uIu/ml (0.300-4.500)
[2019-08-20 13:04] LABS: T4 Free Thyroxine 1.54 ng/dl (0.8-1.6)
--- NOTE | 2019-08-20 13:14 | History & Physical Report ---
Date of Service August 20, 2019 Assessment & Plan (1) Acute on chronic cholecystitis: (2) Bloating: Abdominal pain is primarily lower quadrants, but with recent history of percutaneous cholecystostomy tube placement, consider possible source of pain/inflammation/infection? CT abdomen/pelvis showed gallbladder wall thickening consistent with acute cholecystitis. LFTs unremarkable. Very mild elevation in Alk Phos Consult General Surgery and Gastroenterology for further evaluation due to compl icated recent history & for completeness Pain possibly related to mild fecal retention. Dulcolax suppository and Miralax now. Continue daily Miralax and Colace. Tylenol controlling pain. Will defer further pain management unless pain changes. (3) Weakness: (4) Acute hypotension: BP improved with fluid in the ED. Continue to monitor. Continue home meds (5) UTI (urinary tract infection), uncomplicated: Urinalysis showed 3+ leukocyte esterase and >30 WBC. Start CTX 2 g daily. Follow blood and urine cultures (6) CKD (chronic kidney disease) stage 5, GFR less than 15 ml/min: (7) Anemia of chronic renal failure, stage 5: Nephrology consulted. On dialysis. Treatment schedule , , Fri. Dialysis completed via AV Fistula. Chronic anemia stable. Ferritin elevated- likely inflammatory. Will check Iron, TIBC, and transferrin. (8) Diabetes mellitus: Last A1C 7.2 on 06/30/19 DM diet. Continue insulin (9) Hypothyroidism: Continue levothyroxine Check TSH/T4 (10) DVT prophylaxis: SCDs, Heparin History of Present Illness Chief Complaint: Abdominal pain Primary Care Provider: Jose Magallanes MD Patient is a 58 yo female with a complicated medical history including type 2 diabetes mellitus with progression to end stage renal disease, diabetic retinopathy and neuropathy, dyslipidemia, secondary hyperparathyroidism, chronic subdural hematoma, ONEIL, mitral valve stenosis, DISH (diffuse idiopathic skeletal hyperostosis), hypothyroidism, and diastolic dysfunction who presented to the ED today with complaints of severe abdominal pain and weakness. She started to have increased bloating last week, and she started to have abdominal pain last night as well. She woke up early this morning feeling like she had to use the bathroom. She had to call her to help her because she was too weak to get to the bathroom herself. She fell while in the bathroom but denies injury. She was slightly SOB this morning especially when the abdominal pain was severe. The pain is a burning/sharp pain in the RLQ & suprapubic region. She was recently started on dialysis and typically receives dialysis on , , Friday. She did have dialysis yesterday, and it was uneventful. No problems. She did have a fever at home about 1 week ago up to 100.4F, but no fever over the past few days. No sweats/chills. She does have nausea on and off but no vomiting. She has not moved her bowels in a few days. No urinary symptoms, but patient makes minimal urine at home. She has recent complicated history of admission to [facility] in [place] for acute cholecystitis. She was deemed a poor surgical candidate at that time and instead of having a lap onofre, she had a percutaneous cholecystotomy tube placed. This tube is still in place. She was anticipated to have this changed/followed up as an outpatient on 09/07 by IR. She continues to have jane fluid draining from the tube. No drainage or pain directly around the tube. On presentation, CXR showed cardiomegaly and mild pulmonary vascular congestion but was otherwise unremarkable. CT showed cholelithiasis with gallbladder wall thickening and pericholecystic edema suggesting acute cholecystitis. The tube appears to be in place though. Mild fecal retention was noted. LFTs were unrevealing. Lactate elevated to 3.3 on admission but trended back to normal when rechecked. ESR, CRP, Procalcitonin elevated. WBC count within normal. Chronic anemia stable. Allergies Allergy/AdvReac Type Severity Reaction Status Date / Time gabapentin Allergy Intermediate Dizziness Verified 08/20/19 09:57 lisinopril AdvReac Intermediate Cough Verified 08/20/19 09:57 Home Medications Home Medications Medication Instructions Recorded Confirmed Type amlodipine 10 mg PO QAM 05/07/18 08/20/19 History aspirin [Aspirin Low Dose] 81 mg PO HS 05/07/18 08/20/19 History atorvastatin 80 mg PO HS 05/07/18 08/20/19 History levothyroxine 50 mcg PO QAM 05/07/18 08/20/19 History metoprolol succinate 75 mg PO BID 05/07/18 08/20/19 History Basaglar KwikPen U-100 Insulin 0 unit SUBCUT UD 05/29/19 05/01/20 History diltiazem HCl [Cartia XT] 180 mg PO QAM 09/16/18 08/20/19 History albuterol sulfate [Proventil HFA] 2 puffs INH Q6H PRN #8 gm 05/30/19 08/20/19 Rx benzonatate [Tessalon Perles] 100 mg PO TID PRN #20 cap 05/30/19 08/20/19 Rx polyethylene glycol 3350 [Miralax] 17 g PO DAILY PRN 08/20/19 08/20/19 History pregabalin 75 mg PO DAILY 08/20/19 08/20/19 History sevelamer carbonate [Renvela] See Rx Instructions .ROUTE .COMPLEX 08/20/19 08/20/19 History simethicone 80 mg PO Q6 PRN 08/20/19 08/20/19 History Past Med/Surg History Medical History (Updated 08/20/19 @ 14:14 by Tamra Sloan PA-C) AV fistula Bronchitis Chronic kidney disease Diabetes mellitus (Chronic) Diabetes mellitus, type 2 Hyperlipidemia Hyperparathyroidism due to renal insufficiency (Chronic) Hypertension (Chronic) Hypertension Hypothyroidism (Chronic) Hypothyroidism Obesity (BMI 30-39.9) Osteoarthritis Peripheral neuropathy BILATERAL LEGS Renal mass, left (Chronic) Splenic lesion (Chronic) Subdural hematoma (Chronic) Surgical History (Updated 08/20/19 @ 14:13 by Tamra Sloan PA-C) H/O bilateral salpingo-oophorectomy History of cataract extraction with lens replacement History of colonoscopy History of hysterectomy RENNY History of vitrectomy Family History Father Family history of diabetes mellitus Mother Family history of diabetes mellitus Social History Preferred Language: Swiss Communication Ability: Effective Valve Setter Required: No Beliefs That Will Affect Care: None marital status: Current Living Situation: Spouse Other Information That Helps Us Care for You: No Feels Safe at Home: Yes Safety Concerns: Feels Safe At This Time Smoking Status: Never smoker Second Hand Exposure: No ; Hx Alcohol Use: No Hx Substance Use: No Review of Systems Constitutional: + fatigue; no chills and no sweats Ear, Nose, Mouth, Throat: no dizziness and no nasal congestion Respiratory: + dyspnea (especially with pain); no cough, no chest congestion and no wheezing Cardiovascular: no chest pain, no palpitations and no edema Gastrointestinal: + abdominal pain, + bloating, + early satiety, + nausea and + constipation; no vomiting and no change in stools Genitourinary: + decreased urination (due to dialysis); no dysuria, no urinary frequency, no urinary incontinence and no hematuria Musculoskeletal: no swelling Neurologic: + generalized weakness and + headache(s) (this morning- gone now) Physical Exam Constitutional: well developed, + acute distress (due to pain) and + obese Eyes: PERRL, conjunctivae normal, anicteric sclerae ENMT: external ear and nose normal, oropharynx normal Neck: trachea midline, no thyromegaly Respiratory: normal respiratory effort, lungs clear to auscultation Cardiovascular: RRR, no murmur, no edema Gastrointestinal (Abdomen): Inspection/Auscultation: normal bowel sounds; abdomen not distended Percussion/Palpation: + abdomen tender (RLQ, suprapubic) and abdomen soft; no guarding and abdomen not rigid Percutaneous Musculoskeletal: Extremities: extremities normal to inspection Skin: no rashes, warm and dry Neurologic: PERRL, EOMI, accommodation nl, no face palsy, no dysarthria CN's II-XI intact bilaterally Psychiatric: A+Ox3, euthymic affect Results & Data Results & Data ([facility]) Vital Signs (Past 12 Hours) Vital Signs Temp Pulse Resp BP Pulse Ox 08/20/19 12:30 83 14 08/20/19 12:00 85 13 08/20/19 11:30 86 22 95 08/20/19 11:00 87 19 99 08/20/19 10:30 87 15 98 08/20/19 10:01 85 18 97 08/20/19 10:00 84 18 111/51 L 97 08/20/19 09:31 81 14 98 08/20/19 09:30 83 18 113/55 L 96 08/20/19 09:03 79 25 H 91/64 L 95 08/20/19 09:02 81 17 95 08/20/19 08:31 89 23 99 08/20/19 08:30 81 13 93/52 L 99 08/20/19 08:24 80 22 83/41 L 98 05/01/20 08:16 82 25 H 95 08/20/19 08:15 36.6 C 82 20 94/49 L 99 08/20/19 07:46 80 22 94/49 L [address] Abd/Pelvis: IMPRESSION: 1. Cholelithiasis with bladder wall thickening and pericholecystic edema suggestive of acute cholecystitis. There is satisfactory positioning of the cholecystostomy tube with decreased gallbladder distention from comparison. 2. There is mild intrahepatic and extrahepatic biliary ductal dilation with equivocal layering hyperdensities of the distal common bile duct. Findings could be correlated with laboratory analysis and ERCP to exclude choledocholithiasis. 3. No bowel obstruction or bowel wall thickening. Normal appendix. 4. Intermediate density 4.9 cm lesion of the interpolar left kidney extending into the renal sinus redemonstrated suggestive of a complex renal cyst versus neoplasm. 5. Additional findings as above. Chest X-ray: IMPRESSION: Cardiomegaly with mild pulmonary vascular congestion. Code Status & VTE Plan VTE Prophylaxis Plan VTE Prophylaxis will be ordered: Yes Supervising Physician Co-Signing Physician Notes I, Dr. Joshua Salgado, have seen and examined the patient with physician ortho assistant and On physical exam: General: no acute distress during my exam in ED Neck: dressing over anterior neck Heart: regular rate Lung: normal respiratory rate Abdomen: no acute tenderness to palpation, but patient reports in generally her discomfort is of left lower quadrant Extremities: moves extremities Psychiatric: awake and alert, verbal, follows directions Assessment and Plan Abdominal Pain/Abdominal Bloating Acute on Chronic cholecystitis Elevated Lactic Acid Possible Urinary Tract Infection ESRD on Hemodialysis Hypothyroidism Diabetes Mellitus Type 2 with halfway current use of insulin I would like to comment in addition to history/assessment/plan as documented by physician ortho assistant that: This is a 58 year old female patient who reports that she has been having off and on abdominal bloating sensations for may be around 6 months. She presents to the ED on 08/20/2019 because of abdominal bloating and pain x 1 day and on exam she reports the abdominal discomfort of more left sided of the abdomen. Her history is notable for starting hemodialysis in June, and also placement of cholecystostomy tube also in June [address] abdomen shows 1. Cholelithiasis with bladder wall thickening and pericholecystic edema suggestive of acute cholecystitis. There is satisfactory positioning of the cholecystectomy tube with decreased gallbladder distention from comparison. 2. There is mild intrahepatic and extrahepatic biliary ductal dilation with equivocal layering hyperdensities of the distal common bile duct. Findings could be correlated with laboratory analysis and ERCP to exclude choledocholithiasis. 3. No bowel obstruction or bowel wall thickening. Normal appendix. 4. Intermediate density 4.9 cm lesion of the interpolar left kidney extending into the renal sinus redemonstrated suggestive of a complex renal cyst versus neoplasm. The presentation of patient appears relatively benign in comparison to history of dialysis and history gallbladder problems especially as patient has had bloating symptoms in her past even before she was on dialysis and before her cholecystectomy tube placement. However, hospitalist service will initiate antibiotics for possible urinary tract infection and in acute on chronic cholecystitis given CT imaging assessment. Will give a total of ceftriaxone of 2 grams today and then continue as ceftriaxone as 2 grams IV daily for now. Admit to medicine for close monitoring of symptoms, monitor if fevers, await blood cultures. Will consult general surgery service and gastroenterology service for further assistance and would value their recommendations in case patients has worsening abdominal symptoms Elevated lactic acid of 3.7 resolved in the ED. Blood pressure improved in the ED with IV fluids Will give prn pain medications and prn ant-emetics and give diet as patient appears to be feeling better to to eat food Nephrology service also consulted as patient has hemodialysis on Friday//Friday dialysis. In regards to Hypothyroidism, TSH is mildly low as 0.281 and free T4 is normal as 1.54. Continue home dose Levoythroxine 50 mcg daily at this time In regards to Diabetes Mellitus, continue insulin with meals (1) Diabetes mellitus Diabetes mellitus complication status: with unspecified complications Diabetes mellitus halfway insulin use: unspecified long term care social worker insulin use status Diabetes mellitus type: other specified (including GERALD) Qualified Code(s): E13.8 - Other specified diabetes mellitus with unspecified complications
[2019-08-20] MEDS ORDERED: DEXTROSE 50% 50 ML SYRINGE IV PRN (14:11)
[2019-08-20] MEDS ORDERED: GLUCOSE 10 TABS/TUBE PO PRN (14:11)
[2019-08-20] MEDS ORDERED: GLUCAGON FOR INJ 1 MG VIAL SQ PRN (14:11)
[2019-08-20] MEDS ORDERED: CARBOHYDRATES FOR HYPOGLYCEMIA PO PRN (14:11)
[2019-08-20] MEDS ORDERED: GLUCOSE 40% GEL 15 GM TUBE PO PRN (14:11)
[2019-08-20] MEDS: POLYETHYLENE (MIRALAX) 17 GM PACK PO SCH (14:30)
[2019-08-20] MEDS ORDERED: SEVELAMER HCL 800 MG TABLET PO PRN (15:00)
--- NOTE | 2019-08-20 15:30 | Electrocardiogram Report ---
Test Reason : Blood Pressure : / mmHG Vent. Rate : 082 BPM Atrial Rate : 082 BPM P-R Int : 180 ms QRS Dur : 088 ms QT Int : 390 ms P-R-T Axes : 051 -05 011 degrees QTc Int : 455 ms Normal sinus rhythm Possible Left atrial enlargement Borderline ECG When compared with ECG of 01-JUL-2019 03:55, No significant change was found Confirmed by Russell Fernandez ([id number]) on 08/20/2019 3:30:17 PM Referred By: REFERRED SELF Confirmed By:Russell Fernandez
[2019-08-20] MEDS: cefTRIAXone SODIUM 2,000 MG in DEXTROSE 5% 50 ML IV SCH (15:40)
--- NOTE | 2019-08-20 15:40 | Gastrointestinal Consultation ---
Date of Consultation August 20, 2019 Assessment & Plan (1) Bloating: Lower abd bloating due to constipation which has resolved. Recommend Miralax daily, dulcolax if no BM in 24 hrs. Regarding cholecystostomy tube, it appears to be patent as pt denies any recent decrease in drainage and pt is no c/o upper abdomen pain, she is also non tender in the RUQ. Attg add: I interviewed and examined pt, reviewed chart and labs. Pt with complicated med history, s/p cholecystitis in June rx'd cholecystostomy tube, now admitted with one day of abdominal pain and bloating which seems to have mostly resolved with large BM. She denies any pain at cholecystostomy drain site, and denies any change in drain output. She is unaware of any plans for surgery. On exam, she appears comfortable, abd non tender and non distended. Skin around drain is WNL, and drain has bile in it. LFT's WNL, although alk phos mildly increased as outpt in early July. CT shows IHDD and EHDD, drain in place with wall enhancement of GB wall, drain appears in place. Suspect her pain is from constipation. No further recs regarding this, can d/c home tomorrow if pain does not recur. For biliary findings on imaging - can consider outpt ERCP with cholecystoenterostomy. We will arrange this. Present on Admission?: Yes History of Present Illness Reason for Consultation: Abdominal pain, recent cholecystoscopy Requesting Physician: Dr. Salgado/Samara Ahn Attending Physician: Joshua Salgado MD History of Present Illness Ms. Cynthia Barajas is a 58 yr old female pt of Dr. Pham with a hx of CKD on dialysis, DM-2, Hyperparathryoidism, Hypothyroidism, obesity, and subdural hematoma, ONEIL, mitral valve stenosis, DISH (diffuse idiopathic skeletal hyperostosis). Additionally, she underwent placement of a percutaneous drain in June 2019 at [facility] as she was dx'ed with acute cholecystitis but deemed a poor surgical candidate. Yesterday, she felt weakness in her legs and has had some SOB intermittently for the past few days. Today, she experienced lower abdomen cramping and bloating and due to this was, "unable to eat." For these reasons, she was brought to the ED. GI is consulted for abdominal pain. Ct abd/pelvis on arrival with acute cholecystitis, perc drain in place, decompressed gallbladder compared to prior CT. There is some mild intra/extrahepatic bililary ductal dilation. LFTs and lipase are normal. There is no leukocytosis or fever, though, on arrival she reported a temp of 100. Since arrival, after being given laxatives, she passed a large BM, which significantly improved the lower abdomen cramping and bloating. Allergies Allergy/AdvReac Type Severity Reaction Status Date / Time gabapentin Allergy Intermediate Dizziness Verified 08/20/19 09:57 lisinopril AdvReac Intermediate Cough Verified 08/20/19 09:57 Home Medications Home Medications Medication Instructions Recorded Confirmed Type amlodipine 10 mg PO QAM 05/07/18 08/20/19 History aspirin [Aspirin Low Dose] 81 mg PO HS 05/07/18 08/20/19 History atorvastatin 80 mg PO HS 05/07/18 08/20/19 History levothyroxine 50 mcg PO QAM 05/07/18 08/20/19 History metoprolol succinate 75 mg PO BID 05/07/18 08/20/19 History Basaglar KwikPen U-100 Insulin 0 unit SUBCUT UD 09/16/18 08/20/19 History diltiazem HCl [Cartia XT] 180 mg PO QAM 09/16/18 08/20/19 History albuterol sulfate [Proventil HFA] 2 puffs INH Q6H PRN #8 gm 05/30/19 08/20/19 Rx benzonatate [Tessalon Perles] 100 mg PO TID PRN #20 cap 05/30/19 08/20/19 Rx polyethylene glycol 3350 [Miralax] 17 g PO DAILY PRN 08/20/19 08/20/19 History pregabalin 75 mg PO DAILY 08/20/19 08/20/19 History sevelamer carbonate [Renvela] See Rx Instructions .ROUTE .COMPLEX 08/20/19 08/20/19 History simethicone 80 mg PO Q6 PRN 08/20/19 08/20/19 History Patient History Medical History AV fistula Bronchitis Chronic kidney disease Diabetes mellitus (Chronic) Diabetes mellitus, type 2 Hyperlipidemia Hyperparathyroidism due to renal insufficiency (Chronic) Hypertension (Chronic) Hypertension Hypothyroidism (Chronic) Hypothyroidism Obesity (BMI 30-39.9) Osteoarthritis Peripheral neuropathy BILATERAL LEGS Renal mass, left (Chronic) Splenic lesion (Chronic) Subdural hematoma (Chronic) Surgical History H/O bilateral salpingo-oophorectomy History of cataract extraction with lens replacement History of colonoscopy History of hysterectomy RENNY History of vitrectomy Family History Father Family history of diabetes mellitus Mother Family history of diabetes mellitus Social History Preferred Language: Italian Communication Ability: Effective Field Reviewer Required: No Beliefs That Will Affect Care: None marital status: Current Living Situation: Spouse Other Information That Helps Us Care for You: No Feels Safe at Home: Yes Safety Concerns: Feels Safe At This Time Smoking Status: Never smoker Second Hand Exposure: No ; Hx Alcohol Use: No Hx Substance Use: No Review of Systems Review of Systems: ROS: Gen: + weakness, + fevers a week ago, no weight loss Eyes: No eye redness, or pain, no recent vision changes Resp: + intermittent SOB yesterday, not currently SOB, no cough Cardio: No palpitations/irregular beats, no chest pain GI: See HPPI : On dialysis Skin: No jaundice, itching or new rashes Physical Exam Constitutional: WD/WN, vitals as above Eyes: PERRL, conjunctivae normal, anicteric sclerae ENMT: external ear and nose normal, oropharynx normal Neck: trachea midline, no thyromegaly Respiratory: normal respiratory effort, lungs clear to auscultation Cardiovascular: RRR, no murmur, no edema Gastrointestinal (Abdomen): Inspection/Auscultation: abdomen normal to inspection and normal bowel sounds; abdomen not distended Percussion/Palpation: abdomen nontender Musculoskeletal: no cyanosis or clubbing, extremities motor strength 5/5 Skin: no rashes, warm and dry Neurologic: PERRL, EOMI, accommodation nl, no face palsy, no dysarthria Psychiatric: A+Ox3, euthymic affect Genitourinary: no vaginal lesions, no adnexal mass Lymphatic: no cervical or axillary lymphadenopathy Results & Data ([facility]) Vital Signs (Past 12 Hours) Vital Signs Temp Pulse Pulse Resp BP BP Pulse Ox 08/20/19 13:44 36.4 C L 85 18 108/63 97 08/20/19 13:31 85 18 116/62 100 08/20/19 12:30 83 14 08/20/19 12:00 85 13 08/20/19 11:30 86 22 95 08/20/19 11:00 87 19 99 08/20/19 10:30 87 15 98 08/20/19 10:01 85 18 97 08/20/19 10:00 84 18 111/51 L 97 08/20/19 09:31 81 14 98 08/20/19 09:30 83 18 113/55 L 96 08/20/19 09:03 79 25 H 91/64 L 95 08/20/19 09:02 81 17 95 08/20/19 08:31 89 23 99 08/20/19 08:30 81 13 93/52 L 99 08/20/19 08:24 80 22 83/41 L 98 08/20/19 08:16 82 25 H 95 08/20/19 08:15 36.6 C 82 20 94/49 L 99 08/20/19 07:46 80 22 94/49 L 96 Laboratory Results See HPI Diagnostic Findings Ct abd/pelvis: 1. Cholelithiasis with bladder wall thickening and pericholecystic edema suggestive of acute cholecystitis. There is satisfactory positioning of the cholecystostomy tube with decreased gallbladder distention from comparison. 2. There is mild intrahepatic and extrahepatic biliary ductal dilation with equivocal layering hyperdensities of the distal common bile duct. Findings could be correlated with laboratory analysis and ERCP to exclude choledocholithiasis. 3. No bowel obstruction or bowel wall thickening. Normal appendix. 4. Intermediate density 4.9 cm lesion of the interpolar left kidney extending into the renal sinus redemonstrated suggestive of a complex renal cyst versus neoplasm. 5. Additional findings as above.
--- NOTE | 2019-08-20 15:41 | Surgery Consultation ---
Date of Consultation August 20, 2019 Assessment & Plan (1) Bloating: This is a 58y F with a PMH of CKD on HD es/thurs/sat, DM, hypothyroidism, and HTN who presents to the [facility] ED on 08/20/19 with complaints of shortness of breath, lower extremity weakness, and abdominal bloating. Patient was transferred from [facility] to [facility] back in June and underwent percutaneous cholecystostomy tube placement. Over the past day patient reports feeling shortness of breath, lower extremity weakness, and increase in abdominal bloating prompting her to come to the ED for evaluation. CT a/p showed cholelithiasis with bladder wall thickening and pericholecystic edema suggestive of acute cholecystitis. There is satisfactory positioning of the cholecystostomy tube with decreased gallbladder distention from comparison. There is mild intrahepatic and extrahepatic biliary ductal dilation with equivocal layering hyperdensities of the distal common bile duct. Labs show WBC: 6.4, Tbili: 0.2, AsT: 25, ALT: 17, AlkP: 125, and lipase: 114. On interview patient reports most of her abdominal pain is in the lower abdomen, but does have some ttp in the RUQ. She also reports history increased frequency of nausea/emesis after eating meals. On CT there is concern for hyperdensities of the distal CBD. Would recomm end GI consult for consideration of ERCP. LFT's may not be elevated as gallbladder is decompressed with perc. onofre tube in place. At this time there is no indication for surgical intervention in this patient. She currently appears well and reports an improvement in her overall symptoms since admission and tolerated regular lunch without issues. Pending GI input, okay from our standpoint to continue regular diet and monitor of symptoms. History of Present Illness Attending Physician: Joshua Salgado MD History of Present Illness This is a 58y F with a PMH of CKD on HD es/urs/sat, DM, hypothyroidism, and HTN who presents to the [facility] ED on 08/20/19 with complaints of shortness of breath, lower extremity weakness, and abdominal bloating. Of significance the patient was admitted back in June for acute respiratory failure, requiring intubation and found to be + for the flu. During that admission patient had elevated LFT's and imaging concerning for acute cholecystitis. Due to medical complexity of the patient she was transferred to [facility] where they opted to place a percutaneous cholecystotomy tube. Patient reports she has been doing fairly okay since tube has been in place. She reports tolerating a diet somewhat at home, but has been dealing with more frequent episodes of emesis (every other day, non bilious/non bloody). Over the course of the past day she reports an increase in feeling shortness of breath, weakness in her legs, and abdominal b loating. She reports some mild abdominal pain, but tells me it's mostly in the lower abdominal regions. She has no issues with her perc. onofre tube. In the ED patient underwent a CT a/p that revealed cholelithiasis with bladder wall thickening and pericholecystic edema suggestive of acute cholecystitis. There is satisfactory positioning of the cholecystostomy tube with decreased gallbladder distention from comparison. There is mild intrahepatic and extrahepatic biliary ductal dilation with equivocal layering hyperdensities of the distal common bile duct. Labs revealed a normal WBC and LFT's within normal limits outside of a slightly elevated alkp:125. She denies fevers/chills, chest pain, or change in bowel habits. Upon the time of my interview patient reports an improvement in her symptoms. She ate majority of her lunch without nausea/vomiting. She was admitted under medicine service with GI and surgical consultation. Allergies Allergy/AdvReac Type Severity Reaction Status Date / Time gabapentin Allergy Intermediate Dizziness Verified 08/20/19 09:57 lisinopril AdvReac Intermediate Cough Verified 08/20/19 09:57 Home Medications Home Medications Medication Instructions Recorded Confirmed Type amlodipine 10 mg PO QAM 05/07/18 08/20/19 History aspirin [Aspirin Low Dose] 81 mg PO HS 05/07/18 08/20/19 History atorvastatin 80 mg PO HS 05/07/18 08/20/19 History levothyroxine 50 mcg PO QAM 05/07/18 08/20/19 History metoprolol succinate 75 mg PO BID 05/07/18 08/20/19 History Basaglar KwikPen U-100 Insulin 0 unit SUBCUT UD 09/16/18 08/20/19 History diltiazem HCl [Cartia XT] 180 mg PO QAM 09/16/18 08/20/19 History albuterol sulfate [Proventil HFA] 2 puffs INH Q6H PRN #8 gm 05/30/19 08/20/19 Rx benzonatate [Tessalon Perles] 100 mg PO TID PRN #20 cap 05/30/19 08/20/19 Rx polyethylene glycol 3350 [Miralax] 17 g PO DAILY PRN 08/20/19 08/20/19 History pregabalin 75 mg PO DAILY 08/20/19 08/20/19 History sevelamer carbonate [Renvela] See Rx Instructions .ROUTE .COMPLEX 08/20/19 08/20/19 History simethicone 80 mg PO Q6 PRN 08/20/19 08/20/19 History Patient History Medical History AV fistula Bronchitis Chronic kidney disease Diabetes mellitus (Chronic) Diabetes mellitus, type 2 Hyperlipidemia Hyperparathyroidism due to renal insufficiency (Chronic) Hypertension (Chronic) Hypertension Hypothyroidism (Chronic) Hypothyroidism Obesity (BMI 30-39.9) Osteoarthritis Peripheral neuropathy BILATERAL LEGS Renal mass, left (Chronic) Splenic lesion (Chronic) Subdural hematoma (Chronic) Surgical History H/O bilateral salpingo-oophorectomy History of cataract extraction with lens replacement History of colonoscopy History of hysterectomy RENNY History of vitrectomy Family History Father Family history of diabetes mellitus Mother Family history of diabetes mellitus Social History Preferred Language: Turkish Communication Ability: Effective Console Attendant Required: No Beliefs That Will Affect Care: None marital status: Current Living Situation: Spouse Other Information That Helps Us Care for You: No Feels Safe at Home: Yes Safety Concerns: Feels Safe At This Time Smoking Status: Never smoker Second Hand Exposure: No ; Hx Alcohol Use: No Hx Substance Use: No Review of Systems Constitutional: no fever and no chills Respiratory: + dyspnea no chest pain Gastrointestinal: + abdominal pain (mostly lower abdomen), + bloating and + vomiting; no nausea and no change in bowel habits Physical Exam Physical Exam: awake/alert Respiratory: normal respiratory effort Gastrointestinal (Abdomen): Inspection/Auscultation: + abdominal surgical drain present (perc. onofre tube in place draining bilious fluid); abdomen not distended Percussion/Palpation: + abdomen tender (mild ttp in lower abdomen as well as RUQ) and abdomen soft Results & Data Vital Signs (Past 12 Hours) Vital Signs Temp Pulse Pulse Resp BP BP Pulse Ox 08/20/19 15:38 36.7 C 88 18 116/67 96 08/20/19 13:44 36.4 C L 85 18 108/63 97 08/20/19 13:31 85 18 116/62 100 08/20/19 12:30 83 14 08/20/19 12:00 85 13 08/20/19 11:30 86 22 95 08/20/19 11:00 87 19 99 08/20/19 10:30 87 15 98 08/20/19 10:01 85 18 97 08/20/19 10:00 84 18 111/51 L 97 08/20/19 09:31 81 14 98 08/20/19 09:30 83 18 113/55 L 96 08/20/19 09:03 79 25 H 91/64 L 95 08/20/19 09:02 81 17 95 08/20/19 08:31 89 23 99 08/20/19 08:30 81 13 93/52 L 99 08/20/19 08:24 80 22 83/41 L 98 08/20/19 08:16 82 25 H 95 08/20/19 08:15 36.6 C 82 20 94/49 L 99 08/20/19 07:46 80 22 94/49 L [address] WITHOUT CONTRAST CT DOSE: 1042.38 mGycm HISTORY: Acute generalized abdominal pain Pt c/o abd pain TECHNIQUE: Multiaxial CT images of the abdomen and pelvis were performed without contrast. A dose lowering technique was utilized adhering to the principles of ALARA. COMPARISON STUDY: CT abdomen and pelvis 07/01/2019, 07/01/2019, CT abdomen and pelvis 10/31/2018. FINDINGS: Respiratory motion limits evaluation of the lung bases. Patchy bibasilar groundglass opacities are present. Are a few scattered solid pulmonary nodules of the lung bases redemonstrated measuring up to 6 mm which are unchanged. There is no pneumatosis or pneumoperitoneum. The imaged inferior cardiac chambers are moderately enlarged. Coronary arterial and mitral annular calcifications. Trace pericardial effusion. Spleen is mildly enlarged, 14.1 cm. There are multiple scattered hypodense lesions of the spleen redemonstrated, largest which measures 2.9 cm inferiorly, unchanged. Extensive vascular calcifications of the abdomen and pelvis. Unremarkable pancreas. There is mild intrahepatic and extrahepatic biliary ductal dilation with equivocal layering hyperdensities within the distal common bile duct. Cholelithiasis with gallbladder wall thickening and mild pericholecystic edema. Cholecystostomy tube in place. No drainable fluid collection. Liver is otherwise unremarkable. Indeterminate intermediate density circumscribed lesion of the interpolar left kidney, 3.8 x 4.9 cm extensive renal vascular calcifications. Mild nonspecific bilateral perinephric stranding. No obstructive uropathy. Unremarkable appearance of the uterus. No adnexal mass lesions. No aortic aneurysm or adenopathy. Small duodenal diverticulum. Mild fecal retention. Normal appendix. Diffuse subcutaneous edema of the lower body wall. No drainable fluid collection. Degenerative changes of the pelvis and spine. IMPRESSION: 1. Cholelithiasis with bladder wall thickening and pericholecystic edema suggestive of acute cholecystitis. There is satisfactory positioning of the cholecystostomy tube with decreased gallbladder distention from comparison. 2. There is mild intrahepatic and extrahepatic biliary ductal dilation with equivocal layering hyperdensities of the distal common bile duct. Findings could be correlated with laboratory analysis and ERCP to exclude choledocholithiasis. 3. No bowel obstruction or bowel wall thickening. Normal appendix. 4. Intermediate density 4.9 cm lesion of the interpolar left kidney extending into the renal sinus redemonstrated suggestive of a complex renal cyst versus neoplasm. 5. Additional findings as above. ACT 112: Negative or not required by law. The above report was generated using voice recognition software. It may contain grammatical, syntax or spelling errors. Electronically signed by: David Maldonado M.D. 08/20/2019 9:19 AM PG Care Time/CCT Total # of Minutes Spent Total Time Spent with Patient: Total time spent is greater than 50% in coordination of care (as documented) at patient's floor/unit and/or counseling patient: Coding Level of Care Code 33261 Inpt Consult Level 3 Diagnoses Bloating R14.0
[2019-08-20] MEDS: HEPARIN SOD 5,000 UNIT/0.5 ML VIAL SQ SCH ×2 (17:02→21:16)
[2019-08-20] MEDS: INSULIN ASPART 100 UNITS/ML 3 ML PEN SC SCH ×2 (17:03→21:17)
[2019-08-20] MEDS: SEVELAMER HCL 800 MG TABLET PO SCH (17:05)
--- NOTE | 2019-08-20 17:14 | Progress Note ---
Date of Service August 20, 2019 Assessment & Plan Admission and Anticipated Discharge Date Admission Date: August 20, 2019 Subjective I spoke to the patient regarding her Choledocholithiasis as well as her indwelling PTC drain. She is not a good surgical candidate for cholecystectomy hence the PTC drain placed last month. I discussed with her regarding endoscopic gallbladder drainage in order to remove the drain and hence would not require surgery as well, explained to her about cholecystoduodenostomy using LAMS (Axios stent) and will do ERCP at the same time to remove her CBD stones. I explained risk, benefit and alternatives and she agreed. Please discharge the patient home over the weekend as her EUS/ERCP is scheduled to be done as OP on Thursday 08/24 at [facility]. Results & Data ([facility]) Vital Signs (Past 12 Hours) Vital Signs Temp Pulse Pulse Resp BP BP Pulse Ox 08/20/19 15:38 36.7 C 88 18 116/67 96 08/20/19 13:44 36.4 C L 85 18 108/63 97 08/20/19 13:31 85 18 116/62 100 08/20/19 12:30 83 14 08/20/19 12:00 85 13 08/20/19 11:30 86 22 95 08/20/19 11:00 87 19 99 08/20/19 10:30 87 15 98 08/20/19 10:01 85 18 97 08/20/19 10:00 84 18 111/51 L 97 08/20/19 09:31 81 14 98 08/20/19 09:30 83 18 113/55 L 96 08/20/19 09:03 79 25 H 91/64 L 95 08/20/19 09:02 81 17 95 08/20/19 08:31 89 23 99 08/20/19 08:30 81 13 93/52 L 99 08/20/19 08:24 80 22 83/41 L 98 08/20/19 08:16 82 25 H 95 08/20/19 08:15 36.6 C 82 20 94/49 L 99 08/20/19 07:46 80 22 94/49 L 96
[2019-08-20] MEDS: METOPROLOL SUCC 25MG EXT REL TAB PO SCH (21:15)
[2019-08-20] MEDS: DOCUSATE SODIUM 100 MG CAP PO SCH (21:15)
[2019-08-20] MEDS: ASPIRIN 81 MG ECTAB PO SCH (21:15)
[2019-08-20] MEDS: ATORVASTATIN 40 MG TAB PO SCH (21:15)
[2019-08-20] MEDS: INSULIN GLARGINE SOLOSTAR 100 UNITS/ML 3 ML PEN SC SCH (21:18)
[2019-08-20] MEDS: ACETAMINOPHEN 325 MG TAB PO PRN (21:30)
[2019-08-21] MEDS: HEPARIN SOD 5,000 UNIT/0.5 ML VIAL SQ SCH ×3 (05:54→21:14)
[2019-08-21] MEDS ORDERED: LEVOTHYROXINE SODIUM 50 MCG TABLET PO SCH (06:30)
[2019-08-21] MEDS ORDERED: SODIUM CHLORIDE 0.9% 1000ML 1,000 ML IV PRN (07:46)
--- NOTE | 2019-08-21 07:58 | Surgery Progress Note ---
Date of Service August 21, 2019 Assessment & Plan (1) Bloating: Patient's symptoms improved since admission Okay to continue diet as pt tolerates Appreciate GI input, planning for outpatient ERCP No surgical indication from our standpoint Dispo planning per medicine clearance Pt seen and examined with Dr. Sinha Subjective Awoke patient from her sleep. Denies abdominal pain. Is hungry this morning. Physical Exam Physical Exam: awoke from sleep, arousable and alert Gastrointestinal (Abdomen): Inspection/Auscultation: + abdominal surgical drain present (perc onofre tube in place draining bilious fluid) Percussion/Palpation: abdomen soft Results & Data Vital Signs (Past 12 Hours) Vital Signs Temp Pulse Resp BP Pulse Ox 08/21/19 07:11 36.4 C L 81 18 112/70 99 08/21/19 00:49 36.5 C 89 20 118/65 95 PG Care Time/CCT Total # of Minutes Spent Total Time Spent with Patient: Total time spent is greater than 50% in coordination of care (as documented) at patient's floor/unit and/or counseling patient: Coding Level of Care Code 99344 Subseq Hosp Care Lvl 1 Diagnoses Bloating R14.0
[2019-08-21] MEDS ORDERED: HEPARIN SOD (PORCINE) 1000 UNIT/ML 10 ML VIAL IV SCH (08:00)
[2019-08-21] MEDS: SEVELAMER HCL 800 MG TABLET PO SCH ×3 (08:13→17:04)
[2019-08-21] MEDS: dilTIAZem HCL 180 MG CAPCR PO SCH (08:14)
[2019-08-21] MEDS: DOCUSATE SODIUM 100 MG CAP PO SCH ×2 (08:14→21:09)
[2019-08-21] MEDS: METOPROLOL SUCC 25MG EXT REL TAB PO SCH ×2 (08:15→21:12)
[2019-08-21] MEDS: POLYETHYLENE (MIRALAX) 17 GM PACK PO SCH (08:15)
[2019-08-21] MEDS: PREGABALIN 75 MG CAP PO SCH (08:22)
[2019-08-21 08:23] LABS: Hematocrit (blood only) 28.8 % (37-47); Hemoglobin 9.1 g/dL (12.0-16.0); Mean Corpuscular Hemoglobin 30.2 pg (25-34); Mean Corpuscular Hgb Conc 31.6 g/dL (32-36); Mean Corpuscular Volume 95.7 fL (80-100); Mean Platelet Volume 8.9 fL (7.4-10.4); Platelet Count 239 K/uL (130-400); RDW Coefficient of Variation 18.6 % (11.5-14.5); RDW Standard Deviation 65.3 fL (36.4-46.3); Red Blood Count 3.01 M/uL (4.2-5.4); White Blood Count 5.57 K/uL (4.8-10.8)
[2019-08-21] MEDS: INSULIN ASPART 100 UNITS/ML 3 ML PEN SC SCH ×4 (08:23→21:15)
[2019-08-21 08:50] LABS: Albumin Level 1.8 gm/dl (3.4-5.0); BUN Creatinine Ratio 6.1 (10-20); Calcium 9.3 mg/dl (8.5-10.1); Creatinine Clr Calc Pharmacy 15.1 ml/min; Est GFR (African American) 13.2; Est GFR (Non-African American) 11.4; Potassium 3.4 mmol/L (3.5-5.1)
[2019-08-21 08:53] LABS: Albumin Globulin Ratio 0.4 (0.9-2); Bilirubin,Total 0.2 mg/dl (0.2-1); Globulin 4.3 gm/dl (2.5-4.0); Total Protein 6.1 gm/dl (6.4-8.2)
--- NOTE | 2019-08-21 10:39 | Nephrology Consultation ---
Date of Consultation August 21, 2019 Assessment & Plan (1) Chronic kidney disease on chronic dialysis: ESRD on Friday hemodialysis via AV fistula. Will at this point continue routine care with adjustments -Routine dialysis today using her customary outpatient orders with the exception that she will be on a 3K bath. UF as tolerated. Her blood pressures are relatively soft. Ordered dialysis diet with fluid restriction 1.5 L daily Next dialysis on August 23 or as clinical needs dictate Agree we should continue sevelamer (2) Acute on chronic cholecystitis: Currently on ceftriaxone; for now plan is to continue conservative measures particularly with focus on managing constipation; surgery following -defer to primary service and at d/c pcp to manage n/EMESIS Present on Admission?: Yes (3) Anemia due to pre-ESRD treated with erythropoietin: Monitor CBC at least every other day. Hemoglobin improving but still in the nines. No WILLIAM given today with dialysis; reassess for need at next treatment Present on Admission?: Yes (4) Hypertension: She was hypotensive on presentation with systolics in the 80s and 90s; improved to 1 teens this morning systolic. Heart rate has been within normal limits. -Continue diltiazem, metoprolol current doses but low threshold to lower BB dose -UF as tolerated with treatment Present on Admission?: Yes History of Present Illness Reason for Consultation: ESRD on dialysis Requesting Physician: Dr. Salgado Attending Physician: Joshua Salgado MD History of Present Illness 58-year-old female whom I am asked to evaluate for dialysis needs after she was admitted yesterday for management of acute on chronic cholecystitis after presenting with seVere abdominal pain and generalized weakness. Past medical history includes June 2019 [place] admission for acute respiratory failure from influenza pneumonia as well as acute cholecystitis, longstanding type 2 diabetes, ESRD recently started on dialysis spring 2019, chronic diastolic heart failure, dyslipidemia, chronic subdural hematoma, sleep apnea, diffuse idiopathic skeletal hyperostosis, hypothyroidism. She dialyzes under my care at [facility] Friday via AV fistula. Her acute cholecystitis was treated with percutaneous cholecystotomy tube since she was considered a poor surgical candidate. The plan is to change this tube as an outpatient with interventional radiology September 07. GI evaluated the patient and notes that she already has endoscopic ultrasound with ERCP scheduled for outpatient facility on August 24. Since June and more especially past 2 or so weeks, patient has noted nonbilious nonbloody emesis nearly every other day as well as mild lower and right upper quadrant abdominal pain, abdominal bloating. Also increased lower extremity weakness day prior to admission. currently still w/ upset stomach, bloating; no sob; + sense of need to void but cant Allergies Allergy/AdvReac Type Severity Reaction Status Date / Time gabapentin Allergy Intermediate Dizziness Verified 08/20/19 09:57 lisinopril AdvReac Intermediate Cough Verified 08/20/19 09:57 Home Medications Home Medications Medication Instructions Recorded Confirmed Type amlodipine 10 mg PO QAM 05/07/18 08/20/19 History aspirin [Aspirin Low Dose] 81 mg PO HS 05/07/18 08/20/19 History atorvastatin 80 mg PO HS 05/07/18 08/20/19 History levothyroxine 50 mcg PO QAM 05/07/18 08/20/19 History metoprolol succinate 75 mg PO BID 05/07/18 08/20/19 History Basaglar TriceikPen U-100 Insulin 0 unit SUBCUT UD 09/16/18 08/20/19 History diltiazem HCl [Cartia XT] 180 mg PO QAM 09/16/18 08/20/19 History albuterol sulfate [Proventil HFA] 2 puffs INH Q6H PRN #8 gm 05/30/19 08/20/19 Rx benzonatate [Tessalon Perles] 100 mg PO TID PRN #20 cap 05/30/19 08/20/19 Rx polyethylene glycol 3350 [Miralax] 17 g PO DAILY PRN 08/20/19 08/20/19 History pregabalin 75 mg PO DAILY 08/20/19 08/20/19 History sevelamer carbonate [Renvela] See Rx Instructions .ROUTE .COMPLEX 08/20/19 08/20/19 History simethicone 80 mg PO Q6 PRN 08/20/19 08/20/19 History Patient History Medical History AV fistula Bronchitis Chronic kidney disease on chronic dialysis Diabetes mellitus (Chronic) Diabetes mellitus, type 2 Hyperlipidemia Hyperparathyroidism due to renal insufficiency (Chronic) Hypertension (Chronic) Hypertension Hypothyroidism (Chronic) Hypothyroidism Obesity (BMI 30-39.9) Osteoarthritis Peripheral neuropathy BILATERAL LEGS Renal mass, left (Chronic) Splenic lesion (Chronic) Subdural hematoma (Chronic) Surgical History H/O bilateral salpingo-oophorectomy History of cataract extraction with lens replacement History of colonoscopy History of hysterectomy RENNY History of vitrectomy Family History Father Family history of diabetes mellitus Mother Family history of diabetes mellitus Social History Preferred Language: German Communication Ability: Effective Corrugated Sheet Material Sheeter Required: No Beliefs That Will Affect Care: None marital status: Current Living Situation: Spouse Other Information That Helps Us Care for You: No Feels Safe at Home: Yes Safety Concerns: Feels Safe At This Time Smoking Status: Never smoker Second Hand Exposure: No ; Hx Alcohol Use: No Hx Substance Use: No Physical Exam Constitutional: well developed, well nourished and cooperative; no acute distress appears chronically ill, lying flat on RA Eyes: EOM intact bilaterally ENMT: Ears: no external ear abnormality Nose: no external nose abnormality Mouth: + dry oral mucous membranes Neck: no nuchal rigidity Respiratory: normal respiratory effort Auscultation: lungs clear to auscultation bilaterally (anterior exam) and + diminished lung sounds Cardiovascular: RRR, no murmur, no edema Gastrointestinal (Abdomen): Inspection/Auscultation: + abdomen distended and + hypoactive bowel sounds Percussion/Palpation: + abdomen tender (BLUQ) and abdomen soft; no guarding and abdomen not rigid CHolecystotomy drain RUQ Musculoskeletal: Extremities: strength 5/5 throughout Skin: no rashes, warm and dry Neurologic: reyes, fluent speech, no tremor Psychiatric: A+Ox3, euthymic affect Results & Data Vital Signs (Past 12 Hours) Vital Signs Temp Pulse Resp BP Pulse Ox 08/21/19 07:11 36.4 C L 81 18 112/70 99 08/21/19 00:49 36.5 C 89 20 118/65 95 Laboratory Results 08/21/19 08:01 08/21/19 08:01 Urinalysis with microscopy: Turbid yellow urine pH 7.5, specific gravity 1016. 3+ protein, 2+ blood, 3+ leukocyte esterase, greater than 30 white cells per hi gh-powered field, 10-30 red cells per high-powered field, greater than 30 epithelial cells per high-powered field, 2+ bacteria (of note these findings are consistent with her past several urinalyses) blood and urine cultures pending C19 negative Diagnostic Findings CT Abd/Pelvis: IMPRESSION: 1. Cholelithiasis with bladder wall thickening and pericholecystic edema suggestive of acute cholecystitis. There is satisfactory positioning of the cholecystostomy tube with decreased gallbladder distention from comparison. 2. There is mild intrahepatic and extrahepatic biliary ductal dilation with equivocal layering hyperdensities of the distal common bile duct. Findings could be correlated with laboratory analysis and ERCP to exclude choledocholithiasis. 3. No bowel obstruction or bowel wall thickening. Normal appendix. 4. Intermediate density 4.9 cm lesion of the interpolar left kidney extending into the renal sinus redemonstrated suggestive of a complex renal cyst versus neoplasm. 5. Additional findings as above. Chest X-ray: IMPRESSION: Cardiomegaly with mild pulmonary vascular congestion. (1) Hypertension Hypertension type: essential hypertension Qualified Code(s): I10 - Essential (primary) hypertension
[2019-08-21] MEDS: HEPARIN SOD (PORCINE) 1000 UNIT/ML 10 ML VIAL IV SCH ×2 (11:02→11:03)
[2019-08-21] MEDS: ONDANSETRON INJ 2 MG/ML 2 ML VIAL IV PRN ×2 (11:13→19:21)
--- NOTE | 2019-08-21 11:21 | Dialysis Progress Note ---
Date of Service August 21, 2019 Assessment & Plan (1) Chronic kidney disease on chronic dialysis: ESRD on Friday hemodialysis via AV fistula. Will at this point continue routine care with adjustments -Routine dialysis today using her customary outpatient orders with the exception that she will be on a 3K bath. UF as tolerated--may well need to scale back UF despite vascular congestion on XR. Her blood pressures are relatively soft. Ordered dialysis diet with fluid restriction 1.5 L daily Next dialysis on August 23 or as clinical needs dictate Agree we should continue sevelamer >>>ordered prn bladder scan (2) Acute on chronic cholecystitis: Currently on ceftriaxone; for now plan is to continue conservative measures particularly with focus on managing constipation; surgery following -defer to primary service and at d/c pcp to manage n/EMESIS (3) Anemia due to pre-ESRD treated with erythropoietin: Monitor CBC at least every other day. Hemoglobin improving but still in the nines. No WILLIAM given today with dialysis; reassess for need at next treatment (4) Hypertension: She was hypotensive on presentation with systolics in the 80s and 90s; improved to 1 teens this morning systolic. Heart rate has been within normal limits. -Continue diltiazem, metoprolol current doses but low threshold to lower BB dose -UF as tolerated with treatment Subjective seen on HD; tolerating tx well but some mild N; no cramping; bp a bit soft Review of Systems Review of Systems: All systems reviewed & are unremarkable except as noted in HPI & below Physical Exam Constitutional: well developed, well nourished and cooperative; no acute distress Eyes: EOM intact bilaterally ENMT: Ears: no external ear abnormality Nose: no external nose abnormality Mouth: + dry oral mucous membranes Neck: no nuchal rigidity Respiratory: normal respiratory effort Auscultation: lungs clear to auscultation bilaterally (anterior exam) and + diminished lung sounds Cardiovascular: RRR, no murmur, no edema Gastrointestinal (Abdomen): Inspection/Auscultation: + abdomen distended and + hypoactive bowel sounds Percussion/Palpation: + abdomen tender (BLUQ) and abdomen soft; no guarding and abdomen not rigid Musculoskeletal: Extremities: strength 5/5 throughout Skin: no rashes, warm and dry Psychiatric: A+Ox3, euthymic affect Results & Data Vital Signs (Past 12 Hours) Vital Signs Temp Pulse Pulse Resp BP BP Pulse Ox 08/21/19 11:00 82 97/56 L 08/21/19 10:40 81 110/63 08/21/19 10:20 84 112/62 08/21/19 10:03 85 121/52 L 08/21/19 09:55 37 C 86 08/21/19 07:11 36.4 C L 81 18 112/70 99 08/21/19 00:49 36.5 C 89 20 118/65 95 Laboratory Results reviewed (1) Hypertension Hypertension type: essential hypertension Qualified Code(s): I10 - Essential (primary) hypertension
[2019-08-21] MEDS: cefTRIAXone SODIUM 2,000 MG in DEXTROSE 5% 50 ML IV SCH (14:21)
--- NOTE | 2019-08-21 17:21 | Hospitalist Progress Note ---
Date of Service August 21, 2019 Assessment & Plan (1) Bloating: Abdominal Pain/Abdominal Bloating -This is a 58 year old female patient who reports that she has been having off and on abdominal bloating sensations for may be around 6 months. She presents to the ED on 08/20/2019 because of abdominal bloating and pain x 1 day and on exam she reports the abdominal discomfort of more left sided of the abdomen. Her history is notable for starting hemodialysis in June, and also placement of cholecystostomy tube also in June 2019 (2) Acute hypotension: -blood pressure improved with IV fluids in the ED. Elevated Lactic Acid, present on admission -resolved with IV fluids in ED (3) Acute on chronic cholecystitis: -On admission the CT abdomen shows 1. Cholelithiasis with bladder wall thickening and pericholecystic edema suggestive of acute cholecystitis. There is satisfactory positioning of the cholecystectomy tube with decreased gallbladder distention from comparison. 2. There is mild intrahepatic and extrahepatic biliary ductal dilation with equivocal layering hyperdensities of the distal common bile duct. Findings could be correlated with laboratory analysis and ERCP to exclude choledocholithiasis. 3. No bowel obstruction or bowel wall thickening. Normal appendix. 4. Intermediate density 4.9 cm lesion of the interpolar left kidney extending into the renal sinus redemonstrated suggestive of a complex renal cyst versus neoplasm. -The presentation of patient appears relatively benign in comparison to history of dialysis and history gallbladder problems especially as patient has had bloating symptoms in her past even before she was on dialysis and before her cholecystectomy tube placement. -hospitalist service on admission initiate ceftriaxone antibiotics as 2 grams IV daily for possible urinary tract infection and in acute on chronic cholecystitis given CT imaging assessment -follow the blood culture results. -as per gastroenterology service: EUS/ERCP is scheduled to be done as outpatient on Friday08/25/2019 at [facility] location. (4) UTI (urinary tract infection), uncomplicated: 08/20/2019: Urinalysis showed 3+ leukocyte esterase and >30 WBC. Ceftriaxone empirically started 08/21/2019: urine culture returning as gram negative bacilli. continue ceftriaxone (5) Weakness: -improving (6) CKD (chronic kidney disease) stage 5, GFR less than 15 ml/min: ESRD on Hemodialysis -dialysis via AV fistula. Treatment schedule , , Sat. -patient completed dialysis session on 08/21/2019 while in the hospital (7) Anemia of chronic renal failure, stage 5: -keep Hgb above 7 (8) Diabetes mellitus: Diabetes Mellitus Type 2 with lobsterman current use of insulin -Last A1C 7.2 on 06/30/19 -DM diet. -Continue insulin (9) Hypothyroidism: -on levothyroxine as 50 mcg daily from home -TSH is 0.281 which is mildly low and free T4 is 1.54 which is normal -reduce the home dose levothyroxine to 25 mcg daily starting on 08/22/2019. patient should have repeat thyroid function tests performed while on levothyroxine 25 mcg in 4 to 6 weeks by primary care doctor (10) DVT prophylaxis: -Heparin subcutaneous q12 hours Admission and Anticipated Discharge Date Admission Date: August 20, 2019 Subjective Patient returns from hemodialysis. She is sitting up in the bed. She has meal in front of her. She reports some tightness of the belly. No acute pain currently. She did make bowel movement earlier today. no chest pain. no palpitations. no headache. no dizziness. Currently remains on IV antibiotic and cultures have not finalized yet. There is gram negative bacilli in urine cultures so far. Review of Systems Review of Systems: All systems reviewed & are unremarkable except as noted in Subjective Physical Exam Constitutional: WD/WN, vitals as above Eyes: PERRL, conjunctivae normal, anicteric sclerae EOM intact bilaterally ENMT: external ear and nose normal, oropharynx normal Neck: normal visual inspection Respiratory: normal respiratory effort Cardiovascular: Rate/Rhythm: regular rate and regular rhythm Gastrointestinal (Abdomen): Inspection/Auscultation: + abdominal surgical drain present Musculoskeletal: Head/Neck/Chest: normocephalic and head atraumatic Neurologic: PERRL, EOMI, accommodation nl, no face palsy, no dysarthria CN's II-XI intact bilaterally Psychiatric: A+Ox3, euthymic affect Results & Data Results & Data ([facility]) Vital Signs (Past 12 Hours) Vital Signs Temp Pulse Pulse Resp BP BP Pulse Ox 08/21/19 16:12 36.5 C 59 L 18 126/83 96 08/21/19 14:14 36.7 C 90 16 104/62 100 08/21/19 13:51 36.6 C 80 86 98/31 L 110/44 L 08/21/19 13:40 82 84/61 L 08/21/19 13:20 82 133/64 08/21/19 13:00 83 119/64 08/21/19 12:40 83 105/44 L 08/21/19 12:20 82 88/51 L 08/21/19 12:00 82 113/60 08/21/19 11:40 80 121/61 08/21/19 11:26 83 116/61 08/21/19 11:00 82 97/56 L 08/21/19 10:40 81 110/63 08/21/19 10:20 84 112/62 08/21/19 10:03 85 121/52 L 08/21/19 09:55 37 C 86 08/21/19 07:11 36.4 C L 81 18 112/70 99 (1) Diabetes mellitus Diabetes mellitus complication status: with unspecified complications Diabetes mellitus long-term insulin use: unspecified long-term insulin use status Diabetes mellitus type: other specified (including GERALD) Qualified Code(s): E13.8 - Other specified diabetes mellitus with unspecified complications
[2019-08-21] MEDS: ACETAMINOPHEN 325 MG TAB PO PRN (19:21)
[2019-08-21] MEDS: ATORVASTATIN 40 MG TAB PO SCH (21:09)
[2019-08-21] MEDS: ASPIRIN 81 MG ECTAB PO SCH (21:09)
[2019-08-21] MEDS: INSULIN GLARGINE SOLOSTAR 100 UNITS/ML 3 ML PEN SC SCH (21:14)
[2019-08-21] MEDS ORDERED: MoRPHine SULFATE 2 MG/ML CARP IV STA (22:06)
[2019-08-22 06:18] LABS: Basophils # (auto) 0.05 K/uL (0-0.2); Basophils % (auto) 0.7 %; Eosinophils # (auto) 0.35 K/uL (0-0.5); Eosinophils % (auto) 4.8 %; Hematocrit (blood only) 27.1 % (37-47); Hemoglobin 8.4 g/dL (12.0-16.0); Immature Granulocytes # (auto) 0.13 K/uL (0.00-0.02); Immature Granulocytes % (auto) 1.8 %; Lymphocytes # (auto) 3.02 K/uL (1.2-3.4); Lymphocytes % (auto) 41.1 %; Mean Corpuscular Hemoglobin 29.6 pg (25-34); Mean Corpuscular Volume 95.4 fL (80-100); Mean Platelet Volume 9.4 fL (7.4-10.4); Monocytes # (auto) 0.98 K/uL (0.11-0.59); Monocytes % (auto) 13.4 %; Neutrophils # (auto) 2.81 K/uL (1.4-6.5); Neutrophils % (auto) 38.2 %; Platelet Count 228 K/uL (130-400); RDW Coefficient of Variation 18.9 % (11.5-14.5); Red Blood Count 2.84 M/uL (4.2-5.4); White Blood Count 7.34 K/uL (4.8-10.8)
[2019-08-22] MEDS ORDERED: LEVOTHYROXINE SODIUM 25 MCG TABLET PO SCH (06:30)
[2019-08-22 06:48] LABS: Albumin Globulin Ratio 0.4 (0.9-2); Albumin Level 1.7 gm/dl (3.4-5.0); BUN Creatinine Ratio 4.6 (10-20); Bilirubin,Total 0.2 mg/dl (0.2-1); Calcium 9.2 mg/dl (8.5-10.1); Creatinine Clr Calc Pharmacy 23.8 ml/min; Est GFR (African American) 23.1; Globulin 4.5 gm/dl (2.5-4.0); Potassium 4.5 mmol/L (3.5-5.1); Total Protein 6.2 gm/dl (6.4-8.2)
[2019-08-22] MEDS: dilTIAZem HCL 180 MG CAPCR PO SCH (08:04)
[2019-08-22] MEDS: DOCUSATE SODIUM 100 MG CAP PO SCH (08:04)
[2019-08-22] MEDS: POLYETHYLENE (MIRALAX) 17 GM PACK PO SCH (08:05)
[2019-08-22] MEDS: HEPARIN SOD 5,000 UNIT/0.5 ML VIAL SQ SCH (08:05)
[2019-08-22] MEDS: SEVELAMER HCL 800 MG TABLET PO SCH (08:05)
[2019-08-22] MEDS: METOPROLOL SUCC 25MG EXT REL TAB PO SCH (08:06)
[2019-08-22] MEDS: INSULIN ASPART 100 UNITS/ML 3 ML PEN SC SCH (08:11)
[2019-08-22] MEDS: PREGABALIN 75 MG CAP PO SCH (08:14)
[2019-08-22] MEDS ORDERED: cefTRIAXone SODIUM 2,000 MG in DEXTROSE 5% 50 ML IV STA (08:19)
--- NOTE | 2019-08-22 08:21 | Hospitalist Progress Note ---
Date of Service August 22, 2019 Assessment & Plan (1) Bloating: Abdominal Pain/Abdominal Bloating -This is a 58 year old female patient who reports that she has been having off and on abdominal bloating sensations for may be around 6 months. She presents to the ED on 08/20/2019 because of abdominal bloating and pain x 1 day and on exam she reports the abdominal discomfort of more left sided of the abdomen. Her history is notable for starting hemodialysis in June, and also placement of cholecystostomy tube also in June 2019 (2) Acute hypotension: -blood pressure improved with IV fluids in the ED. -patient continued on home dose metoprolol and diltiazem and her home dose amlodipine was stopped -patient can continue metoprolol and diltiazem as outpatient Elevated Lactic Acid, present on admission -resolved with IV fluids in ED (3) Acute on chronic cholecystitis: -On admission the CT abdomen shows 1. Cholelithiasis with bladder wall thickening and pericholecystic edema suggestive of acute cholecystitis. There is satisfactory positioning of the cholecystectomy tube with decreased gallbladder distention from comparison. 2. There is mild intrahepatic and extrahepatic biliary ductal dilation with equivocal layering hyperdensities of the distal common bile duct. Findings could be correlated with laboratory analysis and ERCP to exclude choledocholithiasis. 3. No bowel obstruction or bowel wall thickening. Normal appendix. 4. Intermediate density 4.9 cm lesion of the interpolar left kidney extending into the renal sinus redemonstrated suggestive of a complex renal cyst versus neoplasm. -The presentation of patient appears relatively benign in comparison to history of dialysis and history gallbladder problems especially as patient has had bloat ing symptoms in her past even before she was on dialysis and before her cholecystectomy tube placement. -hospitalist service on admission initiate ceftriaxone antibiotics as 2 grams IV daily for urinary tract infection and in acute on chronic cholecystitis given CT imaging assessment -08/22/2019 Patient feeling better today. no acute abdomen pain. bloating sensations improved. Patient reports some back discomforts from laying in hospital bed and wishes to go home. The blood culture with no growth to date. The Urine culture speciated on 08/22/2019 as Citrobacter freundii which is generally sensitive to antibiotics such including beta lactams but is resistant to ceftriaxone. give patient 1 dose of IV ciprofloxacin 400 mg. Patient may take oral ciprofloxacin as 500 mg daily for 2 more days starting on 08/23/2019 (additional instructions on dialysis days the patient should take medication after dialysis session) -as per gastroenterology service: EUS/ERCP is scheduled to be done as outpatient on Friday08/25/2019 at [facility]. (4) UTI (urinary tract infection), uncomplicated: 08/20/2019: Urinalysis showed 3+ leukocyte esterase and >30 WBC. Ceftriaxone empirically started 08/21/2019: urine culture returning as gram negative bacilli. continue ceftriaxone 08/22/2019: The Urine culture speciated on 08/22/2019 as Citrobacter freundii which is generally sensitive to antibiotics such including beta lactams but is resistant to ceftriaxone. give patient 1 dose of IV ciprofloxacin 400 mg. Patient may take oral ciprofloxacin as 500 mg daily for 2 more days starting on 08/23/2019 (additional instructions on dialysis days the patient should take medication after dialysis session) (5) Weakness: -improving (6) CKD (chronic kidney disease) stage 5, GFR less than 15 ml/min: ESRD on Hemodialysis -dialysis via AV fistula. Treatment schedule , Fri. 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 -on insulin (9) Hypothyroidism: -on levothyroxine as 50 mcg daily from home -TSH is 0.281 which is mildly low and free T4 is 1.54 which is normal -on reduced home dose levothyroxine to 25 mcg daily starting on 08/22/2019. patient should have repeat thyroid function tests performed while on levothyroxine 25 mcg in 4 to 6 weeks by primary care doctor (10) DVT prophylaxis: -Heparin subcutaneous q12 hours while inpatient Admission and Anticipated Discharge Date Admission Date: August 20, 2019 Subjective Patient feeling better today. no acute abdomen pain. bloating sensations improved. Patient reports some back discomforts from laying in hospital bed and wishes to go home. The blood culture with no growth to date. The Urine culture speciated on 08/22/2019 as Citrobacter freundii which is generally sensitive to antibiotics such including beta lactams but is resistant to ceftriaxone. Will give patient 1 dose of IV ciprofloxacin 400 mg. Patient may take oral ciprofloxacin as 500 mg daily for 2 more days (additional instructions on dialysis days the patient should take medication after dialysis session) Review of Systems Review of Systems: All systems reviewed & are unremarkable except as noted in Subjective Physical Exam Constitutional: WD/WN, vitals as above Eyes: PERRL, conjunctivae normal, anicteric sclerae EOM intact bilaterally ENMT: external ear and nose normal, oropharynx normal Neck: normal visual inspection Respiratory: normal respiratory effort Cardiovascular: Rate/Rhythm: regular rate and regular rhythm Gastrointestinal (Abdomen): Inspection/Auscultation: + abdominal surgical drain present (cholecystectomy tube) Musculoskeletal: Head/Neck/Chest: normocephalic and head atraumatic Neurologic: PERRL, EOMI, accommodation nl, no face palsy, no dysarthria CN's II-XI intact bilaterally Psychiatric: A+Ox3, euthymic affect Results & Data Results & Data ([facility]) Vital Signs (Past 12 Hours) Vital Signs Temp Pulse Pulse Resp BP Pulse Ox 08/22/19 07:34 36.8 C 93 H 18 96/61 L 97 08/21/19 22:30 36.8 C 95 H 18 96/56 L 94 08/21/19 21:13 95 H 16 99/62 L 95 (1) Diabetes mellitus Diabetes mellitus complication status: with unspecified complications Diabetes mellitus longwall headgate operator insulin use: unspecified longwall headgate operator insulin use status Diabetes mellitus type: other specified (including GERALD) Qualified Code(s): E13.8 - Other specified diabetes mellitus with unspecified complications
[2019-08-22] MEDS ORDERED: CIPROFLOXACIN / D5W 400 MG/200 ML BAG IV ONE (08:30)
--- NOTE | 2019-08-22 08:50 | Discharge Summary ---
Date of Service August 22, 2019 Admission HPI Per Admitting Provider Patient is a 58 yo female with a complicated medical history including type 2 diabetes mellitus with progression to end stage renal disease, diabetic retinopathy and neuropathy, dyslipidemia, secondary hyperparathyroidism, chronic subdural hematoma, ONEIL, mitral valve stenosis, DISH (diffuse idiopathic skeletal hyperostosis), hypothyroidism, and diastolic dysfunction who presented to the ED today with complaints of severe abdominal pain and weakness. She started to have increased bloating last week, and she started to have abdominal pain last night as well. She woke up early this morning feeling like she had to use the bathroom. She had to call her to help her because she was too weak to get to the bathroom herself. She fell while in the bathroom but denies injury. She was slightly SOB this morning especially when the abdominal pain was severe. The pain is a burning/sharp pain in the RLQ & suprapubic region. She was recently started on dialysis and typically receives dialysis on , , Friday. She did have dialysis yesterday, and it was uneventful. No problems. She did have a fever at home about 1 week ago up to 100.4F, but no fever over the past few days. No sweats/chills. She does have nausea on and off but no vomiting. She has not moved her bowels in a few days. No urinary symptoms, but patient makes minimal urine at home. She has recent complicated history of admission to [facility] in [place] for acute cholecystitis. She was deemed a poor surgical candidate at that time and instead of having a lap onofre, she had a percutaneous cholecystotomy tube placed. This tube is still in place. She was anticipated to have this changed/followed up as an outpatient on 09/07 by IR. She continues to have jane fluid draining from the tube. No drainage or pain directly around the tube. On presentation, CXR showed cardiomegaly and mild pulmonary vascular congestion but was otherwise unremarkable. CT showed cholelithiasis with gallbladder wall thickening and pericholecystic edema suggesting acute cholecystitis. The tube appears to be in place though. Mild fecal retention was noted. LFTs were unrevealing. Lactate elevated to 3.3 on admission but trended back to normal when rechecked. ESR, CRP, Procalcitonin elevated. WBC count within normal. Chronic anemia stable. Principal Diagnosis Abdominal Pain/Abdominal Bloating Acute on Chronic cholecystitis Elevated Lactic Acid Possible Urinary Tract Infection ESRD on Hemodialysis Hypothyroidism Diabetes Mellitus Type 2 with long-term current use of insulin Discharge Exam Constitutional WD/WN, vitals as above Eyes PERRL, conjunctivae normal, anicteric sclerae EOM intact bilaterally ENMT external ear and nose normal, oropharynx normal Neck normal visual inspection Respiratory normal respiratory effort Cardiovascular Rate/Rhythm: regular rate and regular rhythm Gastrointestinal (Abdomen) Inspection/Auscultation: + abdominal surgical drain present (cholecystectomy tube) Musculoskeletal Head/Neck/Chest: normocephalic and head atraumatic Neurologic PERRL, EOMI, accommodation nl, no face palsy, no dysarthria CN's II-XI intact bilaterally Psychiatric A+Ox3, euthymic affect Discharge Data Allergies Allergy/AdvReac Type Severity Reaction Status Date / Time gabapentin Allergy Intermediate Dizziness Verified 08/20/19 09:57 lisinopril AdvReac Intermediate Cough Verified 08/20/19 09:57 Consultations 08/20/19 09:40 ED Decision to Admit Stat 08/20/19 15:31 Consult Gastroenterology Routine 08/20/19 15:32 Consult General Surgery Routine Consult Nephrology Routine 08/21/19 07:11 Consult Case Management - Discharge Planning Routine Ordered Studies 08/20/19 08:45 CT abd pelvis wo con Stat Hospital Course (1) Bloating: Abdominal Pain/Abdominal Bloating -This is a 58 year old female patient who reports that she has been having off and on abdominal bloating sensations for may be around 6 months. She presents to the ED on 08/20/2019 because of abdominal bloating and pain x 1 day and on exam she reports the abdominal discomfort of more left sided of the abdomen. Her history is notable for starting hemodialysis in June, and also placement of cholecystostomy tube also in June 2019 (2) Acute hypotension: -blood pressure improved with IV fluids in the ED. -patient continued on home dose metoprolol and diltiazem and her home dose amlodipine was stopped -patient can continue metoprolol and diltiazem as outpatient Elevated Lactic Acid, present on admission -resolved with IV fluids in ED (3) Acute on chronic cholecystitis: -On admission the CT abdomen shows 1. Cholelithiasis with bladder wall thickening and pericholecystic edema suggestive of acute cholecystitis. There is satisfactory positioning of the cholecystectomy tube with decreased gallbladder distention from comparison. 2. There is mild intrahepatic and extrahepatic biliary ductal dilation with equivocal layering hyperdensities of the distal common bile duct. Findings could be correlated with laboratory analysis and ERCP to exclude choledocholithiasis. 3. No bowel obstruction or bowel wall thickening. Normal appendix. 4. Intermediate density 4.9 cm lesion of the interpolar left kidney extending into the renal sinus redemonstrated suggestive of a complex renal cyst versus neoplasm. -The presentation of patient appears relatively benign in comparison to history of dialysis and history gallbladder problems especially as patient has had bloating symptoms in her past even before she was on dialysis and before her cholecystectomy tube placement. -hospitalist service on admission initiate ceftriaxone antibiotics as 2 grams IV daily for urinary tract infection and in acute on chronic cholecystitis given CT imaging assessment -08/22/2019 Patient feeling better today. no acute abdomen pain. bloating sensa tions improved. Patient reports some back discomforts from laying in hospital bed and wishes to go home. The blood culture with no growth to date. The Urine culture speciated on 08/22/2019 as Citrobacter freundii which is generally sensitive to antibiotics such including beta lactams but is resistant to ceftriaxone. give patient 1 dose of IV ciprofloxacin 400 mg. Patient may take oral ciprofloxacin as 500 mg daily for 2 more days starting on 08/23/2019 (additional instructions on dialysis days the patient should take medication after dialysis session) -as per gastroenterology service: EUS/ERCP is scheduled to be done as outpatient on Friday08/25/2019 at [facility]. (4) UTI (urinary tract infection), uncomplicated: 08/20/2019: Urinalysis showed 3+ leukocyte esterase and >30 WBC. Ceftriaxone empirically started 08/21/2019: urine culture returning as gram negative bacilli. continue ceftriaxone 08/22/2019: The Urine culture speciated on 08/22/2019 as Citrobacter freundii which is generally sensitive to antibiotics such including beta lactams but is resistant to ceftriaxone. give patient 1 dose of IV ciprofloxacin 400 mg. Patient may take oral ciprofloxacin as 500 mg daily for 2 more days starting on 08/23/2019 (additional instructions on dialysis days the patient should take medication after dialysis session) (5) Weakness: -improving (6) CKD (chronic kidney disease) stage 5, GFR less than 15 ml/min: ESRD on Hemodialysis -dialysis via AV fistula. Treatment schedule , Fri. -patient completed dialysis session on 08/21/2019 while in the hospital (7) Anemia of chronic renal failure, stage 5: -Hgb is 8.4 (8) Diabetes mellitus: Diabetes Mellitus Type 2 with long-term current use of insulin -Last A1C 7.2 on 06/30/19 -DM diet. -on insulin (9) Hypothyroidism: -on levothyroxine as 50 mcg daily from home -TSH is 0.281 which is mildly low and free T4 is 1.54 which is normal -on reduced home dose levothyroxine to 25 mcg daily starting on 08/22/2019. patient should have repeat thyroid function tests performed while on levothyroxine 25 mcg in 4 to 6 weeks by primary care doctor (10) DVT prophylaxis: -Heparin subcutaneous q12 hours while inpatient Total Time Total Time Spent Total Time Spent (In Minutes): 40 minutes Total Time Includes: Examination of the Patient, Discharge Planning, Medication Reconciliation and Communication With Other Providers Discharge Plan Discharge Items Patient Disposition: Home - Self-Care Reason For Visit: ABDOMINAL PAIN Discharge Diagnosis: Abdominal Pain/Abdominal Bloating Acute on Chronic cholecystitis Elevated Lactic Acid Urinary Tract Infection ESRD on Hemodialysis Hypothyroidism Diabetes Mellitus Type 2 with long-term current use of insulin Condition on Discharge: Good Activity: Per Instructions section Non-emergency contact: Primary Care Provider and Director Of Maternity Services Call non-emergency contact if: you have any medication questions Follow-up/Referrals: Jose Magallanes MD [Primary Care Provider] - Diet: Carb Consistent or DM2 and Dialysis Renal Fluids: 1500ml (6 cups) Addtl Attending Provider Instructions: continue dialysis every Friday//Friday Patient may take oral ciprofloxacin as 500 mg daily for 2 more days starting on 08/23/2019 (additional instructions on dialysis days patient should take medication after dialysis session) as per gastroenterology service: EUS/ERCP is scheduled to be done as outpatient on Friday08/25/2019 at [facility]. amlodipine is stopped to prevent low blood pressure. patient can continue metoprolol and diltiazem Patient should make follow up appointment to see primary care doctor after hospital discharge -TSH is 0.281 which is mildly low and free T4 is 1.54 which is normal -on reduced home dose levothyroxine to 25 mcg daily starting on 08/22/2019. patient should have repeat thyroid function tests performed while on levothyroxine 25 mcg in 4 to 6 weeks by primary care doctor Medication changes sent electronically to Abhishek villarreal [place] on 1 [facility] Pending Studies at Discharge: Yes Stand-Alone Forms: [facility] Smoking Cessation Medications and DC Order Prescriptions: New levothyroxine [Synthroid] 25 mcg Tablet 25 mcg PO DAILYBB 30 Days Qty: 30 RF: 0 ciprofloxacin HCl 500 mg tablet 500 mg PO DAILY 2 Days Qty: 2 RF: 0 Continued diltiazem HCl [Cartia XT] 180 mg capsule,extended release 24hr 180 mg PO QAM RF: 0 Basaglar KwikPen U-100 Insulin 100 unit/mL (3 mL) insulin pen 0 unit subcut UD RF: 0 pregabalin 75 mg capsule 75 mg PO DAILY RF: 0 polyethylene glycol 3350 [Miralax] 17 gram powder in packet 17 g PO DAILY PRN (Reason: Constipation) RF: 0 simethicone 180 mg capsule 80 mg PO Q6 PRN (Reason: Other) RF: 0 sevelamer carbonate [Renvela] 800 mg tablet See Rx Instructions .ROUTE .COMPLEX RF: 0 atorvastatin 80 mg Tablet 80 mg PO HS RF: 0 metoprolol succinate 50 mg Tablet Extended Release 24 Hr 75 mg PO BID RF: 0 aspirin [Aspirin Low Dose] 81 mg Tablet,Delayed Release (Dr/Ec) 81 mg PO HS RF: 0 albuterol sulfate [Proventil HFA] 90 mcg/actuation HFA aerosol inhaler 2 puffs INH Q6H PRN (Reason: shortness of breath or wheezing) Qty: 8 RF: 0 benzonatate [Tessalon Perles] 100 mg capsule 100 mg PO TID PRN (Reason: cough) Qty: 20 RF: 0 Discontinued amlodipine 10 mg Tablet 10 mg PO QAM RF: 0 levothyroxine 50 mcg Tablet 50 mcg PO QAM RF: 0 Discharge Orders: Discharge Order (Routine); Ordered 08/22/19 Ordered By: Joshua Salgado Admission Data Admit Date/Time: 08/20/19 12:08 Attending Provider: Joshua Salgado Admit Provider: Joshua Salgado Primary Care Provider: Jose Magallanes Other Providers: Yi Mendez ; Colin Sinha ; Maria C Griffiths ; Agustina Durand
[2019-08-22] MEDS ORDERED: CIPROFLOXACIN 250 MG TAB PO ONE (10:46)
[2019-08-22] MEDS ORDERED: cefTRIAXone SODIUM 2,000 MG in DEXTROSE 5% 50 ML IV ONE (11:55)
== END 2019-08-22 12:15 | disposition home or self-care (01) | DRG 444 ==
LOC: ED 07:43 → 2W 12:08

== ENCOUNTER 2021-12-01 04:20 | Inpatient (IN) ==
[2021-12-01] MEDS ORDERED: NITROGLYCERIN 2% OINTMENT 30GM TUBE EXT STA (04:27)
[2021-12-01] MEDS ORDERED: FUROSEMIDE 40 MG/4 ML VIAL IV ONE (04:27)
[2021-12-01 04:54] LABS: Basophils # (auto) 0.04 K/uL (0-0.2); Basophils % (auto) 0.2 %; Eosinophils # (auto) 0.27 K/uL (0-0.50); Eosinophils % (auto) 1.5 %; Hematocrit (blood only) 39.3 % (34.1-44.9); Immature Granulocytes # (auto) 0.16 K/uL (0.00-0.02); Immature Granulocytes % (auto) 0.9 %; Lymphocytes # (auto) 2.74 K/uL (1.2-3.4); Lymphocytes % (auto) 15.6 %; Mean Corpuscular Hemoglobin 30.7 pg (25.0-34.0); Mean Corpuscular Hgb Conc 30.5 g/dL (32.0-36.0); Mean Corpuscular Volume 100.5 fL (80.0-100.0); Mean Platelet Volume 9.6 fL (9.4-12.3); Monocytes # (auto) 0.92 K/uL (0.24-0.82); Monocytes % (auto) 5.2 %; Neutrophils # (auto) 13.43 K/uL (1.4-6.5); Neutrophils % (auto) 76.6 %; Platelet Count 256 K/uL (130-400); RDW Coefficient of Variation 14.7 % (11.5-14.5); RDW Standard Deviation 53.9 fL (36.4-46.3); Red Blood Count 3.91 M/uL (3.93-5.22); White Blood Count 17.56 K/ul (4.8-10.8)
--- NOTE | 2021-12-01 05:22 | Emergency Department Note ---
History of Present Illness General Chief complaint: Respiratory Distress Time Seen by Provider: 12/01/21 04:25 Source: patient and EMS Mode of arrival: EMS Limitations: physical limitation History of Present Illness Provider complaint: Shortness of breath Onset (ago): hour(s) Maximum Pain Intensity: 8 This is a 61-year-old female who presents via EMS due to shortness of breath. Per EMS patient is stated she first began feeling short of breath around dinnertime and this worsened throughout the evening. EMS states on their arrival patient was tripoding with sats in the 70s, tachypnea and significant work of breathing. Patient was placed on CPAP, IV established. Patient was given nitro sprays in route and was brought to the emergency room. Patient denies any history of smoking or COPD. On arrival patient able to speak in short phrases, does report feeling slightly improved on CPAP and she was quickly transitioned to BiPAP with assistance from RT. Patient does admit to concurrent chest and abdominal pain, denies fevers, denies recent illness, denies medication change. Patient does have chronic kidney disease and is on dialysis. She states she did not go to dialysis on but cannot provide a reason why. She states she does still make urine. She denies any recent change in medications. Pt seen during a time of high acuity and national emergency pandemic while wearing PPE. Home Medications Medication Instructions Recorded Confirmed Type aspirin 81 mg tablet,delayed 81 mg PO HS 05/07/18 09/24/21 History release (Marika Low Dose Aspirin) insulin glargine 100 unit/mL (3 33 unit subcut HS 09/16/18 09/24/21 History mL) subcutaneous pen (Basaglar KwikPen U-100 Insulin) albuterol sulfate 90 mcg/actuation 2 puffs inhalation Q6H PRN 05/30/19 09/24/21 Rx aerosol inhaler (Proventil HFA) shortness of breath or wheezing #8 grams pregabalin 75 mg capsule 75 mg PO QAM 08/20/19 09/24/21 History pregabalin 25 mg capsule 25 mg PO DAILY@1200 PRN tingling 09/26/20 09/24/21 History cholecalciferol (vitamin D3) 25 0 mcg PO UD 09/24/21 09/24/21 History mcg (1,000 unit) tablet (Vitamin D3) lidocaine-prilocaine 2.5 %-2.5 % 1 applic topical 3XWK 09/24/21 09/24/21 History topical cream sucroferric oxyhydroxide 500 mg 500 mg PO TIDM 09/24/21 09/24/21 History chewable tablet (Velphoro) Allergies Allergy/AdvReac Type Severity Reaction Status Date / Time gabapentin Allergy Intermediate Dizziness Verified 09/24/21 15:29 lisinopril AdvReac Intermediate Cough Verified 09/24/21 15:29 Past Med/Surg History Medical History Anemia AV fistula Left arm Chronic kidney disease on chronic dialysis //Friday at [facility]. 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 pt states she was critical, intubated and started hemodiaylsis at that point. states she then had to go to rehab to "learn to walk again" and currently is at home with and uses a cane, but is very unsteady without assistance. Hyperlipidemia Hyperparathyroidism due to renal insufficiency Hypertension Hypothyroidism Obesity (BMI 30-39.9) Osteoarthritis Peripheral neuropathy BILATERAL LEGS Renal mass, left pt unaware Splenic lesion pt unaware Subdural hematoma pt unaware Surgical History H/O bilateral salpingo-oophorectomy History of cataract extraction with lens replacement bilateral History of colonoscopy History of hysterectomy RENNY History of vitrectomy S/P arteriovenous (AV) fistula creation Left arm with several revisions Family History Father Family history of diabetes mellitus Mother Family history of diabetes mellitus Social History Smoking Status: Never smoker Second Hand Exposure: No; Do You Dip or Chew Tobacco: No; Hx Alcohol Use: No Hx Substance Use: No Preferred Language: Macanese Communication Ability: Effective Passport Application Examiner Required: No Beliefs That Will Affect Care: None marital status: Current Living Situation: Spouse Other Information That Helps Us Care for You: No Feels Safe at Home: Yes Safety Concerns: Feels Safe At This Time Assistive Devices: Cane and Glasses Review of Systems A total of 10 systems reviewed and were otherwise negative All systems reviewed & are unremarkable except as noted in HPI & below Physical Exam Vital Signs Vital Signs - 24 hr 12/01/21 04:14 12/01/21 04:14 12/01/21 04:32 Temperature Temperature Source Pulse Rate 116 H 116 H Pulse Rate [Apical] Pulse Rate from SpO2 Sensor Respiratory Rate 29 H 34 H Respiratory Effort / Characteristics Spontaneous Short of Breath Spontaneous Accessory Muscle Use Gasping/Agonal Labored Pursed Lip Retracting Short of Breath Tripoding Respiratory Depth Retractive Respiratory Pattern Regular Rapid/Deep See-Saw Blood Pressure 188/111 H Blood Pressure Mean 136 Blood Pressure Position Sitting Pulse Oximetry 94 95 Oxygen Delivery Method BiPAP BiPAP Fraction of Inspired Oxygen 60 60 60 SaO2/FiO2 Ratio 156 Sepsis Recent Fever Within 48 Hours No Sepsis New/Unexplained Change in Mental Status N/A Sepsis Action Taken by Nursing Physician Notified 12/01/21 04:14 12/01/21 04:14 12/01/21 04:26 Temperature 36.5 C Temperature Source Axillary Pulse Rate Pulse Rate [Apical] Pulse Rate from SpO2 Sensor Respiratory Rate Respiratory Effort / Characteristics Respiratory Depth Respiratory Pattern Blood Pressure 188/111 H Blood Pressure Mean 136 Blood Pressure Position Pulse Oximetry Oxygen Delivery Method BiPAP Fraction of Inspired Oxygen 60 SaO2/FiO2 Ratio Sepsis Recent Fever Within 48 Hours Sepsis New/Unexplained Change in Mental Status Sepsis Action Taken by Nursing 12/01/21 04:27 12/01/21 04:30 12/01/21 04:46 Temperature Temperature Source Pulse Rate 119 H 117 H 112 H Pulse Rate [Apical] Pulse Rate from SpO2 Sensor 120 H 117 H 112 H Respiratory Rate 31 H 33 H 25 H Respiratory Effort / Characteristics Respiratory Depth Respiratory Pattern Blood Pressure Blood Pressure Mean Blood Pressure Position Pulse Oximetry 99 94 95 Oxygen Delivery Method Fraction of Inspired Oxygen SaO2/FiO2 Ratio Sepsis Recent Fever Within 48 Hours Sepsis New/Unexplained Change in Mental Status Sepsis Action Taken by Nursing 12/01/21 04:46 12/01/21 05:00 12/01/21 05:00 Temperature Temperature Source Pulse Rate 109 H Pulse Rate [Apical] Pulse Rate from SpO2 Sensor 109 H Respiratory Rate 23 Respiratory Effort / Characteristics Respiratory Depth Respiratory Pattern Blood Pressure 175/81 H 137/74 Blood Pressure Mean 112 95 Blood Pressure Position Pulse Oximetry 96 Oxygen Delivery Method Fraction of Inspired Oxygen SaO2/FiO2 Ratio Sepsis Recent Fever Within 48 Hours Sepsis New/Unexplained Change in Mental Status Sepsis Action Taken by Nursing 12/01/21 05:30 12/01/21 05:30 12/01/21 06:08 Temperature Temperature Source Pulse Rate 101 H 101 H Pulse Rate [Apical] Pulse Rate from SpO2 Sensor 101 H Respiratory Rate 16 Respiratory Effort / Characteristics Respiratory Depth Respiratory Pattern Blood Pressure 120/72 121/62 Blood Pressure Mean 88 Blood Pressure Position Pulse Oximetry 97 Oxygen Delivery Method BiPAP Fraction of Inspired Oxygen 60 SaO2/FiO2 Ratio Sepsis Recent Fever Within 48 Hours Sepsis New/Unexplained Change in Mental Status Sepsis Action Taken by Nursing 12/01/21 06:25 12/01/21 06:00 12/01/21 06:10 Temperature Temperature Source Pulse Rate 104 H Pulse Rate [Apical] 102 H Pulse Rate from SpO2 Sensor 104 H Respiratory Rate 23 Respiratory Effort / Characteristics Respiratory Depth Respiratory Pattern Blood Pressure 121/62 Blood Pressure Mean 81 Blood Pressure Position Pulse Oximetry 98 100 Oxygen Delivery Method BiPAP Fraction of Inspired Oxygen 50 SaO2/FiO2 Ratio Sepsis Recent Fever Within 48 Hours Sepsis New/Unexplained Change in Mental Status Sepsis Action Taken by Nursing 12/01/21 06:10 12/01/21 06:30 12/01/21 06:30 Temperature Temperature Source Pulse Rate 100 H 90 Pulse Rate [Apical] Pulse Rate from SpO2 Sensor 101 H 90 Respiratory Rate 25 H 24 Respiratory Effort / Characteristics Respiratory Depth Respiratory Pattern Blood Pressure 125/66 Blood Pressure Mean 85 Blood Pressure Position Pulse Oximetry 98 98 Oxygen Delivery Method CPAP Fraction of Inspired Oxygen 60 SaO2/FiO2 Ratio Sepsis Recent Fever Within 48 Hours Sepsis New/Unexplained Change in Mental Status Sepsis Action Taken by Nursing GENERAL: alert, ill appearing, well nourished, severe distress, non-toxic EYE EXAM: normal conjunctiva, PERRL and EOM's grossly intact OROPHARYNX: no exudate, no erythema, lips, buccal mucosa, and tongue normal and mucous membranes are moist NECK: supple, no nuchal rigidity, no adenopathy, non-tender LUNGS: Clear to auscultation. Normal chest wall mechanics, no w/r, bilateral rales throughout, increased work of breathing, tachypnea, CPAP in place from EMS HEART: no murmurs, S1 normal and S2 normal ABDOMEN: abdomen soft, non-tender, normo-active bowel sounds, no masses, no rebound or guarding. BACK: Back is symmetrical on inspection and there is no deformity, no midline tenderness, no CVA tenderness. SKIN: no rashes and no bruising UPPER EXTREMITIES: upper extremities are grossly normal. FROM, nml pulses b/l. Fistula noted in the left forearm. LOWER EXTREMITIES: No pitting edema. FROM, nml pulses b/l. NEURO EXAM: Normal sensorium, cranial nerves II-XII grossly intact, normal speech, no gross weakness of arms, no gross weakness of legs. Gross sensation intact. Course Course 0435: Pt on BiPAP and WOB improving. 0448: HR improving, BP improving. Patient reports she is feeling slightly better. 0502: Vital signs improving, pulse ox in the 90s. Patient appears to have decreased work of breathing. 0532: Patient continues to feel improved. Vital signs stable and improving. Administered Medications Discontinued Medications Furosemide (Furosemide 40 Mg/4 Ml Vial) 40 mg IV ONE ONE Stop: 12/01/21 04:28 Last Admin: 12/01/21 04:48 Dose: 40 mg Documented By: AUBRIE Furosemide (Furosemide 40 Mg/4 Ml Vial) 60 mg IV NOW STA Stop: 12/01/21 05:32 Last Admin: 12/01/21 06:08 Dose: 60 mg Documented By: AUBRIE Ipratropium Hunter (Ipratropium Hunter Neb Soln 0.02% 2.5 Ml Vial) 0.5 mg INH NOW STA Stop: 12/01/21 05:29 Last Admin: 12/01/21 05:56 Dose: 0.5 mg Documented By: AUBRIE Levalbuterol HCl (Levalbuterol 1.25mg/0.5ml Neb) 1.25 mg INH NOW STA Stop: 12/01/21 05:29 Last Admin: 12/01/21 05:56 Dose: 1.25 mg Documented By: AUBRIE Metoprolol Tartrate (Metoprolol Tartrate 1 Mg/Ml Vial) 2.5 mg IV NOW STA Stop: 12/01/21 05:31 Last Admin: 12/01/21 06:08 Dose: 2.5 mg Documented By: AUBRIE Nitroglycerin (Nitroglycerin 2% Ointment 30gm Tube) 1 inch EXT NOW STA Stop: 12/01/21 04:28 Last Admin: 12/01/21 04:48 Dose: 1 inch Documented By: AUBRIE Critical Care Time Critical Care Time: Yes Total Critical Care Time: 42 Critical care of 42 min performed to assess and manage high likelihood of life-threatening acute hypoxic respiratory failure, involving labs and imaging performed with assessment to evaluate acute hypoxic respiratory failure diagnosis with frequent reassessment. This time includes bedside time, treatment discussions with patient/family/consultants, documentation time and excludes procedure time. Medical Decision Making Differential Diagnosis Differential diagnoses includes but is not limited to pneumonia, bronchitis, COPD/Asthma exacerbation, pneumothorax, pulmonary embolism, congestive heart failure, acute coronary syndrome Medical Records Attestation: I reviewed the patient's medical records. Home Medications Current Medication List: was personally reviewed by me Laboratory Data Attestation: I reviewed the patient's lab results. Result diagrams: 12/01/21 04:43 12/01/21 04:43 Lab Results 12/01/21 12/01/21 12/01/21 Range/Units 04:43 04:43 04:43 WBC 17.56 H (4.8-10.8) K/ul RBC 3.91 L (3.93-5.22) M/uL Hgb 12.0 (12.0-16.0) g/dl Hct 39.3 (34.1-44.9) % MCV 100.5 H (80.0-100.0) fL MCH 30.7 (25.0-34.0) pg MCHC 30.5 L (32.0-36.0) g/dL RDW Std Deviation 53.9 H (36.4-46.3) fL RDW Coeff of Talisha 14.7 H (11.5-14.5) % Plt Count 256 (130-400) K/uL MPV 9.6 (9.4-12.3) fL Immature Gran % (Auto) 0.9 % Neut % (Auto) 76.6 % Lymph % (Auto) 15.6 % [place] % (Auto) 5.2 % Eos % (Auto) 1.5 % Baso % (Auto) 0.2 % Neut # (Auto) 13.43 H (1.4-6.5) K/uL Lymph # (Auto) 2.74 (1.2-3.4) K/uL [place] # (Auto) 0.92 H (0.24-0.82) K/uL Eos # (Auto) 0.27 (0-0.50) K/uL Baso # (Auto) 0.04 (0-0.2) K/uL Immature Gran # (Auto) 0.16 H (0.00-0.02) K/uL APTT (21.0-31.0) Seconds PTT Ratio ABG pH (7.35-7.45) ABG pCO2 (35-46) mmHg ABG pO2 (80-95) mmHg ABG HCO3 (19-24) mmol/L ABG O2 Saturation (90-95) % ABG Base Excess (-9-1.8) mEq/L Jackson Test (Pos) Oxygen Given Sodium 140 (136-145) mmol/L Potassium 4.9 (3.5-5.1) mmol/L Chloride 99 (98-107) mmol/L Carbon Dioxide 25 (21-32) mmol/L Anion Gap 16 H (3-11) BUN 107 H (6-23) mg/dl Creatinine 8.59 H* (0.6-1.2) mg/dl Est Cr Clr Drug Dosing 7.5 ml/min Est GFR ( Amer) 5.2 ml/min Est GFR (Non-Af Amer) 4.5 ml/min BUN/Creatinine Ratio 12.5 (10-20) Glucose 198 H (70-99(Fasting)) mg/dl Lactate (0.4-2.0) mmol/L Calcium 9.3 (8.5-10.1) mg/dl Magnesium 2.3 (1.7-2.4) mg/dl Total Bilirubin 0.4 (0.2-1.0) mg/dl AST 13 (13-39) U/L ALT 9 (7-52) U/L Alkaline Phosphatase 173 H (34-104) U/L Troponin I High Sens 22.6 H (0-14) pg/ml B-Natriuretic Peptide 327 H (0-100) pg/ml Total Protein 8.0 (6.0-8.3) gm/dl Albumin 3.9 (3.4-5.0) gm/dl Globulin 4.1 H (2.5-4.0) gm/dl Albumin/Globulin Ratio 1.0 (0.9-2) Lipase 100 H (11-82) U/L Procalcitonin (0-0.5) ng/ml TSH (0.300-4.500) uIu/ml SARS-CoV-2 (PCR) (Negative) 12/01/21 12/01/21 12/01/21 Range/Units 04:43 04:43 04:43 WBC (4.8-10.8) K/ul RBC (3.93-5.22) M/uL Hgb (12.0-16.0) g/dl Hct (34.1-44.9) % MCV (80.0-100.0) fL MCH (25.0-34.0) pg MCHC (32.0-36.0) g/dL RDW Std Deviation (36.4-46.3) fL RDW Coeff of Talisha (11.5-14.5) % Plt Count (130-400) K/uL MPV (9.4-12.3) fL Immature Gran % (Auto) % Neut % (Auto) % Lymph % (Auto) % [place] % (Auto) % Eos % (Auto) % Baso % (Auto) % Neut # (Auto) (1.4-6.5) K/uL Lymph # (Auto) (1.2-3.4) K/uL [place] # (Auto) (0.24-0.82) K/uL Eos # (Auto) (0-0.50) K/uL Baso # (Auto) (0-0.2) K/uL Immature Gran # (Auto) (0.00-0.02) K/uL APTT 27.1 (21.0-31.0) Seconds PTT Ratio 1.0 ABG pH (7.35-7.45) ABG pCO2 (35-46) mmHg ABG pO2 (80-95) mmHg ABG HCO3 (19-24) mmol/L ABG O2 Saturation (90-95) % ABG Base Excess (-9-1.8) mEq/L Jackson Test (Pos) Oxygen Given Sodium (136-145) mmol/L Potassium (3.5-5.1) mmol/L Chloride (98-107) mmol/L Carbon Dioxide (21-32) mmol/L Anion Gap (3-11) BUN (6-23) mg/dl Creatinine (0.6-1.2) mg/dl Est Cr Clr Drug Dosing ml/min Est GFR ( Amer) ml/min Est GFR (Non-Af Amer) ml/min BUN/Creatinine Ratio (10-20) Glucose (70-99(Fasting)) mg/dl Lactate (0.4-2.0) mmol/L Calcium (8.5-10.1) mg/dl Magnesium (1.7-2.4) mg/dl Total Bilirubin (0.2-1.0) mg/dl AST (13-39) U/L ALT (7-52) U/L Alkaline Phosphatase (34-104) U/L Troponin I High Sens (0-14) pg/ml B-Natriuretic Peptide (0-100) pg/ml Total Protein (6.0-8.3) gm/dl Albumin (3.4-5.0) gm/dl Globulin (2.5-4.0) gm/dl Albumin/Globulin Ratio (0.9-2) Lipase (11-82) U/L Procalcitonin 1.14 H (0-0.5) ng/ml TSH 2.344 (0.300-4.500) uIu/ml SARS-CoV-2 (PCR) (Negative) 12/01/21 12/01/21 12/01/21 Range/Units 05:10 05:58 05:58 WBC (4.8-10.8) K/ul RBC (3.93-5.22) M/uL Hgb (12.0-16.0) g/dl Hct (34.1-44.9) % MCV (80.0-100.0) fL MCH (25.0-34.0) pg MCHC (32.0-36.0) g/dL RDW Std Deviation (36.4-46.3) fL RDW Coeff of Talisha (11.5-14.5) % Plt Count (130-400) K/uL MPV (9.4-12.3) fL Immature Gran % (Auto) % Neut % (Auto) % Lymph % (Auto) % [place] % (Auto) % Eos % (Auto) % Baso % (Auto) % Neut # (Auto) (1.4-6.5) K/uL Lymph # (Auto) (1.2-3.4) K/uL [place] # (Auto) (0.24-0.82) K/uL Eos # (Auto) (0-0.50) K/uL Baso # (Auto) (0-0.2) K/uL Immature Gran # (Auto) (0.00-0.02) K/uL APTT (21.0-31.0) Seconds PTT Ratio ABG pH 7.26 L (7.35-7.45) ABG pCO2 62 H (35-46) mmHg ABG pO2 194 H (80-95) mmHg ABG HCO3 28 H (19-24) mmol/L ABG O2 Saturation 99.5 H (90-95) % ABG Base Excess -0.6 (-9-1.8) mEq/L Jackson Test Pos (Pos) Oxygen Given 50% FIO2 Sodium (136-145) mmol/L Potassium (3.5-5.1) mmol/L Chloride (98-107) mmol/L Carbon Dioxide (21-32) mmol/L Anion Gap (3-11) BUN (6-23) mg/dl Creatinine (0.6-1.2) mg/dl Est Cr Clr Drug Dosing ml/min Est GFR ( Amer) ml/min Est GFR (Non-Af Amer) ml/min BUN/Creatinine Ratio (10-20) Glucose (70-99(Fasting)) mg/dl Lactate 0.3 L (0.4-2.0) mmol/L Calcium (8.5-10.1) mg/dl Magnesium (1.7-2.4) mg/dl Total Bilirubin (0.2-1.0) mg/dl AST (13-39) U/L ALT (7-52) U/L Alkaline Phosphatase (34-104) U/L Troponin I High Sens (0-14) pg/ml B-Natriuretic Peptide (0-100) pg/ml Total Protein (6.0-8.3) gm/dl Albumin (3.4-5.0) gm/dl Globulin (2.5-4.0) gm/dl Albumin/Globulin Ratio (0.9-2) Lipase (11-82) U/L Procalcitonin (0-0.5) ng/ml TSH (0.300-4.500) uIu/ml SARS-CoV-2 (PCR) NEGATIVE (Negative) 12/01/21 Range/Units 05:58 WBC (4.8-10.8) K/ul RBC (3.93-5.22) M/uL Hgb (12.0-16.0) g/dl Hct (34.1-44.9) % MCV (80.0-100.0) fL MCH (25.0-34.0) pg MCHC (32.0-36.0) g/dL RDW Std Deviation (36.4-46.3) fL RDW Coeff of Talisha (11.5-14.5) % Plt Count (130-400) K/uL MPV (9.4-12.3) fL Immature Gran % (Auto) % Neut % (Auto) % Lymph % (Auto) % [place] % (Auto) % Eos % (Auto) % Baso % (Auto) % Neut # (Auto) (1.4-6.5) K/uL Lymph # (Auto) (1.2-3.4) K/uL [place] # (Auto) (0.24-0.82) K/uL Eos # (Auto) (0-0.50) K/uL Baso # (Auto) (0-0.2) K/uL Immature Gran # (Auto) (0.00-0.02) K/uL APTT (21.0-31.0) Seconds PTT Ratio ABG pH (7.35-7.45) ABG pCO2 (35-46) mmHg ABG pO2 (80-95) mmHg ABG HCO3 (19-24) mmol/L ABG O2 Saturation (90-95) % ABG Base Excess (-9-1.8) mEq/L Jackson Test (Pos) Oxygen Given Sodium (136-145) mmol/L Potassium (3.5-5.1) mmol/L Chloride (98-107) mmol/L Carbon Dioxide (21-32) mmol/L Anion Gap (3-11) BUN (6-23) mg/dl Creatinine (0.6-1.2) mg/dl Est Cr Clr Drug Dosing ml/min Est GFR ( Amer) ml/min Est GFR (Non-Af Amer) ml/min BUN/Creatinine Ratio (10-20) Glucose (70-99(Fasting)) mg/dl Lactate (0.4-2.0) mmol/L Calcium (8.5-10.1) mg/dl Magnesium (1.7-2.4) mg/dl Total Bilirubin (0.2-1.0) mg/dl AST (13-39) U/L ALT (7-52) U/L Alkaline Phosphatase (34-104) U/L Troponin I High Sens 47.4 H D (0-14) pg/ml B-Natriuretic Peptide (0-100) pg/ml Total Protein (6.0-8.3) gm/dl Albumin (3.4-5.0) gm/dl Globulin (2.5-4.0) gm/dl Albumin/Globulin Ratio (0.9-2) Lipase (11-82) U/L Procalcitonin (0-0.5) ng/ml TSH (0.300-4.500) uIu/ml SARS-CoV-2 (PCR) (Negative) Imaging Data My Impression: X-ray: I interpreted the following studies. Chest: A single view study of the chest was reviewed and revealed bilateral pulmonary edema and cardiomegaly, but was negative for focal infiltrate, effusion, or wide mediastinum. ECG Data Attestation: I personally reviewed and interpreted this ECG as follows: Indication: + SOB/dyspnea Rate (beats per minute): 121 Rhythm: + sinus tachycardia ECG Intervals/blocks: + Normal QRS and + Normal QT ECG [place]: + Normal ECG ST segments: + Normal ST segments MDM Narrative An order was placed for continuous cardiac monitoring. The monitor shows a rate of __105 with _sinus tachycardia_ rhythm. This is a 61-year-old female brought in by EMS for acute respiratory distress. Patient was hypoxic on their arrival and immediately placed on BiPAP. By arrival here patient was slowly beginning to improve although was still tachycardic, tachypneic, and requiring additional oxygen support. Chest x-ray confirmed physical exam findings that were suggestive of acute bilateral pulmonary edema. Patient did admit to missing dialysis on . Patient does have cardiac history and follows through [facility]. Patient was afebrile, labs drawn and sent, chest x-ray performed, patient continued on BiPAP here. Patient did admit to chest pain, though EKG unremarkable with exception of sinus tachycardia. Nitropaste added as well as Lasix as the patient does still make urine. Patient monitored and slowly continued to improve here. Case discussed with hospitalist for additional evaluation and management. I am less suspicious of occult infectious etiology at this time as she denied any other prodromal URI symptoms or fevers. who came to bedside denied any recent illness exposure. Leukocytosis initially resolved in the time of my discussion with the hospitalist the procalcitonin and lactic acid and not yet resulted. Addition of antibiotics deferred to the hospitalist. Patient continued to improve clinically while in the emergency department. Patient updated on results and plan for admission, she verbalized understanding. Troponin is mildly elevated, I suspect this is more likely related to her chronic kidney disease. I do not suspect ACS. Impression & Plan Acute respiratory failure with hypoxia, CKD (chronic kidney disease) stage 5, GFR less than 15 ml/min, Hypertension, Acute pulmonary edema, Elevated troponin Discharge Plan Visit Data Chief Complaint: Respiratory Distress ED Provider: So Machuca Discharge Problem: Acute respiratory failure with hypoxia, CKD (chronic kidney disease) stage 5, GFR less than 15 ml/min, Hypertension, Acute pulmonary edema, Elevated troponin Forms Stand Alone Forms: My [facility] [employer] Prescriptions Prescriptions: No Action insulin glargine [Basaglar KwikPen U-100 Insulin] 100 unit/mL (3 mL) insulin pen 33 unit subcut HS pregabalin 75 mg capsule 75 mg PO QAM aspirin [Marika Low Dose Aspirin] 81 mg Tablet,Delayed Release (Dr/Ec) 81 mg PO HS albuterol sulfate [Proventil HFA] 90 mcg/actuation HFA aerosol inhaler 2 puffs INH Q6H PRN (Reason: shortness of breath or wheezing) Qty: 8 0RF pregabalin 25 mg capsule 25 mg PO DAILY@1200 PRN (Reason: tingling) lidocaine-prilocaine 2.5-2.5 % cream 1 applic topical [id number] Rx Instructions: Apply small amount to access site (AVF) 1-2 hours before dialysis. Cover w ith occlusive dressing (Saran Wrap). Friday,,Friday cholecalciferol (vitamin D3) [Vitamin D3] 25 mcg (1,000 unit) Tablet 0 mcg PO UD Rx Instructions: Take on Dialysis days. Friday,,Friday Velphoro 500 mg tablet,chewable 500 mg PO TIDM Referrals Referrals: Jose Magallanes MD [Primary Care Provider] -
[2021-12-01 05:26] LABS: Albumin Level 3.9 gm/dl (3.4-5.0); BUN Creatinine Ratio 12.5 (10-20); Bilirubin,Total 0.4 mg/dl (0.2-1.0); Calcium 9.3 mg/dl (8.5-10.1); Creatinine Clr Calc Pharmacy 7.5 ml/min; Est GFR (African American) 5.2 ml/min; Est GFR (Non-African American) 4.5 ml/min; Globulin 4.1 gm/dl (2.5-4.0); Magnesium 2.3 mg/dl (1.7-2.4); Potassium 4.9 mmol/L (3.5-5.1); Troponin I High Sensitivity 22.6 pg/ml (0-14)
[2021-12-01] MEDS ORDERED: XOPENEX/ATROVENT 1.25mg/0.5MG NEB COMBO NEB STA (05:26)
[2021-12-01] MEDS ORDERED: IPRATROPIUM BROMIDE NEB SOLN 0.02% 2.5 ML VIAL INH STA (05:28)
[2021-12-01] MEDS ORDERED: LEVALBUTEROL 1.25MG/0.5ML NEB INH STA (05:28)
[2021-12-01] MEDS ORDERED: METOPROLOL TARTRATE 1 MG/ML VIAL IV STA (05:30)
[2021-12-01] MEDS ORDERED: FUROSEMIDE 40 MG/4 ML VIAL IV STA (05:31)
[2021-12-01 06:27] LABS: Allen Test Pos (Pos); Base Excess ABG -0.6 mEq/L (-9-1.8); HCO3 ABG 28 mmol/L (19-24); Oxygen Saturation ABG 99.5 % (90-95); PCO2 ABG 62 mmHg (35-46); PO2 ABG 194 mmHg (80-95); pH ABG 7.26 (7.35-7.45)
[2021-12-01 06:31] LABS: Partial Thromboplastin Time 27.1 Seconds (21.0-31.0)
--- NOTE | 2021-12-01 06:33 | History & Physical Report ---
Date of Service December 01, 2021 Assessment & Plan (1) Acute respiratory failure with hypoxia: Plan: Hypoxemic hypercapnic respiratory failure Multifactorial : Pulmonary congestion secondary to missed dialysis, cardiorenal syndrome, history diastolic dysfunction Bronchitis/possible atypical pneumonia, possible sepsis, elevated procalcitonin Troponin elevation secondary to illness in the setting of chronic kidney dysfunction hx of mitral stenosis hypertension, elevated upon arrival at the ER hyperlipidemia on statin Rx hypothyroidism, euthyroid as of today's TSH DM 2 insulin requiring, reasonable control as of last hemoglobin A1c of 7.21 June 2019, BSG currently elevated secondary to missed insulin dose from last night due to patient not feeling well history of subdural hematoma as per records chronic cholecystitis/choledocholithiasis status post Axios stent placement hx Qfavtav-Wxujz-Yspba disease. PCU Switch CPAP to BiPAP Recheck ABG Additional Lasix dosed for renal function Nephrology consult Re: Dialysis management (ER provider informed by nursing office that dialysis available at [facility] this weekend.) Follow troponin, TTE, Cardiology consult if with significant progression CS, doxycycline, nebs RTC, Solu-Medrol 1 dose for bronchitis causing respiratory failure Basal insulin adjusted for n.p.o. status while patient on bypass, ISS BG goal 1 10-1 40, update hemoglobin A1c DVT prophylaxis. Heparin subcu Full code Patient requesting updates from providers. Mr. Demetris Barajas, contact #[phone]. Total critical care time was 45 minutes. Text document was generated using [employer] voice recognition software. It may contain grammatical or spelling errors. Kindly contact undersigned for clarification of any documentation item in question. History of Present Illness Chief Complaint: Shortness of breath Primary Care Provider: Jose Magallanes MD History obtained from patient, family, and records. Medical history significant for chronic diastolic heart failure (EF 55%, TTE 2021), history of mitral stenosis, hypertension, hyperlipidemia, hypothyroidism, ESRD on HD, DM 2 insulin requiring, history of subdural hematoma as per records, chronic cholecystitis/choledocholithiasis status post Axios stent placement, Lixyqyp-Supfd-Gslgv disease. Last [facility] confinement August 2019 for acute on chronic cholecystitis. Patient became short of breath after dinnertime last night. No unusual cough symptoms. Chest tightness nonradiating. Patient missed dialysis 2 days ago because she was busy with something as per . Dry cough symptoms. Not sure about COVID-19 contacts. Patient has not received COVID-19 vaccination. No aspiration. No unusual fluid retention as per patient. Denies dietary indiscretion. EMS alerted. CPAP initiated. Lasix and Nitropaste administered at the ER for pulmonary congestion. Patient currently feeling much better. Medical History as above Surgical History : Vascular procedures, cholecystostomy, cataract surgeries, partial hysterectomy, breast cyst drainage Family History : DM, Pevjbbz-Luscd-Yreyj, dementia Personal/Social history : Non-smoker, no EtOH intake, disabled Allergies Allergy/AdvReac Type Severity Reaction Status Date / Time gabapentin Allergy Intermediate Dizziness Verified 09/24/21 15:29 lisinopril AdvReac Intermediate Cough Verified 09/24/21 15:29 Home Medications Medication Instructions Recorded Confirmed Type aspirin 81 mg tablet,delayed 81 mg PO HS 05/07/18 09/24/21 History release (Marika Low Dose Aspirin) insulin glargine 100 unit/mL (3 33 unit subcut HS 09/16/18 09/24/21 History mL) subcutaneous pen (SportsCrunchaglar KwikPen U-100 Insulin) albuterol sulfate 90 mcg/actuation 2 puffs inhalation Q6H PRN 05/30/19 09/24/21 Rx aerosol inhaler (Proventil HFA) shortness of breath or wheezing #8 grams pregabalin 75 mg capsule 75 mg PO QAM 08/20/19 09/24/21 History pregabalin 25 mg capsule 25 mg PO DAILY@1200 PRN tingling 09/26/20 09/24/21 History cholecalciferol (vitamin D3) 25 0 mcg PO UD 09/24/21 09/24/21 History mcg (1,000 unit) tablet (Vitamin D3) lidocaine-prilocaine 2.5 %-2.5 % 1 applic topical 3XWK 09/24/21 09/24/21 History topical cream sucroferric oxyhydroxide 500 mg 500 mg PO TIDM 09/24/21 09/24/21 History chewable tablet (Velphoro) Past Med/Surg History Medical History Anemia AV fistula Left arm Chronic kidney disease on chronic dialysis //Friday at [facility]. 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 pt states she was critical, intubated and started hemodiaylsis at that point. states she then had to go to rehab to "learn to walk again" and currently is at home with and uses a cane, but is very unsteady without assistance. Hyperlipidemia Hyperparathyroidism due to renal insufficiency Hypertension Hypothyroidism Obesity (BMI 30-39.9) Osteoarthritis Peripheral neuropathy BILATERAL LEGS Renal mass, left pt unaware Splenic lesion pt unaware Subdural hematoma pt unaware Surgical History H/O bilateral salpingo-oophorectomy History of cataract extraction with lens replacement bilateral History of colonoscopy History of hysterectomy RENNY History of vitrectomy S/P arteriovenous (AV) fistula creation Left arm with several revisions Family History Father Family history of diabetes mellitus Mother Family history of diabetes mellitus Social History Smoking Status: Never smoker Second Hand Exposure: No; Do You Dip or Chew Tobacco: No; Hx Alcohol Use: No Hx Substance Use: No Preferred Language: Lithuanian Communication Ability: Effective 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 Beliefs That Will Affect Care: None marital status: Current Living Situation: Spouse Other Information That Helps Us Care for You: No Feels Safe at Home: Yes Safety Concerns: Feels Safe At This Time Assistive Devices: Cane and Glasses Review of Systems Review of Systems: As per HPI, all other systems reviewed and negative Physical Exam Physical Exam: GENERAL: Comfortable, obese, respiratory distress SKIN: Normal color, warm HEENT: [place] palpebral conjunctivae, no ptosis, dry buccal mucosa, BiPAP in place NECK : Supple, short neck, no tenderness CHEST : Decreased breath sounds, occasional expiratory wheezes, no tenderness HEART : RRR, apical diastolic murmur ABDOMEN: distention, nontender EXTREMITIES : Bilateral LE swelling, no LE tenderness, no other conspicuous deformities noted NEUROLOGIC : Coherent, no facial asymmetry, gait and stance not assessed Results & Data Results & Data ([facility]) Vital Signs (Past 12 Hours) Vital Signs Temp Pulse Pulse Resp BP Pulse Ox O2 Del Method 12/01/21 06:25 102 H 98 BiPAP 12/01/21 06:08 101 H 121/62 12/01/21 05:30 101 H 16 97 BiPAP 12/01/21 05:30 120/72 12/01/21 05:00 137/74 12/01/21 05:00 109 H 23 96 12/01/21 04:46 175/81 H 12/01/21 04:46 112 H 25 H 95 12/01/21 04:30 117 H 33 H 94 12/01/21 04:27 119 H 31 H 99 12/01/21 04:26 188/111 H 12/01/21 04:14 BiPAP 12/01/21 04:14 36.5 C 12/01/21 04:32 116 H 34 H 95 12/01/21 04:14 BiPAP 12/01/21 04:14 116 H 29 H 188/111 H 94 BiPAP FiO2 12/01/21 06:25 50 12/01/21 06:08 12/01/21 05:30 60 12/01/21 05:30 12/01/21 05:00 12/01/21 05:00 12/01/21 04:46 12/01/21 04:46 12/01/21 04:30 12/01/21 04:27 12/01/21 04:26 12/01/21 04:14 60 12/01/21 04:14 12/01/21 04:32 60 12/01/21 04:14 60 12/01/21 04:14 60 Laboratory Results Laboratory Results WBC 17.56 K/ul (4.8-10.8) H 12/01/21 04:43 RBC 3.91 M/uL (3.93-5.22) L 12/01/21 04:43 Hgb 12.0 g/dl (12.0-16.0) 12/01/21 04:43 Hct 39.3 % (34.1-44.9) 12/01/21 04:43 MCV 100.5 fL (80.0-100.0) H 12/01/21 04:43 MCH 30.7 pg (25.0-34.0) 12/01/21 04:43 MCHC 30.5 g/dL (32.0-36.0) L 12/01/21 04:43 RDW Std Deviation 53.9 fL (36.4-46.3) H 12/01/21 04:43 RDW Coeff of Talisha 14.7 % (11.5-14.5) H 12/01/21 04:43 Plt Count 256 K/uL (130-400) 12/01/21 04:43 MPV 9.6 fL (9.4-12.3) 12/01/21 04:43 Immature Gran % (Auto) 0.9 % 12/01/21 04:43 Neut % (Auto) 76.6 % 12/01/21 04:43 Lymph % (Auto) 15.6 % 12/01/21 04:43 Bond % (Auto) 5.2 % 12/01/21 04:43 Eos % (Auto) 1.5 % 12/01/21 04:43 Baso % (Auto) 0.2 % 12/01/21 04:43 Neut # (Auto) 13.43 K/uL (1.4-6.5) H 12/01/21 04:43 Lymph # (Auto) 2.74 K/uL (1.2-3.4) 12/01/21 04:43 Bond # (Auto) 0.92 K/uL (0.24-0.82) H 12/01/21 04:43 Eos # (Auto) 0.27 K/uL (0-0.50) 12/01/21 04:43 Baso # (Auto) 0.04 K/uL (0-0.2) 12/01/21 04:43 Immature Gran # (Auto) 0.16 K/uL (0.00-0.02) H 12/01/21 04:43 APTT 27.1 Seconds (21.0-31.0) 12/01/21 04:43 PTT Ratio 1.0 12/01/21 04:43 ABG pH 7.26 (7.35-7.45) L 12/01/21 05:58 ABG pCO2 62 mmHg (35-46) H 12/01/21 05:58 ABG pO2 194 mmHg (80-95) H 12/01/21 05:58 ABG HCO3 28 mmol/L (19-24) H 12/01/21 05:58 ABG O2 Saturation 99.5 % (90-95) H 12/01/21 05:58 ABG Base Excess -0.6 mEq/L (-9-1.8) 12/01/21 05:58 Jackson Test Pos (Pos) 12/01/21 05:58 Oxygen Given 50% FIO2 12/01/21 05:58 Sodium 140 mmol/L (136-145) 12/01/21 04:43 Potassium 4.9 mmol/L (3.5-5.1) 12/01/21 04:43 Chloride 99 mmol/L (98-107) 12/01/21 04:43 Carbon Dioxide 25 mmol/L (21-32) 12/01/21 04:43 Anion Gap 16 (3-11) H 12/01/21 04:43 BUN 107 mg/dl (6-23) H 12/01/21 04:43 Creatinine 8.59 mg/dl (0.6-1.2) H* 12/01/21 04:43 Est Cr Clr Drug Dosing 7.5 ml/min 12/01/21 04:43 Est GFR ( Amer) 5.2 ml/min 12/01/21 04:43 Est GFR (Non-Af Amer) 4.5 ml/min 12/01/21 04:43 BUN/Creatinine Ratio 12.5 (10-20) 12/01/21 04:43 Glucose 198 mg/dl (70-99(Fasting)) H 12/01/21 04:43 Lactate 0.3 mmol/L (0.4-2.0) L 12/01/21 05:58 Calcium 9.3 mg/dl (8.5-10.1) 12/01/21 04:43 Magnesium 2.3 mg/dl (1.7-2.4) 12/01/21 04:43 Total Bilirubin 0.4 mg/dl (0.2-1.0) 12/01/21 04:43 AST 13 U/L (13-39) 12/01/21 04:43 ALT 9 U/L (7-52) 12/01/21 04:43 Alkaline Phosphatase 173 U/L (34-104) H 12/01/21 04:43 Troponin I High Sens 22.6 pg/ml (0-14) H 12/01/21 04:43 B-Natriuretic Peptide 327 pg/ml (0-100) H 12/01/21 04:43 Total Protein 8.0 gm/dl (6.0-8.3) 12/01/21 04:43 Albumin 3.9 gm/dl (3.4-5.0) 12/01/21 04:43 Globulin 4.1 gm/dl (2.5-4.0) H 12/01/21 04:43 Albumin/Globulin Ratio 1.0 (0.9-2) 12/01/21 04:43 Lipase 100 U/L (11-82) H 12/01/21 04:43 TSH 2.344 uIu/ml (0.300-4.500) 12/01/21 04:43 SARS-CoV-2 (PCR) NEGATIVE (Negative) 12/01/21 05:10 Diagnostic Findings Chest x-ray as per my interpretation atelectasis, pulmonary edema EKG as per my interpretation : Rate 120, sinus tachycardia, normal axis, no ischemia
[2021-12-01] MEDS ORDERED: traMADol HCL 50 MG TABLET PO PRN (06:40)
[2021-12-01 07:34] LABS: Estimated Average Glucose 148 mg/dl; Hemoglobin A1C 6.8 % (4.5-5.6)
[2021-12-01] MEDS ORDERED: LANTUS PER UNIT CHARGE SQ STA (07:39)
[2021-12-01] MEDS ORDERED: DOXYCYCLINE HYCLATE 100 MG in DEXTROSE 5% 100 ML IV ONE ×2 (07:45→13:00)
[2021-12-01] MEDS ORDERED: methylPREDNISolone 20 MG in SYRINGE 0 ML IV ONE (07:45)
[2021-12-01 08:48] LABS: Base Excess ABG -2.3 mEq/L (-9-1.8); HCO3 ABG 25 mmol/L (19-24); Oxygen Saturation ABG 99.8 % (90-95); PCO2 ABG 52 mmHg (35-46); PO2 ABG 113 mmHg (80-95); pH ABG 7.29 (7.35-7.45)
[2021-12-01] MEDS ORDERED: GLUCOSE 40% GEL 15 GM TUBE PO PRN (08:51)
[2021-12-01] MEDS ORDERED: GLUCAGON FOR INJ 1 MG VIAL SQ PRN (08:51)
[2021-12-01] MEDS ORDERED: PROMETHAZINE HCL 12.5 MG in SODIUM CHLORIDE 0.9% 50 ML IV PRN (08:51)
[2021-12-01] MEDS ORDERED: NITROGLYCERIN SL 0.4 MG/TAB TAB SL PRN (08:51)
[2021-12-01] MEDS ORDERED: CARBOHYDRATES FOR HYPOGLYCEMIA PO PRN (08:51)
[2021-12-01] MEDS ORDERED: GLUCOSE 10 TAB/TUBE PO PRN (08:51)
[2021-12-01] MEDS ORDERED: DEXTROSE 50% 50 ML SYRINGE IV PRN (08:51)
[2021-12-01] MEDS ORDERED: ACETAMINOPHEN 325 MG TAB PO PRN (08:51)
[2021-12-01 08:58] LABS: Allen Test Pos (Pos)
[2021-12-01] MEDS: INSULIN ASPART PER UNIT SC SCH ×4 (09:12→20:55)
[2021-12-01] MEDS ORDERED: SEVELAMER HCL 800 MG TABLET PO PRN (09:38)
--- NOTE | 2021-12-01 09:54 | XRay Report ---
XR chest 1V portable CLINICAL HISTORY: sob TECHNIQUE: Single frontal radiograph of the chest was obtained. Comparison: Comparison is made to chest radiograph 08/20/2019 FINDINGS: Previously noted dual lumen catheter is no longer present. The cardiomediastinal silhouette is obscur ed. Multifocal airspace opacities are seen. No evidence of pleural effusion or pneumothorax. IMPRESSION: Multifocal airspace opacities may represent atelectasis, pneumonia, and/or aspiration. ACT 112: Negative or not required by law. Electronically signed by: Dale Fleming M.D. 12/01/2021 9:53 AM
--- NOTE | 2021-12-01 11:30 | Cardiology Consultation ---
Date of Consultation December 01, 2021 Assessment & Plan (1) Acute heart failure with preserved ejection fraction: (2) Mitral stenosis: (3) Elevated troponin: (4) Pneumonia: Plan 61-year-old female admitted with acute heart failure in the setting of dialysis noncompliance, known severe mitral stenosis, and dietary indiscretions. Troponin trending upward possibly related to acute heart failure and hypoxia, however, plaque rupture event is not excluded. Recommend resting 2D robert sthoracic echocardiogram to assess left ventricular wall motion. She is currently pain-free. ECG on admission without evidence of ischemic changes. Repeat troponin ordered with results pending. Volume removal as per dialysis ordered with plans to take off 4 kg today. Repeat ECG ordered now as well as in a.m. Continue telemetry monitoring. X-ray demonstrating pulmonary edema and bilateral airspace opacities. In the setting of subjective fevers and leukocytosis on admission, community-acquired pneumonia considered. Blood cultures sent. Empiric antibiotics as per primary service. History of Present Illness Reason for Consultation: Troponin trending upward Requesting Physician: Dr. Fontaine Attending Physician: Elizabeth Fontaine MD History of Present Illness 61-year-old female presented to the emergency department secondary to respiratory distress. Symptoms began around dinnertime and worsened throughout the evening. On arrival to the emergency department patient oxygen saturation in the 70s. Documented tachypnea and significant work of breathing prompting placement of CPAP. She is a dialysis patient, however, admits to missing her treatment on . Cardiac history significant for chronic severe mitral valve stenosis followed by the [facility] valve clinic. Most recent echocardiogram result listed below. Patient managed conservatively due to lack of symptoms. Patient seen and examined at the bedside on dialysis. Currently on BiPAP as well. She is awake and alert. Reports missing dialysis treatment on . She went out to dinner on Friday evening to red [employer] for her birthday. Admits to consuming large amounts of food and drink (lemonade). After dinner she began to feel somewhat unwell. Noted indigestion with progressive shortness of breath. Waxing and waning chest pressure present. She came to the ER for further evaluation and treatment. Initial high-sensitivity troponin mildly elevated however trending upward. Currently resting comfortably supine and pain-free. Reports recent episodes of orthopnea. Mild bilateral lower extremity edema unchanged. Allergies Allergy/AdvReac Type Severity Reaction Status Date / Time gabapentin Allergy Intermediate Dizziness Verified 09/24/21 15:29 lisinopril AdvReac Intermediate Cough Verified 09/24/21 15:29 Home Medications Medication Instructions Recorded Confirmed Type aspirin 81 mg tablet,delayed 81 mg PO HS 05/07/18 09/24/21 History release (Marika Low Dose Aspirin) insulin glargine 100 unit/mL (3 33 unit subcut HS 09/16/18 09/24/21 History mL) subcutaneous pen (Basaglar KwikPen U-100 Insulin) albuterol sulfate 90 mcg/actuation 2 puffs inhalation Q6H PRN 05/30/19 09/24/21 Rx aerosol inhaler (Proventil HFA) shortness of breath or wheezing #8 grams pregabalin 75 mg capsule 75 mg PO QAM 08/20/19 09/24/21 History pregabalin 25 mg capsule 25 mg PO DAILY@1200 PRN tingling 09/26/20 09/24/21 History cholecalciferol (vitamin D3) 25 0.75 mcg PO UD 09/24/21 09/24/21 History mcg (1,000 unit) tablet (Vitamin D3) lidocaine-prilocaine 2.5 %-2.5 % 1 applic topical 3XWK 09/24/21 09/24/21 History topical cream sucroferric oxyhydroxide 500 mg 500 mg PO TIDM 09/24/21 09/24/21 History chewable tablet (Velphoro) Novolog U-100 Insulin aspart 6 unit SC TID 12/01/21 12/01/21 History Renal-Agustin 1 tab PO DAILY 12/01/21 12/01/21 History Toprol XL 25 mg PO DAILY 12/01/21 12/01/21 History Zofran 4 mg PO Q6H PRN Nausea 12/01/21 12/01/21 History cetirizine 5 mg chewable tablet 5 mg PO UD 12/01/21 12/01/21 History levothyroxine 50 mcg PO DAILY 12/01/21 12/01/21 History rosuvastatin 40 mg tablet mg 12/01/21 History sevelamer carbonate 800 mg tablet 800 mg PO UD 12/01/21 12/01/21 History simethicone 80 mg PO Q6H PRN Gi Upset 12/01/21 12/01/21 History Patient History Medical History Anemia AV fistula Left arm Chronic kidney disease on chronic dialysis //Friday at [facility]. 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 pt states she was critical, intubated and started hemodiaylsis at that point. states she then had to go to rehab to "learn to walk again" and currently is at home with and uses a cane, but is very unsteady without assistance. Hyperlipidemia Hyperparathyroidism due to renal insufficiency Hypertension Hypothyroidism Obesity (BMI 30-39.9) Osteoarthritis Peripheral neuropathy BILATERAL LEGS Renal mass, left pt unaware Splenic lesion pt unaware Subdural hematoma pt unaware Surgical History H/O bilateral salpingo-oophorectomy History of cataract extraction with lens replacement bilateral History of colonoscopy History of hysterectomy RENNY History of vitrectomy S/P arteriovenous (AV) fistula creation Left arm with several revisions Family History Father Family history of diabetes mellitus Mother Family history of diabetes mellitus Social History Smoking Status: Never smoker Second Hand Exposure: No; Do You Dip or Chew Tobacco: No; Hx Alcohol Use: No Hx Substance Use: No Preferred Language: Romanian Communication Ability: Effective 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 Beliefs That Will Affect Care: None marital status: Current Living Situation: Spouse Other Information That Helps Us Care for You: No Feels Safe at Home: Yes Safety Concerns: Feels Safe At This Time Assistive Devices: Cane and Glasses Review of Systems Review of Systems: All systems reviewed & are unremarkable except as noted in Subjective Physical Exam Constitutional: + ill appearing and + obese Respiratory: no labored breathing and no retractions Auscultation: + crackles (Bilateral); no wheezes Cardiovascular: Rate/Rhythm: regular rate and regular rhythm Heart Sounds: normal S1, normal S2 and + murmur (1/6 systolic ejection murmur heard at the base) Vessels: radial pulses present; no JVD Extremities: + edema (Mild bilateral pedal edema) Gastrointestinal (Abdomen): Inspection/Auscultation: abdomen normal to inspection and normal bowel sounds; abdomen not distended Percussion/Palpation: abdomen soft; abdomen nontender, no guarding and abdomen not rigid Neurologic: CN's II-XI intact bilaterally and moves all extremities; no focal motor deficits Psychiatric: A+Ox3, euthymic affect Results & Data ([facility]) Vital Signs (Past 12 Hours) Vital Signs Temp Pulse Pulse Pulse Resp BP BP 12/01/21 09:00 12/01/21 10:29 88 26 H 12/01/21 08:51 35.7 C L 86 18 145/80 H 12/01/21 07:30 87 22 12/01/21 08:11 12/01/21 07:22 90 24 12/01/21 07:00 83 16 12/01/21 07:00 119/58 L 12/01/21 06:30 90 24 12/01/21 06:30 125/66 12/01/21 06:10 100 H 25 H 12/01/21 06:10 121/62 12/01/21 06:00 104 H 23 12/01/21 06:25 102 H 12/01/21 06:08 101 H 121/62 12/01/21 05:30 101 H 16 12/01/21 05:30 120/72 12/01/21 05:00 137/74 12/01/21 05:00 109 H 23 12/01/21 04:46 175/81 H 12/01/21 04:46 112 H 25 H 12/01/21 04:30 117 H 33 H 12/01/21 04:27 119 H 31 H 12/01/21 04:26 188/111 H 12/01/21 04:14 12/01/21 04:14 36.5 C 12/01/21 04:32 116 H 34 H 12/01/21 04:14 12/01/21 04:14 116 H 29 H 188/111 H Pulse Ox O2 Del Method FiO2 12/01/21 09:00 BiPAP 12/01/21 10:29 97 40 12/01/21 08:51 99 BiPAP 12/01/21 07:30 96 40 12/01/21 08:11 BiPAP 12/01/21 07:22 99 440 12/01/21 07:00 98 BiPAP 40 12/01/21 07:00 12/01/21 06:30 98 CPAP 60 12/01/21 06:30 12/01/21 06:10 98 12/01/21 06:10 12/01/21 06:00 100 12/01/21 06:25 98 BiPAP 50 12/01/21 06:08 12/01/21 05:30 97 BiPAP 60 12/01/21 05:30 12/01/21 05:00 12/01/21 05:00 96 12/01/21 04:46 12/01/21 04:46 95 12/01/21 04:30 94 12/01/21 04:27 99 12/01/21 04:26 12/01/21 04:14 BiPAP 60 12/01/21 04:14 12/01/21 04:32 95 60 12/01/21 04:14 BiPAP 60 12/01/21 04:14 94 BiPAP 60 Diagnostic Findings 2D echocardiogram report, [facility], 11/12/2021: Saline injection performed 07-05-2019 on KHURRAM was negative for an interatrial shunt. The qualitative LV ejection fraction is 55-59% (normal). The LV wall thickness is mildly increased (concentric). The right ventricular systolic function is normal as assessed by tricuspid annular plane systolic excursion (TAPSE) (normal >1.7 cm). The left atrium is severely enlarged (>48 ml/m^2,). Mild aortic valve sclerosis is present. Aortic stenosis is absent. There is severe mitral annular calcification. Severe mitral stenosis is present. The mean diastolic gradient across the mitral valve is 16.9 mmHg. Mild mitral regurgitation is present.
--- NOTE | 2021-12-01 11:39 | Consultation Report ---
NEPHROLOGY CONSULTATION NOTE REASON FOR CONSULTATION: Dialysis patient admitted with respiratory failure. HISTORY OF PRESENT ILLNESS: The patient is a 61-year-old female with end-stage renal disease, on hem odialysis Friday, , Friday, as well as diastolic heart failure, predominantly related with mitral stenosis, which is quite severe. She missed dialysis on . She presented to the hosp ital with shortness of breath as well as some chest tightness. She was having some cough and orthopn ea and very slight increase in edema. No recent contact with COVID positive patient. She has not re ceived COVID vaccination. In the Emergency Department, she was found to be hypoxic and hypercapnic a nd was put on BiPAP. Lasix and nitro paste were also given in the Emergency Department. The patient felt slightly better after that. However, she is still on BiPAP and is on dialysis right now. PAST MEDICAL AND SURGICAL HISTORY: Includes ESRD on hemodialysis Friday, , Friday; chroni c diastolic heart failure; mitral stenosis, quite severe, possibly requiring surgery in the near futu re; hypertension; hyperlipidemia; hypothyroidism; insulin-requiring diabetes; history of subdural hem atoma; chronic cholecystitis/choledocholithiasis; status post AXIOS stent placement; Vzovlsb-Abwol-Ti oth disease, multiple vascular procedures; cholecystectomy; cataract; hysterectomy; breast cyst drain age. FAMILY HISTORY: Positive for diabetes and Obilfmx-Tamgv-Fwqmw, dementia. PERSONAL AND SOCIAL HISTORY: She is and lives with her . She is disabled. No alcoho l, no smoking. ALLERGIES: LIST REVIEWED AND IS PER THE H AND P. MEDICATIONS: Home medication list was also reviewed and is as per the H and P and medicine reconcili ation list. REVIEW OF SYSTEMS: The patient is currently on BiPAP and seems very sleepy and short of breath and w as not able to answer my questions, but she is awake and alert. She was able to tell me at least xiomy t she became acutely short of breath last night associated with some chest tightness and she felt lik e she was going to . PHYSICAL EXAMINATION: GENERAL: A middle-aged white female who is awake and alert; however, could not test orientation alok use of respiratory distress. She is on BiPAP at this time. She is currently on dialysis. VITAL SIGNS: Blood pressure 145/80, pulse rate 36 degrees Celsius, respiratory rate 26, 97% oxygen s aturation on BiPAP. CHEST: Bilateral decreased breath sounds, occasional crackles. CARDIOVASCULAR: S1 and S2, regular. Systolic murmur heard. ABDOMEN: Soft, nontender. EXTREMITIES: Show trace to 1+ edema, which is more than she normally has as an outpatient. LABORATORY TESTS: Chest x-ray shows multifocal airspace opacities, which could represent atelectasis , pneumonia and/or aspiration. Blood gas showed a pH of 7.29, pCO2 of 52, bicarbonate 25. WBC count elevated at 17,000, platelet count 256, hemoglobin 12. Sodium 140, potassium 4.9, BUN 107, creatini ne 8.59. Troponin is rising with 2247, and then most recent 112. BNP 327. Globulin 4.1. ASSESSMENT AND PLAN: A 61-year-old female with end-stage renal disease, on hemodialysis Friday, Fri, Friday, as well as diastolic heart failure with significant valvular heart disease, admitted with sudden onset of shortness of breath with chest tightness. Evaluation done so far has revealed she has possible non-STEMI with a rising troponin as well as respiratory failure with hypoxia and hyp ercapnia, possible congestive heart failure, as well as possible pneumonia. I have been consulted fo r dialysis management. End-stage renal disease: At this point, she is definitely very short of breath and has evidence of f luid overload/congestive heart failure. So we will be more aggressive and try to take at least 4 kil os off as tolerated by her blood pressure and clinical situation. However, I do not think this is th e full story as she has elevated white count with multiple airspace opacities in both lungs, which co uld very well be pneumonia of some type. She also has a clearly rising troponin with chest tightness , so quite possible she has acute non-STEMI on top of everything. Her electrolytes are reasonable. Most likely, she will get dialysis again on Friday if she is still here in the hospital. Thank you very much for the consult. Job ID: [id number]
--- NOTE | 2021-12-01 12:04 | Electrocardiogram Report ---
Test Reason : Blood Pressure : / mmHG Vent. Rate : 121 BPM Atrial Rate : 121 BPM P-R Int : 154 ms QRS Dur : 082 ms QT Int : 320 ms P-R-T Axes : 048 025 026 degrees QTc Int : 454 ms Sinus tachycardia Possible Left atrial enlargement Borderline ECG When compared with ECG of 26-SEP-2020 10:05, No significant change was found Confirmed by Russell Fernandez ([id number]) on 12/01/2021 12:04:02 PM Referred By: REFERRED SELF Confirmed By:Russell Fernandez
[2021-12-01] MEDS ORDERED: XOPENEX/ATROVENT 1.25mg/0.5MG NEB COMBO NEB SCH (13:00)
[2021-12-01] MEDS: IPRATROPIUM BROMIDE NEB SOLN 0.02% 2.5 ML VIAL INH SCH ×2 (13:04→19:49)
[2021-12-01] MEDS: LEVALBUTEROL 1.25MG/0.5ML NEB INH SCH ×2 (13:04→19:50)
--- NOTE | 2021-12-01 14:26 | Hospitalist Progress Note ---
Date of Service December 01, 2021 Assessment & Plan (1) Pneumonia: Plan 61-year-old lady with PMH of HFpEF [2021 TTE with EF 55%], mitral stenosis, HTN, HLD, hypothyroidism, ESRD on HD, DM 2 insulin requiring, subdural hematoma, chronic cholecystitis/choledocholithiasis status post axios stent placement, charcoaled Page tooth disease presented to our ED 12/01 with complaint of shortness of breath after 11/30 dinnertime. Reported dry cough, reported nonradiating chest tightness, had missed dialysis 2 days ago [HD on ]. She is being managed for the following: Acute respiratory failure with hypoxia/pulmonary congestion secondary to missed dialysis/acute on chronic heart failure with preserved ejection fraction Likely pneumonia Sepsis POA ESRD on hemodialysis Patient presenting with shortness of breath [see above], likely secondary to pul congestion 2/2 missed dialysis on Friday [HD on ] versus likely pneumonia. At admission: WBC 17.5 6K, temperature 35.7C, Pro-Ziggy elevated, admitting CXR concerning for atelectasis versus pneumonia. Follow-up admitting blood culture. Patient with dry cough, continue with doxycycline 12/01 and nebulization. Add rocephin 12/01. Follow labs and clinically. For hemodialysis today, CPAP/BiPAP as tolerated, wean down as tolerated. Patient does make urine, received Lasix in the morning. Pt denies O2 use at home. Elevated troponin: At presentation with nonradiating chest tightness, troponin up trended, admitting ECG without acute ST or T changes, patient with no chest pain at bedside exam in the morning. Troponin elevated likely in the setting of acute on chronic HFpEF in the setting of missed dialysis and hypoxia vs NSTEMI Cardiology evaluated, appreciate recommendation. Echo ordered. Other chronic medical conditions: MS, HTN, HLD, hypothyroidism, DM2 insulin requiring, subdural hematoma, chronic cholecystitis/choledocholithiasis status post Axios Stent placement/Tagguza-Xmrnt-Xyepl disease--->> continue with/resume home meds as and when appropriate. DVT prophylaxis: Heparin subcu Full code Patient's : Mr. Demetris Barajas [[phone]] Admission and Anticipated Discharge Date Admission Date: December 01, 2021 Subjective Patient seen and examined at bedside as a follow-up of acute respiratory failure with hypoxia secondary to pulmonary congestion secondary to missed dialysis, bronchitis/possible atypical pneumonia and elevated troponin. Patient was lying in bed, on CPAP, reports feeling a lot better than what she came in with, denies any chest tightness now, denies subjective shortness of breath, denies sore throat or headache or acute changes in bowel or bladder habits lately. Patient makes urine, denies use of oxygen at home. Physical Exam Physical Exam: GENERAL: Alert and oriented x3. NAD, on CPAP. HEENT: No pallor, no icterus. Pupils equal, round and reactive to light. Oral mucosa moist. NECK: No JVD, no neck masses. HEART: S1 and S2 heard. Regular rate and rhythm. No murmur, no gallop. RESPIRATORY SYSTEM: Normal AP diameter. No accessory muscle use. No wheezing, + crackles. ABDOMEN: Soft, bowel sounds present, nontender, no distention. CENTRAL NERVOUS SYSTEM: No facial droop. Speech is clear. Obeys simple commands. Moves extremities. EXTREMITIES: Trace ble edema, no erythema seen. Results & Data Results & Data ([facility]) Vital Signs (Past 12 Hours) Vital Signs Temp Pulse Pulse Pulse Pulse Resp BP 12/01/21 13:00 74 125/68 12/01/21 12:30 76 126/67 12/01/21 12:00 76 133/72 12/01/21 11:30 80 130/62 12/01/21 11:00 76 122/63 12/01/21 10:45 76 141/68 H 12/01/21 10:28 36.7 C 84 12/01/21 09:00 88 12/01/21 09:00 12/01/21 10:29 88 26 H 12/01/21 08:51 35.7 C L 86 18 12/01/21 07:30 87 22 12/01/21 08:11 12/01/21 07:22 90 24 12/01/21 07:00 83 16 12/01/21 07:00 119/58 L 12/01/21 06:30 90 24 12/01/21 06:30 125/66 12/01/21 06:10 100 H 25 H 12/01/21 06:10 121/62 12/01/21 06:00 104 H 23 12/01/21 06:25 102 H 12/01/21 06:08 101 H 121/62 12/01/21 05:30 101 H 16 12/01/21 05:30 120/72 12/01/21 05:00 137/74 12/01/21 05:00 109 H 23 12/01/21 04:46 175/81 H 12/01/21 04:46 112 H 25 H 12/01/21 04:30 117 H 33 H 12/01/21 04:27 119 H 31 H 12/01/21 04:26 188/111 H 12/01/21 04:14 12/01/21 04:14 36.5 C 12/01/21 04:32 116 H 34 H 12/01/21 04:14 12/01/21 04:14 116 H 29 H 188/111 H BP Pulse Ox O2 Del Method FiO2 12/01/21 13:00 12/01/21 12:30 12/01/21 12:00 12/01/21 11:30 12/01/21 11:00 12/01/21 10:45 12/01/21 10:28 12/01/21 09:00 12/01/21 09:00 BiPAP 12/01/21 10:29 97 40 12/01/21 08:51 145/80 H 99 BiPAP 12/01/21 07:30 96 40 12/01/21 08:11 BiPAP 12/01/21 07:22 99 440 12/01/21 07:00 98 BiPAP 40 12/01/21 07:00 12/01/21 06:30 98 CPAP 60 12/01/21 06:30 12/01/21 06:10 98 12/01/21 06:10 12/01/21 06:00 100 12/01/21 06:25 98 BiPAP 50 12/01/21 06:08 12/01/21 05:30 97 BiPAP 60 12/01/21 05:30 12/01/21 05:00 12/01/21 05:00 96 12/01/21 04:46 12/01/21 04:46 95 12/01/21 04:30 94 12/01/21 04:27 99 12/01/21 04:26 12/01/21 04:14 BiPAP 60 12/01/21 04:14 12/01/21 04:32 95 60 12/01/21 04:14 BiPAP 60 12/01/21 04:14 94 BiPAP 60
[2021-12-01] MEDS: NEPHROCAPS PO SCH (14:38)
[2021-12-01] MEDS: SEVELAMER HCL 800 MG TABLET PO SCH ×3 (14:39→16:21)
[2021-12-01] MEDS: ROSUVASTATIN CALCIUM 20 MG TAB PO SCH (14:39)
[2021-12-01] MEDS: [UNRECOGNIZED DRUG - REMARK] SCH ×3 (14:40→21:03)
[2021-12-01] MEDS: cefTRIAXone SODIUM 2,000 MG in DEXTROSE 5% 50 ML IV SCH (16:03)
[2021-12-01] MEDS: HEPARIN SOD 5,000 UNIT/0.5 ML VIAL SQ SCH ×2 (16:03→21:02)
[2021-12-01] MEDS: METOPROLOL SUCC 25MG EXT REL TAB PO SCH (16:03)
[2021-12-01] MEDS: CETIRIZINE HCL 10 MG TABLET PO SCH (16:20)
[2021-12-01] MEDS ORDERED: PREGABALIN 50 MG CAP PO ONE (17:16)
[2021-12-01] MEDS: LANTUS PER UNIT CHARGE SQ SCH (20:54)
[2021-12-01] MEDS: ASPIRIN 81 MG ECTAB PO SCH (20:54)
[2021-12-01] MEDS: DOXYCYCLINE HYCLATE 100 MG CAP PO SCH (21:02)
[2021-12-01] MEDS: ACETAMINOPHEN 325 MG TAB PO PRN (23:23)
[2021-12-02] MEDS: IPRATROPIUM BROMIDE NEB SOLN 0.02% 2.5 ML VIAL INH SCH ×4 (01:25→19:59)
[2021-12-02] MEDS: LEVALBUTEROL 1.25MG/0.5ML NEB INH SCH ×4 (01:26→19:59)
[2021-12-02] MEDS: HEPARIN SOD 5,000 UNIT/0.5 ML VIAL SQ SCH ×3 (05:08→20:48)
[2021-12-02] MEDS: LEVOTHYROXINE SODIUM 50 MCG TABLET PO SCH (05:08)
[2021-12-02 07:31] LABS: Basophils # (auto) 0.02 K/uL (0-0.2); Basophils % (auto) 0.2 %; Eosinophils % (auto) 1.2 %; Hematocrit (blood only) 33.6 % (34.1-44.9); Hemoglobin 10.2 g/dl (12.0-16.0); Immature Granulocytes # (auto) 0.03 K/uL (0.00-0.02); Immature Granulocytes % (auto) 0.3 %; Lymphocytes # (auto) 1.93 K/uL (1.2-3.4); Lymphocytes % (auto) 22.2 %; Mean Corpuscular Hemoglobin 30.5 pg (25.0-34.0); Mean Corpuscular Hgb Conc 30.4 g/dL (32.0-36.0); Mean Corpuscular Volume 100.6 fL (80.0-100.0); Mean Platelet Volume 9.6 fL (9.4-12.3); Monocytes # (auto) 0.78 K/uL (0.24-0.82); Neutrophils # (auto) 5.82 K/uL (1.4-6.5); Neutrophils % (auto) 67.1 %; Platelet Count 183 K/uL (130-400); RDW Coefficient of Variation 14.8 % (11.5-14.5); RDW Standard Deviation 54.7 fL (36.4-46.3); Red Blood Count 3.34 M/uL (3.93-5.22); White Blood Count 8.68 K/ul (4.8-10.8)
[2021-12-02 08:11] LABS: BUN Creatinine Ratio 10.9 (10-20); Creatinine Clr Calc Pharmacy 9.7 ml/min; Est GFR (African American) 7.5 ml/min; Est GFR (Non-African American) 6.5 ml/min; Potassium 4.6 mmol/L (3.5-5.1)
--- NOTE | 2021-12-02 08:46 | XRay Report ---
XR chest 1V portable CLINICAL HISTORY: Follow-up bilateral alveolar opacities. COMPARISON STUDY: 12/01/2021 TECHNIQUE: 1 view of the chest FINDINGS: Single frontal view of the chest demonstrates the heart size to again be prominent in size. Compared to the previous examination, there has been significant interval improvement of bilateral alveolar op acities. This rapid improvement is characteristic of resolution of pulmonary edema. There is still ev idence for mild pulmonary edema and vascular congestion There is also haziness at the left lung base suspicious for left pleural effusion as well. No conflu ent alveolar opacities were bronchograms are seen. There is no acute osseous pathology. IMPRESSION: 1. Compared to previous examination, there has been partial interval resolution of pulmonary edema as described above. 2. This also suspicion of left pleural effusion. ACT 112: Negative or not required by law. Electronically signed by: Alex Pat M.D. 12/02/2021 8:45 AM
[2021-12-02] MEDS: INSULIN ASPART PER UNIT SC SCH ×4 (09:07→20:55)
[2021-12-02] MEDS: [UNRECOGNIZED DRUG - REMARK] SCH ×3 (09:08→21:21)
[2021-12-02] MEDS: ROSUVASTATIN CALCIUM 20 MG TAB PO SCH (09:10)
[2021-12-02] MEDS: NEPHROCAPS PO SCH (09:10)
[2021-12-02] MEDS: SEVELAMER HCL 800 MG TABLET PO SCH ×3 (09:10→18:07)
[2021-12-02] MEDS: LANTUS PER UNIT CHARGE SQ SCH ×2 (09:14→20:58)
[2021-12-02] MEDS: PREGABALIN 75 MG CAP PO SCH (09:14)
[2021-12-02] MEDS: METOPROLOL SUCC 25MG EXT REL TAB PO SCH (10:04)
[2021-12-02] MEDS: DOXYCYCLINE HYCLATE 100 MG CAP PO SCH ×2 (10:04→20:48)
--- NOTE | 2021-12-02 10:43 | Cardiology Progress Note ---
Date of Service December 02, 2021 Assessment & Plan (1) Acute heart failure with preserved ejection fraction: (2) Mitral stenosis: (3) Non-ST elevation (NSTEMI) myocardial infarction: (4) Pneumonia: Plan 61-year-old female admitted with acute heart failure in the setting of dialysis noncompliance, known severe mitral stenosis, and dietary indiscretions. Elevated troponin suggesting type I versus type II NSTEMI. No ischemic ECG changes or regional wall motion abnormalities per echocardiogram. Pain-free overnight without dysrhythmias on telemetry. Clinical status markedly improved status postdialysis with volume removal. I long discussion with the patient regarding her acute heart failure. Echocardiogram results discussed. Her left ventricular function is preserved. Mitral stenosis appears severe, however, there is no evidence of pulmonary hypertension per noninvasive measurement. Recommend titration of Toprol-XL to 50 mg daily. In light of her acute decompensated heart failure and known severe valvular heart disease, we discussed proceeding with diagnostic left and right cardiac catheterization. Patient is hesitant to proceed at this time. 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 I will follow-up with her tomorrow again to discuss. Admission and Anticipated Discharge Date Admission Date: December 01, 2021 Subjective Patient seen examined the bedside. Feeling much better from a cardiovascular perspective. No recurrent dyspnea overnight. Denies chest discomfort or unusual shortness of breath. A.m. ECG within normal limits. Review of bedside 2D transthoracic echocardiogram demonstrates preserved LV systolic function with severe mitral valve stenosis. There is no evidence of pulmonary hypertension. Patient states she has missed dialysis treatments before without significant clinical symptoms. Review of Systems Review of Systems: All systems reviewed & are unremarkable except as noted in Subjective Physical Exam Constitutional: + ill appearing and + obese Respiratory: no labored breathing and no retractions Auscultation: + dimi nished lung sounds (Bases bilateral); no crackles and no wheezes Cardiovascular: Rate/Rhythm: regular rate and regular rhythm Heart Sounds: normal S1, normal S2 and + murmur (1/6 systolic ejection murmur heard at the base) Vessels: radial pulses present; no JVD Extremities: + edema (Mild bilateral pedal edema) Gastrointestinal (Abdomen): Inspection/Auscultation: abdomen normal to inspection and normal bowel sounds; abdomen not distended Percussion/Palpation: abdomen soft; abdomen nontender, no guarding and abdomen not rigid Neurologic: CN's II-XI intact bilaterally and moves all extremities; no focal motor deficits Psychiatric: A+Ox3, euthymic affect Results & Data ([facility]) Vital Signs (Past 12 Hours) Vital Signs Temp Pulse Pulse Pulse Resp BP Pulse Ox 12/02/21 07:58 12/02/21 07:30 87 12/02/21 07:25 87 16 96 12/02/21 07:16 37.3 C 87 18 126/73 98 12/02/21 02:55 36.9 C 94 H 17 120/65 98 12/02/21 01:26 93 H 18 97 12/01/21 23:00 37.2 C 92 H 18 121/68 97 12/01/21 23:04 90 O2 Del Method O2 Flow Rate 12/02/21 07:58 Nasal Cannula 4 12/02/21 07:30 12/02/21 07:25 Nasal Cannula 3 12/02/21 07:16 Nasal Cannula 3 12/02/21 02:55 Nasal Cannula 3 12/02/21 01:26 Nasal Cannula 4 12/01/21 23:00 Nasal Cannula 4 12/01/21 23:04
[2021-12-02] MEDS ORDERED: METOPROLOL SUCC 25MG EXT REL TAB PO ONE (10:45)
--- NOTE | 2021-12-02 12:32 | Nephrology Progress Note ---
Date of Service December 02, 2021 Assessment & Plan Admission and Anticipated Discharge Date Admission Date: December 01, 2021 Subjective S--much better after HD yesterday 4.5 kilo removed.On 1 liter 02 with 97% PHYSICAL EXAMINATION: GENERAL: A middle-aged white female who is awake and alert; however, could not test orientation because of respiratory distress. She is on BiPAP at this time. She is currently on dialysis. CHEST: Bilateral decreased breath sounds, occasional crackles. CARDIOVASCULAR: S1 and S2, regular. Systolic murmur heard. ABDOMEN: Soft, nontender. EXTREMITIES: Show trace to 1+ edema, which is more than she normally has as an outpatient. LABORATORY TESTS: Chest x-ray shows multifocal airspace opacities, which could represent atelectasis, pneumonia and/or aspiration. Blood gas showed a pH of 7.29, pCO2 of 52, bicarbonate 25. WBC count elevated at 17,000, platelet count 256, hemoglobin 12. Sodium 140, potassium 4.9, BUN 107, creatinine 8.59. Troponin is rising with 2247, and then most recent 112. BNP 327. Globulin 4.1. ASSESSMENT AND PLAN: A 61-year-old female with end-stage renal disease, on hemodialysis Friday, , Friday, as well as diastolic heart failure with significant valvular heart disease, admitted with sudden onset of shortness of breath with chest tightness. Evaluation done so far has revealed she has possible non-STEMI with a rising troponin as well as respiratory failure with hypoxia and hypercapnia, possible congestive heart failure, as well as possible pneumonia. I have been consulted for dialysis management. End-stage renal disease:She looks much better breathing mayorga. Most likely, she will get dialysis again on Friday unless her situation declines again. reviewed cads note regarding Rt/LT heart Cath as well as Possible do the definitive repair of severe MS. Results & Data ([facility]) Vital Signs (Past 12 Hours) Vital Signs Temp Pulse Pulse Pulse Resp BP Pulse Ox 12/02/21 11:09 37.3 C 82 18 122/71 97 12/02/21 07:58 12/02/21 07:30 87 12/02/21 07:25 87 16 96 12/02/21 07:16 37.3 C 87 18 126/73 98 12/02/21 02:55 36.9 C 94 H 17 120/65 98 12/02/21 01:26 93 H 18 97 O2 Del Method O2 Flow Rate 12/02/21 11:09 Nasal Cannula 2 12/02/21 07:58 Nasal Cannula 4 12/02/21 07:30 12/02/21 07:25 Nasal Cannula 3 12/02/21 07:16 Nasal Cannula 3 12/02/21 02:55 Nasal Cannula 3 12/02/21 01:26 Nasal Cannula 4
--- NOTE | 2021-12-02 13:33 | Electrocardiogram Report ---
Test Reason : Blood Pressure : / mmHG Vent. Rate : 088 BPM Atrial Rate : 088 BPM P-R Int : 164 ms QRS Dur : 086 ms QT Int : 388 ms P-R-T Axes : 062 009 032 degrees QTc Int : 469 ms Normal sinus rhythm Normal ECG When compared with ECG of 01-DEC-2021 04:25, No significant change was found Confirmed by Russell Fernandez ([id number]) on 12/02/2021 1:33:04 PM Referred By: REFERRED SELF Confirmed By:Russell Fernandez
--- NOTE | 2021-12-02 13:41 | Electrocardiogram Report ---
Test Reason : Blood Pressure : / mmHG Vent. Rate : 092 BPM Atrial Rate : 092 BPM P-R Int : 162 ms QRS Dur : 084 ms QT Int : 376 ms P-R-T Axes : 061 008 015 degrees QTc Int : 464 ms Normal sinus rhythm Normal ECG When compared with ECG of 01-DEC-2021 15:31, (unconfirmed) No significant change was found Confirmed by Russell Fernandez ([id number]) on 12/02/2021 1:40:48 PM Referred By: REFERRED SELF Confirmed By:Russell Fernandez
[2021-12-02] MEDS: cefTRIAXone SODIUM 2,000 MG in DEXTROSE 5% 50 ML IV SCH (15:10)
--- NOTE | 2021-12-02 15:54 | Hospitalist Progress Note ---
Date of Service December 02, 2021 Assessment & Plan (1) Pneumonia: Plan 61-year-old lady with PMH of HFpEF [2021 TTE with EF 55%], mitral stenosis, HTN, HLD, hypothyroidism, ESRD on HD, DM 2 insulin requiring, subdural hematoma, chronic cholecystitis/choledocholithiasis status post axios stent placement, charcoaled Page tooth disease presented to our ED 12/01 with complaint of shortness of breath after 11/30 dinnertime. Reported dry cough, reported nonradiating chest tightness, had missed dialysis 2 days ago [HD on ]. She is being managed for the following: Acute respiratory failure with hypoxia/pulmonary congestion secondary to missed dialysis/acute on chronic heart failure with preserved ejection fraction Likely pneumonia Sepsis POA ESRD on hemodialysis Patient presenting with shortness of breath [see above], likely secondary to pul congestion 2/2 missed dialysis on Friday [HD on ] versus likely pneumonia. At admission: WBC 17.5 6K, temperature 35.7C, Pro-Ziggy elevated, admitting CXR concerning for atelectasis versus pneumonia. Follow-up admitting blood culture. Patient with dry cough, continue with doxycycline 12/01 and nebulization. c/w rocephin 12/01. Follow labs and clinically. Hemodialysis 12/01---4.5L Out, Wean down O2 as tolerated. Likely will need 2 step test prior to discharge. Patient does make urine. Pt denies O2 use at home. Elevated troponin: At presentation with nonradiating chest tightness, troponin up trended, admitting ECG without acute ST or T changes, patient with no chest pain at bedside exam in the morning. Troponin elevated likely in the setting of acute on chronic HFpEF in the setting of missed dialysis and hypoxia vs NSTEMI Cardiology evaluated, appreciate recommendation. 12/02 ECHO: EF 60-65% w/ mild concentric LVH and severe MS. Likely heart cath caitie, NPO midnight, pt agreeable to heart cath. Other chronic medical conditions: MS, HTN, HLD, hypothyroidism, DM2 insulin requiring, subdural hematoma, chronic cholecystitis/choledocholithiasis status post Axios Stent placement/Ynnkuvn-Kdvcb-Obiyz disease--->> continue with/resume home meds as and when appropriate. DVT prophylaxis: Heparin subcu Full code Patient's : Mr. Demetris Barajas [[phone]] Admission and Anticipated Discharge Date Admission Date: December 01, 2021 Subjective Patient seen and examined at bedside as a follow-up of acute respiratory failure with hypoxia secondary to pulmonary congestion secondary to missed dialysis, bronchitis/possible atypical pneumonia and elevated troponin. Patient was lying in bed, on 2L NC O2, reports feeling a lot better, today reports she had chest pain yesterday but had denied chest pain yesterday to me, denies chest pain today, denies subjective shortness of breath, denies sore throat or headache or acute changes in bowel or bladder habits lately. Physical Exam Physical Exam: GENERAL: Alert and oriented x3. NAD, on CPAP. HEENT: No pallor, no icterus. Pupils equal, round and reactive to light. Oral mucosa moist. NECK: No JVD, no neck masses. HEART: S1 and S2 heard. Regular rate and rhythm. No murmur, no gallop. RESPIRATORY SYSTEM: Normal AP diameter. No accessory muscle use. No wheezing, + crackles. ABDOMEN: Soft, bowel sounds present, nontender, no distention. CENTRAL NERVOUS SYSTEM: No facial droop. Speech is clear. Obeys simple commands. Moves extremities. EXTREMITIES: No ble edema, no erythema seen. Results & Data Results & Data ([facility]) Vital Signs (Past 12 Hours) Vital Signs Temp Pulse Pulse Pulse Resp BP Pulse Ox 12/02/21 15:08 37.1 C 83 18 124/75 94 12/02/21 15:03 84 12/02/21 08:00 12/02/21 13:05 80 16 96 12/02/21 11:09 37.3 C 82 18 122/71 97 12/02/21 07:58 12/02/21 07:30 87 12/02/21 07:25 87 16 96 12/02/21 07:16 37.3 C 87 18 126/73 98 Pulse Ox O2 Del Method O2 Del Method O2 Flow Rate O2 Flow Rate 12/02/21 15:08 Nasal Cannula 2 12/02/21 15:03 12/02/21 08:00 94 Nasal Cannula 4 12/02/21 13:05 Nasal Cannula 2 12/02/21 11:09 Nasal Cannula 2 12/02/21 07:58 Nasal Cannula 4 12/02/21 07:30 12/02/21 07:25 Nasal Cannula 3 12/02/21 07:16 Nasal Cannula 3
[2021-12-02] MEDS: ASPIRIN 81 MG ECTAB PO SCH (20:48)
[2021-12-02] MEDS ORDERED: LEVALBUTEROL HCL 1.25 MG/3 ML NEB NEB PRN (21:02)
[2021-12-02] MEDS ORDERED: XOPENEX/ATROVENT 1.25mg/0.5MG NEB COMBO NEB PRN (21:23)
[2021-12-02] MEDS ORDERED: LEVALBUTEROL 1.25MG/0.5ML NEB INH PRN (21:30)
[2021-12-02] MEDS ORDERED: IPRATROPIUM BROMIDE NEB SOLN 0.02% 2.5 ML VIAL INH PRN (21:30)
[2021-12-03] MEDS: HEPARIN SOD 5,000 UNIT/0.5 ML VIAL SQ SCH ×3 (05:31→21:40)
[2021-12-03] MEDS: LEVOTHYROXINE SODIUM 50 MCG TABLET PO SCH (05:31)
[2021-12-03] MEDS: INSULIN ASPART PER UNIT SC SCH ×4 (05:34→20:52)
[2021-12-03] MEDS: [UNRECOGNIZED DRUG - REMARK] SCH ×2 (07:08→15:08)
[2021-12-03 07:23] LABS: Hematocrit (blood only) 31.8 % (34.1-44.9); Hemoglobin 9.8 g/dl (12.0-16.0); Mean Corpuscular Hemoglobin 30.3 pg (25.0-34.0); Mean Corpuscular Hgb Conc 30.8 g/dL (32.0-36.0); Mean Corpuscular Volume 98.5 fL (80.0-100.0); Mean Platelet Volume 9.6 fL (9.4-12.3); Platelet Count 184 K/uL (130-400); RDW Coefficient of Variation 14.9 % (11.5-14.5); RDW Standard Deviation 53.6 fL (36.4-46.3); Red Blood Count 3.23 M/uL (3.93-5.22); White Blood Count 9.76 K/ul (4.8-10.8)
[2021-12-03] MEDS: DOXYCYCLINE HYCLATE 100 MG CAP PO SCH ×2 (07:53→19:45)
[2021-12-03] MEDS: SEVELAMER HCL 800 MG TABLET PO SCH ×3 (07:54→16:47)
[2021-12-03] MEDS: ROSUVASTATIN CALCIUM 20 MG TAB PO SCH (07:54)
[2021-12-03 07:55] LABS: BUN Creatinine Ratio 12.7 (10-20); Creatinine Clr Calc Pharmacy 7.9 ml/min; Est GFR (African American) 5.8 ml/min; Magnesium 2.1 mg/dl (1.7-2.4); Potassium 4.7 mmol/L (3.5-5.1)
[2021-12-03] MEDS: METOPROLOL SUCC 50MG EXT REL TAB PO SCH (07:55)
[2021-12-03] MEDS: NEPHROCAPS PO SCH (07:55)
[2021-12-03] MEDS: PREGABALIN 75 MG CAP PO SCH (07:57)
[2021-12-03] MEDS: LANTUS PER UNIT CHARGE SQ SCH ×2 (08:30→21:37)
--- NOTE | 2021-12-03 10:29 | Cardiology Progress Note ---
Date of Service December 03, 2021 Assessment & Plan (1) Acute heart failure with preserved ejection fraction: (2) Mitral stenosis: (3) Non-ST elevation (NSTEMI) myocardial infarction: (4) Pneumonia: Plan 61-year-old female admitted with acute heart failure in the setting of dialysis noncompliance, known severe mitral stenosis, and dietary indiscretions. Elevated troponin suggesting type I versus type II NSTEMI. No ischemic ECG changes or regional wall motion abnormalities per echocardiogram. I long discussion with the patient regarding her acute heart failure. Echocardiogram results discussed. Her left ventricular function is preserved. Mitral stenosis appears severe, however, there is no evidence of pulmonary hypertension per noninvasive measurement. Continue Toprol-XL to 50 mg daily (titrated 12/02/2021). In light of her acute decompensated heart failure and known severe valvular heart disease, we discussed proceeding with diagnostic left and right cardiac catheterization. Risks, benefits, and alternatives discussed. Patient agreeable. Plan procedure in a.m. 12/04/2021. Coordinate with nephrology to perform hemodialysis post procedure. Admission and Anticipated Discharge Date Admission Date: December 01, 2021 Subjective Patient seen examined the bedside. Feeling well today. Denies chest pain or shortness of breath. Telemetry reveals sinus rhythm. No orthopnea, PND, or edema. Review of Systems Review of Systems: All systems reviewed & are unremarkable except as noted in Subjective Physical Exam Constitutional: + ill appearing and + obese Respiratory: no labored breathing and no retractions Auscultation: + diminished lung sounds (Bases bilateral); no crackles and no wheezes Cardiovascular: Rate/Rhythm: regular rate and regular rhythm Heart Sounds: normal S1, normal S2 and + murmur (1/6 systolic ejection murmur heard at the base) Vessels: radial pulses present; no JVD Extremities: no edema Gastrointestinal (Abdomen): Inspection/Auscultation: abdomen normal to inspection and normal bowel sounds; abdomen not distended Percussion/Palpation: abdomen soft; abdomen nontender, no guarding and abdomen not rigid Neurologic: CN's II-XI intact bilaterally and moves all extremities; no focal motor deficits Psychiatric: A+Ox3, euthymic affect Results & Data ([facility]) Vital Signs (Past 12 Hours) Vital Signs Temp Pulse Pulse Pulse Resp BP Pulse Ox 12/03/21 08:00 73 12/03/21 08:00 12/03/21 08:00 36.8 C 76 18 109/68 96 12/03/21 04:11 36.7 C 79 20 124/72 95 12/02/21 23:43 36.5 C 77 20 136/74 95 12/02/21 23:43 80 O2 Del Method O2 Flow Rate 12/03/21 08:00 12/03/21 08:00 Nasal Cannula, BiPAP 2 12/03/21 08:00 12/03/21 04:11 Nasal Cannula 2 12/02/21 23:43 Nasal Cannula 2.0 12/02/21 23:43
[2021-12-03] MEDS: cefTRIAXone SODIUM 2,000 MG in DEXTROSE 5% 50 ML IV SCH (16:47)
--- NOTE | 2021-12-03 18:41 | Hospitalist Progress Note ---
Date of Service December 03, 2021 Assessment & Plan (1) Pneumonia: Plan 61-year-old lady with PMH of HFpEF [2021 TTE with EF 55%], mitral stenosis, HTN, HLD, hypothyroidism, ESRD on HD, DM 2 insulin requiring, subdural hematoma, chronic cholecystitis/choledocholithiasis status post axios stent placement, charcoaled Page tooth disease presented to our ED 12/01 with complaint of shortness of breath after 11/30 dinnertime. Reported dry cough, reported nonradiating chest tightness, had missed dialysis 2 days ago [HD on ]. She is being managed for the following: Acute respiratory failure with hypoxia/pulmonary congestion secondary to missed dialysis/acute on chronic heart failure with preserved ejection fraction Likely pneumonia Sepsis POA ESRD on hemodialysis Patient presenting with shortness of breath [see above], likely secondary to pul congestion 2/2 missed dialysis on Friday [HD on ] versus likely pneumonia. At admission: WBC 17.5 6K, temperature 35.7C, Pro-Ziggy elevated, admitting CXR concerning for atelectasis versus pneumonia. Follow-up admitting blood culture --> negative so far. Continue with doxycycline 12/01 and nebulization. c/w rocephin 12/01. Follow labs and clinically. Hemodialysis 12/01---4.5L Out, Wean down O2 as tolerated. Likely will need 2 step test prior to discharge. Patient does make urine. Pt denies O2 use at home. Elevated troponin: At presentation with nonradiating chest tightness, troponin up trended, admitting ECG without acute ST or T changes, patient with no chest pain at bedside exam in the morning. Troponin elevated likely in the setting of acute on chronic HFpEF in the setting of missed dialysis and hypoxia vs NSTEMI Cardiology evaluated, appreciate recommendation. 12/02 ECHO: EF 60-65% w/ mild concentric LVH and severe MS. Likely heart cath caitie, NPO midnight, Toprol uptitrated to 50 mg daily. Other chronic medical conditions: MS, HTN, HLD, hypothyroidism, DM2 insulin requiring, subdural hematoma, chronic cholecystitis/choledocholithiasis status post Axios Stent placement/Mtukvsq-Tarnp-Gkwzu disease--->> continue with/resume home meds as and when appropriate. DVT prophylaxis: Heparin subcu Full code Patient's : Mr. Demetris Barajas [[phone]] Admission and Anticipated Discharge Date Admission Date: December 01, 2021 Subjective Patient seen and examined at bedside as a follow-up of acute respiratory failure with hypoxia secondary to pulmonary congestion secondary to missed dialysis, bronchitis/possible atypical pneumonia and elevated troponin. Patient was lying in bed, on 2L NC O2, reports feeling better, denies chest pain, denies subjective shortness of breath, denies sore throat or headache or acute changes in bowel or bladder habits lately or other ROS.. Physical Exam Physical Exam: GENERAL: Alert and oriented x3. NAD, on CPAP. HEENT: No pallor, no icterus. Pupils equal, round and reactive to light. Oral mucosa moist. NECK: No JVD, no neck masses. HEART: S1 and S2 heard. Regular rate and rhythm. No murmur, no gallop. RESPIRATORY SYSTEM: Normal AP diameter. No accessory muscle use. No wheezing, no crackles. ABDOMEN: Soft, bowel sounds present, nontender, no distention. CENTRAL NERVOUS SYSTEM: No facial droop. Speech is clear. Obeys simple commands. Moves extremities. EXTREMITIES: No ble edema, no erythema seen. Results & Data Results & Data ([facility]) Vital Signs (Past 12 Hours) Vital Signs Temp Pulse Pulse Resp BP Pulse Ox Pulse Ox 12/03/21 16:00 70 12/03/21 16:00 93 12/03/21 14:55 36.4 C L 71 18 146/76 H 95 12/03/21 12:56 70 12/03/21 08:00 73 12/03/21 08:00 12/03/21 08:00 36.8 C 76 18 109/68 96 O2 Del Method O2 Del Method O2 Flow Rate O2 Flow Rate 12/03/21 16:00 12/03/21 16:00 Nasal Cannula 2 12/03/21 14:55 Nasal Cannula 2 12/03/21 12:56 12/03/21 08:00 12/03/21 08:00 Nasal Cannula, BiPAP 2 12/03/21 08:00
[2021-12-03] MEDS: PREGABALIN 25 MG CAP PO PRN (19:43)
[2021-12-03] MEDS: ASPIRIN 81 MG ECTAB PO SCH (21:35)
[2021-12-04] MEDS: [UNRECOGNIZED DRUG - REMARK] SCH ×3 (00:38→21:59)
[2021-12-04] MEDS ORDERED: amLODIPine BESYLATE 5 MG TAB PO ONE (01:55)
--- NOTE | 2021-12-04 02:51 | Communication Note ---
Date of Service: December 04, 2021 Made aware by RN of uncontrolled blood pressure. SBP 140-160s since yesterday afternoon. CR 60-70s Patient asymptomatic as per RN. AP Uncontrolled HTN Add amlodipine to beta-liliana Rx Will relay to AM provider.
[2021-12-04] MEDS: LEVOTHYROXINE SODIUM 50 MCG TABLET PO SCH (07:13)
[2021-12-04] MEDS: HEPARIN SOD 5,000 UNIT/0.5 ML VIAL SQ SCH ×3 (07:13→22:24)
[2021-12-04] MEDS ORDERED: SODIUM CHLORIDE 0.9% 1000ML 1,000 ML IV PRN (07:34)
[2021-12-04] MEDS: INSULIN ASPART PER UNIT SC SCH ×4 (07:36→21:57)
[2021-12-04] MEDS ORDERED: HEPARIN (PORCINE) 1000 UNIT/ML 10 ML (CATH LAB USE ONLY) ONE (08:18)
[2021-12-04] MEDS ORDERED: niCARdipine HCL INJ 2.5 MG/ML 10 ML AMP ONE (08:18)
[2021-12-04] MEDS ORDERED: MIDAZOLAM HCL 1 MG/ML 2ML VIAL ONE (08:18)
[2021-12-04] MEDS ORDERED: fentaNYL citrate 100 MCG/2 ML VIAL ONE ×2 (08:19→11:23)
[2021-12-04] MEDS ORDERED: NITROGLYCERIN/D5W 100MCG/ML 20ML SYR ONE (08:19)
--- NOTE | 2021-12-04 08:36 | Cardiology Progress Note ---
Date of Service December 04, 2021 Assessment & Plan (1) Acute heart failure with preserved ejection fraction: (2) Mitral stenosis: (3) Non-ST elevation (NSTEMI) myocardial infarction: (4) Pneumonia: Plan 61-year-old female admitted with acute heart failure in the setting of dialysis noncompliance, known severe mitral stenosis, and dietary indiscretions. Elevated troponin suggesting type I versus type II NSTEMI. No ischemic ECG changes or regional wall motion abnormalities per echocardiogram. I long discussion with the patient regarding her acute heart failure. Echocardiogram results discussed. Her left ventricular function is preserved. Mitral stenosis appears severe, however, there is no evidence of pulmonary hypertension per noninvasive measurement. Continue Toprol-XL to 50 mg daily (titrated 12/02/2021). Risks, benefits, and alternatives cardiac catheterization (right and left) discussed. Patient agreeable. Plan hemodialysis post procedure. Admission and Anticipated Discharge Date Admission Date: December 01, 2021 Subjective Patient seen and examined the bedside. Feeling somewhat anxious this morning. No chest pain or shortness of breath. Oxygen saturation 95% on room air. Denies orthopnea or PND. Review of Systems Review of Systems: All systems reviewed & are unremarkable except as noted in Subjective Physical Exam Constitutional: + ill appearing and + obese Respiratory: no labored breathing and no retractions Auscultation: + diminished lung sounds (Bases bilateral); no crackles and no wheezes Cardiovascular: Rate/Rhythm: regular rate and regular rhythm Heart Sounds: normal S1, normal S2 and + murmur (1/6 systolic ejection murmur heard at the base) Vessels: radial pulses present; no JVD Extremities: no edema Gastrointestinal (Abdomen): Inspection/Auscultation: abdomen normal to inspection and normal bowel sounds; abdomen not distended Percussion/Palpation: abdomen soft; abdomen nontender, no guarding and abdomen not rigid Neurologic: CN's II-XI intact bilaterally and moves all extremities; no focal motor deficits Psychiatric: A+Ox3, euthymic affect Results & Data ([facility]) Vital Signs (Past 12 Hours) Vital Signs Temp Pulse Resp BP Pulse Ox O2 Del Method O2 Flow Rate 12/04/21 07:29 36.4 C L 73 17 153/83 H 94 Nasal Cannula 2 12/04/21 05:22 36.3 C L 73 160/79 H 95 Nasal Cannula 2.0 12/04/21 01:32 Nasal Cannula 2 12/03/21 22:56 36.4 C L 69 18 166/89 H 94 Nasal Cannula 2.0
--- NOTE | 2021-12-04 08:40 | Pre Anesthesia Assessment ---
Date of Service December 04, 2021 Pre Sedation Assessment Vital Signs Temp Pulse Pulse Pulse Resp BP BP 12/04/21 13:41 70 18 125/64 12/04/21 12:13 74 18 128/71 12/04/21 11:46 74 18 197/81 H 12/04/21 11:30 74 18 210/73 H 12/04/21 11:15 74 18 190/84 H 12/04/21 11:00 74 18 197/76 H 12/04/21 10:45 73 18 245/79 H 12/04/21 10:30 75 18 180/89 H 12/04/21 07:29 36.4 C L 73 17 153/83 H 12/04/21 05:22 36.3 C L 73 160/79 H 12/04/21 01:32 12/03/21 22:56 36.4 C L 69 18 166/89 H 12/03/21 20:09 36.5 C 74 18 165/78 H 12/03/21 16:00 70 12/03/21 16:00 12/03/21 14:55 36.4 C L 71 18 146/76 H Pulse Ox Pulse Ox O2 Del Method O2 Del Method O2 Flow Rate O2 Flow Rate 12/04/21 13:41 97 Nasal Cannula 2 12/04/21 12:13 94 Nasal Cannula 2 12/04/21 11:46 99 Room Air 2 12/04/21 11:30 93 Room Air 12/04/21 11:15 93 Room Air 12/04/21 11:00 93 Room Air 12/04/21 10:45 93 Room Air 12/04/21 10:30 93 Room Air 12/04/21 07:29 94 Nasal Cannula 2 12/04/21 05:22 95 Nasal Cannula 2.0 12/04/21 01:32 Nasal Cannula 2 12/03/21 22:56 94 Nasal Cannula 2.0 12/03/21 20:09 95 Nasal Cannula 2.0 12/03/21 16:00 12/03/21 16:00 93 Nasal Cannula 2 12/03/21 14:55 95 Nasal Cannula 2 Cardiovascular + regular rate and + regular rhythm + S1 normal, + S2 normal and + murmur + femoral pulses present and + radial pulses present; no JVD no edema Respiratory + respiratory effort normal + clear to auscultation bilaterally; no crackles, no rales, no rhonchi and no wheezes Pre-Sedation Airway Assessment Smoking Status: Never smoker Hx Sleep Apnea: No Short, Thick Neck: No Thyromental Distance: > or= 3.5 Finger Breadths Oral Cavity: + WNL Mallampati Class: III ASA: ASA3 NPO Status Date of Last Intake of Fluids: 12/03/21 Date of Last Intake of Solid Food: 12/03/21 Procedure Planning Contraindications for Sedation: none Current Medications Reviewed: Yes Notes The planned sedation has been discussed with the patient. Informed Consent was obtained. I have identified the patient, determined the appropriateness of sedation and have assessed the patient immediately prior to the procedure. All medicine(s) and interventions are by my order.
--- NOTE | 2021-12-04 10:05 | Post Anesthesia Assessment ---
Date of Service December 04, 2021 Post Sedation Assessment Vital Signs Temp Pulse Pulse Pulse Resp BP BP 12/04/21 13:41 70 18 125/64 12/04/21 12:13 74 18 128/71 12/04/21 11:46 74 18 197/81 H 12/04/21 11:30 74 18 210/73 H 12/04/21 11:15 74 18 190/84 H 12/04/21 11:00 74 18 197/76 H 12/04/21 10:45 73 18 245/79 H 12/04/21 10:30 75 18 180/89 H 12/04/21 07:29 36.4 C L 73 17 153/83 H 12/04/21 05:22 36.3 C L 73 160/79 H 12/04/21 01:32 12/03/21 22:56 36.4 C L 69 18 166/89 H 12/03/21 20:09 36.5 C 74 18 165/78 H 12/03/21 16:00 70 12/03/21 16:00 12/03/21 14:55 36.4 C L 71 18 146/76 H Pulse Ox Pulse Ox O2 Del Method O2 Del Method O2 Flow Rate O2 Flow Rate 12/04/21 13:41 97 Nasal Cannula 2 12/04/21 12:13 94 Nasal Cannula 2 12/04/21 11:46 99 Room Air 2 12/04/21 11:30 93 Room Air 12/04/21 11:15 93 Room Air 12/04/21 11:00 93 Room Air 12/04/21 10:45 93 Room Air 12/04/21 10:30 93 Room Air 12/04/21 07:29 94 Nasal Cannula 2 12/04/21 05:22 95 Nasal Cannula 2.0 12/04/21 01:32 Nasal Cannula 2 12/03/21 22:56 94 Nasal Cannula 2.0 12/03/21 20:09 95 Nasal Cannula 2.0 12/03/21 16:00 12/03/21 16:00 93 Nasal Cannula 2 12/03/21 14:55 95 Nasal Cannula 2 Recovery Score Respiration: Deep Breath/Cough Circulation: +/-20% PreAnes Value Consciousness: Fully Awake Oxygen Saturation: O2 needed for >90% Discharge Sedation Level of Care: Phase I Post Sedation Plan On clinical assessment, the patient appears to have tolerated the sedation without complications. Patient is recovering as anticipated. Patient will continue to be monitored by nursing and may be discharged when sedation discharge criteria are met per below protocol. Upon Completions of procedure up to 15 minutes continue every 5 minute vital signs and the P.A.R. score; then discharge to a Phase I or Fast Track to Phase II per the following guidelines: * Discharge Patient to appropriate Phase II area if PAR is 8 or greater or return to pre- procedure baseline. The post - procedure orders will be as directed. * If PAR score is less than 8 or not return to pre-procedure baseline then patient will follow Phase I monitoring till PAR is reached for Phase II. The Phase I may be done in procedure room or may call to secure a Phase I area. * If naloxone or flumazenil are used for reversal, hold in Phase I for continued monitoring from when last reversal dose was given for a minimum of 60 minutes or longer pending the nurse and/or physician discretion of patient condition before discharge to Phase II. Please call the Sedation Physician to re-evaluate and complete post-note for discharge to Phase II area. Do NOT discharge from procedure sedation or Phase 1 until post- sedation evaluation note is complete by procedure /sedation MD Sedation Discharge Instructions to be given to the patient at discharge to home.
--- NOTE | 2021-12-04 10:10 | Cardiac Catheterization ---
Cardiac Cath Procedure Full Procedure Date December 04, 2021 Pre-Procedure Diagnosis Pre-Procedure Diagnosis: Non STEMI and Valvular Disease (severe mitral stenosis) AUC Score AUC Score: 8 Post-Procedure Diagnosis Post-Procedure Diagnosis: Mild CAD and Elevated Intracardiac Pressures Procedure(s) Performed Procedure(s) Performed: Coronary Angiography, Left Heart Cath and Right Heart Cath Technology Project Manager Joselo Thao DO Materials Handling Coordinator(s) [employer] SYSTEMS PROTECTION TECHNICIAN Estimated Blood Loss Estimated Blood Loss: 10cc Medication(s) Medication(s): Fentanyl, Lidocaine 1%, Nicardipine, Nitroglycerin and Versed Summary of Findings 40% mid LAD Otherwise mild nonobstructive CAD. Severe mitral valve stenosis with a mean gradient of 16.14 mmHg Severe pulmonary hypertension. Hemodynamics Rest Ao:: 181/79/105 Final Ao: 173/68/110 LV: 164/11/19 RA: 19mmHg RV: 69/11/23 PA: 66/25/47 PW: 42 Recommendations Recommendations: Valve Replacement Specimens Specimens: None Radiation Exposure (mGy) 1087 Contrast (mls) 35 Fluids (cc crystalloids) Fluids (cc crystalloids): 60 Nss Drains Drains: N/A Anesthesia Moderate sedation. Start 0856. End 1018. Sedation Monitor: Junaid MCCLENDON Procedural Complication(s) None I attest to the content of the Intraoperative Record and any orders documented therein. Any exceptions are noted below. ACC Data: Technical Instructor Course Developer Cardiac Status Clinical evaluation leading to the procedure 61-year-old female with echocardiographic evidence of severe mitral stenosis presents to the hospital with flash pulmonary edema, acute decompensated heart failure and elevated troponin. CAD Presenation: Non STEMI Heart Failure: NYHA Class: CCS IV Cardiogenic Shock within 24 Hours: No Cardiac Arrest within 24 Hours: No STEMI OR Non-STEMI Symptom Onset Date: 12/01/21 Thrombolytics: No Coronary Anatomy Dominant: Co-Dominant Left Main (% Stenosis): Normal LAD (% Stenosis): Mid (40%) D1 (% Stenosis): Ostial (50%, small vessel) Circumflex (% Stenosis): Mid (Luminal irregularities, 10%) OM1 (% Stenosis): Normal OM2 (% Stenosis): Normal L PL1 (% Stenosis): Normal L PDA (% Stenosis): Normal (small vessel) RCA (% Stenosis): Proximal (Luminal irregularities, 10%) R PDA (% Stenosis): Distal (Luminal irregularities, 10%) AM (% Stenosis): Normal Diagnostic Physicians Name: Joselo Thao DO Closure Device Percutaneous Entry Location: Femoral Closure Device: None-Manual Hold Recommendations: Valve Replacement Intraprocedure Events Significant Disection: No Perforation: No
[2021-12-04] MEDS ORDERED: NITROGLYCERIN 2% OINTMENT 30GM TUBE ONE (10:50)
[2021-12-04] MEDS ORDERED: LABETALOL HCL IV 5 MG/ML 20ML (CATH LAB USE ONLY) ONE (10:50)
--- NOTE | 2021-12-04 12:38 | Nephrology Progress Note ---
Date of Service December 04, 2021 Assessment & Plan (1) Chronic kidney disease on chronic dialysis: Plan: A 61-year-old female with end-stage renal disease, on hemodialysis Friday, , Friday, admitted November 29 with acute heart failure , known sever mitral stenosis and troponin suggesting NSTEMI . Cardiac Cath 12/04 without significant CAD. Dialysis today post cath will try for 4.5 L given her HTN. Next Dialysis tentatively 12/06 as needs dictate inpatient or outpatient. Care coordinate with Primary care and cardiac services (2) Mitral stenosis: Plan: Per Cardiology Severe MS confirmed on Cath Admission and Anticipated Discharge Date Admission Date: December 01, 2021 Subjective Cardiac cath post surgical event- reports feeling frustrated and tired- no complications no significant CAD confirmed mitral stenosis. ANTON reported. Review of Systems Review of Systems: All systems reviewed & are unremarkable except as noted in Subjective Physical Exam Constitutional: well developed, well nourished and comfortable Eyes: EOM intact bilaterally ENMT: Ears: no external ear abnormality Nose: no external nose abnormality Mouth: + dry oral mucous membranes Neck: no nuchal rigidity Respiratory: normal respiratory effort Auscultation: + diminished lung sounds Cardiovascular: Rate/Rhythm: regular rate and regular rhythm Heart Sounds: + murmur Extremities: + AV fistula (+t/b); no edema Gastrointestinal (Abdomen): Inspection/Auscultation: normal bowel sounds Percussion/Palpation: abdomen soft; abdomen nontender Musculoskeletal: Extremities: strength 5/5 throughout Skin: no rashes, warm and dry Neurologic: reyes, fluent speech, no tremor Results & Data ([facility]) Vital Signs (Past 12 Hours) Vital Signs Temp Pulse Pulse Resp BP BP Pulse Ox 12/04/21 12:13 74 18 128/71 94 12/04/21 11:46 74 18 197/81 H 99 12/04/21 11:30 74 18 210/73 H 93 12/04/21 11:15 74 18 190/84 H 93 12/04/21 11:00 74 18 197/76 H 93 12/04/21 10:45 73 18 245/79 H 93 12/04/21 10:30 75 18 180/89 H 93 12/04/21 07:29 36.4 C L 73 17 153/83 H 94 12/04/21 05:22 36.3 C L 73 160/79 H 95 12/04/21 01:32 O2 Del Method O2 Flow Rate 12/04/21 12:13 Nasal Cannula 2 12/04/21 11:46 Room Air 2 12/04/21 11:30 Room Air 12/04/21 11:15 Room Air 12/04/21 11:00 Room Air 12/04/21 10:45 Room Air 12/04/21 10:30 Room Air 12/04/21 07:29 Nasal Cannula 2 12/04/21 05:22 Nasal Cannula 2.0 12/04/21 01:32 Nasal Cannula 2 Laboratory Results 12/03/21 07:05 12/03/21 07:05
[2021-12-04] MEDS: ACETAMINOPHEN 325 MG TAB PO PRN (13:20)
[2021-12-04] MEDS: LANTUS PER UNIT CHARGE SQ SCH ×2 (13:23→21:57)
[2021-12-04] MEDS: SEVELAMER HCL 800 MG TABLET PO SCH ×3 (14:46→18:27)
[2021-12-04] MEDS: DOXYCYCLINE HYCLATE 100 MG CAP PO SCH ×2 (14:47→21:59)
--- NOTE | 2021-12-04 14:53 | Electrocardiogram Report ---
Test Reason : Blood Pressure : / mmHG Vent. Rate : 069 BPM Atrial Rate : 069 BPM P-R Int : 180 ms QRS Dur : 088 ms QT Int : 422 ms P-R-T Axes : 061 -03 008 degrees QTc Int : 452 ms Normal sinus rhythm Left atrial enlargement Borderline ECG When compared with ECG of 02-DEC-2021 05:04, No significant change was found Confirmed by Russell Fernandez ([id number]) on 12/04/2021 2:52:56 PM Referred By: REFERRED SELF Confirmed By:Russell Fernandez
--- NOTE | 2021-12-04 16:28 | Hospitalist Progress Note ---
Date of Service December 04, 2021 Assessment & Plan (1) Pneumonia: Plan 61-year-old lady with PMH of HFpEF [2021 TTE with EF 55%], mitral stenosis, HTN, HLD, hypothyroidism, ESRD on HD, DM 2 insulin requiring, subdural hematoma, chronic cholecystitis/choledocholithiasis status post axios stent placement, charcoaled Page tooth disease presented to our ED 12/01 with complaint of shortness of breath after 11/30 dinnertime. Reported dry cough, reported nonradiating chest tightness, had missed dialysis 2 days ago [HD on ]. She is being managed for the following: Acute respiratory failure with hypoxia/pulmonary congestion secondary to missed dialysis/acute on chronic heart failure with preserved ejection fraction Likely pneumonia Sepsis POA ESRD on hemodialysis Patient presenting with shortness of breath [see above], likely secondary to pul congestion 2/2 missed dialysis on Friday [employer] [HD on ] versus likely pneumonia. At admission: WBC 17.5 6K, temperature 35.7C, Pro-Ziggy elevated, admitting CXR concerning for atelectasis versus pneumonia. Follow-upadmitting blood culture --> negative so far. Continue with doxycycline 12/01 and nebulization. c/w rocephin 12/01. Follow labs and clinically. Hemodialysis 12/01---4.5L Out, Undergoing HD today. Wean down O2 as tolerated. Likely will need 2 step test prior to discharge. Patient does make urine. Pt denies O2 use at home. Elevated troponin: At presentation with nonradiating chest tightness, troponin up trended, admitting ECG without acute ST or T changes Troponin elevated likely in the setting of acute on chronic HFpEF in the setting of missed dialysis and hypoxia vs NSTEMI Cardiology evaluated, appreciate recommendation. 12/02 ECHO: EF 60-65% w/ mild concentric LVH and severe MS. 12/04 Heart Cath: mild CAD and severe mitral valve stenosis w/ a mean gradient of 16.14 mmHg, severe pul HTN. D/w cardio. Will need OP cardiac f/u. Other chronic medical conditions:MS, HTN, HLD, hypothyroidism, DM2 insulin requiring, subdural hematoma, chronic cholecystitis/choledocholithiasis status post Axios Stent placement/Hnwqrkd-Hfgof-Jwqka disease--->> continue with/resume home meds as and when appropriate. DVT prophylaxis:Heparin subcu Full code Patient's : Mr. Demetris Barajas [[phone]], updated at bedside. Dispo: likely caitie, 2 step test, pcp and cardio f/u. Admission and Anticipated Discharge Date Admission Date: December 01, 2021 Subjective Patient seen and examined at bedside as a follow-up of acute respiratory failure with hypoxia secondary to pulmonary congestion secondary to missed dialysis, bronchitis/possible atypical pneumonia and elevated troponin. Patient was lying in bed undergoing hemodialysis, on 2L NC O2, reports feeling tired, denies chest pain, denies subjective shortness of breath, denies sore throat or headache or acute changes in bowel or bladder habits lately or other ROS. Had heart cath today and was having very high blood pressure earlier today after cath, seems to have better controlled later in the day. Physical Exam Physical Exam: GENERAL: Alert and oriented x3. NAD, on 2L NC O2. HEENT: No pallor, no icterus. Pupils equal, round and reactive to light. Oral mucosa moist. NECK: No JVD, no neck masses. HEART: S1 and S2 heard. Regular rate and rhythm. No murmur, no gallop. RESPIRATORY SYSTEM: Normal AP diameter. No accessory muscle use. No wheezing, no crackles. ABDOMEN: Soft, bowel sounds present, nontender, no distention. CENTRAL NERVOUS SYSTEM: No facial droop. Speech is clear. Obeys simple commands. Moves extremities. EXTREMITIES: No ble edema, no erythema seen. Rt groin w/ clean dressing w/o soakage at port of entry for heart cath. Results & Data Results & Data ([facility]) Vital Signs (Past 12 Hours) Vital Signs Temp Pulse Pulse Pulse Resp BP BP 12/04/21 14:30 64 91/46 L 12/04/21 14:00 67 121/60 12/04/21 13:50 36.5 C 73 12/04/21 13:41 70 18 12/04/21 12:13 74 18 128/71 12/04/21 11:46 74 18 197/81 H 12/04/21 11:30 74 18 210/73 H 12/04/21 11:15 74 18 190/84 H 12/04/21 11:00 74 18 197/76 H 12/04/21 10:45 73 18 245/79 H 12/04/21 10:30 75 18 12/04/21 07:29 36.4 C L 73 17 12/04/21 05:22 36.3 C L 73 BP Pulse Ox O2 Del Method O2 Flow Rate 12/04/21 14:30 12/04/21 14:00 12/04/21 13:50 12/04/21 13:41 125/64 97 Nasal Cannula 2 12/04/21 12:13 94 Nasal Cannula 2 12/04/21 11:46 99 Room Air 2 12/04/21 11:30 93 Room Air 12/04/21 11:15 93 Room Air 12/04/21 11:00 93 Room Air 12/04/21 10:45 93 Room Air 12/04/21 10:30 180/89 H 93 Room Air 12/04/21 07:29 153/83 H 94 Nasal Cannula 2 12/04/21 05:22 160/79 H 95 Nasal Cannula 2.0
[2021-12-04] MEDS: METOPROLOL SUCC 50MG EXT REL TAB PO SCH (17:44)
[2021-12-04] MEDS: NEPHROCAPS PO SCH (17:44)
[2021-12-04] MEDS: PREGABALIN 75 MG CAP PO SCH (17:45)
[2021-12-04] MEDS: ROSUVASTATIN CALCIUM 20 MG TAB PO SCH (17:45)
[2021-12-04] MEDS: CETIRIZINE HCL 10 MG TABLET PO SCH (18:27)
[2021-12-04] MEDS: cefTRIAXone SODIUM 2,000 MG in DEXTROSE 5% 50 ML IV SCH (18:27)
[2021-12-04] MEDS: PREGABALIN 25 MG CAP PO PRN (18:30)
[2021-12-04] MEDS: ASPIRIN 81 MG ECTAB PO SCH (21:59)
[2021-12-05] MEDS: [UNRECOGNIZED DRUG - REMARK] SCH ×2 (00:33→07:27)
[2021-12-05] MEDS: LEVOTHYROXINE SODIUM 50 MCG TABLET PO SCH (06:18)
[2021-12-05 06:34] LABS: iSTAT Arterial Blood Gas HCO3 22 meg/L (19-24); iSTAT Arterial Blood Gas pCO2 47 mmHg (35-46); iSTAT Arterial Blood Gas pH 7.28 (7.35-7.45); iSTAT Arterial Blood Gas pO2 72 mmHg (80-95); iSTAT Carbon Dioxide 24 mmol/L (24-31)
[2021-12-05 06:41] LABS: Hematocrit (blood only) 31.4 % (34.1-44.9); Hemoglobin 10.2 g/dl (12.0-16.0); Mean Corpuscular Hgb Conc 32.5 g/dL (32.0-36.0); Mean Corpuscular Volume 95.4 fL (80.0-100.0); Mean Platelet Volume 9.9 fL (9.4-12.3); Platelet Count 192 K/uL (130-400); RDW Coefficient of Variation 14.9 % (11.5-14.5); RDW Standard Deviation 51.3 fL (36.4-46.3); Red Blood Count 3.29 M/uL (3.93-5.22); White Blood Count 7.86 K/ul (4.8-10.8)
[2021-12-05] MEDS: HEPARIN SOD 5,000 UNIT/0.5 ML VIAL SQ SCH ×2 (07:33→14:02)
[2021-12-05] MEDS: DOXYCYCLINE HYCLATE 100 MG CAP PO SCH (07:34)
[2021-12-05] MEDS: SEVELAMER HCL 800 MG TABLET PO SCH ×2 (07:34→12:26)
[2021-12-05 07:41] LABS: BUN Creatinine Ratio 10.2 (10-20); Calcium 9.5 mg/dl (8.5-10.1); Creatinine Clr Calc Pharmacy 11.2 ml/min; Est GFR (Non-African American) 7.7 ml/min; Magnesium 1.9 mg/dl (1.7-2.4); Phosphorus 7.2 mg/dl (2.5-4.9); Potassium 4.1 mmol/L (3.5-5.1)
[2021-12-05] MEDS: PREGABALIN 75 MG CAP PO SCH (08:02)
[2021-12-05] MEDS: INSULIN ASPART PER UNIT SC SCH ×2 (08:20→11:57)
[2021-12-05] MEDS: LANTUS PER UNIT CHARGE SQ SCH (08:32)
[2021-12-05] MEDS: NEPHROCAPS PO SCH (08:45)
[2021-12-05] MEDS: METOPROLOL SUCC 50MG EXT REL TAB PO SCH (08:45)
[2021-12-05] MEDS: ROSUVASTATIN CALCIUM 20 MG TAB PO SCH (08:46)
[2021-12-05] MEDS ORDERED: amLODIPine BESYLATE 5 MG TAB PO SCH (09:00)
--- NOTE | 2021-12-05 10:18 | Cardiology Progress Note ---
Date of Service December 05, 2021 Assessment & Plan (1) Acute heart failure with preserved ejection fraction: (2) Mitral stenosis: (3) Non-ST elevation (NSTEMI) myocardial infarction: (4) Pneumonia: (5) CAD in [place] artery: Plan 61-year-old female admitted with acute heart failure in the setting of dialysis noncompliance, known severe mitral stenosis, and dietary indiscretions. Elevated troponin suggesting type II NSTEMI. Cardiac catheterization revealing nonobstructive coronary disease and confirming severe mitral valve stenosis with severe pulm hypertension. Patient scheduled for cardiology follow-up 12/12/2021 to discuss severe stenosis with the [facility] valve clinic. Toprol-XL titrated to 50 mg daily during hospitalization. Continue aspirin, statin, and amlodipine as previously ordered. Antibiotics per internal medicine. No further inpatient cardiac testing or intervention at this time. Admission and Anticipated Discharge Date Admission Date: December 01, 2021 Subjective Patient seen and examined at the bedside. Oxygen saturation 93% on room air. Denies chest pain or shortness of breath. No groin discomfort. Requesting disc harge if possible. Tolerating current medications. Review of Systems Review of Systems: All systems reviewed & are unremarkable except as noted in Subjective Physical Exam Constitutional: + ill appearing and + obese ENMT: Mallampati Class: III Respiratory: normal respiratory effort; no labored breathing and no retractions Auscultation: lungs clear to auscultation bilaterally and + diminished lung sounds (Bases bilateral); no crackles, no rales, no rhonchi and no wheezes Cardiovascular: Rate/Rhythm: regular rate and regular rhythm Heart Sounds: normal S1, normal S2 and + murmur Vessels: femoral pulses present and radial pulses present; no JVD Extremities: no edema Gastrointestinal (Abdomen): Inspection/Auscultation: abdomen normal to insp ection and normal bowel sounds; abdomen not distended Percussion/Palpation: abdomen soft; abdomen nontender, no guarding and abdomen not rigid Neurologic: CN's II-XI intact bilaterally and moves all extremities; no focal motor deficits Psychiatric: A+Ox3, euthymic affect Results & Data ([facility]) Vital Signs (Past 12 Hours) Vital Signs Temp Pulse Pulse Pulse Pulse Pulse Pulse 12/05/21 08:00 87 12/05/21 08:00 12/05/21 07:48 36.6 C 83 12/05/21 07:48 88 91 H 83 86 12/05/21 05:01 36.8 C 86 Resp Resp Resp Resp Resp BP Pulse Ox 12/05/21 08:00 12/05/21 08:00 12/05/21 07:48 18 126/78 93 12/05/21 07:48 20 20 16 16 12/05/21 05:01 18 111/55 L 94 Pulse Ox Pulse Ox Pulse Ox Pulse Ox O2 Del Method O2 Flow Rate O2 Flow Rate 12/05/21 08:00 12/05/21 08:00 Room Air, Nasal Cannula 12/05/21 07:48 Room Air 12/05/21 07:48 93 88 L 93 92 1.5 12/05/21 05:01 Nasal Cannula 2.0
--- NOTE | 2021-12-05 12:57 | Hospitalist Progress Note ---
Date of Service December 05, 2021 Assessment & Plan (1) Pneumonia: Plan 61-year-old F with hx of HFpEF [2021 TTE with EF 55%], mitral stenosis, HTN, HLD, hypothyroidism, ESRD on HD, DM 2 insulin requiring, subdural hematoma, chronic cholecystitis/choledocholithiasis status post axios stent placement, charcoaled Page tooth disease presented to our ED 12/01 with complaint of shortness of breath after 11/30 dinnertime. Reported dry cough, reported nonradiating chest tightness, had missed dialysis 2 days ago [HD on ]. She is being managed for the following: Acute respiratory failure with hypoxia/pulmonary congestion secondary to missed dialysis/acute on chronic heart failure with preserved ejection fraction Likely pneumonia Sepsis POA ESRD on hemodialysis Patient presenting with shortness of breath [see above], likely secondary to pul congestion 2/2 missed dialysis on Friday [employer] [HD on ] versus likely pneumonia. At admission: WBC 17.5 6K, temperature 35.7C, Pro-Ziggy elevated, admitting CXR concerning for atelectasis versus pneumonia. Follow-upadmitting blood culture --> negative so far. Continue with doxycycline 12/01 and nebulization. c/w rocephin 12/01. Finished Abx course today (12/05) Hemodialysis 12/01---4.5L Out, next HD treatment tmrw as outpt. Currently on RA saturating 93%.2 step test done today -needs 2 L with ambulation Patient does make urine. Pt denies O2 use at home. Elevated troponin: At presentation with nonradiating chest tightness, troponin up trended, admitting ECG without acute ST or T changes Troponin elevated likely in the setting of acute on chronic HFpEF in the setting of missed dialysis and hypoxia vs NSTEMI Cardiology evaluated, appreciate recommendation. 12/02 ECHO: EF 60-65% w/ mild concentric LVH and severe MS. 12/04 Heart Cath: mild CAD and severe mitral valve stenosis w/ a mean gradient of 16.14 mmHg, severe pulm HTN. D/w cardio. Will need OP cardiac f/u. Toprol increased to 50 mg daily, patient to continue with aspirin, Crestor, amlodipine. Other chronic medical conditions:MS, HTN, HLD, hypothyroidism, DM2 insulin requiring, subdural hematoma, chronic cholecystitis/choledocholithiasis status post Axios Stent placement/Ozmuruz-Zznfh-Tcgus disease--->> continue with/resume home meds as and when appropriate. DVT prophylaxis:Heparin subcu Full code Patient's : Mr. Demetris Barajas [[phone]], updated at bedside. Dispo: Plan to Dc home, pcp and cardio f/u. Admission and Anticipated Discharge Date Admission Date: December 01, 2021 Subjective Patient seen in follow-up of acute respiratory failure with hypoxia secondary to pulmonary congestion secondary to missed dialysis, bronchitis/possible atypical pneumonia and elevated troponin. Patient is currently sitting up in bed, in no acute distress. She is currently breathing comfortably on room air, saturating 93%. Denies any fevers, chills, chest pain, shortness of breath. She is eager for discharge. 2 step test done, patient will need 2 L with ambulation. Rx provided. Review of Systems Review of Systems: All systems reviewed & are unremarkable except as noted in Subjective Physical Exam Physical Exam: GENERAL: Alert and oriented x3. NAD, on RA HEENT: NC/ AT. EOMI. No pallo r, no icterus. Pu pils equal, round and reactive to li ght. Oral mucosa moist. NECK: No J VD, no neck masses . HEART: S1 and S 2 heard. Regular rate and rhythm. No murmur, no gall op. RESPIRATORY SY STEM: Normal AP d iameter. No acces emilee muscle use. Diminished at base s.No wheezing, no crackles. ABDOMEN: Soft, bowel soun ds present, nonten jose m, no distention . NEURO:Alert roney ented, answering q uestions appropria tely. No facial d rene. Speech is c lear. Obeys simpl e commands. Moves extremities. EXTR EMITIES: No le ed eleazar, no erythema s een. Results & Data Results & Data ([facility]) Vital Signs (Past 12 Hours) Vital Signs Temp Pulse Pulse Pulse Pulse Pulse Pulse 12/05/21 08:00 87 12/05/21 08:00 12/05/21 07:48 36.6 C 83 12/05/21 07:48 88 91 H 83 86 12/05/21 05:01 36.8 C 86 Resp Resp Resp Resp Resp BP Pulse Ox 12/05/21 08:00 12/05/21 08:00 12/05/21 07:48 18 126/78 93 12/05/21 07:48 20 20 16 16 12/05/21 05:01 18 111/55 L 94 Pulse Ox Pulse Ox Pulse Ox Pulse Ox O2 Del Method O2 Flow Rate O2 Flow Rate 12/05/21 08:00 12/05/21 08:00 Room Air, Nasal Cannula 12/05/21 07:48 Room Air 12/05/21 07:48 93 88 L 93 92 1.5 12/05/21 05:01 Nasal Cannula 2.0 Laboratory Results 12/05/21 12/05/21 12/05/21 Range/Units 07:56 05:39 05:39 WBC 7.86 (4.8-10.8) K/ul RBC 3.29 L (3.93-5.22) M/uL Hgb 10.2 L (12.0-16.0) g/dl Hct 31.4 L (34.1-44.9) % MCV 95.4 (80.0-100.0) fL MCH 31.0 (25.0-34.0) pg MCHC 32.5 (32.0-36.0) g/dL RDW Std Deviation 51.3 H (36.4-46.3) fL RDW Coeff of Talisha 14.9 H (11.5-14.5) % Plt Count 192 (130-400) K/uL MPV 9.9 (9.4-12.3) fL POC pH (7.35-7.45) POC pCO2 (35-46) mmHg POC pO2 (80-95) mmHg POC HCO3 (19-24) robert/L POC Total CO2 (24-31) mmol/L POC Base Excess (-9-1.8) robert/L POC ABG O2 Sat (90-95) % Sodium 139 (136-145) mmol/L Potassium 4.1 (3.5-5.1) mmol/L Chloride 101 (98-107) mmol/L Carbon Dioxide 25 (21-32) mmol/L Anion Gap 13 H (3-11) BUN 56 H D (6-23) mg/dl Creatinine 5.47 H* D (0.6-1.2) mg/dl Est Cr Clr Drug Dosing 11.2 ml/min Est GFR ( Amer) 9.0 ml/min Est GFR (Non-Af Amer) 7.7 ml/min BUN/Creatinine Ratio 10.2 (10-20) Glucose 85 (70-99(Fasting)) mg/dl POC Glucose 88 (70-99) mg/dl Calcium 9.5 (8.5-10.1) mg/dl Phosphorus 7.2 H (2.5-4.9) mg/dl Magnesium 1.9 (1.7-2.4) mg/dl 12/04/21 12/04/21 12/04/21 Range/Units 20:53 18:13 09:48 WBC (4.8-10.8) K/ul RBC (3.93-5.22) M/uL Hgb (12.0-16.0) g/dl Hct (34.1-44.9) % MCV (80.0-100.0) fL MCH (25.0-34.0) pg MCHC (32.0-36.0) g/dL RDW Std Deviation (36.4-46.3) fL RDW Coeff of Talisha (11.5-14.5) % Plt Count (130-400) K/uL MPV (9.4-12.3) fL POC pH 7.28 L (7.35-7.45) POC pCO2 47 H (35-46) mmHg POC pO2 72 L (80-95) mmHg POC HCO3 22 (19-24) robert/L POC Total CO2 24 (24-31) mmol/L POC Base Excess -4.0 (-9-1.8) robert/L POC ABG O2 Sat 92.0 (90-95) % Sodium (136-145) mmol/L Potassium (3.5-5.1) mmol/L Chloride (98-107) mmol/L Carbon Dioxide (21-32) mmol/L Anion Gap (3-11) BUN (6-23) mg/dl Creatinine (0.6-1.2) mg/dl Est Cr Clr Drug Dosing ml/min Est GFR ( Amer) ml/min Est GFR (Non-Af Amer) ml/min BUN/Creatinine Ratio (10-20) Glucose (70-99(Fasting)) mg/dl POC Glucose 168 H 89 (70-99) mg/dl Calcium (8.5-10.1) mg/dl Phosphorus (2.5-4.9) mg/dl Magnesium (1.7-2.4) mg/dl Medications Administered Current Inpatient Medications Acetaminophen (Acetaminophen 325 Mg Tab) 650 mg PO Q4H PRN PRN Reason: Pain or Fever Stop: 12/31/21 08:50 Last Admin: 12/04/21 13:20 Dose: 650 mg Amlodipine Besylate (Amlodipine Besylate 5 Mg Tab) 2.5 mg PO QAM [facility] Stop: 01/04/22 08:59 Last Admin: 12/05/21 07:34 Dose: 2.5 mg Aspirin (Aspirin 81 Mg Ectab) 81 mg PO HS [facility] Stop: 12/31/21 20:59 Last Admin: 12/04/21 21:59 Dose: 81 mg Cetirizine HCl (Cetirizine Hcl 10 Mg Tablet) 5 mg PO TuThSa@1600 [facility] Stop: 12/31/21 15:59 Last Admin: 12/04/21 18:27 Dose: 5 mg Dextrose (Dextrose 50% 50 Ml Syringe) 25 - 50 ml IV UD PRN; Protocol PRN Reason: Hypoglycemia Protocol Stop: 12/31/21 08:50 Doxycycline Hyclate (Doxycycline Hyclate 100 Mg Cap) 100 mg PO BID BETTY; Protocol Stop: 12/08/21 20:59 Last Admin: 12/05/21 07:34 Dose: 100 mg Glucagon (Glucagon For Inj 1 Mg Vial) 1 mg SQ UD PRN; Protocol PRN Reason: Hypoglycemia Protocol Stop: 12/31/21 08:50 Glucose (Glucose 40% Gel 15 Gm Tube) 15 - 30 gm PO UD PRN; Protocol PRN Reason: Hypoglycemia Protocol Stop: 12/31/21 08:50 Glucose (Glucose 10 Tab/Tube) 4 - 8 tab PO UD PRN; Protocol PRN Reason: Hypoglycemia Treatment Stop: 12/31/21 08:50 Heparin Sodium (Porcine) (Heparin Sod 5,000 Unit/0.5 Ml Vial) 5,000 units SQ Q8 [facility] Stop: 12/31/21 13:59 Last Admin: 12/05/21 07:33 Dose: 5,000 units Promethazine HCl 12.5 mg/ (Sodium Chloride) 50.5 mls @ 202 mls/hr IV Q6H PRN PRN Reason: Nausea And Vomiting Stop: 12/31/21 08:50 Last Infusion: 12/04/21 22:57 Dose: Infused Ceftriaxone Sodium 2,000 mg/ (Dextrose) 70 mls @ 100 mls/hr IV Q24H [facility]; Protocol Stop: 12/08/21 15:59 Last Infusion: 12/04/21 22:32 Dose: Infused Insulin Aspart (Insulin Aspart Per Unit) 0 units SC ACHS [facility] Stop: 12/31/21 08:50 Last Admin: 12/05/21 11:57 Dose: Not Given Insulin Glargine (Lantus Per Unit Charge) 10 units SQ BID [facility] Stop: 12/31/21 20:59 Last Admin: 12/05/21 08:32 Dose: 10 units Ipratropium [place] (Ipratropium [place] Neb Soln 0.02% 2.5 Ml Vial) 0.5 mg INH Q4H PRN PRN Reason: Shortness Of Breath Stop: 01/01/22 21:29 Levalbuterol HCl (Levalbuterol 1.25mg/0.5ml Neb) 1.25 mg INH Q4H PRN PRN Reason: Shortness Of Breath Stop: 01/01/22 21:29 Levothyroxine Sodium (Levothyroxine Sodium 50 Mcg Tablet) 50 mcg PO DAILYBB [facility] Stop: 01/01/22 06:29 Last Admin: 12/05/21 06:18 Dose: 50 mcg Metoprolol Succinate (Metoprolol Succ 50mg Ext Rel Tab) 50 mg PO DAILY [facility] Stop: 01/02/22 08:59 Last Admin: 12/05/21 08:45 Dose: 50 mg Miscellaneous (Carbohydrates For Hypoglycemia ) 15 - 30 gm PO UD PRN PRN Reason: Hypoglycemia Protocol Stop: 12/31/21 08:50 Last Admin: 12/03/21 11:30 Dose: 15 gm Miscellaneous (Velphoro - Order Awaiting Action) 1 each N/A QS [facility] Stop: 12/31/21 11:59 Last Admin: 12/05/21 07:27 Dose: Not Given Nitroglycerin (Nitroglycerin Sl 0.4 Mg/Tab Tab) 0.4 mg SL UD PRN PRN Reason: Chest Pain Stop: 12/31/21 08:50 Pregabalin (Pregabalin 25 Mg Cap) 25 mg PO DAILY@1200 PRN PRN Reason: tingling Stop: 12/31/21 11:59 Last Admin: 12/04/21 18:30 Dose: 25 mg Pregabalin (Pregabalin 75 Mg Cap) 75 mg PO QAM [facility] Stop: 01/01/22 08:59 Last Admin: 12/05/21 08:02 Dose: 75 mg Rosuvastatin Calcium (Rosuvastatin Calcium 20 Mg Tab) 40 mg PO QAM [facility] Stop: 12/31/21 09:14 Last Admin: 12/05/21 08:46 Dose: 40 mg Sevelamer HCl (Sevelamer Hcl 800 Mg Tablet) 2,400 mg PO TIDM [facility] Stop: 12/31/21 09:14 Last Admin: 12/05/21 12:26 Dose: Not Given Sevelamer HCl (Sevelamer Hcl 800 Mg Tablet) 1,600 mg PO AC PRN PRN Reason: SNACKS Stop: 12/31/21 09:37 Tramadol HCl (Tramadol Hcl 50 Mg Tablet) 25 - 50 mg PO Q4H PRN PRN Reason: Pain Stop: 12/31/21 06:39 Vitamin B Complex/Folic Acid (Nephrocaps) 1 cap PO DAILY [facility] Stop: 12/31/21 09:09 Last Admin: 12/05/21 08:45 Dose: 1 cap
[2021-12-05] MEDS: cefTRIAXone SODIUM 2,000 MG in DEXTROSE 5% 50 ML IV SCH (13:17)
--- NOTE | 2021-12-05 13:39 | Discharge Summary ---
Date of Service December 05, 2021 Admission HPI Per Admitting Provider Chief Complaint: Shortness of breath Primary Care Provider: Jose Magallanes MD History obtained from patient, family, and records. Medical history significant for chronic diastolic heart failure (EF 55%, TTE 2021), history of mitral stenosis, hypertension, hyperlipidemia, hypothyroidism, ESRD on HD, DM 2 insulin requiring, history of subdural hematoma as per records, chronic cholecystitis/choledocholithiasis status post Axios stent placement, Hihsibu-Ubvae-Ntnbq disease. Last [facility] confinement August 2019 for acute on chronic cholecystitis. Patient became short of breath after dinnertime last night. No unusual cough symptoms. Chest tightness nonradiating. Patient missed dialysis 2 days ago because she was busy with something as per . Dry cough symptoms. Not sure about COVID-19 contacts. Patient has not received COVID-19 vaccination. No aspiration. No unusual fluid retention as per patient. Denies dietary indiscretion. EMS alerted. CPAP initiated. Lasix and Nitropaste administered at the ER for pulmonary congestion. Patient currently feeling much better. Admission Exam Per Admitting Provider GENERAL: Comfortable, obese, respiratory distress SKIN: Normal color, warm HEENT: [place] palpebral conjunctivae, no ptosis, dry buccal mucosa, BiPAP in place NECK : Supple, short neck, no tenderness CHEST : Decreased breath sounds, occasional expiratory wheezes, no tenderness HEART : RRR, apical diastolic murmur ABDOMEN: distention, nontender EXTREMITIES : Bilateral LE swelling, no LE tenderness, no other conspicuous deformities noted NEUROLOGIC : Coherent, no facial asymmetry, gait and stance not assessed Principal Diagnosis Acute respiratory failure Acute heart failure with preserved ejection fraction Non-ST elevation (NSTEMI) myocardial infarction Mitral stenosis Pneumonia CAD Discharge Exam GENERAL: Alert and oriented x3. NAD, on RA HEENT: NC/AT. EOMI. No pallor, no icterus. Pupils equal, round and reactive to light. Oral mucosa moist. NECK: No JVD, no neck masses. HEART: S1 and S2 heard. Regular rate and rhythm. No murmur, no gallop. RESPIRATORY SYSTEM: Normal AP diameter. No accessory muscle use. Diminished at bases.No wheezing, no crackles. ABDOMEN: Soft, bowel sounds present, nontender, no distention. NEURO:Alert oriented, answering questions appropriately. No facial droop. Speech is clear. Obeys simple commands. Moves extremities. EXTREMITIES: No le edema, no erythema seen. Discharge Data Allergies Allergy/AdvReac Type Severity Reaction Status Date / Time gabapentin Allergy Intermediate Dizziness Verified 09/24/21 15:29 lisinopril AdvReac Intermediate Cough Verified 09/24/21 15:29 Consultations 12/01/21 05:25 ED Decision to Admit Stat 12/01/21 08:51 Consult Nephrology Routine 12/01/21 09:09 Consult Cardiology Routine Procedures Performed Operation Date: 12/04/21 08:00 Actual Procedures p Cineradiography w/Routine Exam - Joselo Thao DO p Cath, Right and Left Heart - Joselo Thao DO s Ultrasound Vascular Access - Joselo Thao DO Ordered Studies 12/04/21 07:11 CL Cath Imgs for PACS use only Routine Hospital Course (1) Pneumonia: Plan 61-year-old F with hx of HFpEF [2021 TTE with EF 55%], mitral stenosis, HTN, HLD, hypothyroidism, ESRD on HD, DM 2 insulin requiring, subdural hematoma, chronic cholecystitis/choledocholithiasis status post axios stent placement, charcoaled Page tooth disease presented to our ED 12/01 with complaint of shortness of breath after 11/30 dinnertime. Reported dry cough, reported nonradiating chest tightness, had missed dialysis 2 days ago [HD on ]. 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 At admission: WBC 17.5 6K, temperature 35.7C, Pro-Ziggy elevated, admitting CXR concerning for atelectasis versus pneumonia. Follow-upadmitting blood culture --> negative so far. Continue with doxycycline 12/01 and nebulization. c/w rocephin 12/01. Finished Abx course today (12/05) Hemodialysis 12/01---4.5L Out, next HD treatment tmrw as outpt. Currently on RA saturating 93%.2 step test done today -needs 2 L with ambulation Patient does make urine. Pt denies O2 use at home. Elevated troponin: At presentation with nonradiating chest tightness, troponin up trended, admitting ECG without acute ST or T changes Troponin elevated likely in the setting of acute on chronic HFpEF in the setting of missed dialysis and hypoxia vs NSTEMI Cardiology evaluated, appreciate recommendation. 12/02 ECHO: EF 60-65% w/ mild concentric LVH and severe MS. 12/04 Heart Cath: mild CAD and severe mitral valve stenosis w/ a mean gradient of 16.14 mmHg, severe pulm HTN. D/w cardio. Will need OP cardiac f/u. Toprol increased to 50 mg daily, patient to continue with aspirin, Crestor, amlodipine. Other chronic medical conditions:MS, HTN, HLD, hypothyroidism, DM2 insulin requiring, subdural hematoma, chronic cholecystitis/choledocholithiasis status post Axios Stent placement/Cddauvk-Ipxhr-Mxoyj disease--->> continue with/resume home meds as and when appropriate. Dispo: Plan to DC home, pcp and cardiology follow up. Total Time Total Time Spent Total Time Spent (In Minutes): 40 Discharge Plan Discharge Items Patient Disposition: Home - Self-Care Reason For Visit: RESP FAILURE Discharge Diagnosis: Acute respiratory failure Acute heart failure with preserved ejection fraction Non-ST elevation (NSTEMI) myocardial infarction Mitral stenosis Pneumonia CAD Activity: Per Instructions section Non-emergency contact: Primary Care Provider and Transportation Clerk Call non-emergency contact if: you have any medication questions and your symptoms worsen Follow-up/Referrals: Alexx Cerna MD [Other] (Date & Time 12/12/2021 10:00 AM Provider Alexx Cerna MD Department Cardiology, [facility] ) Jose Magallanes MD [Primary Care Provider] - (Date & Time 12/12/2021 11:20 AM Provider Jose Magallanes MD Department Family Practice [facility] ) Diet: Dialysis Renal and Heart Healthy Addtl Attending Provider Instructions: Follow-up with primary care doctor, the appointment is scheduled for you for December 12. Your metoprolol was increased to 50 mg daily. Continue taking aspirin and Crestor. You were also started on amlodipine. Read instructions below in detail, from your bulk plant agent. Addtl Edge Molder Provider Instructions: Per cardiology: Results of cardiac catheterization discussed with patient and outpatient bulk plant agent. Follow-up as scheduled 12/12/2021. Discussed importance of compliance with hemodialysis treatments. Post cardiac catheterization activity restrictions listed below. ACTIVITY RECOMMENDATIONS: It is common to feel weak and fatigue for a few days. * Do not drive or operate any motorized equipment for the next three days. * Limit stair usage (2 or 3 trips a day only) for the next three days. * Do not lift anything heavier than 10 pounds for the next three days. * Do not engage in vigorous exercise or any sports for the next five days. * You may shower the day after your procedure, butdo not immerse the area for three days. Cleanse the site gently with soap and water. SPECIAL CARE INSTRUCTIONS: * You may replace the pressure dressing or band-aid the morning after the procedure. * After your procedure, it is normal to have a small bruise or small lump at the site.Examine your site dailyfor any change in the bruise or lump, redness, swelling, drainage or numbness. Notify your doctor if any change. BLEEDING: * If there is a small amount of bleeding at the site, lie down and apply firm pressure with a clean cloth for ten minutes. When the bleeding stops, lie quietly keeping the procedure limb straight for six hours. Notify your doctor as soon as possible. *If the bleeding does not stop after ten minutes or if there is a large amount of bleeding or spurting, call 911 immediately.Continue to lie down and hold firm pressure until help arrives. SKIN IRRITATION: * You may experience some redness and/or swelling in the area where radiation was administered. If any skin irritation occurs, please contact your family physician. FOLLOW UP VISIT: Keep any scheduled doctor appointments. Pending Studies at Discharge: No Stand-Alone Forms: My [employer], Smoking Cessation Medications and DC Order Prescriptions: New amlodipine [Norvasc] 5 mg Tablet 2.5 mg PO QAM Qty: 20 0RF metoprolol succinate 50 mg Tablet Extended Release 24 Hr 50 mg PO DAILY Qty: 30 0RF Continued insulin glargine [Basaglar KwikPen U-100 Insulin] 100 unit/mL (3 mL) insulin pen 33 unit subcut HS pregabalin 75 mg capsule 75 mg PO QAM aspirin [Marika Low Dose Aspirin] 81 mg Tablet,Delayed Release (Dr/Ec) 81 mg PO HS albuterol sulfate [Proventil HFA] 90 mcg/actuation HFA aerosol inhaler 2 puffs INH Q6H PRN (Reason: shortness of breath or wheezing) Qty: 8 0RF pregabalin 25 mg capsule 25 mg PO DAILY@1200 PRN (Reason: tingling) rosuvastatin 40 mg tablet cetirizine 5 mg tablet,chewable 5 mg PO UD Rx Instructions: T, TH, Sat after dialysis sevelamer carbonate 800 mg tablet 800 mg PO UD Rx Instructions: 3 tabs w meals, 2 tabs w/ each snack Novolog U-100 Insulin aspart 6 unit SC TID Rx Instructions: w meals Renal-Agustin 1 tab PO DAILY Zofran 4 mg PO Q6H PRN (Reason: Nausea) levothyroxine 50 mcg PO DAILY simethicone 80 mg PO Q6H PRN (Reason: Gi Upset) lidocaine-prilocaine 2.5-2.5 % cream 1 applic topical 3XWK Rx Instructions: Apply small amount to access site (AVF) 1-2 hours before dialysis. Cover with occlusive dressing (Saran Wrap). Friday,,Friday cholecalciferol (vitamin D3) [Vitamin D3] 25 mcg (1,000 unit) Tablet 0.75 mcg PO UD Rx Instructions: Take on Dialysis days. Friday,,Friday Velphoro 500 mg tablet,chewable 500 mg PO TIDM Discontinued Toprol XL 25 mg PO DAILY Discharge Orders: Discharge Order (Routine); Ordered 12/05/21 Ordered By: Petros Wise/Other Patient Handouts: Managing Type 2 Diabetes, Special Foot Care for Diabetes Admission Data Admit Date/Time: 12/01/21 08:42 Attending Provider: Petros Toth Admit Provider: Chinedu Woods Primary Care Provider: Jose Magallanes Other Providers: Chinedu Woods ; Maria C Griffiths ; Mike Izquierdo ; Ramona Christie ; Eugenia Mireles ; Shruthi Castellon ; Nunu Novak ; Joselo Thao ; Jessika Fontaine
[2021-12-10 07:04] LABS: iSTAT Arterial Blood Gas HCO3 23 meg/L (19-24); iSTAT Arterial Blood Gas pCO2 48 mmHg (35-46); iSTAT Arterial Blood Gas pO2 35 mmHg (80-95); iSTAT Carbon Dioxide 25 mmol/L (24-31)
== END 2021-12-05 15:39 | disposition home or self-care (01) | DRG 871 ==
LOC: SUATTDRO → ED 04:20 → 2S 08:11 → SUATTDRO 08:42 → 4W 12-03 11:04

== ENCOUNTER 2022-03-15 20:18 | Observation (INO) ==
[2022-03-15] MEDS ORDERED: FUROSEMIDE 40 MG/4 ML VIAL IV ONE (20:28)
[2022-03-15] MEDS ORDERED: NITROGLYCERIN SL 0.4 MG/TAB TAB SL STA (20:28)
[2022-03-15] MEDS ORDERED: METOPROLOL SUCC 50MG EXT REL TAB PO STA (20:28)
[2022-03-15] MEDS ORDERED: ALBUT/IPRATROP 3MG/0.5MG NEB 3 ML VIAL ONE ×2 (20:42→21:02)
[2022-03-15 20:59] LABS: Basophils # (auto) 0.01 K/uL (0-0.2); Basophils % (auto) 0.1 %; Eosinophils # (auto) 0.14 K/uL (0-0.50); Eosinophils % (auto) 1.5 %; Hematocrit (blood only) 37.2 % (34.1-44.9); Hemoglobin 11.6 g/dl (12.0-16.0); Immature Granulocytes # (auto) 0.03 K/uL (0.00-0.02); Immature Granulocytes % (auto) 0.3 %; Lymphocytes # (auto) 1.69 K/uL (1.2-3.4); Lymphocytes % (auto) 17.8 %; Mean Corpuscular Hemoglobin 30.1 pg (25.0-34.0); Mean Corpuscular Hgb Conc 31.2 g/dL (32.0-36.0); Mean Corpuscular Volume 96.4 fL (80.0-100.0); Mean Platelet Volume 9.4 fL (9.4-12.3); Monocytes # (auto) 0.61 K/uL (0.24-0.82); Monocytes % (auto) 6.4 %; Neutrophils # (auto) 7.02 K/uL (1.4-6.5); Neutrophils % (auto) 73.9 %; Platelet Count 256 K/uL (130-400); RDW Coefficient of Variation 15.4 % (11.5-14.5); Red Blood Count 3.86 M/uL (3.93-5.22)
[2022-03-15 21:11] LABS: Partial Thromboplastin Time 28.5 Seconds (21.0-31.0); Prothrombin Time 10.5 Seconds (9.0-12.0)
[2022-03-15 21:30] LABS: Troponin I High Sensitivity 23.2 pg/ml (0-14)
[2022-03-15] MEDS ORDERED: ACETAMINOPHEN 500 MG TAB PO STA (21:34)
--- NOTE | 2022-03-15 21:38 | XRay Report ---
XR chest 1V portable HISTORY: 61 years-old Female Dyspnea acute shortness of breath COMPARISON: Chest radiograph 12/02/2021 TECHNIQUE: AP view of the chest FINDINGS: Cardiac silhouette is enlarged. Mitral annular calcifications. Atherosclerosis of the thoracic aorta. No pneumothorax or large pleural effusion. I lateral mixed interstitial and alveolar opacities. Pulm onary vascular congestion. No pneumothorax or large pleural effusion. Degenerative changes of the toi ulders and spine. IMPRESSION: 1. Cardiomegaly with mixed interstitial and alveolar opacities suggestive of pulmonary edema versus m ultifocal pneumonia. 2. No pleural effusion identified. ACT 112: Negative or not required by law. The above report was generated using voice recognition software. It may contain grammatical, syntax o r spelling errors. Electronically signed by: Abimael Maldonado M.D. 03/15/2022 9:37 PM
[2022-03-15 21:55] LABS: Albumin Level 3.8 gm/dl (3.4-5.0); BUN Creatinine Ratio 7.6 (10-20); Bilirubin,Total 0.3 mg/dl (0.2-1.0); Calcium 9.8 mg/dl (8.5-10.1); Creatinine Clr Calc Pharmacy 8.9 ml/min; Est GFR (African American) 6.5 ml/min; Est GFR (Non-African American) 5.6 ml/min; Globulin 3.7 gm/dl (2.5-4.0); Magnesium 2.2 mg/dl (1.7-2.4); Potassium 4.5 mmol/L (3.5-5.1); Total Protein 7.5 gm/dl (6.0-8.3)
[2022-03-15] MEDS ORDERED: NITROGLYCERIN 2% OINTMENT 30GM TUBE EXT ONE (21:56)
--- NOTE | 2022-03-15 21:56 | Emergency Department Note ---
Impression & Plan Hypertensive emergency, Pulmonary edema, ESRD on dialysis, Nonadherence to medication, Volume overload ED Provider Note NAME: JORDYN Pérez YOUNG AGE: 61 SEX: F : 1960 ARRIVES VIA: Ambulance INFORMANT: Patient, ED PROVIDER(S): Segundo Mohamud MD Chief Complaint: Shortness of breath HPI: Patient presents due to concern for shortness of breath. The patient reportedly had a more acute onset of shortness of breath while shopping for [employer]. The patient does wear 2 L at all times but is intermittently compliant. The patient has not taken her medications in several days because "I have so much to do." The patient was reportedly by found by EMS in a tripod position struggling to breathe. She did receive a DuoNeb treatment and was placed on increasing supplemental oxygen which did mildly improve her symptoms and the patient's respiratory distress improved per EMS in route. Patient was noted to be hypertensive. Patient denies any chest pains but does have shortness of breath. No nausea vomiting. The patient does have a history of ESRD and does make some urine. The patient did have her most recent dialysis on Friday and is scheduled to have it tomorrow. Patient reportedly has had v alvulopathy but the patient has had additional testing and is deemed not to be a surgical candidate as she is too high risk. I did review the patient's echocardiogram from November 2021 which showed a normal EF with normal LV wall motion. Mild concentric left ventricular hypertrophy. Patient does not have significant aortic valvular stenosis but does have severe mitral stenosis. ROS: See HPI for pertinent positives and negatives. A total of 10 systems were reviewed and otherwise negative. Past medical history: See below Surgical history: See below Social history: See below Physical Exam: GENERAL: Moderate distress, wearing glasses, nasal cannula in place. Tachypneic. EYE EXAM: Normal conjunctiva. PERRL, no anisocoria and EOM's grossly intact w/o pain. NECK: Supple, no nuchal rigidity, no adenopathy, non-tender. No signs of meningismus. FROM of the neck with good chin to chest and neck extension. No stridor. LUNGS: Crackles throughout. Tachypnea noted. HEART: NSR, no MRG. ABDOMEN: Abdomen soft, non-tender, normo-active bowel sounds, no masses, no rebound or guarding. BACK: No CVA TTP. SKIN: No rashes and no bruising. UPPER EXTREMITIES: Left upper extremity AV fistula with palpable thrill. LOWER EXTREMITIES: Grossly normal, 1+ symmetric bilateral lower extremity edema. No calf pain or erythema NEURO EXAM: A&O x3, cranial nerves II-XII grossly intact, normal speech, moves all 4 extremities. Differential diagnoses: Course: Patient was seen and evaluated the bedside. Full history physical exam was performed. EKG interpreted by me Sinus tachycardia, rate of 112, normal intervals normal axis no ST elevations or T WI. Imaging Studies: See Below Cardiac monitoring: An order was placed for continuous cardiac monitoring. The monitor shows a rate of 110 with tachycardic and regular rhythm. Procedures: Limited Point of Care Cardiac Ultrasound performed by me: Indication: Volume overload Findings: Limited echocardiography revealed no pericardial fluid. Wall motion appeared grossly normal. HR 100s. Additional findings: Diffuse B-lines in the bilateral lung pitts. Impression: Pulmonary edema, no pericardial effusion MDM: Patient was seen due to concern for shortness of breath. Blood work was obtained. I did perform a bedside ultrasound which did not show any evidence of pericardial effusion. The patient did have B-lines bilaterally. The patient was ordered Lasix nitroglycerin and home dose of metoprolol succinate 50 mg. Patient was placed on BiPAP. The patient did have improvement in respiratory status. The patient's blood work showed normal white count with a hemoglobin 11.6. Platelet count is unremarkable. The patient's kidney function does show a creat of 7 but potassium is normal. BNP at 240 with a troponin of 23. Patie nt's EKG does not show any obvious signs of ischemia. Do believe that the patient's BNP and troponin are secondary to the patient's volume overload and hypertension. I did speak with the on-call spinner open end Dr. Mireles was stated that they did have hemodialysis available for tomorrow. I did speak with Dr. Church who the patient was admitted to the medicine service. Chest x-ray was read as pulmonary edema but could be multifocal pneumonia. The patient has had nonproductive cough. White count is normal. I did add a procalcitonin and antibiotics were deferred to the inpatient team. Critical Care: I have personally spent 55 minutes of critical care time in direct management of this patient. This includes bedside care, interpretation of diagnostic studies, and testing, discussion with consultants, patient, and family members, and other require inpatient management activities. This 55 minutes is in excess of all separately billable procedures. Past Med/Surg History Medical History Anemia AV fistula Left arm Chronic kidney disease on chronic dialysis //Friday at [facility]. 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 pt states she was critical, intubated and started hemodiaylsis at that point. states she then had to go to rehab to "learn to walk again" and currently is at home with and uses a cane, but is very unsteady without assistance. Hyperlipidemia Hyperparathyroidism due to renal insufficiency Hypertension Hypothyroidism Obesity (BMI 30-39.9) Osteoarthritis Peripheral neuropathy BILATERAL LEGS Renal mass, left pt unaware Splenic lesion pt unaware Subdural hematoma pt unaware Surgical History H/O bilateral salpingo-oophorectomy History of cataract extraction with lens replacement bilateral History of colonoscopy History of hysterectomy RENNY History of vitrectomy S/P arteriovenous (AV) fistula creation Left arm with several revisions Family History Father Family history of diabetes mellitus Mother Family history of diabetes mellitus Social History Smoking Status: Never smoker Second Hand Exposure: No; Hx Alcohol Use: No Hx Substance Use: No Preferred Language: Lao Communication Ability: Effective 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 Beliefs That Will Affect Care: None marital status: Current Living Situation: Spouse Feels Safe at Home: Yes Assistive Devices: Cane Allergies Allergies Allergy/AdvReac Type Severity Reaction Status Date / Time gabapentin Allergy Intermediate Dizziness Verified 09/24/21 15:29 lisinopril AdvReac Intermediate Cough Verified 09/24/21 15:29 Home Meds Home Medications Medication Instructions Recorded Confirmed aspirin 81 mg tablet,delayed 81 mg PO HS 05/07/18 09/24/21 release (Marika Low Dose Aspirin) insulin glargine 100 unit/mL (3 33 unit subcut HS 09/16/18 09/24/21 mL) subcutaneous pen (Basaglar KwikPen U-100 Insulin) pregabalin 75 mg capsule 75 mg PO QAM 08/20/19 09/24/21 pregabalin 25 mg capsule 25 mg PO DAILY@1200 PRN tingling 09/26/20 09/24/21 cholecalciferol (vitamin D3) 25 0.75 mcg PO UD 09/24/21 09/24/21 mcg (1,000 unit) tablet (Vitamin D3) lidocaine-prilocaine 2.5 %-2.5 % 1 applic topical 3XWK 09/24/21 09/24/21 topical cream sucroferric oxyhydroxide 500 mg 500 mg PO TIDM 09/24/21 09/24/21 chewable tablet (Velphoro) Novolog U-100 Insulin aspart 6 unit SC TID 12/01/21 12/01/21 Renal-Agustin 1 tab PO DAILY 12/01/21 12/01/21 Zofran 4 mg PO Q6H PRN Nausea 12/01/21 12/01/21 cetirizine 5 mg chewable tablet 5 mg PO UD 12/01/21 12/01/21 levothyroxine 50 mcg PO DAILY 12/01/21 12/01/21 rosuvastatin 40 mg tablet mg 12/01/21 sevelamer carbonate 800 mg tablet 800 mg PO UD 12/01/21 12/01/21 simethicone 80 mg PO Q6H PRN Gi Upset 12/01/21 12/01/21 Previous Rx's Medication Instructions Recorded albuterol sulfate 90 mcg/actuation 2 puffs inhalation Q6H PRN 05/30/19 aerosol inhaler (Proventil HFA) shortness of breath or wheezing #8 grams amlodipine 5 mg tablet (Norvasc) 2.5 mg PO QAM #20 tabs 12/05/21 metoprolol succinate 50 mg 50 mg PO DAILY #30 tabs 12/05/21 tablet,extended release 24 hr Results & Data (ED) Vital Signs Vital Signs - 24 hr 03/15/22 19:59 03/15/22 20:22 03/15/22 20:27 Temperature 35.8 C L Temperature Source Oral Pulse Rate 117 H Pulse Rate [Apical] Pulse Rate from SpO2 Sensor Pulse Rhythm Regular Pulse Strength Normal Respiratory Rate Respiratory Effort / Characteristics Labored Respiratory Depth Retractive Respiratory Pattern Regular Blood Pressure 193/83 H Blood Pressure Mean 119 Blood Pressure Position Lying Pulse Oximetry 89 L 89 L 98 Oxygen Delivery Method Non-rebreather High Flow Nasal Cannula BiPAP Oxygen Flow Rate 10 10 Fraction of Inspired Oxygen Sepsis Recent Fever Within 48 Hours No Sepsis New/Unexplained Change in Mental Status No Sepsis Action Taken by Nursing No Action Required 03/15/22 21:06 03/15/22 21:06 03/15/22 20:35 Temperature Temperature Source Pulse Rate 118 H 112 H Pulse Rate [Apical] 112 H Pulse Rate from SpO2 Sensor Pulse Rhythm Pulse Strength Respiratory Rate 27 H 28 H 28 H Respiratory Effort / Characteristics Spontaneous Accessory Muscle Use Labored Spontaneous Grunting Labored Short of Breath Respiratory Depth Respiratory Pattern Blood Pressure Blood Pressure Mean Blood Pressure Position Pulse Oximetry 94 99 99 Oxygen Delivery Method BiPAP Oxygen Flow Rate Fraction of Inspired Oxygen 35 35 35 Sepsis Recent Fever Within 48 Hours Sepsis New/Unexplained Change in Mental Status Sepsis Action Taken by Nursing 03/15/22 20:28 03/15/22 20:30 03/15/22 20:53 Temperature Temperature Source Pulse Rate 114 H 114 H Pulse Rate [Apical] Pulse Rate from SpO2 Sensor 114 H 114 H Pulse Rhythm Pulse Strength Respiratory Rate 25 H 30 H Respiratory Effort / Characteristics Respiratory Depth Respiratory Pattern Blood Pressure 177/81 H Blood Pressure Mean 113 Blood Pressure Position Pulse Oximetry 93 93 Oxygen Delivery Method Oxygen Flow Rate Fraction of Inspired Oxygen Sepsis Recent Fever Within 48 Hours Sepsis New/Unexplained Change in Mental Status Sepsis Action Taken by Nursing 03/15/22 20:53 03/15/22 21:00 03/15/22 21:00 Temperature Temperature Source Pulse Rate 110 H 111 H Pulse Rate [Apical] Pulse Rate from SpO2 Sensor 110 H 111 H Pulse Rhythm Pulse Strength Respiratory Rate 24 19 Respiratory Effort / Characteristics Respiratory Depth Respiratory Pattern Blood Pressure 160/69 H Blood Pressure Mean 99 Blood Pressure Position Pulse Oximetry 98 96 Oxygen Delivery Method Oxygen Flow Rate Fraction of Inspired Oxygen Sepsis Recent Fever Within 48 Hours Sepsis New/Unexplained Change in Mental Status Sepsis Action Taken by Nursing 03/15/22 21:04 03/15/22 21:04 03/15/22 21:15 Temperature Temperature Source Pulse Rate 115 H Pulse Rate [Apical] Pulse Rate from SpO2 Sensor 115 H Pulse Rhythm Pulse Strength Respiratory Rate 30 H Respiratory Effort / Characteristics Respiratory Depth Respiratory Pattern Blood Pressure 151/75 H 165/74 H Blood Pressure Mean 100 104 Blood Pressure Position Pulse Oximetry 92 Oxygen Delivery Method Oxygen Flow Rate Fraction of Inspired Oxygen Sepsis Recent Fever Within 48 Hours Sepsis New/Unexplained Change in Mental Status Sepsis Action Taken by Nursing 03/15/22 21:15 03/15/22 21:30 03/15/22 21:30 Temperature Temperature Source Pulse Rate 111 H 111 H Pulse Rate [Apical] Pulse Rate from SpO2 Sensor 111 H 111 H Pulse Rhythm Pulse Strength Respiratory Rate 21 22 Respiratory Effort / Characteristics Respiratory Depth Respiratory Pattern Blood Pressure 166/78 H Blood Pressure Mean 107 Blood Pressure Position Pulse Oximetry 97 98 Oxygen Delivery Method Oxygen Flow Rate Fraction of Inspired Oxygen Sepsis Recent Fever Within 48 Hours Sepsis New/Unexplained Change in Mental Status Sepsis Action Taken by Nursing 03/15/22 21:45 03/15/22 21:45 03/15/22 22:00 Temperature Temperature Source Pulse Rate 106 H Pulse Rate [Apical] Pulse Rate from SpO2 Sensor 106 H Pulse Rhythm Pulse Strength Respiratory Rate 21 Respiratory Effort / Characteristics Respiratory Depth Respiratory Pattern Blood Pressure 162/86 H 166/78 H Blood Pressure Mean 111 107 Blood Pressure Position Pulse Oximetry 98 Oxygen Delivery Method Oxygen Flow Rate Fraction of Inspired Oxygen Sepsis Recent Fever Within 48 Hours Sepsis New/Unexplained Change in Mental Status Sepsis Action Taken by Nursing 03/15/22 22:00 03/15/22 22:15 03/15/22 22:15 Temperature Temperature Source Pulse Rate 105 H 101 H Pulse Rate [Apical] Pulse Rate from SpO2 Sensor 105 H 101 H Pulse Rhythm Pulse Strength Respiratory Rate 22 18 Respiratory Effort / Characteristics Respiratory Depth Respiratory Pattern Blood Pressure 166/83 H Blood Pressure Mean 110 Blood Pressure Position Pulse Oximetry 98 98 Oxygen Delivery Method Oxygen Flow Rate Fraction of Inspired Oxygen Sepsis Recent Fever Within 48 Hours Sepsis New/Unexplained Change in Mental Status Sepsis Action Taken by Half-Way Medications Current Medication List: was personally reviewed by me Laboratory Data Attestation: I reviewed the patient's lab results. Result diagrams: 03/15/22 20:45 03/15/22 20:45 Lab Results 03/15/22 03/15/22 03/15/22 Range/Units 20:45 20:45 20:45 WBC 9.50 (4.8-10.8) K/ul RBC 3.86 L (3.93-5.22) M/uL Hgb 11.6 L (12.0-16.0) g/dl Hct 37.2 (34.1-44.9) % MCV 96.4 (80.0-100.0) fL MCH 30.1 (25.0-34.0) pg MCHC 31.2 L (32.0-36.0) g/dL RDW Std Deviation 53.0 H (36.4-46.3) fL RDW Coeff of Talisha 15.4 H (11.5-14.5) % Plt Count 256 (130-400) K/uL MPV 9.4 (9.4-12.3) fL Immature Gran % (Auto) 0.3 % Neut % (Auto) 73.9 % Lymph % (Auto) 17.8 % Dickenson % (Auto) 6.4 % Eos % (Auto) 1.5 % Baso % (Auto) 0.1 % Neut # (Auto) 7.02 H (1.4-6.5) K/uL Lymph # (Auto) 1.69 (1.2-3.4) K/uL Dickenson # (Auto) 0.61 (0.24-0.82) K/uL Eos # (Auto) 0.14 (0-0.50) K/uL Baso # (Auto) 0.01 (0-0.2) K/uL Immature Gran # (Auto) 0.03 H (0.00-0.02) K/uL PT 10.5 (9.0-12.0) Seconds INR 1.0 (0.9-1.1) APTT 28.5 (21.0-31.0) Seconds PTT Ratio 1.0 Sodium 138 (136-145) mmol/L Potassium 4.5 (3.5-5.1) mmol/L Chloride 93 L (98-107) mmol/L Carbon Dioxide 31 (21-32) mmol/L Anion Gap 14 H (3-11) BUN 54 H (6-23) mg/dl Creatinine 7.13 H* (0.6-1.2) mg/dl Est Cr Clr Drug Dosing 8.9 ml/min Est GFR ( Amer) 6.5 ml/min Est GFR (Non-Af Amer) 5.6 ml/min BUN/Creatinine Ratio 7.6 L (10-20) Glucose 249 H (70-99(Fasting)) mg/dl Calcium 9.8 (8.5-10.1) mg/dl Magnesium 2.2 (1.7-2.4) mg/dl Total Bilirubin 0.3 (0.2-1.0) mg/dl AST 10 L (13-39) U/L ALT 6 L (7-52) U/L Alkaline Phosphatase 186 H (34-104) U/L Troponin I High Sens 23.2 H D (0-14) pg/ml B-Natriuretic Peptide (0-100) pg/ml Total Protein 7.5 (6.0-8.3) gm/dl Albumin 3.8 (3.4-5.0) gm/dl Globulin 3.7 (2.5-4.0) gm/dl Albumin/Globulin Ratio 1.0 (0.9-2) 11/25/22 Range/Units 20:45 WBC (4.8-10.8) K/ul RBC (3.93-5.22) M/uL Hgb (12.0-16.0) g/dl Hct (34.1-44.9) % MCV (80.0-100.0) fL MCH (25.0-34.0) pg MCHC (32.0-36.0) g/dL RDW Std Deviation (36.4-46.3) fL RDW Coeff of Talisha (11.5-14.5) % Plt Count (130-400) K/uL MPV (9.4-12.3) fL Immature Gran % (Auto) % Neut % (Auto) % Lymph % (Auto) % Dickenson % (Auto) % Eos % (Auto) % Baso % (Auto) % Neut # (Auto) (1.4-6.5) K/uL Lymph # (Auto) (1.2-3.4) K/uL Dickenson # (Auto) (0.24-0.82) K/uL Eos # (Auto) (0-0.50) K/uL Baso # (Auto) (0-0.2) K/uL Immature Gran # (Auto) (0.00-0.02) K/uL PT (9.0-12.0) Seconds INR (0.9-1.1) APTT (21.0-31.0) Seconds PTT Ratio Sodium (136-145) mmol/L Potassium (3.5-5.1) mmol/L Chloride (98-107) mmol/L Carbon Dioxide (21-32) mmol/L Anion Gap (3-11) BUN (6-23) mg/dl Creatinine (0.6-1.2) mg/dl Est Cr Clr Drug Dosing ml/min Est GFR ( Amer) ml/min Est GFR (Non-Af Amer) ml/min BUN/Creatinine Ratio (10-20) Glucose (70-99(Fasting)) mg/dl Calcium (8.5-10.1) mg/dl Magnesium (1.7-2.4) mg/dl Total Bilirubin (0.2-1.0) mg/dl AST (13-39) U/L ALT (7-52) U/L Alkaline Phosphatase (34-104) U/L Troponin I High Sens (0-14) pg/ml B-Natriuretic Peptide 240 H (0-100) pg/ml Total Protein (6.0-8.3) gm/dl Albumin (3.4-5.0) gm/dl Globulin (2.5-4.0) gm/dl Albumin/Globulin Ratio (0.9-2) Administered Medications Discontinued Medications Acetaminophen (Acetaminophen 500 Mg Tab) 1,000 mg PO NOW STA Stop: 03/15/22 21:35 Last Admin: 03/15/22 21:56 Dose: 1,000 mg Documented By: SHABBIR Albuterol (Albut/Ipratrop 3mg/0.5mg Neb 3 Ml Vial) Confirm Administered Dose 3 ml .ROUTE .STK-MED ONE Stop: 03/15/22 20:43 Last Admin: 03/15/22 21:06 Dose: Not Given Documented By: VICK Albuterol (Albut/Ipratrop 3mg/0.5mg Neb 3 Ml Vial) Confirm Administered Dose 3 ml .ROUTE .STK-MED ONE Stop: 03/15/22 21:03 Last Admin: 03/15/22 21:06 Dose: 3 ml Documented By: VICK Furosemide (Furosemide 40 Mg/4 Ml Vial) 80 mg IV ONE ONE Stop: 03/15/22 20:29 Last Admin: 03/15/22 20:59 Dose: 80 mg Documented By: SHABBIR Metoprolol Succinate (Metoprolol Succ 50mg Ext Rel Tab) 50 mg PO NOW STA Stop: 03/15/22 20:29 Last Admin: 03/15/22 21:00 Dose: 50 mg Documented By: SHABBIR Nitroglycerin (Nitroglycerin Sl 0.4 Mg/Tab Tab) 0.4 mg SL NOW STA Stop: 03/15/22 20:29 Last Admin: 03/15/22 20:59 Dose: 0.4 mg Documented By: SHABBIR Nitroglycerin (Nitroglycerin 2% Ointment 30gm Tube) 0.5 inch EXT NOW ONE Stop: 03/15/22 21:57 Last Admin: 03/15/22 22:03 Dose: 0.5 inch Documented By: SHABBIR Imaging Data Radiologist's Impression: Chest X-Ray 03/15/22 20:27 XR chest 1V portable HISTORY: 61 years-old Female Dyspnea acute shortness of breath COMPARISON: Chest radiograph 12/02/2021 TECHNIQUE: AP view of the chest FINDINGS: Cardiac silhouette is enlarged. Mitral annular calcifications. Atherosclerosis of the thoracic aorta. No pneumothorax or large pleural effusion. I lateral mixed interstitial and alveolar opacities. Pulmonary vascular congestion. No pneumothorax or large pleural effusion. Degenerative changes of the shoulders and spine. IMPRESSION: 1. Cardiomegaly with mixed interstitial and alveolar opacities suggestive of pulmonary edema versus multifocal pneumonia. 2. No pleural effusion identified. ACT 112: Negative or not required by law. The above report was generated using voice recognition software. It may contain grammatical, syntax or spelling errors. Electronically signed by: Abimael Maldonado M.D. 03/15/2022 9:37 PM Discharge Plan Visit Data Chief Complaint: Confusion Stated Complaint: SHORTNESS OF BREATH ED Provider: Segundo Mohamud Discharge Problem: Hypertensive emergency, Pulmonary edema, ESRD on dialysis, Nonadherence to medication, Volume overload Forms Stand Alone Forms: [employer] Prescriptions Prescriptions: No Action insulin glargine [Basaglar KwikPen U-100 Insulin] 100 unit/mL (3 mL) insulin pen 33 unit subcut HS pregabalin 75 mg capsule 75 mg PO QAM aspirin [Marika Low Dose Aspirin] 81 mg Tablet,Delayed Release (Dr/Ec) 81 mg PO HS albuterol sulfate [Proventil HFA] 90 mcg/actuation HFA aerosol inhaler 2 puffs INH Q6H PRN (Reason: shortness of breath or wheezing) Qty: 8 0RF pregabalin 25 mg capsule 25 mg PO DAILY@1200 PRN (Reason: tingling) rosuvastatin 40 mg tablet cetirizine 5 mg tablet,chewable 5 mg PO UD Rx Instructions: T, TH, Sat after dialysis sevelamer carbonate 800 mg tablet 800 mg PO UD Rx Instructions: 3 tabs w meals, 2 tabs w/ each snack Novolog U-100 Insulin aspart 6 unit SC TID Rx Instructions: w meals Renal-Agustin 1 tab PO DAILY Zofran 4 mg PO Q6H PRN (Reason: Nausea) levothyroxine 50 mcg PO DAILY simethicone 80 mg PO Q6H PRN (Reason: Gi Upset) amlodipine [Norvasc] 5 mg Tablet 2.5 mg PO QAM Qty: 20 0RF metoprolol succinate 50 mg Tablet Extended Release 24 Hr 50 mg PO DAILY Qty: 30 0RF lidocaine-prilocaine 2.5-2.5 % cream 1 applic topical 3XWK Rx Instructions: Apply small amount to access site (AVF) 1-2 hours before dialysis. Cover with occlusive dressing (Saran Wrap). Friday,,Friday cholecalciferol (vitamin D3) [Vitamin D3] 25 mcg (1,000 unit) Tablet 0.75 mcg PO UD Rx Instructions: Take on Dialysis days. Friday,,Friday Velphoro 500 mg tablet,chewable 500 mg PO TIDM Referrals Referrals: Jose Magallanes MD [Primary Care Provider] - : Pulmonary edema Qualifiers: Chronicity: acute Qualified Code(s): J81.0 - Acute pulmonary edema Volume overload Qualifiers: Hypervolemia type: unspecified Qualified Code(s): E87.70 - Fluid overload, unspecified
[2022-03-16] MEDS ORDERED: DOXYCYCLINE HYCLATE 100 MG in DEXTROSE 5% 100 ML IV STA (00:22)
[2022-03-16] MEDS ORDERED: PIPERACILLIN/TAZOBACTAM 4.5 GM/120 ML BAG IV STA (00:25)
[2022-03-16 01:00] LABS: Appearance Urine Cloudy (Clear); Bacteria Urine Automated Negative (Negative); Bilirubin Urine Negative (Negative); Blood Urine Trace (Negative); Color Urine Yellow; Epithelial Cell Urine Auto >30 /lpf (0-5); Glucose Urine UA 2+ (Negative); Ketones Urine Negative (Negative); Leukocyte Esterase Urine Negative (Negative); Nitrite Urine Negative (Negative); RBC Urine Automated 0-4 /hpf (0-4); Urobilinogen Urine Negative (Negative); pH Urine 8.5 (4.5-7.5)
[2022-03-16] MEDS ORDERED: NITROGLYCERIN SL 0.4 MG/TAB TAB SL PRN (01:02)
[2022-03-16] MEDS ORDERED: ALBUTEROL HFA 8 GM INHALER INH PRN (01:02)
[2022-03-16] MEDS ORDERED: POLYETHYLENE (MIRALAX) 17 GM PACK PO PRN (01:02)
[2022-03-16] MEDS ORDERED: SIMETHICONE 80 MG CHEW PO PRN (01:02)
[2022-03-16 01:06] LABS: Protein Urine 2+ (Negative)
--- NOTE | 2022-03-16 02:15 | History and Physical Report ---
DATE OF ADMISSION: 03/16/2022. CHIEF COMPLAINT: Shortness of breath. HISTORY OF PRESENT ILLNESS: This is a 61-year-old female with past medical history significant for type 2 diabetes, on insulin, diabetic retinopathy, end- stage renal disease on hemodialysis, hyperparathyroidism secondary to renal disease, nocturnal hypoxemia due to pulmonary hypertension, uses 2 L of oxygen at nighttime, hyperlipidemia, hypothyroidism, pulmonary nodules , sleep apnea, peripheral artery disease, diastolic dysfunction, mitral valve stenosis, history of chronic cholecystitis, diffuse idiopathic skeletal hyperostosis, iron deficiency anemia, generalized weakness, presents with shortness of breath. The patient was outside, shopping for [employer] and suddenly felt short of breath, came to the ER. She was saturating 89% and chest x-ray showed pulmonary edema and she was placed on BiPAP. She tolerated BiPAP ok but now she wanted to take out the BiPAP and she is back on 2 L of oxygen, resting comfortably. She is feeling better. She was given Lasix, but not micturated yet. She makes little urine. She had dialysis on last Friday. Currently, denies any chest pain,no headache, no blurred visions, no runny nose, no sore throat. Has chronic cough, sometimes brings phlegm. Denies any fever. No nausea, no vomiting, no abdominal pain, no diarrhea. Bowel movements are okay. Normal bladder movements. Has some swelling in the legs which seems chronic . Ambulates with a cane.Mustapha says she didnot take her medications in last two days. She says sometimes she forgets to take medications ALLERGIES: GABAPENTIN AND LISINOPRIL. PAST MEDICAL HISTORY: As mentioned above. PAST SURGICAL HISTORY: Cardiac cath, EGDs, EGD with endoscopic ultrasound, ERCP, injection of eye drug, partial hysterectomy, partial removal of the eye fluid, culture and drainage of breast cyst, cataract surgery, treatment of extensive retinopathy, photocoagulation. MEDICATIONS: The patient is on albuterol 2 puffs inhalation q. 6 hours p.r.n., amlodipine 2.5 mg p.o. a.m., aspirin 81 mg p.o. at bedtime, cetirizine 5mg po UD, vitamin D 0.75mcg p.o UD, NovoLog 6 units subcutaneous t.i.d. with meals, Basaglar insulin 33 units subcutaneous bedtime, metoprolol succinate 50 mg p.o. daily, Zofran 4 mg p.o. q. 6 hours p.r.n., pregabalin 75 mg p.o. a.m. and 25 mg p.o. at noon, lovastatin 40 mg p.o. daily, simethicone 80 mg p.o. q. 6 hours p.r.n., Velphoro 500 mg p.o. t.i.d. with meals. FAMILY HISTORY: Significant for diabetes, Alzheimer's dementia. Sister has Volxshq-Xoair-Drnsz. Brother has Gwnlvcg-Mzcsm-Fugvy. Mother has diabetes. SOCIAL HISTORY: , no smoking, no alcohol, no drug use. REVIEW OF SYSTEMS: As per HPI. Rest of the review of systems is negative. PHYSICAL EXAMINATION: GENERAL: The patient is of moderate build, not in acute distress currently. VITAL SIGNS: Temperature 35.8, pulse 91, respiratory rate 22, blood pressure 131/84, oxygen 94% on 2 L. HEENT: Pupils equal, round and reactive to light. Oral mucosa moist. NECK: No JVD or neck masses. CARDIOVASCULAR: S1 and S2 heard. Regular rate and rhythm. No murmur, no gallop. RESPIRATORY SYSTEM: Normal AP diameter. No accessory muscle use. Mild bilateral wheezing and crackles heard. ABDOMEN: Soft, bowel sounds present, nontender, no distention. CENTRAL NERVOUS SYSTEM: Cranial nerves II through XII are grossly intact, nonfocal. EXTREMITIES: Pedal edema present, no erythema seen. LABORATORY DATA: WBC 9.5, hemoglobin 11.6, hematocrit 37.2, platelets 256. PT 10.5, INR 1, APTT 28.5. Sodium 138, potassium 4.5, chloride 93, bicarbonate 31, BUN 54, creatinine 1.1, serum glucose 249, calcium 9.8, magnesium 2.2, total bilirubin 0.3, AST 13, ALT 6, alkaline phosphatase 186. Troponin I high sensitivity 23.2. BNP 240. Procalcitonin 1.33. SARS-CoV-2 rapid test negative. IMAGING DATA: Chest x-ray: Cardiomegaly with mixed interstitial and alveolar opacities suggestive of pulmonary edema versus multifocal pneumonia. No pleural effusions identified. EKG: Sinus tachycardia at 112, possible left atrial enlargement. ASSESSMENT AND PLAN: This is a 62-year-old female who presents with shortness of breath. 1. Shortness of breath, pulmonary edema versus multifocal pneumonia. Procalcitonin slightly elevated. The patient had dialysis last Friday, possible acute on chronic diastolic congestive heart failure. Plan for dialysis in the a.m. Empirically with Zosyn and doxycycline. Follow the cultures. We will get a CT chest for a better picture. Closely monitor in tele floor. We will continue BiPAP for now. 2. End-stage renal disease, on hemodialysis. 3. Diabetes. We will continue home long-acting insulin. Place her on insulin sliding scale. Follow the blood sugars, follow HbA1c levels. 4. Hypertension: Continue amlodipine, metoprolol. We will monitor the blood pressure. The patient is somewhat noncompliant. The patient says sometimes she does not take medications. In the last 2 days, she has not taken her medications. 5. Neuropathy. Continue pregabalin. 6. Hyperlipidemia: Continue statin. 7. Deep venous thrombosis prophylaxis: Heparin subcutaneously. DISPOSITION: Closely monitor in the tele floor. Level 1 full code. Expect to discharge home and follow with family doctor. Job ID: [id number] [facility]
[2022-03-16 05:07] LABS: Basophils # (auto) 0.02 K/uL (0-0.2); Basophils % (auto) 0.2 %; Eosinophils # (auto) 0.11 K/uL (0-0.50); Hematocrit (blood only) 34.7 % (34.1-44.9); Hemoglobin 10.8 g/dl (12.0-16.0); Immature Granulocytes # (auto) 0.03 K/uL (0.00-0.02); Immature Granulocytes % (auto) 0.3 %; Lymphocytes # (auto) 1.38 K/uL (1.2-3.4); Lymphocytes % (auto) 12.8 %; Mean Corpuscular Hemoglobin 30.9 pg (25.0-34.0); Mean Corpuscular Hgb Conc 31.1 g/dL (32.0-36.0); Mean Corpuscular Volume 99.1 fL (80.0-100.0); Mean Platelet Volume 9.9 fL (9.4-12.3); Monocytes # (auto) 0.77 K/uL (0.24-0.82); Monocytes % (auto) 7.1 %; Neutrophils # (auto) 8.49 K/uL (1.4-6.5); Neutrophils % (auto) 78.6 %; Platelet Count 249 K/uL (130-400); RDW Coefficient of Variation 15.5 % (11.5-14.5); RDW Standard Deviation 55.1 fL (36.4-46.3)
[2022-03-16 05:26] LABS: BUN Creatinine Ratio 7.8 (10-20); Calcium 9.7 mg/dl (8.5-10.1); Creatinine Clr Calc Pharmacy 8.8 ml/min; Est GFR (African American) 6.3 ml/min; Est GFR (Non-African American) 5.4 ml/min; Magnesium 2.2 mg/dl (1.7-2.4); Potassium 4.5 mmol/L (3.5-5.1)
[2022-03-16] MEDS ORDERED: GLUCOSE 10 TAB/TUBE PO PRN (05:45)
[2022-03-16] MEDS ORDERED: CARBOHYDRATES FOR HYPOGLYCEMIA PO PRN (05:45)
[2022-03-16] MEDS ORDERED: GLUCOSE 40% GEL 15 GM TUBE PO PRN (05:45)
[2022-03-16] MEDS ORDERED: GLUCAGON FOR INJ 1 MG VIAL IM PRN (05:45)
[2022-03-16] MEDS ORDERED: DEXTROSE 50% 50 ML SYRINGE IV PRN (05:45)
[2022-03-16] MEDS: HEPARIN SOD 5,000 UNIT/0.5 ML VIAL SQ SCH ×3 (06:10→21:19)
[2022-03-16] MEDS: LEVOTHYROXINE SODIUM 50 MCG TABLET PO SCH (06:10)
--- NOTE | 2022-03-16 07:09 | Electrocardiogram Report ---
Test Reason : Blood Pressure : / mmHG Vent. Rate : 112 BPM Atrial Rate : 112 BPM P-R Int : 158 ms QRS Dur : 084 ms QT Int : 336 ms P-R-T Axes : 053 004 023 degrees QTc Int : 458 ms Sinus tachycardia Possible Left atrial enlargement Anterior infarct , age undetermined Abnormal ECG When compared with ECG of 04-DEC-2021 06:22, Vent. rate has increased BY 43 BPM Anterior infarct is now Present Confirmed by Ata Alegria ([id number]) on 03/16/2022 7:08:48 AM Referred By: REFERRED SELF Confirmed By:Gregory Alegria
--- NOTE | 2022-03-16 07:13 | Electrocardiogram Report ---
Test Reason : Blood Pressure : / mmHG Vent. Rate : 090 BPM Atrial Rate : 090 BPM P-R Int : 174 ms QRS Dur : 088 ms QT Int : 376 ms P-R-T Axes : 064 014 018 degrees QTc Int : 459 ms Normal sinus rhythm Possible Left atrial enlargement Borderline ECG When compared with ECG of 15-MAR-2022 20:32, (unconfirmed) Criteria for Anterior infarct are no longer Present Confirmed by Ata Alegria ([id number]) on 03/16/2022 7:13:21 AM Referred By: REFERRED SELF Confirmed By:Gregory Alegria
[2022-03-16] MEDS: LIDOCAINE/PRILOCAINE 2.5% EA CRM EXT SCH (07:39)
[2022-03-16 07:47] LABS: Estimated Average Glucose 148 mg/dl; Hemoglobin A1C 6.8 % (4.5-5.6)
[2022-03-16] MEDS: INSULIN ASPART PER UNIT SC SCH ×4 (08:32→21:23)
[2022-03-16] MEDS: amLODIPine BESYLATE 5 MG TAB PO SCH (08:33)
[2022-03-16] MEDS: ROSUVASTATIN CALCIUM 20 MG TAB PO SCH (08:34)
[2022-03-16] MEDS: METOPROLOL SUCC 50MG EXT REL TAB PO SCH (08:34)
[2022-03-16] MEDS: PREGABALIN 75 MG CAP PO SCH (08:36)
[2022-03-16] MEDS ORDERED: CHOLECALCIFEROL 1,000 UNITS 25 MCG TAB PO SCH (09:00)
[2022-03-16] MEDS ORDERED: SODIUM CHLORIDE 0.9% 1000ML 1,000 ML IV PRN (09:36)
[2022-03-16] MEDS ORDERED: HEPARIN SOD (PORCINE) 1000 UNIT/ML IV ONE (09:36)
--- NOTE | 2022-03-16 10:08 | CT Scan Report ---
CT SCAN OF THE CHEST WITHOUT IV CONTRAST CLINICAL HISTORY: Dyspnea. COMPARISON STUDY: Chest x-ray dated 03/15/2022. Chest CT dated 07/01/2019. TECHNIQUE: CT scan of the thorax was performed from the thoracic inlet to the upper abdomen. Images are reviewed in the axial, sagittal, and coronal planes. IV contrast was not administered for this ex amination as per the referring clinician. A dose lowering technique was utilized [facility] The examination is degraded by motion artifact. CT DOSE: 481.46 mGy.cm FINDINGS: Thyroid: The thyroid gland is enlarged and heterogeneous, typical for goiter. Thoracic aorta: There is advanced atherosclerotic calcification of the thoracic aorta, which is sabi l in caliber and demonstrates standard 3-vessel arch anatomy. Heart: The heart is enlarged and without pericardial effusion. The coronary arteries and mitral annul us are densely calcified. Lungs and pleural spaces: Airspace consolidation is seen throughout both lungs and there is intralobu lar septal thickening. There are small pleural effusions. The trachea and central airways appear raul r. Mediastinum: There are numerous mildly enlarged mediastinal lymph nodes which measure up to 11 mm in short axis. Danitza: There are calcified right hilar nodes. Note that the danitza are not well assessed without IV cont rast. Axillae: There is no axillary lymphadenopathy. Upper abdomen: There is pneumobilia and mild intrahepatic biliary ductal dilatation. The spleen is en larged measuring 14.3 cm in length. Skeletal structures: The skeletal structures are heterogeneously osteopenic, possibly representing re nal osteodystrophy. Spondylotic changes noted throughout the thoracic spine. No lytic or blastic bony lesions are seen. IMPRESSION: 1. Cardiomegaly with evidence of fluid overload/congestive failure. 2. Extensive/multifocal bilateral airspace consolidation could represent pulmonary edema, multifocal pneumonia, and/or ARDS. Clinical correlation will be required and radiographic follow-up to resolutio n is recommended 3. Small pleural effusions. 4. Mildly enlarged mediastinal lymph nodes are nonspecific and likely reactive. 5. Additional findings as above. ACT 112: Negative or not required by law. Electronically signed by: Jc Ledesma M.D. 03/16/2022 10:06 AM
--- NOTE | 2022-03-16 10:16 | Cardiology Consultation ---
Date of Consultation March 16, 2022 Assessment & Plan (1) Acute heart failure with preserved ejection fraction: (2) Mitral stenosis: (3) Acute respiratory failure with hypoxia: (4) Pneumonia: (5) ESRD on dialysis: (6) Nonadherence to medication: Plan 61-year-old female presents with acute on chronic heart failure with preserved ejection fraction in setting of severe mitral stenosis/severe pulm hypertension. Similar presentation in November 2021 in the setting of nonadherence to dialysis treatments. Clinically improved with oxygen supplementation and IV diuretic therapy. She is scheduled for hemodialysis treatment this morning. There is a concern regarding multifocal pneumonia as well with a mildly elevated procalcitonin. Continue empiric antibiotic therapy as per internal medicine. Patient with known severe mitral stenosis and pulm hypertension confirmed by c ardiac catheterization performed by the undersigned in November. Nonobstructive coronary disease noted. She is currently under evaluation with the [facility] valve clinic and cardiothoracic surgical teams to consider surgical versus transcutaneous mitral valve replacement. Continue current cardiovascular medications including amlodipine, metoprolol, low-dose aspirin, and rosuvastatin. History of Present Illness Reason for Consultation: CHF Requesting Physician: Dr. Dunbar Attending Physician: Jordyn Dunbar MD History of Present Illness 61-year-old female present to the emergency department secondary to shortness of breath. Admits to noncompliance of medications for several days. Last dialysis treatment was on Friday. Last evening she was out shopping for [employer] when she became progressively short of breath. Admits to excessive sodium intake (consuming [employer] and [place] fries earlier in the day). Prescribed supplemental oxygen 2 L continuous, however, currently only wearing at night. EMS was summoned and she was brought to the emergency department. Treated with IV Lasix with mild diuresis. Clinically she is much improved this morning. O xygen saturation 98% on 4 L. Chest x-ray suggestive of volume overload and CHF with possible lower lobe pneumonia. Allergies Allergy/AdvReac Type Severity Reaction Status Date / Time gabapentin Allergy Intermediate Dizziness Verified 03/15/22 22:38 lisinopril AdvReac Intermediate Cough Verified 03/15/22 22:38 Home Medications Medication Instructions Recorded Confirmed Type aspirin 81 mg tablet,delayed 81 mg PO HS 05/07/18 03/15/22 History release (Marika Low Dose Aspirin) insulin glargine 100 unit/mL (3 33 unit subcut HS 09/16/18 03/15/22 History mL) subcutaneous pen (Basaglar KwikPen U-100 Insulin) albuterol sulfate 90 mcg/actuation 2 puffs inhalation Q6H PRN 05/30/19 03/15/22 Rx aerosol inhaler (Proventil HFA) shortness of breath or wheezing #8 grams pregabalin 75 mg capsule 75 mg PO QAM 08/20/19 03/15/22 History pregabalin 25 mg capsule 25 mg PO DAILY@1200 PRN tingling 09/26/20 03/15/22 History cholecalciferol (vitamin D3) 25 0.75 mcg PO UD 09/24/21 03/15/22 History mcg (1,000 unit) tablet (Vitamin D3) lidocaine-prilocaine 2.5 %-2.5 % 1 applic topical 3XWK 09/24/21 03/15/22 History topical cream sucroferric oxyhydroxide 500 mg 500 mg PO TIDM 09/24/21 03/15/22 History chewable tablet (Velphoro) cetirizine 5 mg chewable tablet 5 mg PO UD 12/01/21 03/15/22 History rosuvastatin 40 mg tablet 40 mg PO DAILY 12/01/21 03/15/22 History metoprolol succinate 50 mg 50 mg PO DAILY #30 tabs 12/05/21 03/15/22 Rx tablet,extended release 24 hr amlodipine 2.5 mg tablet 2.5 mg PO QAM 03/15/22 03/15/22 History insulin aspart U-100 100 unit/mL 6 unit subcut TIDM 03/15/22 03/15/22 History (3 mL) subcutaneous pen (Novolog Flexpen U-100 Insulin aspart) ondansetron HCl 4 mg tablet 4 mg PO Q6 PRN Nausea 03/15/22 03/15/22 History simethicone 80 mg chewable tablet 80 mg PO Q6 PRN .gi upset 03/15/22 03/15/22 History levothyroxine 50 mcg tablet 50 mcg PO DAILY 03/16/22 03/16/22 History Patient History Medical History Anemia AV fistula Left arm Chronic kidney disease on chronic dialysis //Friday at [facility]. Dr Izquierdo 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 pt states she was critical, intubated and started hemodiaylsis at that point. states she then had to go to rehab to "learn to walk again" and currently is at home with and uses a cane, but is very unsteady without assistance. Hyperlipidemia Hyperparathyroidism due to renal insufficiency Hypertension Hypothyroidism Obesity (BMI 30-39.9) Osteoarthritis Peripheral neuropathy BILATERAL LEGS Renal mass, left pt unaware Splenic lesion pt unaware Subdural hematoma pt unaware Surgical History H/O bilateral salpingo-oophorectomy History of cataract extraction with lens replacement bilateral History of colonoscopy History of hysterectomy RENNY History of vitrectomy S/P arteriovenous (AV) fistula creation Left arm with several revisions Family History Father Family history of diabetes mellitus Mother Family history of diabetes mellitus Social History Smoking Status: Never smoker Second Hand Exposure: No; Hx Alcohol Use: No Hx Substance Use: No Preferred Language: Macanese Communication Ability: Effective 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 Beliefs That Will Affect Care: None marital status: Current Living Situation: Spouse How many Children do You have: 1 Feels Safe at Home: Yes Safety Concerns: Feels Safe At This Time Assistive Devices: Cane and Oxygen - at Night Review of Systems Review of Systems: All systems reviewed & are unremarkable except as noted in Subjective Physical Exam Constitutional: well developed and well nourished; no acute distress Respiratory: normal respiratory effort; no respiratory distress Auscultation: + diminished lung sounds (Bilateral bases) and + rales (Bilateral bases, left greater than right); no rhonchi and no wheezes Cardiovascular: Rate/Rhythm: regular rate and regular rhythm Heart Sounds: normal S1, normal S2 and + murmur (2/6 low pitched mid peaking systolic murmur heard best at the base.) Vessels: radial pulses present; no JVD and no carotid bruit Extremities: + edema (Trace bilateral pedal edema) Gastrointestinal (Abdomen): Inspection/Auscultation: abdomen normal to inspection and normal bowel sounds; abdomen not distended Percussion/Palpation: abdomen soft; abdomen nontender, no guarding and abdomen not rigid Neurologic: CN's II-XI intact bilaterally and moves all extremities Motor/Sensory: no tremor and no sensory deficit Psychiatric: A+Ox3, euthymic affect Results & Data ([facility]) Vital Signs (Past 12 Hours) Vital Signs Temp Pulse Pulse Resp BP BP Pulse Ox 03/16/22 08:41 76 122/65 03/16/22 06:46 36.6 C 77 17 117/65 98 03/16/22 01:30 36.6 C 91 H 20 168/74 H 91 03/16/22 01:30 88 03/16/22 01:30 03/16/22 03:08 36.6 C 84 20 138/73 98 03/16/22 01:33 36.6 C 91 H 20 168/74 H 97 03/16/22 00:30 91 H 22 131/84 94 03/16/22 00:00 91 H 21 155/76 H 96 03/15/22 23:30 94 H 19 163/72 H 97 03/15/22 23:00 95 H 19 154/75 H 99 03/15/22 22:45 94 H 19 154/71 H 98 03/15/22 22:30 98 H 20 159/78 H 98 03/15/22 23:15 26 H 99 03/15/22 22:15 101 H 18 98 03/15/22 22:15 166/83 H O2 Del Method O2 Flow Rate FiO2 03/16/22 08:41 03/16/22 06:46 Nasal Cannula 4 03/16/22 01:30 Nasal Cannula 4 03/16/22 01:30 03/16/22 01:30 Nasal Cannula 4 03/16/22 03:08 Nasal Cannula 4 03/16/22 01:33 Nasal Cannula 4 03/16/22 00:30 03/16/22 00:00 03/15/22 23:30 03/15/22 23:00 03/15/22 22:45 03/15/22 22:30 03/15/22 23:15 35 03/15/22 22:15 03/15/22 22:15
--- NOTE | 2022-03-16 11:19 | Nephrology Consultation ---
Date of Consultation March 16, 2022 Assessment & Plan (1) ESRD on dialysis: Patient with ESRD on dialysis Friday. Her dialysis schedule was changed due to . Last outpatient dialysis was on Friday. She now has evidence of pulmonary edema. Electrolytes are stable and hemoglobin was 10.8. Blood pressure is controlled. -We will dialyze her today for 4 hours and target UF 3.5 L. (2) Acute heart failure with preserved ejection fraction: Patient with shortness of breath and chest x-ray showing cardiomegaly with evidence of pulmonary edema. -Monitor daily weight -Cardiac diet with fluid restriction of 1.5 L. -Fluid management with dialysis History of Present Illness Reason for Consultation: ESRD and CHF Requesting Physician: Jordyn Dunbar MD Attending Physician: Jordyn Dunbar MD History of Present Illness This is a 62-year-old female with history of hypertension, ESRD on dialysis Friday at [facility], severe mitral stenosis, severe pulmonary hypertension, diastolic CHF and chronic respiratory failure on nocturnal oxygen 2 L who was admitted yesterday with shortness of breath. Her dialysis schedule was changed due to . She last had dialysis on Friday. Yesterday while shopping for [employer], she felt short of breath and presented to the emergency room. Chest x-ray showed cardiomegaly and pulmonary edema. She is now on oxygen 4 L nasal cannula. She feels a little better this morning. Legs are swollen. She has left forearm AV fistula. No nausea, vomiting or diarrhea. Blood pressure is controlled. Allergies Allergy/AdvReac Type Severity Reaction Status Date / Time gabapentin Allergy Intermediate Dizziness Verified 03/15/22 22:38 lisinopril AdvReac Intermediate Cough Verified 03/15/22 22:38 Home Medications Medication Instructions Recorded Confirmed Type aspirin 81 mg tablet,delayed 81 mg PO HS 05/07/18 03/15/22 History release (Marika Low Dose Aspirin) insulin glargine 100 unit/mL (3 33 unit subcut HS 09/16/18 03/15/22 History mL) subcutaneous pen (Basaglar KwikPen U-100 Insulin) albuterol sulfate 90 mcg/actuation 2 puffs inhalation Q6H PRN 05/30/19 03/15/22 Rx aerosol inhaler (Proventil HFA) shortness of breath or wheezing #8 grams pregabalin 75 mg capsule 75 mg PO QAM 08/20/19 03/15/22 History pregabalin 25 mg capsule 25 mg PO DAILY@1200 PRN tingling 09/26/20 03/15/22 History cholecalciferol (vitamin D3) 25 0.75 mcg PO UD 09/24/21 03/15/22 History mcg (1,000 unit) tablet (Vitamin D3) lidocaine-prilocaine 2.5 %-2.5 % 1 applic topical 3XWK 09/24/21 03/15/22 History topical cream sucroferric oxyhydroxide 500 mg 500 mg PO TIDM 09/24/21 03/15/22 History chewable tablet (Velphoro) cetirizine 5 mg chewable tablet 5 mg PO UD 12/01/21 03/15/22 History rosuvastatin 40 mg tablet 40 mg PO DAILY 12/01/21 03/15/22 History metoprolol succinate 50 mg 50 mg PO DAILY #30 tabs 12/05/21 03/15/22 Rx tablet,extended release 24 hr amlodipine 2.5 mg tablet 2.5 mg PO QAM 03/15/22 03/15/22 History insulin aspart U-100 100 unit/mL 6 unit subcut TIDM 03/15/22 03/15/22 History (3 mL) subcutaneous pen (Novolog Flexpen U-100 Insulin aspart) ondansetron HCl 4 mg tablet 4 mg PO Q6 PRN Nausea 03/15/22 03/15/22 History simethicone 80 mg chewable tablet 80 mg PO Q6 PRN .gi upset 03/15/22 03/15/22 History levothyroxine 50 mcg tablet 50 mcg PO DAILY 03/16/22 03/16/22 History Patient History Medical History Anemia AV fistula Left arm Chronic kidney disease on chronic dialysis //Friday at [facility]. 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 pt states she was critical, intubated and started hemodiaylsis at that point. states she then had to go to rehab to "learn to walk again" and currently is at home with and uses a cane, but is very unsteady without assistance. Hyperlipidemia Hyperparathyroidism due to renal insufficiency Hypertension Hypothyroidism Obesity (BMI 30-39.9) Osteoarthritis Peripheral neuropathy BILATERAL LEGS Renal mass, left pt unaware Splenic lesion pt unaware Subdural hematoma pt unaware Surgical History H/O bilateral salpingo-oophorectomy History of cataract extraction with lens replacement bilateral History of colonoscopy History of hysterectomy RENNY History of vitrectomy S/P arteriovenous (AV) fistula creation Left arm with several revisions Family History Father Family history of diabetes mellitus Mother Family history of diabetes mellitus Social History Smoking Status: Never smoker Second Hand Exposure: No; Hx Alcohol Use: No Hx Substance Use: No Preferred Language: Greenlandic Communication Ability: Effective 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 Gastrointestinal: Abdomen is soft, non distended, non tender, bowel sounds are present CVS: Regular rate and rhythm. No murmurs, rubs or gallops Musculoskeletal: No joint or muscle tenderness Extremities: Non tender, 1+ edema, peripheral pulses are present Neuro: Oriented, no tremors, no focal neurological deficits Skin: No rashes Results & Data ([facility]) Vital Signs (Past 12 Hours) Vital Signs Temp Pulse Pulse Resp BP BP Pulse Ox 03/16/22 08:41 76 122/65 03/16/22 06:46 36.6 C 77 17 117/65 98 03/16/22 01:30 36.6 C 91 H 20 168/74 H 91 03/16/22 01:30 88 03/16/22 01:30 03/16/22 03:08 36.6 C 84 20 138/73 98 03/16/22 01:33 36.6 C 91 H 20 168/74 H 97 03/16/22 00:30 91 H 22 131/84 94 03/16/22 00:00 91 H 21 155/76 H 96 03/15/22 23:30 94 H 19 163/72 H 97 03/15/22 23:15 26 H 99 O2 Del Method O2 Flow Rate FiO2 03/16/22 08:41 03/16/22 06:46 Nasal Cannula 4 03/16/22 01:30 Nasal Cannula 4 03/16/22 01:30 03/16/22 01:30 Nasal Cannula 4 03/16/22 03:08 Nasal Cannula 4 03/16/22 01:33 Nasal Cannula 4 03/16/22 00:30 03/16/22 00:00 03/15/22 23:30 03/15/22 23:15 35 Laboratory Results 03/16/22 04:27 03/15/22 03/15/22 03/16/22 20:45 20:45 05:00 WBC 9.50 10.80 RBC 3.86 L 3.50 L MCV 96.4 99.1 MCH 30.1 30.9 MCHC 31.2 L 31.1 L RDW Std Deviation 53.0 H 55.1 H RDW Coeff of Talisha 15.4 H 15.5 H Plt Count 256 249 MPV 9.4 9.9 Albumin 3.8
[2022-03-16] MEDS: PIPERACILLIN/TAZOBACTAM 4.5 GM in DEXTROSE 5% 100 ML IV SCH ×2 (11:49→21:30)
[2022-03-16] MEDS ORDERED: PREGABALIN 25 MG CAP PO PRN (12:00)
[2022-03-16] MEDS: ACETAMINOPHEN 325 MG TAB PO PRN (13:17)
--- NOTE | 2022-03-16 13:53 | Hospitalist Progress Note ---
Date of Service March 16, 2022 Assessment & Plan (1) Acute respiratory failure with hypoxia: Plan: Presented with acute shortness of breath Has acute respiratory failure with hypoxia secondary to pulmonary edema and bilateral multilobar pneumonia CT of the chest showed: Cardiomegaly with evidence of fluid overload/congestive failure, extensive/multifocal bilateral airspace consolidation secondary to pulmonary edema/multifocal pneumonia and/or ARDS. Requiring 4 L of oxygen via nasal cannula to maintain saturation Clinically much better since admission Clinically worse will need to be evaluated by painter set while in the hospital (2) Acute pulmonary edema: Plan: Left dialysis this morning (3) Acute heart failure with preserved ejection fraction: Plan: Appreciate cardiology input and recommendation Has significant valvular heart disease especially mitral stenosis which is complicating fluid overload Received intravenous diuretic Will have dialysis this morning (4) ESRD on dialysis: Plan: Appreciate nephrology input and recommendation Dialysis as per hand trimmer Anemia of chronic disease Occult blood has been negative Hemoglobin is stable at 10.8 (5) Pneumonia: Plan: Has bilateral multilobar pneumonia Procalcitonin level is elevated Has been on intravenous Zosyn and doxycycline Clinically better we will continue current antibiotic (6) Diabetes mellitus: Plan: Has been on insulin and Hemoglobin A1c 6.8 We will continue with SSI (7) Hypertension: Plan: Blood pressure remains controlled (8) Hypothyroidism: Plan: Continue supplement Other significant medical conditions remained stable DVT prophylaxis Subcu heparin CODE STATUS Full (9) Anemia of chronic renal failure, stage 5: Admission and Anticipated Discharge Date Admission Date: March 16, 2022 Subjective 03/16/2022 The patient was seen and examined in telemetry unit She has been feeling much better since admission and wants to go home after dialysis Denies any fever and or chills and is requiring 4 L of oxygen to maintain saturation and no shortness of breath at rest Awaiting dialysis this morning Review of Systems Review of Systems: All systems reviewed and are unremarkable except as noted below Respiratory: No respiratory distress at rest Physical Exam Physical Exam: Sitting on a chair without any acute distress Constitutional: well developed, well nourished, + ill appearing and + obese Eyes: PERRL, conjunctivae normal, anicteric sclerae ENMT: external ear and nose normal, oropharynx normal Neck: trachea midline, no thyromegaly Respiratory: + respiratory distress (Mild to moderate respiratory distress at rest) Auscultation: + diminished lung sounds and + crackles (Coarse crackles bilaterally) Cardiovascular: Rate/Rhythm: regular rate and regular rhythm; not tachycardic Heart Sounds: normal S1, normal S2 and + murmur (2/6 ESM over precordium) Extremities: + edema (1+ edema bilaterally with chronic skin changes) Gastrointestinal (Abdomen): Inspection/Auscultation: normal bowel sounds; abdomen not distended Percussion/Palpation: abdomen soft; abdomen nontender Musculoskeletal: No acute arthritis involving any joint Neurologic: Alert, awake and oriented x3. Results & Data Results & Data ([facility]) Vital Signs (Past 12 Hours) Vital Signs Temp Pulse Pulse Pulse Resp BP BP 03/16/22 12:30 71 135/74 03/16/22 12:00 73 128/70 03/16/22 11:35 75 128/64 03/16/22 11:30 36.6 C 75 03/16/22 08:00 03/16/22 08:41 76 122/65 03/16/22 06:46 36.6 C 77 17 117/65 03/16/22 03:08 36.6 C 84 20 138/73 Pulse Ox O2 Del Method O2 Flow Rate 03/16/22 12:30 03/16/22 12:00 03/16/22 11:35 03/16/22 11:30 03/16/22 08:00 Nasal Cannula 4 03/16/22 08:41 03/16/22 06:46 98 Nasal Cannula 4 03/16/22 03:08 98 Nasal Cannula 4 Laboratory Results Short CBC 03/15/22 03/16/22 Range/Units 20:45 05:00 WBC 9.50 10.80 (4.8-10.8) K/ul Hgb 11.6 L 10.8 L (12.0-16.0) g/dl Hct 37.2 34.7 (34.1-44.9) % Plt Count 256 249 (130-400) K/uL BMP 03/15/22 03/16/22 20:45 04:27 Sodium 138 139 Potassium 4.5 4.5 Chloride 93 L 96 L Carbon Dioxide 31 31 BUN 54 H 57 H Creatinine 7.13 H* 7.33 H* Glucose 249 H 185 H Calcium 9.8 9.7 Liver Function 03/15/22 Range/Units 20:45 Total Bilirubin 0.3 (0.2-1.0) mg/dl AST 10 L (13-39) U/L ALT 6 L (7-52) U/L Alkaline Phosphatase 186 H (34-104) U/L Albumin 3.8 (3.4-5.0) gm/dl Urine 03/16/22 Range/Units 00:33 Urine Color Yellow Urine Appearance Cloudy A (Clear) Urine pH 8.5 H (4.5-7.5) Ur Specific [place] 1.010 (1.000-1.030) Urine Protein 2+ H (Negative) Urine Glucose (UA) 2+ H (Negative) Medications Administered Current Inpatient Medications Acetaminophen (Acetaminophen 325 Mg Tab) 650 mg PO Q4H PRN PRN Reason: Pain or Fever Stop: 04/15/22 01:01 Last Admin: 03/16/22 13:17 Dose: 650 mg Albuterol (Albuterol Hfa 8 Gm Inhaler) 2 puffs INH Q6H PRN PRN Reason: shortness of breath or wheezin Stop: 04/15/22 01:01 Amlodipine Besylate (Amlodipine Besylate 5 Mg Tab) 2.5 mg PO QAM [facility] Stop: 04/15/22 08:59 Last Admin: 03/16/22 08:33 Dose: 2.5 mg Aspirin (Aspirin 81 Mg Ectab) 81 mg PO HS [facility] Stop: 04/15/22 20:59 Dextrose (Dextrose 50% 50 Ml Syringe) 25 - 50 ml IV UD PRN; Protocol PRN Reason: Hypoglycemia Protocol Stop: 04/15/22 05:44 Glucagon (Glucagon For Inj 1 Mg Vial) 1 mg IM UD PRN; Protocol PRN Reason: Hypoglycemia Protocol Stop: 04/15/22 05:44 Glucose (Glucose 40% Gel 15 Gm Tube) 15 - 30 gm PO UD PRN; Protocol PRN Reason: Hypoglycemia Protocol Stop: 04/15/22 05:44 Glucose (Glucose 10 Tab/Tube) 4 - 8 tab PO UD PRN; Protocol PRN Reason: Hypoglycemia Protocol Stop: 04/15/22 05:44 Heparin Sodium (Porcine) (Heparin Sod 5,000 Unit/0.5 Ml Vial) 5,000 units SQ Q8 [facility] Stop: 04/15/22 05:59 Last Admin: 03/16/22 06:10 Dose: 5,000 units Piperacillin Sod/Tazobactam (Sod 4.5 gm/ Dextrose) 120 mls @ 30 mls/hr IV Q12H [facility]; Protocol Stop: 03/23/22 09:59 Last Admin: 03/16/22 11:49 Dose: Not Given Doxycycline Hyclate 100 mg/ (Dextrose) 110 mls @ 50 mls/hr IV Q12H [facility] Stop: 03/23/22 17:59 Sodium Chloride (Nss 1000ml) 1,000 mls @ 0 mls/hr IV .Q0M PRN PRN Reason: For Hemodialysis Use ONLY Stop: 03/16/22 15:35 Insulin Aspart (Insulin Aspart Per Unit) 0 units SC ACHS [facility] Stop: 04/15/22 07:29 Last Admin: 03/16/22 11:57 Dose: Not Given Insulin Glargine (Lantus Per Unit Charge) 33 units SQ HS [facility] Stop: 04/15/22 20:59 Levothyroxine Sodium (Levothyroxine Sodium 50 Mcg Tablet) 50 mcg PO DAILYBB [facility] Stop: 04/15/22 06:29 Last Admin: 03/16/22 06:10 Dose: 50 mcg Lidocaine/Prilocaine (Lidocaine/Prilocaine 2.5% Ea Crm) 1 each EXT TuThSa@0700 [facility] Stop: 04/15/22 06:59 Last Admin: 03/16/22 07:39 Dose: 1 each Metoprolol Succinate (Metoprolol Succ 50mg Ext Rel Tab) 50 mg PO DAILY [facility] Stop: 04/15/22 08:59 Last Admin: 03/16/22 08:34 Dose: 50 mg Miscellaneous (Sucroferric Oxyhydroxide [Velphoro]: Order Awaiting Action) 1 each N/A QS [facility] Stop: 04/15/22 07:59 Last Admin: 03/16/22 08:32 Dose: Not Given Miscellaneous (Carbohydrates For Hypoglycemia ) 15 - 30 gm PO UD PRN PRN Reason: Hypoglycemia Treatment Stop: 04/15/22 05:44 Nitroglycerin (Nitroglycerin Sl 0.4 Mg/Tab Tab) 0.4 mg SL UD PRN PRN Reason: Chest Pain Stop: 04/15/22 01:01 Polyethylene Glycol (Polyethylene (Miralax) 17 Gm Pack) 17 gm PO DAILY PRN PRN Reason: Constipation Stop: 04/15/22 01:01 Pregabalin (Pregabalin 75 Mg Cap) 75 mg PO QAM [facility] Stop: 04/15/22 08:59 Last Admin: 03/16/22 08:36 Dose: 75 mg Pregabalin (Pregabalin 25 Mg Cap) 25 mg PO DAILY@1200 PRN PRN Reason: tingling Stop: 04/15/22 11:59 Rosuvastatin Calcium (Rosuvastatin Calcium 20 Mg Tab) 40 mg PO DAILY [facility] Stop: 04/15/22 08:59 Last Admin: 03/16/22 08:34 Dose: 40 mg Simethicone (Simethicone 80 Mg Chew) 80 mg PO Q6 PRN PRN Reason: .gi upset Stop: 04/15/22 01:01 Vitamin D (Cholecalciferol 1,000 Units 25 Mcg Tab) 3,000 units PO TuThSa@0900 [facility] Stop: 04/15/22 08:59 Last Admin: 03/16/22 08:34 Dose: 3,000 units (1) Diabetes mellitus Diabetes mellitus complication status: with unspecified complications Diabetes mellitus snf insulin 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
[2022-03-16] MEDS: DOXYCYCLINE HYCLATE 100 MG in DEXTROSE 5% 100 ML IV SCH (18:15)
[2022-03-16] MEDS: ASPIRIN 81 MG ECTAB PO SCH (21:18)
[2022-03-16] MEDS: LANTUS PER UNIT CHARGE SQ SCH (21:23)
[2022-03-17] MEDS: HEPARIN SOD 5,000 UNIT/0.5 ML VIAL SQ SCH ×3 (05:50→21:47)
[2022-03-17] MEDS: LEVOTHYROXINE SODIUM 50 MCG TABLET PO SCH (05:50)
[2022-03-17] MEDS: DOXYCYCLINE HYCLATE 100 MG in DEXTROSE 5% 100 ML IV SCH ×2 (05:55→17:52)
[2022-03-17] MEDS: INSULIN ASPART PER UNIT SC SCH ×4 (08:29→21:10)
[2022-03-17] MEDS: METOPROLOL SUCC 50MG EXT REL TAB PO SCH (08:31)
[2022-03-17] MEDS: amLODIPine BESYLATE 5 MG TAB PO SCH (08:31)
[2022-03-17] MEDS: ROSUVASTATIN CALCIUM 20 MG TAB PO SCH (08:31)
[2022-03-17] MEDS: PREGABALIN 75 MG CAP PO SCH (08:32)
[2022-03-17 08:41] LABS: Basophils # (auto) 0.02 K/uL (0-0.2); Basophils % (auto) 0.3 %; Eosinophils % (auto) 2.6 %; Hematocrit (blood only) 35.2 % (34.1-44.9); Hemoglobin 10.8 g/dl (12.0-16.0); Immature Granulocytes # (auto) 0.02 K/uL (0.00-0.02); Immature Granulocytes % (auto) 0.3 %; Lymphocytes # (auto) 1.58 K/uL (1.2-3.4); Lymphocytes % (auto) 20.7 %; Mean Corpuscular Hemoglobin 30.3 pg (25.0-34.0); Mean Corpuscular Hgb Conc 30.7 g/dL (32.0-36.0); Mean Corpuscular Volume 98.9 fL (80.0-100.0); Mean Platelet Volume 9.5 fL (9.4-12.3); Monocytes # (auto) 0.55 K/uL (0.24-0.82); Monocytes % (auto) 7.2 %; Neutrophils # (auto) 5.26 K/uL (1.4-6.5); Neutrophils % (auto) 68.9 %; Platelet Count 239 K/uL (130-400); RDW Coefficient of Variation 15.5 % (11.5-14.5); RDW Standard Deviation 55.4 fL (36.4-46.3); Red Blood Count 3.56 M/uL (3.93-5.22); White Blood Count 7.63 K/ul (4.8-10.8)
[2022-03-17 09:07] LABS: Albumin Level 3.7 gm/dl (3.4-5.0); BUN Creatinine Ratio 7.8 (10-20); Bilirubin,Total 0.5 mg/dl (0.2-1.0); Calcium 10.5 mg/dl (8.5-10.1); Creatinine Clr Calc Pharmacy 11.3 ml/min; Est GFR (African American) 8.9 ml/min; Est GFR (Non-African American) 7.7 ml/min; Globulin 3.7 gm/dl (2.5-4.0); Phosphorus 7.3 mg/dl (2.5-4.9); Potassium 4.8 mmol/L (3.5-5.1); Total Protein 7.4 gm/dl (6.0-8.3)
[2022-03-17] MEDS: PIPERACILLIN/TAZOBACTAM 4.5 GM in DEXTROSE 5% 100 ML IV SCH ×2 (10:25→21:13)
--- NOTE | 2022-03-17 11:18 | Hospitalist Progress Note ---
Date of Service March 17, 2022 Assessment & Plan (1) Acute respiratory failure with hypoxia: Plan: Presented with acute shortness of breath Has acute respiratory failure with hypoxia secondary to pulmonary edema and bilateral multilobar pneumonia CT of the chest showed: Cardiomegaly with evidence of fluid overload/congestive failure, extensive/multifocal bilateral airspace consolidation secondary to pulmonary edema/multifocal pneumonia and/or ARDS. Requiring 4 L of oxygen via nasal cannula to maintain saturation Clinically much better since admission Clinically worse will need to be evaluated by shake cutter while in the hospital Clinically much better today with less cough and no shortness of breath at rest Will get repeat chest x-ray tomorrow (2) Acute pulmonary edema: Plan: Left dialysis this morning (3) Acute heart failure with preserved ejection fraction: Plan: Appreciate cardiology input and recommendation Has significant valvular heart disease especially mitral stenosis which is complicating fluid overload Received intravenous diuretic Will have dialysis this morning 03/16/2022 Next dialysis as per cdl program coordinator (4) ESRD on dialysis: Plan: Appreciate nephrology input and recommendation Dialysis as per cdl program coordinator Anemia of chronic disease Occult blood has been negative Hemoglobin is stable at 10.8 Still having black stool but remains negative for fecal occult blood (5) Pneumonia: Plan: Has bilateral multilobar pneumonia Procalcitonin level is elevated Has been on intravenous Zosyn and doxycycline Clinically better we will continue current antibiotic Will get chest x-ray tomorrow likely discharge tomorrow (6) Diabetes mellitus: Plan: Has been on insulin and Hemoglobin A1c 6.8 We will continue with SSI (7) Hypertension: Plan: Blood pressure remains controlled (8) Hypothyroidism: Plan: Continue supplement Other significant medical conditions remained stable DVT prophylaxis Subcu heparin CODE STATUS Full (9) Anemia of chronic renal failure, stage 5: Admission and Anticipated Discharge Date Admission Date: March 16, 2022 Subjective 03/16/2022 The patient was seen and examined in telemetry unit She has been feeling much better since admission and wants to go home after dialysis Denies any fever and or chills and is requiring 4 L of oxygen to maintain saturation and no shortness of breath at rest Awaiting dialysis this morning 03/17/2022 The patient was seen and examined in telemetry unit She has been feeling much better and back to her baseline in regards to oxygen administration Still has cough but denies any shortness of breath at rest No fever and no chills Review of Systems Review of Systems: All systems reviewed and are unremarkable except as noted below Respiratory: No respiratory distress at rest Physical Exam Physical Exam: Sitting on a chair without any acute distress Constitutional: well developed, well nourished and + obese; not ill appearing Eyes: PERRL, conjunctivae normal, anicteric sclerae ENMT: external ear and nose normal, oropharynx normal Neck: trachea midline, no thyromegaly Respiratory: + respiratory distress (Mild to moderate respiratory distress at rest) Auscultation: + diminished lung sounds and + crackles (Coarse crackles bilaterally) Cardiovascular: Rate/Rhythm: regular rate and regular rhythm; not tachycardic Heart Sounds: normal S1, normal S2 and + murmur (2/6 ESM over precordium) Extremities: + edema (1+ edema bilaterally with chronic skin changes) Gastrointestinal (Abdomen): Inspection/Auscultation: normal bowel sounds; abdomen not distended Percussion/Palpation: abdomen soft; abdomen nontender Musculoskeletal: No acute arthritis in any joint Neurologic: normal touch/pain/proprioception and moves all extremities; no focal motor deficits Psychiatric: A+Ox3, euthymic affect Lymphatic: no cervical or axillary lymphadenopathy Results & Data Results & Data ([facility]) Vital Signs (Past 12 Hours) Vital Signs Temp Pulse Pulse Resp BP Pulse Ox O2 Del Method 03/17/22 08:53 63 03/17/22 07:24 36.6 C 63 18 129/75 98 Nasal Cannula 03/17/22 02:41 36.6 C 75 18 132/73 96 Nasal Cannula O2 Flow Rate 03/17/22 08:53 03/17/22 07:24 2.0 03/17/22 02:41 2 Laboratory Results Short CBC 03/17/22 Range/Units 08:17 WBC 7.63 (4.8-10.8) K/ul Hgb 10.8 L (12.0-16.0) g/dl Hct 35.2 (34.1-44.9) % Plt Count 239 (130-400) K/uL BMP 03/17/22 08:17 Sodium 137 Potassium 4.8 Chloride 96 L Carbon Dioxide 30 BUN 43 H Creatinine 5.50 H* D Glucose 85 Calcium 10.5 H Liver Function 03/17/22 Range/Units 08:17 Total Bilirubin 0.5 (0.2-1.0) mg/dl AST 9 L (13-39) U/L ALT 5 L (7-52) U/L Alkaline Phosphatase 167 H (34-104) U/L Albumin 3.7 (3.4-5.0) gm/dl Medications Administered Current Inpatient Medications Acetaminophen (Acetaminophen 325 Mg Tab) 650 mg PO Q4H PRN PRN Reason: Pain or Fever Stop: 04/15/22 01:01 Last Admin: 03/16/22 13:17 Dose: 650 mg Albuterol (Albuterol Hfa 8 Gm Inhaler) 2 puffs INH Q6H PRN PRN Reason: shortness of breath or wheezin Stop: 04/15/22 01:01 Amlodipine Besylate (Amlodipine Besylate 5 Mg Tab) 2.5 mg PO QAM [facility] Stop: 04/15/22 08:59 Last Admin: 03/17/22 08:31 Dose: 2.5 mg Aspirin (Aspirin 81 Mg Ectab) 81 mg PO HS [facility] Stop: 04/15/22 20:59 Last Admin: 03/16/22 21:18 Dose: 81 mg Dextrose (Dextrose 50% 50 Ml Syringe) 25 - 50 ml IV UD PRN; Protocol PRN Reason: Hypoglycemia Protocol Stop: 04/15/22 05:44 Glucagon (Glucagon For Inj 1 Mg Vial) 1 mg IM UD PRN; Protocol PRN Reason: Hypoglycemia Protocol Stop: 04/15/22 05:44 Glucose (Glucose 40% Gel 15 Gm Tube) 15 - 30 gm PO UD PRN; Protocol PRN Reason: Hypoglycemia Protocol Stop: 04/15/22 05:44 Glucose (Glucose 10 Tab/Tube) 4 - 8 tab PO UD PRN; Protocol PRN Reason: Hypoglycemia Protocol Stop: 04/15/22 05:44 Heparin Sodium (Porcine) (Heparin Sod 5,000 Unit/0.5 Ml Vial) 5,000 units SQ Q8 [facility] Stop: 04/15/22 05:59 Last Admin: 03/17/22 05:50 Dose: 5,000 units Piperacillin Sod/Tazobactam (Sod 4.5 gm/ Dextrose) 120 mls @ 30 mls/hr IV Q12H [facility]; Protocol Stop: 03/23/22 09:59 Last Admin: 03/17/22 10:25 Dose: 30 mls/hr Doxycycline Hyclate 100 mg/ (Dextrose) 110 mls @ 50 mls/hr IV Q12H [facility] Stop: 03/23/22 17:59 Last Infusion: 03/17/22 08:24 Dose: Infused Insulin Aspart (Insulin Aspart Per Unit) 0 units SC ACHS [facility] Stop: 04/15/22 07:29 Last Admin: 03/17/22 08:29 Dose: 1 units Insulin Glargine (Lantus Per Unit Charge) 33 units SQ HS [facility] Stop: 04/15/22 20:59 Last Admin: 03/16/22 21:23 Dose: 33 units Levothyroxine Sodium (Levothyroxine Sodium 50 Mcg Tablet) 50 mcg PO DAILYBB [facility] Stop: 04/15/22 06:29 Last Admin: 03/17/22 05:50 Dose: 50 mcg Lidocaine/Prilocaine (Lidocaine/Prilocaine 2.5% Ea Crm) 1 each EXT TuThSa@0700 [facility] Stop: 04/15/22 06:59 Last Admin: 03/16/22 07:39 Dose: 1 each Metoprolol Succinate (Metoprolol Succ 50mg Ext Rel Tab) 50 mg PO DAILY [facility] Stop: 04/15/22 08:59 Last Admin: 03/17/22 08:31 Dose: 50 mg Miscellaneous (Sucroferric Oxyhydroxide [Velphoro]: Order Awaiting Action) 1 each N/A QS [facility] Stop: 04/15/22 07:59 Last Admin: 03/17/22 08:30 Dose: Not Given Miscellaneous (Carbohydrates For Hypoglycemia ) 15 - 30 gm PO UD PRN PRN Reason: Hypoglycemia Treatment Stop: 04/15/22 05:44 Nitroglycerin (Nitroglycerin Sl 0.4 Mg/Tab Tab) 0.4 mg SL UD PRN PRN Reason: Chest Pain Stop: 04/15/22 01:01 Polyethylene Glycol (Polyethylene (Miralax) 17 Gm Pack) 17 gm PO DAILY PRN PRN Reason: Constipation Stop: 04/15/22 01:01 Pregabalin (Pregabalin 75 Mg Cap) 75 mg PO QAM [facility] Stop: 04/15/22 08:59 Last Admin: 03/17/22 08:32 Dose: 75 mg Pregabalin (Pregabalin 25 Mg Cap) 25 mg PO DAILY@1200 PRN PRN Reason: tingling Stop: 04/15/22 11:59 Rosuvastatin Calcium (Rosuvastatin Calcium 20 Mg Tab) 40 mg PO DAILY [facility] Stop: 04/15/22 08:59 Last Admin: 03/17/22 08:31 Dose: 40 mg Sevelamer HCl (Sevelamer Hcl 800 Mg Tablet) 1,600 mg PO TIDM [facility] Stop: 04/16/22 11:59 Simethicone (Simethicone 80 Mg Chew) 80 mg PO Q6 PRN PRN Reason: .gi upset Stop: 04/15/22 01:01 Vitamin D (Cholecalciferol 1,000 Units 25 Mcg Tab) 3,000 units PO TuThSa@0900 [facility] Stop: 04/15/22 08:59 Last Admin: 03/16/22 08:34 Dose: 3,000 units (1) Diabetes mellitus Diabetes mellitus complication status: with unspecified complications Diabetes mellitus group home insulin use: unspecified group home insulin use status Diabetes mellitus type: other specified (including GERALD) Qualified Code(s): E13.8 - Other specified diabetes mellitus with unspecified compl ications
--- NOTE | 2022-03-17 11:31 | Nephrology Progress Note ---
Date of Service March 17, 2022 Assessment & Plan (1) ESRD on dialysis: Plan: Patient with ESRD on dialysis Friday. Her dialysis schedule was changed due to . Last outpatient dialysis was on Friday. She was admitted with evidence of pulmonary edema. Electrolytes are stable and hemoglobin was 10.8. Blood pressure is controlled. She tolerated dialysis well yesterday with net UF of 3 L. No indication for dialysis today. -Patient will be assessed tomorrow. If her respiratory status is stable, she can be discharged to continue outpatient dialysis on Friday. (2) Acute heart failure with preserved ejection fraction: Plan: Patient admitted with shortness of breath and chest x-ray showing cardiomegaly with evidence of pulmonary edema. -Monitor daily weight -Cardiac diet with fluid restriction of 1.5 L. -Fluid management with dialysis Admission and Anticipated Discharge Date Admission Date: March 16, 2022 Subjective Seen for ESRD. She was dialyzed yesterday with net loss of 3 kg. No shortness of breath. She is on oxygen which is chronic Review of Systems Review of Systems: All other systems were reviewed and negative except as noted in HPI Physical Exam Physical Exam: General exam: Appears comfortable, no acute distress HEENT: Pupils are equal and reactive to light Neck: No JVD, neck is supple trachea is midline Respiratory system: Clear breath sounds bilaterally. Gastrointestinal: Abdomen is soft, non distended, non tender, bowel sounds are present CVS: Regular rate and rhythm. No murmurs, rubs or gallops Musculoskeletal: No joint or muscle tenderness Extremities: Non tender, 1+ edema, peripheral pulses are present Neuro: Oriented, no tremors, no focal neurological deficits Skin: No rashes Results & Data ([facility]) Vital Signs (Past 12 Hours) Vital Signs Temp Pulse Pulse Resp BP Pulse Ox O2 Del Method 03/17/22 08:53 63 03/17/22 07:24 36.6 C 63 18 129/75 98 Nasal Cannula 03/17/22 02:41 36.6 C 75 18 132/73 96 Nasal Cannula O2 Flow Rate 03/17/22 08:53 03/17/22 07:24 2.0 03/17/22 02:41 2 Laboratory Results 03/17/22 08:17 03/17/22 03/17/22 08:17 08:17 WBC 7.63 RBC 3.56 L MCV 98.9 MCH 30.3 MCHC 30.7 L RDW Std Deviation 55.4 H RDW Coeff of Talisha 15.5 H Plt Count 239 MPV 9.5 Phosphorus 7.3 H Albumin 3.7
--- NOTE | 2022-03-17 12:14 | Cardiology Progress Note ---
Date of Service March 17, 2022 Assessment & Plan (1) Acute heart failure with preserved ejection fraction: (2) Mitral stenosis: (3) Acute respiratory failure with hypoxia: (4) Pneumonia: (5) ESRD on dialysis: (6) Nonadherence to medication: Plan 61-year-old female presents with community-acquired pneumonia and acute on chronic heart failure with preserved ejection fraction in setting of severe mitral stenosis. Clinically improved postdialysis treatment. She will undergo an additional dialysis treatment tomorrow morning with tentative plans for discharge thereafter. Transition IV antibiotics to oral medication at discharge per internal medicine. Patient with known severe mitral stenosis and pulm hypertension confirmed by cardiac catheterization performed by the undersigned in November. Nonobstructive coronary disease noted. She is currently under evaluation with the [facility] valve clinic and cardiothoracic surgical teams to consider surgical versus transcutaneous mitral valve replacement. Continue current cardiovascular medications including amlodipine, metoprolol, low-dose aspirin, and rosuvastatin. Admission and Anticipated Discharge Date Admission Date: March 16, 2022 Subjective Patient seen and examined at the bedside. Feeling much better today. Notes mild cough without sputum production. Dialysis treatment yesterday. She is scheduled for another treatment on Friday morning. No fever or chills. Telemetry reveals sinus rhythm. Anxious for discharge. Review of Systems Review of Systems: All systems reviewed & are unremarkable except as noted in Subjective Physical Exam Constitutional: well developed and well nourished; no acute distress Respiratory: normal respiratory effort; no respiratory distress Auscu ltation: + diminished lung sounds (Bilateral bases); no rales, no rhonchi and no wheezes Cardiovascular: Rate/Rhythm: regular rate and regular rhythm Heart Sounds: normal S1, normal S2 and + murmur (2/6 low pitched mid peaking systolic murmur heard best at the base.) Vessels: radial pulses present; no JVD and no carotid bruit Extremities: + edema (Trace bilateral pedal edema) Gastrointestinal (Abdomen): Inspection/Auscultation: abdomen normal to inspection and normal bowel sounds; abdomen not distended Percussion/Palpation: abdomen soft; abdomen nontender, no guarding and abdomen not rigid Neurologic: CN's II-XI intact bilaterally and moves all extremities Motor/Sensory: no tremor and no sensory deficit Psychiatric: A+Ox3, euthymic affect Results & Data ([facility]) Vital Signs (Past 12 Hours) Vital Signs Temp Pulse Pulse Resp BP Pulse Ox O2 Del Method 03/17/22 08:30 Nasal Cannula 03/17/22 11:37 36.8 C 67 18 126/74 100 Nasal Cannula 03/17/22 08:53 63 03/17/22 07:24 36.6 C 63 18 129/75 98 Nasal Cannula 03/17/22 02:41 36.6 C 75 18 132/73 96 Nasal Cannula O2 Flow Rate 03/17/22 08:30 2 03/17/22 11:37 2.0 03/17/22 08:53 03/17/22 07:24 2.0 03/17/22 02:41 2
[2022-03-17] MEDS: SEVELAMER HCL 800 MG TABLET PO SCH ×2 (12:29→17:22)
[2022-03-17] MEDS: ASPIRIN 81 MG ECTAB PO SCH (20:31)
[2022-03-17] MEDS: ACETAMINOPHEN 325 MG TAB PO PRN (21:47)
[2022-03-17] MEDS: LANTUS PER UNIT CHARGE SQ SCH (21:48)
[2022-03-18 04:58] LABS: Basophils # (auto) 0.02 K/uL (0-0.2); Basophils % (auto) 0.3 %; Eosinophils # (auto) 0.19 K/uL (0-0.50); Eosinophils % (auto) 2.4 %; Hematocrit (blood only) 32.7 % (34.1-44.9); Hemoglobin 10.3 g/dl (12.0-16.0); Immature Granulocytes # (auto) 0.02 K/uL (0.00-0.02); Immature Granulocytes % (auto) 0.3 %; Lymphocytes # (auto) 1.76 K/uL (1.2-3.4); Lymphocytes % (auto) 22.4 %; Mean Corpuscular Hemoglobin 30.8 pg (25.0-34.0); Mean Corpuscular Hgb Conc 31.5 g/dL (32.0-36.0); Mean Corpuscular Volume 97.9 fL (80.0-100.0); Mean Platelet Volume 9.7 fL (9.4-12.3); Monocytes # (auto) 0.77 K/uL (0.24-0.82); Monocytes % (auto) 9.8 %; Neutrophils % (auto) 64.8 %; Nucleated RBC # (auto) 0.02 K/uL (0-0); Nucleated RBC % (auto) 0.3 %; Platelet Count 209 K/uL (130-400); RDW Coefficient of Variation 15.9 % (11.5-14.5); RDW Standard Deviation 55.6 fL (36.4-46.3); Red Blood Count 3.34 M/uL (3.93-5.22); White Blood Count 7.86 K/ul (4.8-10.8)
[2022-03-18 05:20] LABS: BUN Creatinine Ratio 8.3 (10-20); Creatinine Clr Calc Pharmacy 8.4 ml/min; Est GFR (African American) 6.2 ml/min; Est GFR (Non-African American) 5.4 ml/min; Magnesium 2.1 mg/dl (1.7-2.4); Phosphorus 8.2 mg/dl (2.5-4.9); Potassium 4.5 mmol/L (3.5-5.1)
[2022-03-18] MEDS ORDERED: DOXYCYCLINE HYCLATE 100 MG CAP PO SCH (06:00)
[2022-03-18] MEDS: LEVOTHYROXINE SODIUM 50 MCG TABLET PO SCH (06:04)
[2022-03-18] MEDS: HEPARIN SOD 5,000 UNIT/0.5 ML VIAL SQ SCH ×2 (06:04→15:56)
[2022-03-18] MEDS: INSULIN ASPART PER UNIT SC SCH ×2 (08:35→12:47)
[2022-03-18] MEDS: SEVELAMER HCL 800 MG TABLET PO SCH ×2 (08:35→12:47)
[2022-03-18] MEDS: ROSUVASTATIN CALCIUM 20 MG TAB PO SCH (08:35)
[2022-03-18] MEDS: PREGABALIN 75 MG CAP PO SCH (08:39)
[2022-03-18] MEDS ORDERED: HEPARIN SOD (PORCINE) 1000 UNIT/ML IV ONE (09:45)
[2022-03-18] MEDS ORDERED: SODIUM CHLORIDE 0.9% 1000ML 1,000 ML IV PRN (09:45)
[2022-03-18] MEDS: PIPERACILLIN/TAZOBACTAM 4.5 GM in DEXTROSE 5% 100 ML IV SCH (10:00)
--- NOTE | 2022-03-18 12:08 | Cardiology Progress Note ---
Date of Service March 18, 2022 Assessment & Plan (1) Acute heart failure with preserved ejection fraction: (2) Mitral stenosis: (3) Acute respiratory failure with hypoxia: (4) Pneumonia: (5) ESRD on dialysis: (6) Nonadherence to medication: Plan 61-year-old female presents with community-acquired pneumonia and acute on chronic heart failure with preserved ejection fraction in setting of severe mitral stenosis. Clinically improved postdialysis treatment. Scheduled for a dditional dialysis this afternoon with plan for discharge thereafter. Transition IV antibiotics to oral medication at discharge per internal medicine. Patient with known severe mitral stenosis and pulmonary hypertension confirmed by cardiac catheterization performed by the undersigned in November. Nonobstructive coronary disease noted. Currently managed by the [facility] valve clinic and cardiothoracic surgical teams to consider surgical versus transcutaneous mitral valve replacement. Continue current cardiovascular medications including amlodipine, metoprolol, low-dose aspirin, and rosuvast atin. Admission and Anticipated Discharge Date Admission Date: March 16, 2022 Subjective Patient seen and examined at the bedside. Feeling better today. Scheduled for dialysis treatment this afternoon. Denies cough or sputum production. No orthopnea or PND. Review of Systems Review of Systems: All systems reviewed & are unremarkable except as noted in Subjective Physical Exam Constitutional: well developed and well nourished; no acute distress Respiratory: normal respiratory effort; no respiratory distress Auscultation: + diminished lung sounds (Bilateral bases); no rales, no rhonchi and no wheezes Cardiovascular: Rate/Rhythm: regular rate and regular rhythm Heart Sounds: normal S1, normal S2 and + murmur (2/6 low pitched mid peaking systolic murmur heard best at the base.) Vessels: radial pulses present; no JVD and no carotid bruit Extremities: + edema (Trace bilateral pedal edema) Gastrointestinal (Abdomen): Inspection/Auscultation: abdomen normal to inspection and normal bowel sounds; abdomen not distended Percussion/Palpation: abdomen soft; abdomen nontender, no guarding and abdomen not rigid Neurologic: CN's II-XI intact bilaterally and moves all extremities Motor/Sensory: no tremor and no sensory deficit Psychiatric: A+Ox3, euthymic affect Results & Data ([facility]) Vital Signs (Past 12 Hours) Vital Signs Temp Pulse Pulse Resp BP Pulse Ox O2 Del Method 03/18/22 11:11 36.6 C 73 18 146/77 H 99 Nasal Cannula 11/28/22 07:53 36.5 C 69 18 120/67 96 Nasal Cannula 03/18/22 03:30 36.5 C 67 12 122/72 96 Nasal Cannula O2 Flow Rate 03/18/22 11:11 1 03/18/22 07:53 1 03/18/22 03:30 2
--- NOTE | 2022-03-18 12:36 | XRay Report ---
XR chest 2V PA/lateral CLINICAL HISTORY: Pneumonia. COMPARISON STUDY: Chest radiograph March 15, [address] March 16, 2022. FINDINGS: No pneumothorax is present. No definite pleural effusion is identified. Cardiomegaly is unc hanged. Interstitial thickening and bilateral opacities have moderately improved since chest CT of No vember 2021. Cardiomediastinal silhouette is stable. There is extensive mitral annular calcificat ion. IMPRESSION: Moderate improvement in interstitial thickening and bilateral opacities since prior ches t CT. The findings may reflect pulmonary edema or an infectious process. ACT 112: Negative or not required by law. Electronically signed by: Sergo Figueroa M.D. 03/18/2022 12:35 PM
[2022-03-18] MEDS: LIDOCAINE/PRILOCAINE 2.5% EA CRM EXT SCH (12:45)
--- NOTE | 2022-03-18 12:52 | Hospitalist Progress Note ---
Date of Service March 18, 2022 Assessment & Plan (1) Acute respiratory failure with hypoxia: Plan: Presented with acute shortness of breath Has acute respiratory failure with hypoxia secondary to pulmonary edema and bilateral multilobar pneumonia CT of the chest showed: Cardiomegaly with evidence of fluid overload/congestive failure, extensive/multifocal bilateral airspace consolidation secondary to pulmonary edema/multifocal pneumonia and/or ARDS. Requiring 4 L of oxygen via nasal cannula to maintain saturation Clinically much better since admission Clinically worse will need to be evaluated by retail branch manager while in the hospital Clinically much better today with less cough and no shortness of breath at rest Chest x-ray showing much improvement and clinically she is much improved and back to her baseline Requiring 2 L of oxygen via nasal cannula to maintain saturation as before To be discharged home this afternoon (2) Acute pulmonary edema: Plan: Left dialysis this morning Almost cleared (3) Acute heart failure with preserved ejection fraction: Plan: Appreciate cardiology input and recommendation Has significant valvular heart disease especially mitral stenosis which is complicating fluid overload Received intravenous diuretic Will have dialysis this morning 03/16/2022 Next dialysis as per returned telephone equipment appraiser (4) ESRD on dialysis: Plan: Appreciate nephrology input and recommendation Dialysis as per returned telephone equipment appraiser Next dialysis will be tomorrow as an outpatient Anemia of chronic disease Occult blood has been negative Hemoglobin is stable at 10.8 Still having black stool but remains negative for fecal occult blood (5) Pneumonia: Plan: Has bilateral multilobar pneumonia Procalcitonin level is elevated Has been on intravenous Zosyn and doxycycline Clinically better we will continue current antibiotic Will get chest x-ray tomorrow likely discharge tomorrow We will give oral antibiotics to finish the course (6) Diabetes mellitus: Plan: Has been on insulin and Hemoglobin A1c 6.8 We will continue with SSI (7) Hypertension: Plan: Blood pressure remains controlled (8) Hypothyroidism: Plan: Continue supplement Other significant medical conditions remained stable DVT prophylaxis Subcu heparin CODE STATUS Full (9) Anemia of chronic renal failure, stage 5: Admission and Anticipated Discharge Date Admission Date: March 16, 2022 Subjective 03/16/2022 The patient was seen and examined in telemetry unit She has been feeling much better since admission and wants to go home after dialysis Denies any fever and or chills and is requiring 4 L of oxygen to maintain saturation and no shortness of breath at rest Awaiting dialysis this morning 03/17/2022 The patient was seen and examined in telemetry unit She has been feeling much better and back to her baseline in regards to oxygen administration Still has cough but denies any shortness of breath at rest No fever and no chills 03/18/2022 The patient was seen and examined in telemetry unit She is out of bed on a chair and denies any significant symptoms No shortness of breath at rest and she is back to her 2 L oxygen requirement She will have dialysis today and will be discharged this afternoon Review of Systems Review of Systems: All systems reviewed and are unremarkable except as noted below Respiratory: No respiratory distress at rest Physical Exam Physical Exam: Sitting on a chair without any acute distress Constitutional: well developed, well nourished and + obese; not ill appearing Eyes: PERRL, conjunctivae normal, anicteric sclerae ENMT: external ear and nose normal, oropharynx normal Neck: trachea midline, no thyromegaly Respiratory: no respiratory distress (Mild to moderate respiratory distress at rest) Auscultation: + diminished lung sounds and + crackles (Minimal crackles bilaterally) Cardiovascular: Rate/Rhythm: regular rate and regular rhythm; not tachycardic Heart Sounds: normal S1, normal S2 and + murmur (2/6 ESM over precordium) Extremities: + edema (1+ edema bilaterally with chronic skin changes) Gastrointestinal (Abdomen): Inspection/Auscultation: normal bowel sounds; abdomen not distended Percussion/Palpation: abdomen soft; abdomen nontender Musculoskeletal: No acute arthritis involving any joint Neurologic: normal touch/pain/proprioception and moves all extremities; no focal motor deficits Psychiatric: A+Ox3, euthymic affect Lymphatic: no cervical or axillary lymphadenopathy Results & Data Results & Data ([facility]) Vital Signs (Past 12 Hours) Vital Signs Temp Pulse Pulse Pulse Resp BP Pulse Ox 03/18/22 11:53 63 03/18/22 11:53 03/18/22 11:11 36.6 C 73 18 146/77 H 99 03/18/22 07:53 36.5 C 69 18 120/67 96 03/18/22 03:30 36.5 C 67 12 122/72 96 O2 Del Method O2 Flow Rate 03/18/22 11:53 03/18/22 11:53 Nasal Cannula 2 03/18/22 11:11 Nasal Cannula 1 03/18/22 07:53 Nasal Cannula 1 03/18/22 03:30 Nasal Cannula 2 Laboratory Results Short CBC 03/18/22 Range/Units 04:34 WBC 7.86 (4.8-10.8) K/ul Hgb 10.3 L (12.0-16.0) g/dl Hct 32.7 L (34.1-44.9) % Plt Count 209 (130-400) K/uL BMP 03/18/22 04:34 Sodium 138 Potassium 4.5 Chloride 99 Carbon Dioxide 25 BUN 61 H Creatinine 7.38 H* D Glucose 62 L Calcium 10.0 Medications Administered Current Inpatient Medications Acetaminophen (Acetaminophen 325 Mg Tab) 650 mg PO Q4H PRN PRN Reason: Pain or Fever Stop: 04/15/22 01:01 Last Admin: 03/17/22 21:47 Dose: 650 mg Albuterol (Albuterol Hfa 8 Gm Inhaler) 2 puffs INH Q6H PRN PRN Reason: shortness of breath or wheezin Stop: 04/15/22 01:01 Amlodipine Besylate (Amlodipine Besylate 5 Mg Tab) 2.5 mg PO QAM BETTY Stop: 04/15/22 08:59 Last Admin: 03/17/22 08:31 Dose: 2.5 mg Aspirin (Aspirin 81 Mg Ectab) 81 mg PO HS BETTY Stop: 04/15/22 20:59 Last Admin: 03/17/22 20:31 Dose: 81 mg Dextrose (Dextrose 50% 50 Ml Syringe) 25 - 50 ml IV UD PRN; Protocol PRN Reason: Hypoglycemia Protocol Stop: 04/15/22 05:44 Doxycycline Hyclate (Doxycycline Hyclate 100 Mg Cap) 100 mg PO Q12H BETTY Stop: 03/25/22 05:59 Last Admin: 03/18/22 06:04 Dose: 100 mg Glucagon (Glucagon For Inj 1 Mg Vial) 1 mg IM UD PRN; Protocol PRN Reason: Hypoglycemia Protocol Stop: 04/15/22 05:44 Glucose (Glucose 40% Gel 15 Gm Tube) 15 - 30 gm PO UD PRN; Protocol PRN Reason: Hypoglycemia Protocol Stop: 04/15/22 05:44 Glucose (Glucose 10 Tab/Tube) 4 - 8 tab PO UD PRN; Protocol PRN Reason: Hypoglycemia Protocol Stop: 04/15/22 05:44 Heparin Sodium (Porcine) (Heparin Sod 5,000 Unit/0.5 Ml Vial) 5,000 units SQ Q8 [facility] Stop: 04/15/22 05:59 Last Admin: 03/18/22 06:04 Dose: 5,000 units Piperacillin Sod/Tazobactam (Sod 4.5 gm/ Dextrose) 120 mls @ 30 mls/hr IV Q12H [facility]; Protocol Stop: 03/23/22 09:59 Last Admin: 03/18/22 10:00 Dose: Not Given Sodium Chloride (Nss 1000ml) 1,000 mls @ 0 mls/hr IV .Q0M PRN PRN Reason: For Hemodialysis Use ONLY Stop: 03/18/22 15:44 Insulin Aspart (Insulin Aspart Per Unit) 0 units SC ACHS [facility] Stop: 04/15/22 07:29 Last Admin: 03/18/22 12:47 Dose: Not Given Insulin Glargine (Lantus Per Unit Charge) 33 units SQ HS [facility] Stop: 04/15/22 20:59 Last Admin: 03/17/22 21:48 Dose: 33 units Levothyroxine Sodium (Levothyroxine Sodium 50 Mcg Tablet) 50 mcg PO DAILYBB [facility] Stop: 04/15/22 06:29 Last Admin: 03/18/22 06:04 Dose: 50 mcg Lidocaine/Prilocaine (Lidocaine/Prilocaine 2.5% Ea Crm) 1 each EXT TuThSa@0700 [facility] Stop: 04/15/22 06:59 Last Admin: 03/18/22 12:45 Dose: 1 each Metoprolol Succinate (Metoprolol Succ 50mg Ext Rel Tab) 50 mg PO DAILY [facility] Stop: 04/15/22 08:59 Last Admin: 03/17/22 08:31 Dose: 50 mg Miscellaneous (Sucroferric Oxyhydroxide [Velphoro]: Order Awaiting Action) 1 each N/A QS [facility] Stop: 04/15/22 07:59 Last Admin: 03/18/22 08:35 Dose: Not Given Miscellaneous (Carbohydrates For Hypoglycemia ) 15 - 30 gm PO UD PRN PRN Reason: Hypoglycemia Treatment Stop: 04/15/22 05:44 Nitroglycerin (Nitroglycerin Sl 0.4 Mg/Tab Tab) 0.4 mg SL UD PRN PRN Reason: Chest Pain Stop: 04/15/22 01:01 Polyethylene Glycol (Polyethylene (Miralax) 17 Gm Pack) 17 gm PO DAILY PRN PRN Reason: Constipation Stop: 04/15/22 01:01 Pregabalin (Pregabalin 75 Mg Cap) 75 mg PO QAM [facility] Stop: 04/15/22 08:59 Last Admin: 03/18/22 08:39 Dose: 75 mg Pregabalin (Pregabalin 25 Mg Cap) 25 mg PO DAILY@1200 PRN PRN Reason: tingling Stop: 04/15/22 11:59 Rosuvastatin Calcium (Rosuvastatin Calcium 20 Mg Tab) 40 mg PO DAILY [facility] Stop: 04/15/22 08:59 Last Admin: 03/18/22 08:35 Dose: 40 mg Sevelamer HCl (Sevelamer Hcl 800 Mg Tablet) 1,600 mg PO TIDM [facility] Stop: 04/16/22 11:59 Last Admin: 03/18/22 12:47 Dose: Not Given Simethicone (Simethicone 80 Mg Chew) 80 mg PO Q6 PRN PRN Reason: .gi upset Stop: 04/15/22 01:01 Vitamin D (Cholecalciferol 1,000 Units 25 Mcg Tab) 3,000 units PO TuThSa@0900 [facility] Stop: 04/15/22 08:59 Last Admin: 03/16/22 08:34 Dose: 3,000 units (1) Diabetes mellitus Diabetes mellitus complication status: with unspecified complications Diabetes mellitus ferry terminal supervisor insulin use: unspecified residential insulin use sta tus Diabetes mellitus type: other specified (including GERALD) Qualified Code(s): E13.8 - Other specified diabetes mellitus with unspecified complications
[2022-03-18] MEDS ORDERED: CEFDINIR 300 MG CAP PO SCH (13:00)
[2022-03-18] MEDS ORDERED: CEFDINIR 300 MG CAP PO STA (13:09)
--- NOTE | 2022-03-18 14:28 | Nephrology Progress Note ---
Date of Service March 18, 2022 Assessment & Plan (1) ESRD on dialysis: Plan: Patient with ESRD on dialysis Friday. Her dialysis schedule was changed due to . Last outpatient dialysis was on Friday before . She was admitted with pulmonary edema and had urgent HD on Fri. Electrolytes are stable and hemoglobin was 10.8. Blood pressure is controlled. She tolerated dialysis well with net UF of 3 L. -recommend HD today short tx goal 1.5L UF over 2hrs; then d/c home to resume outpatient dialysis on Friday -pt in agreement; care coordinated w/ Dr Dunbar (2) Acute heart failure with preserved ejection fraction: Plan: Patient admitted with shortness of breath and chest x-ray showing cardiomegaly with evidence of pulmonary edema. today's cxr improved -Monitor daily weight -Cardiac diet with fluid restriction of 1.5 L. -Fluid management with dialysis Admission and Anticipated Discharge Date Admission Date: March 16, 2022 Subjective seen on rounds this am about 0930; feeling much improved, ambulating, moving bowels; still on 02nc Review of Systems Review of Systems: All systems reviewed & are unremarkable except as noted in Subjective Physical Exam Constitutional: well developed and well nourished Eyes: EOM intact bilaterally ENMT: Ears: no external ear abnormality Nose: no external nose abnormality Mouth: + dry oral mucous membranes Neck: no nuchal rigidity Respiratory: normal respiratory effort Auscultation: + diminished lung sounds Cardiovascular: Rate/Rhythm: regular rate and regular rhythm Extremities: + edema and + AV fistula Gastrointestinal (Abdomen): Inspection/Auscultation: normal bowel sounds Percussion/Palpation: abdomen soft; abdomen nontender Musculoskeletal: Extremities: strength 5/5 throughout Skin: no rashes, warm and dry Neurologic: reyes, fluent speech, no tremor Psychiatric: Orientation: oriented x 3 Results & Data ([facility]) Vital Signs (Past 12 Hours) Vital Signs Temp Pulse Pulse Pulse Resp BP BP 03/18/22 14:00 75 141/72 H 03/18/22 13:30 78 150/68 H 03/18/22 13:00 76 144/71 H 03/18/22 12:50 36.6 C 78 03/18/22 11:53 63 03/18/22 11:53 03/18/22 11:11 36.6 C 73 18 146/77 H 03/18/22 07:53 36.5 C 69 18 120/67 03/18/22 03:30 36.5 C 67 12 122/72 Pulse Ox O2 Del Method O2 Flow Rate 03/18/22 14:00 03/18/22 13:30 03/18/22 13:00 03/18/22 12:50 03/18/22 11:53 03/18/22 11:53 Nasal Cannula 2 03/18/22 11:11 99 Nasal Cannula 1 03/18/22 07:53 96 Nasal Cannula 1 03/18/22 03:30 96 Nasal Cannula 2 Laboratory Results 03/18/22 04:34 03/18/22 04:34
[2022-03-18] MEDS: amLODIPine BESYLATE 5 MG TAB PO SCH (15:56)
[2022-03-18] MEDS: METOPROLOL SUCC 50MG EXT REL TAB PO SCH (15:57)
[2022-03-18] MEDS: ACETAMINOPHEN 325 MG TAB PO PRN (15:59)
--- NOTE | 2022-03-19 07:38 | Discharge Summary ---
Date of Service March 18, 2022 Admission HPI Per Admitting Provider DICTATED BY:Danish Church MD DATE OF ADMISSION: 03/16/2022. CHIEF COMPLAINT: Shortness of breath. HISTORY OF PRESENT ILLNESS: This is a 61-year-old female with past medical history significant for type 2 diabetes, on insulin, diabetic retinopathy, end- stage renal disease on hemodialysis, hyperparathyroidism secondary to renal disease, nocturnal hypoxemia due to pulmonary hypertension, uses 2 L of oxygen at nighttime, hyperlipidemia, hypothyroidism, pulmonary nodules , sleep apnea, peripheral artery disease, diastolic dysfunction, mitral valve stenosis, history of chronic cholecystitis, diffuse idiopathic skeletal hyperostosis, iron deficiency anemia, generalized weakness, presents with shortness of breath. The patient was outside, shopping for enavu and suddenly felt short of breath, came to the ER. She was saturating 89% and chest x-ray showed pulmonary edema and she was placed on BiPAP. She tolerated BiPAP ok but now she wanted to take out the BiPAP and she is back on 2 L of oxygen, resting comfortably. She is feeling better. She was given Lasix, but not micturated yet. She makes little urine. She had dialysis on last Friday. Currently, denies any chest pain,no headache, no blurred visions, no runny nose, no sore throat. Has chronic cough, sometimes brings phlegm. Denies any fever. No nausea, no vomiting, no abdominal pain, no diarrhea. Bowel movements are okay. Normal bladder movements. Has some swelling in the legs which seems chronic . Ambulates with a cane.Mustapha says she didnot take her medications in last two days. She says sometimes she forgets to take medications Admission Exam Per Admitting Provider GENERAL: The patient is of moderate build, not in acute distress currently. VITAL SIGNS: Temperature 35.8, pulse 91, respiratory rate 22, blood pressure 131/84, oxygen 94% on 2 L. HEENT: Pupils equal, round and reactive to light. Oral mucosa moist. NECK: No JVD or neck masses. CARDIOVASCULAR: S1 and S2 heard. Regular rate and rhythm. No murmur, no gallop. RESPIRATORY SYSTEM: Normal AP diameter. No accessory muscle use. Mild b ilateral wheezing and crackles heard. ABDOMEN: Soft, bowel sounds present, nontender, no distention. CENTRAL NERVOUS SYSTEM: Cranial nerves II through XII are grossly intact, nonfocal. EXTREMITIES: Pedal edema present, no erythema seen. Principal Diagnosis Acute respiratory failure with hypoxia, acute heart failure with preserved EF, pneumonia, ESRD on hemodialysis Discharge Exam Sitting on a chair without any acute distress Constitutional well developed, well nourished and + obese; not ill appearing Eyes PERRL, conjunctivae normal, anicteric sclerae ENMT external ear and nose normal, oropharynx normal Neck trachea midline, no thyromegaly Respiratory no respiratory distress (Mild to moderate respiratory distress at rest) Auscultation: + diminished lung sounds and + crackles (Minimal crackles bilaterally) Cardiovascular Rate/Rhythm: regular rate and regular rhythm; not tachycardic Heart Sounds: normal S1, normal S2 and + murmur (2/6 ESM over precordium) Extremities: + edema (1+ edema bilaterally with chronic skin changes) Gastrointestinal (Abdomen) Inspection/Auscultation: normal bowel sounds; abdomen not distended Percussion/Palpation: abdomen soft; abdomen nontender Neurologic normal touch/pain/proprioception and moves all extremities; no focal motor deficits Psychiatric A+Ox3, euthymic affect Lymphatic no cervical or axillary lymphadenopathy Discharge Data Allergies Allergy/AdvReac Type Severity Reaction Status Date / Time gabapentin Allergy Intermediate Dizziness Verified 03/15/22 22:38 lisinopril AdvReac Intermediate Cough Verified 03/15/22 22:38 Consultations 03/15/22 22:09 ED Decision to Admit Stat 03/16/22 08:00 Consult Cardiology Routine Consult Nephrology Routine Ordered Studies 03/16/22 08:00 CT chest diagnostic wo con Routine Hospital Course (1) Acute respiratory failure with hypoxia: Presented with acute shortness of breath Has acute respiratory failure with hypoxia secondary to pulmonary edema and bilateral multilobar pneumonia CT of the chest showed: Cardiomegaly with evidence of fluid overload/congestive failure, extensive/multifocal bilateral airspace consolidation secondary to pulmonary edema/multifocal pneumonia and/or ARDS. Requiring 4 L of oxygen via nasal cannula to maintain saturation Clinically much better since admission Clinically worse will need to be evaluated by geometry professor while in the hospital Clinically much better today with less cough and no shortness of breath at rest Chest x-ray showing much improvement and clinically she is much improved and back to her baseline Requiring 2 L of oxygen via nasal cannula to maintain saturation as before To be discharged home this afternoon (2) Acute pulmonary edema: Left dialysis this morning Almost cleared (3) Acute heart failure with preserved ejection fraction: Appreciate cardiology input and recommendation Has significant valvular heart disease especially mitral stenosis which is complicating fluid overload Received intravenous diuretic Will have dialysis this morning 03/16/2022 Next dialysis as per taxation consultant (4) ESRD on dialysis: Appreciate nephrology input and recommendation Dialysis as per taxation consultant Next dialysis will be tomorrow as an outpatient Anemia of chronic disease Occult blood has been negative Hemoglobin is stable at 10.8 Still having black stool but remains negative for fecal occult blood (5) Pneumonia: Has bilateral multilobar pneumonia Procalcitonin level is elevated Has been on intravenous Zosyn and doxycycline Clinically better we will continue current antibiotic Will get chest x-ray tomorrow likely discharge tomorrow We will give oral antibiotics to finish the course (6) Diabetes mellitus: Has been on insulin and Hemoglobin A1c 6.8 We will continue with SSI (7) Hypertension: Blood pressure remains controlled (8) Hypothyroidism: Continue supplement Other significant medical conditions remained stable DVT prophylaxis Subcu heparin CODE STATUS Full (9) Anemia of chronic renal failure, stage 5: Total Time Total Time Spent Total Time Spent (In Minutes): 35 minutes Discharge Plan Discharge Items Patient Disposition: Home - Self-Care Reason For Visit: SHORTNESS OF BREATH Discharge Diagnosis: Acute respiratory failure with hypoxia, acute heart failure with preserved EF, pneumonia, ESRD on hemodialysis Condition on Discharge: Fair Activity: Resume your previous activity Non-emergency contact: Primary Care Provider Call non-emergency contact if: you have any medication questions and your symptoms worsen Follow-up/Referrals: Jose Magallanes MD [Primary Care Provider] - (We will call you with an appointment within 7 days) Diet: Dialysis Renal and Heart Healthy Fluids: 1500ml (6 cups) Addtl Attending Provider Instructions: Please take precautions to avoid falls. Finish the course of antibiotic as advised Please keep appointment with your healthcare providers Continue hemodialysis as advised Take your oxygen as advised Pending Studies at Discharge: No Stand-Alone Forms: My [employer], Smoking Cessation Medications and DC Order Prescriptions: New doxycycline hyclate 100 mg Capsule 100 mg PO Q12H Qty: 14 0RF cefdinir 300 mg capsule 300 mg PO UD 7 Days Qty: 4 0RF Rx Instructions: take 1 capsule after each dialysis Continued insulin glargine [Basaglar KwikPen U-100 Insulin] 100 unit/mL (3 mL) insulin pen 33 unit subcut HS pregabalin 75 mg capsule 75 mg PO QAM aspirin [Marika Low Dose Aspirin] 81 mg Tablet,Delayed Release (Dr/Ec) 81 mg PO HS albuterol sulfate [Proventil HFA] 90 mcg/actuation HFA aerosol inhaler 2 puffs INH Q6H PRN (Reason: shortness of breath or wheezing) Qty: 8 0RF pregabalin 25 mg capsule 25 mg PO DAILY@1200 PRN (Reason: tingling) rosuvastatin 40 mg tablet 40 mg PO DAILY cetirizine 5 mg tablet,chewable 5 mg PO UD Rx Instructions: T, TH, Sat after dialysis metoprolol succinate 50 mg Tablet Extended Release 24 Hr 50 mg PO DAILY Qty: 30 0RF ondansetron HCl 4 mg tablet 4 mg PO Q6 PRN (Reason: Nausea) amlodipine 2.5 mg tablet 2.5 mg PO QAM simethicone 80 mg Tablet,Chewable 80 mg PO Q6 PRN (Reason: .gi upset) insulin aspart U-100 [Novolog Flexpen U-100 Insulin] 100 unit/mL (3 mL) insulin pen 6 unit SUBCUT TIDM levothyroxine 50 mcg tablet 50 mcg PO DAILY lidocaine-prilocaine 2.5-2.5 % cream 1 applic topical [id number] Rx Instructions: Apply small amount to access site (AVF) 1-2 hours before dialysis. Cover with occlusive dressing (Saran Wrap). Friday,,Friday cholecalciferol (vitamin D3) [Vitamin D3] 25 mcg (1,000 unit) Tablet 0.75 mcg PO UD Rx Instructions: Take on Dialysis days. Friday,,Friday Velphoro 500 mg tablet,chewable 500 mg PO TIDM Discharge Orders: Discharge Order (Routine); Ordered 03/18/22 Ordered By: Jordyn Wise/Other Patient Handouts: Managing Type 2 Diabetes Admission Data Admit Date/Time: 03/16/22 00:28 Attending Provider: Jordyn Dunbar Admit Provider: Danish Church Primary Care Provider: Jose Magallanes Other Providers: Danish Church ; Felipe Su ; Pravin Miner ; Edgar Mckeon ; Joselo Thao ; Jorge Weinberg. ; Jonathan Paulino ; Kenyatta Kendrick ; Marilyn Persaud ; Danette Marshall ; Clay Farias ; Eugenia Mireles Other Interventions: Discharge Summary Assessment (RN) Last Done: 03/18/22 16:40
== END 2022-03-18 17:30 | disposition home or self-care (01) | DRG 193 ==
LOC: ED 20:18 → 4W 03-16 00:28 → INTOOBSV 03-16 00:28 → 4W 03-16 01:16

== ENCOUNTER 2022-05-14 09:21 | Observation (INO) ==
--- NOTE | 2022-05-14 10:15 | Communication Note ---
Date of Service: May 14, 2022 I saw the patient in the ED. Performed HPI and physical exam. Discussed plan with attending physician. Please refer to my attending's note for more in formation on the patient. Resident Activity Tracking Resident Involvement: Resident Care Provided Care Provided: Adult ED
[2022-05-14] MEDS ORDERED: FUROSEMIDE 40 MG/4 ML VIAL IV STA (10:20)
--- NOTE | 2022-05-14 10:25 | XRay Report ---
XR chest 1V portable HISTORY: 61 years-old Female Chest pain, nonspecific acute shortness breath with chest pain and coug h COMPARISON: Chest radiograph 03/18/2022 TECHNIQUE: AP view of the chest FINDINGS: Cardiac silhouette is enlarged. Multifocal mixed interstitial and alveolar opacities. No pneumothorax or large pleural effusion. Mild right hemidiaphragmatic elevation. Degenerative changes of the shoul ders and spine. IMPRESSION: Cardiomegaly with extensive bilateral intermixed interstitial and alveolar opacities sugg estive of multifocal pneumonia. Pulmonary edema could appear similarly. ACT 112: Negative or not required by law. The above report was generated using voice recognition software. It may contain grammatical, syntax o r spelling errors. Electronically signed by: Abimael Maldonado M.D. 05/14/2022 10:23 AM
[2022-05-14 10:29] LABS: Basophils # (auto) 0.01 K/uL (0-0.2); Basophils % (auto) 0.1 %; Eosinophils % (auto) 0.8 %; Hematocrit (blood only) 37.2 % (34.1-44.9); Hemoglobin 11.7 g/dl (12.0-16.0); Immature Granulocytes # (auto) 0.03 K/uL (0.00-0.02); Immature Granulocytes % (auto) 0.3 %; Lymphocytes # (auto) 0.96 K/uL (1.2-3.4); Lymphocytes % (auto) 8.1 %; Mean Corpuscular Hemoglobin 30.3 pg (25.0-34.0); Mean Corpuscular Hgb Conc 31.5 g/dL (32.0-36.0); Mean Corpuscular Volume 96.4 fL (80.0-100.0); Mean Platelet Volume 9.9 fL (9.4-12.3); Monocytes % (auto) 5.9 %; Neutrophils # (auto) 10.04 K/uL (1.4-6.5); Neutrophils % (auto) 84.8 %; Platelet Count 174 K/uL (130-400); RDW Coefficient of Variation 15.5 % (11.5-14.5); RDW Standard Deviation 54.8 fL (36.4-46.3); Red Blood Count 3.86 M/uL (3.93-5.22); White Blood Count 11.84 K/ul (4.8-10.8)
[2022-05-14 10:56] LABS: Albumin Globulin Ratio 1.1 (0.9-2); Albumin Level 3.8 gm/dl (3.4-5.0); BUN Creatinine Ratio 10.3 (10-20); Bilirubin,Total 0.5 mg/dl (0.2-1.0); Calcium 10.1 mg/dl (8.5-10.1); Est GFR (African American) 7.5 ml/min; Est GFR (Non-African American) 6.5 ml/min; Globulin 3.6 gm/dl (2.5-4.0); Potassium 5.6 mmol/L (3.5-5.1); Total Protein 7.4 gm/dl (6.0-8.3); Troponin I High Sensitivity 22.1 pg/ml (0-14)
--- NOTE | 2022-05-14 11:47 | Emergency Department Note ---
Impression & Plan CHF (congestive heart failure), Pulmonary edema ED Provider Note INFORMANT: Patient ED PROVIDER(S): Alfredito Marinelli DO CHIEF COMPLAINT: Shortness of breath PLAN: Disposition: Admission Condition: Stable Outpatient prescription management: none Referral: I spoke with the hospitalist, who will see the patient for admission/observation and further evaluation and consultation. MEDICAL DECISION MAKING: This is a 61-year-old female who presents to the ED with a chief complaint of shortness of breath. The patient states that her symptoms started after having a minor eye surgery under local anesthesia yesterday. Her symptoms worsened overnight and she used 4 L of oxygen instead of her usual 2. This morning instead of going to dialysis she came here because of worsening shortness of breath. She does produce urine. She denies any fevers or recent illness. Her initial blood pressure was elevated. Her physical exam reveals diminished breath sounds bilaterally with rales. She does also have pedal edema on exam. Her chest x-ray shows findings suggestive of acute pulmonary edema. A twelve- lead EKG shows a sinus tach at a rate of 103. White blood cell count is 11.8. No significant anemia. Potassium slightly elevated 5.6. BUN and creatinine are chronically elevated due to dialysis. Troponin was minimally elevated although no ischemic changes on EKG. Procalcitonin was minimally elevated. The patient was treated with IV Lasix here. Dr. Izquierdo from nephrology saw the patient in the ED. He is going to order dialysis for the patient. I talked with the hospitalist as well about the patient. She will be admitted for dialysis the next couple of days Triage Nursing notes reviewed. Vital Signs: reviewed Prior /Outside records reviewed: none Differential diagnosis: The differential was considered includes congestive heart failure, electrolyte abnormality, myocardial infarction, pneumonia, other Diagnostics, as interpreted by me: 12 lead ECG: Sinus tachycardia rate of 103. No ST elevation. No PVCs. Normal QTC. Cardiac Monitoring: none Medical decision rules: none Imaging studies: Chest x-ray: Acute pulmonary edema Procedures: none. Critical care: none. HPI: See MDM above. PAST MEDICAL HISTORY: See Below PAST SURGICAL HISTORY: See Below SOCIAL HISTORY: See Below HOME MEDICATIONS: See Below ALLERGIES: See Below VITALS: See Below PHYSICAL EXAMINATION: CONSTITUTIONAL/VITAL SIGNS: Reviewed GENERAL: Non-toxic in appearance. INTEGUMENTARY: Warm, dry, and Bowman. HEAD: Normocephalic. EYES: without scleral icterus. ENT/OROPHARYNX: clear and moist. RESPIRATORY: No increased work of breathing. Lungs clear. CARDIOVASCULAR: Regular rate. Regular rhythm. GI/ABDOMEN: Soft and nontender. . EXTREMITIES: Normal NEUROLOGICAL: Intact without focal deficits. PSYCHIATRIC: Normal affect. MUSCULOSKELETAL: Normal. TRIAGE NURSING DOCUMENTATION REVIEWED. Past Med/Surg History Medical History Anemia AV fistula Left arm Chronic kidney disease on chronic dialysis //Friday at [facility]. 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 pt states she was critical, intubated and started hemodiaylsis at that point. states she then had to go to rehab to "learn to walk again" and currently is at home with and uses a cane, but can be unsteady without assistance. Hyperlipidemia Hyperparathyroidism due to renal insufficiency Hypertension Hypothyroidism Obesity (BMI 30-39.9) Osteoarthritis Peripheral neuropathy BILATERAL LEGS Renal mass, left pt unaware Splenic lesion pt unaware Subdural hematoma pt unaware Surgical History H/O bilateral salpingo-oophorectomy History of cataract extraction with lens replacement bilateral History of colonoscopy History of hysterectomy RENNY History of vitrectomy RT. Hx of cardiac catheterization fall 2021, brought to [facility] ER for shortness of breath>no stents, no findings; [place] [facility] [place] f/u w/ berto norton in near future S/P arteriovenous (AV) fistula creation Left arm with several revisions Family History Father Family history of diabetes mellitus Mother Family history of diabetes mellitus Social History Smoking Status: Never smoker Second Hand Exposure: Yes ( smokes); Hx Alcohol Use: No Hx Substance Use: No Preferred Language: Portuguese Communication Ability: Effective Tool Smith Required: No Beliefs That Will Affect Care: None marital status: Current Living Situation: Spouse How many Children do You have: 1 Feels Safe at Home: Yes Assistive Devices: Cane, Glasses and Oxygen - at Night Allergies Allergies Allergy/AdvReac Type Severity Reaction Status Date / Time gabapentin Allergy Intermediate Dizziness Verified 05/13/22 11:50 lisinopril AdvReac Intermediate Cough Verified 05/13/22 11:50 Home Meds Home Medications Medication Instructions Recorded Confirmed aspirin 81 mg tablet,delayed 81 mg PO HS 05/07/18 05/13/22 release (Marika Low Dose Aspirin) insulin glargine 100 unit/mL (3 33 unit subcut HS 09/16/18 05/13/22 mL) subcutaneous pen (Basaglar KwikPen U-100 Insulin) pregabalin 75 mg capsule 75 mg PO QAM 08/20/19 05/13/22 pregabalin 25 mg capsule 25 mg PO UD PRN tingling 09/26/20 05/13/22 cholecalciferol (vitamin D3) 25 0.75 mcg PO UD 09/24/21 05/13/22 mcg (1,000 unit) tablet (Vitamin D3) lidocaine-prilocaine 2.5 %-2.5 % 1 applic topical UD 09/24/21 05/13/22 topical cream sucroferric oxyhydroxide 500 mg 500 mg PO TID 09/24/21 05/13/22 chewable tablet (Velphoro) cetirizine 5 mg chewable tablet 5 mg PO UD 12/01/21 05/13/22 rosuvastatin 40 mg tablet 40 mg PO QAM 12/01/21 05/13/22 amlodipine 2.5 mg tablet 2.5 mg PO QAM 03/15/22 05/13/22 insulin aspart U-100 100 unit/mL 6 unit subcut TID 03/15/22 05/13/22 (3 mL) subcutaneous pen (Novolog FlexPen U-100 Insulin aspart) ondansetron HCl 4 mg tablet 4 mg PO Q6H PRN Nausea 03/15/22 05/13/22 levothyroxine 50 mcg tablet 50 mcg PO QAM 03/16/22 05/13/22 metoprolol succinate 50 mg 50 mg PO QAM 05/08/22 05/13/22 tablet,extended release 24 hr Previous Rx's Medication Instructions Recorded albuterol sulfate 90 mcg/actuation 2 puffs inhalation Q6H PRN 05/30/19 aerosol inhaler (Proventil HFA) shortness of breath or wheezing #8 grams Results & Data (ED) Vital Signs Vital Signs - 24 hr 05/14/22 09:23 05/14/22 09:32 05/14/22 09:45 Temperature 36.3 C L Temperature Source Temporal Artery Scan Pulse Rate 99 H Pulse Rate [Apical] 101 H Pulse Rhythm Regular Respiratory Rate 18 28 H Respiratory Effort / Characteristics Non-Labored Spontaneous Respiratory Depth Normal Normal Respiratory Pattern Tachypnea Blood Pressure 187/78 H Blood Pressure [Right Arm] 192/91 H Blood Pressure Mean 114 Blood Pressure Mean [Right Arm] 124 Blood Pressure Position [Right Arm] Pulse Oximetry 95 95 Oxygen Delivery Method Nasal Cannula Nasal Cannula Oxygen Flow Rate 4 2 Sepsis Recent Fever Within 48 Hours No Sepsis New/Unexplained Change in Mental Status No Sepsis Action Taken by Nursing No Action Required 05/14/22 09:32 05/14/22 09:55 05/14/22 10:15 Temperature Temperature Source Pulse Rate Pulse Rate [Apical] Pulse Rhythm Respiratory Rate Respiratory Effort / Characteristics Spontaneous Respiratory Depth Respiratory Pattern Blood Pressure Blood Pressure [Right Arm] Blood Pressure Mean Blood Pressure Mean [Right Arm] Blood Pressure Position [Right Arm] Pulse Oximetry 96 Oxygen Delivery Method Nasal Cannula Nasal Cannula Nasal Cannula Oxygen Flow Rate 2 2 6 Sepsis Recent Fever Within 48 Hours Sepsis New/Unexplained Change in Mental Status Sepsis Action Taken by Nursing 05/14/22 11:33 Temperature Temperature Source Pulse Rate Pulse Rate [Apical] 98 H Pulse Rhythm Respiratory Rate 16 Respiratory Effort / Characteristics Non-Labored Respiratory Depth Normal Respiratory Pattern Regular Blood Pressure Blood Pressure [Right Arm] 182/85 H Blood Pressure Mean Blood Pressure Mean [Right Arm] 117 Blood Pressure Position [Right Arm] Lying Pulse Oximetry 98 Oxygen Delivery Method Nasal Cannula Oxygen Flow Rate 6 Sepsis Recent Fever Within 48 Hours Sepsis New/Unexplained Change in Mental Status Sepsis Action Taken by Nursing Laboratory Data 05/14/22 10:05 05/14/22 10:05 Lab Results 05/14/22 05/14/22 05/14/22 Range/Units 10:05 10:05 10:05 WBC 11.84 H (4.8-10.8) K/ul RBC 3.86 L (3.93-5.22) M/uL Hgb 11.7 L (12.0-16.0) g/dl Hct 37.2 (34.1-44.9) % MCV 96.4 (80.0-100.0) fL MCH 30.3 (25.0-34.0) pg MCHC 31.5 L (32.0-36.0) g/dL RDW Std Deviation 54.8 H (36.4-46.3) fL RDW Coeff of Talisha 15.5 H (11.5-14.5) % Plt Count 174 (130-400) K/uL MPV 9.9 (9.4-12.3) fL Immature Gran % (Auto) 0.3 % Neut % (Auto) 84.8 % Lymph % (Auto) 8.1 % Sawyer % (Auto) 5.9 % Eos % (Auto) 0.8 % Baso % (Auto) 0.1 % Neut # (Auto) 10.04 H (1.4-6.5) K/uL Lymph # (Auto) 0.96 L (1.2-3.4) K/uL Sawyer # (Auto) 0.70 (0.24-0.82) K/uL Eos # (Auto) 0.10 (0-0.50) K/uL Baso # (Auto) 0.01 (0-0.2) K/uL Immature Gran # (Auto) 0.03 H (0.00-0.02) K/uL Sodium 139 (136-145) mmol/L Potassium 5.6 H (3.5-5.1) mmol/L Chloride 94 L (98-107) mmol/L Carbon Dioxide 30 (21-32) mmol/L Anion Gap 15 H (3-11) BUN 65 H (6-23) mg/dl Creatinine 6.32 H* (0.6-1.2) mg/dl Est Cr Clr Drug Dosing 10.0 ml/min Est GFR ( Amer) 7.5 ml/min Est GFR (Non-Af Amer) 6.5 ml/min BUN/Creatinine Ratio 10.3 (10-20) Glucose 231 H (70-99(Fasting)) mg/dl Calcium 10.1 (8.5-10.1) mg/dl Total Bilirubin 0.5 (0.2-1.0) mg/dl AST 10 L (13-39) U/L ALT 5 L (7-52) U/L Alkaline Phosphatase 251 H (34-104) U/L Troponin I High Sens 22.1 H (0-14) pg/ml Total Protein 7.4 (6.0-8.3) gm/dl Albumin 3.8 (3.4-5.0) gm/dl Globulin 3.6 (2.5-4.0) gm/dl Albumin/Globulin Ratio 1.1 (0.9-2) Lipase 30 (11-82) U/L Procalcitonin 1.37 H (0-0.5) ng/ml Administered Medications Discontinued Medications Furosemide (Furosemide 40 Mg/4 Ml Vial) 80 mg IV NOW STA Stop: 05/14/22 10:21 Last Admin: 05/14/22 10:50 Dose: 80 mg Documented By: Imaging Data Radiologist's Impression: Chest X-Ray 05/14/22 09:32 XR chest 1V portable HISTORY: 61 years-old Female Chest pain, nonspecific acute shortness breath with chest pain and cough COMPARISON: Chest radiograph 03/18/2022 TECHNIQUE: AP view of the chest FINDINGS: Cardiac silhouette is enlarged. Multifocal mixed interstitial and alveolar opacities. No pneumothorax or large pleural effusion. Mild right hemidiaphragmatic elevation. Degenerative changes of the shoulders and spine. IMPRESSION: Cardiomegaly with extensive bilateral intermixed interstitial and alveolar opacities suggestive of multifocal pneumonia. Pulmonary edema could appear similarly. ACT 112: Negative or not required by law. The above report was generated using voice recognition software. It may contain grammatical, syntax or spelling errors. Electronically signed by: Abimael Maldonado M.D. 05/14/2022 10:23 AM Discharge Plan Visit Data Chief Complaint: Chest Pain Stated Complaint: TROUBLE BREATHING AND CHEST PAIN ED Provider: Alfredito Marinelli ED Midlevel Provider: Jc Felix Discharge Problem: CHF (congestive heart failure), Pulmonary edema Patient Disposition: Admitted As Inpatient Forms Stand Alone [facility]: [facility] Pres[facility] Prescriptions: No Action insulin glargine [Basaglar KwikPen U-100 Insulin] 100 unit/mL (3 mL) insulin pen 33 unit subcut HS pregabalin 75 mg capsule 75 mg PO QAM aspirin [Marika Low Dose Aspirin] 81 mg Tablet,Delayed Release (Dr/Ec) 81 mg PO HS albuterol sulfate [Proventil HFA] 90 mcg/actuation HFA aerosol inhaler 2 puffs INH Q6H PRN (Reason: shortness of breath or wheezing) Qty: 8 0RF pregabalin 25 mg capsule 25 mg PO UD PRN (Reason: tingling) Rx Instructions: daily at NOON rosuvastatin 40 mg tablet 40 mg PO QAM cetirizine 5 mg tablet,chewable 5 mg PO UD Rx Instructions: T, TH, Sat after dialysis ondansetron HCl 4 mg tablet 4 mg PO Q6H PRN (Reason: Nausea) amlodipine 2.5 mg tablet 2.5 mg PO QAM insulin aspart U-100 [Novolog FlexPen U-100 Insulin] 100 unit/mL (3 mL) insulin pen 6 unit SUBCUT TID levothyroxine 50 mcg tablet 50 mcg PO QAM metoprolol succinate 50 mg tablet extended release 24 hr 50 mg PO QAM lidocaine-prilocaine 2.5-2.5 % cream 1 applic topical UD Rx Instructions: Apply small amount to access site (AVF) 1-2 hours before dialysis. Cover with occlusive dressing (Saran Wrap). Friday,,Friday cholecalciferol (vitamin D3) [Vitamin D3] 25 mcg (1,000 unit) Tablet 0.75 mcg PO UD Label Comments: given to pt at dialysis Rx Instructions: Take on Dialysis days. Friday,,Friday Velphoro 500 mg tablet,chewable 500 mg PO TID Referrals Referrals: Jose Magallanes MD [Primary Care Provider] -
[2022-05-14] MEDS ORDERED: EPOETIN ALFA 4,000 UNIT/ML VIAL IV ONE (12:06)
[2022-05-14] MEDS ORDERED: SODIUM CHLORIDE 0.9% 1000ML 1,000 ML IV PRN (12:06)
[2022-05-14] MEDS ORDERED: HEPARIN SOD (PORCINE) 1000 UNIT/ML IV ONE (12:06)
[2022-05-14] MEDS ORDERED: ACETAMINOPHEN 325 MG TAB PO STA (13:53)
--- NOTE | 2022-05-14 14:23 | History & Physical Report ---
Date of Service May 14, 2022 Assessment & Plan (1) Pulmonary edema: (2) Chronic kidney disease on chronic dialysis: (3) Anemia of chronic renal failure, stage 5: (4) Hypertension: (5) Diabetes mellitus: (6) Hypothyroidism: (7) H/O eye surgery: Plan This is a 61-year-old female with PMH of end-stage renal disease on hemodialysis TuThSa, nocturnal hypoxemia 2/2 pulmonary HTN on 2 L NC O2, type 2 diabetes, anemia of chronic disease, CAD, hypothyroidism, hypertension and other medical problems listed below who presents with shortness of breath and found to have pulmonary edema in setting of ESRD. Acute on chronic hypoxic respiratory failure Pulmonary edema ESRD on HD TuThSa In the setting of end-stage renal disease and possibly exacerbated by eye surgery yesterday Required increased oxygen support overnight from normal 2 L to 4 L. Currently saturating at 98% on 6 L nasal cannula Afebrile, mild leukocytosis of 11 point 8K, high-sensitivity troponin 22, Pro- Ziggy 1.37 (seems to be chronically elevated in setting of ESRD) Chest x-ray with cardiomegaly with extensive bilateral intermixed interstitial and alveolar opacities suggestive of multifocal pneumonia. Pulmonary edema could appear similarly Clinically consistent pulmonary edema as patient is afebrile, no worsening cough or congestion and feels similar to past episodes of volume overload per patient Nontoxic appearance, chronically elevated procalcitonin within range. Abx not indicated at this time but consider adding if SOB persists despite lasix and HD today Given 80mg IV Lasix in ED. Undergoing HD now - reassess volume status, CXR in AM Continue supplemental O2 Dr. Izquierdo consulted Anemia of chronic disease Given Epo by nephro in ED, hgb stable at11.7. Nephrology managing Hypertension Should improve with HD today. Will give missed dose of amlodipine, Toprol DM II Hold home agents SSI while in-patient Glycemic consult placed BSG AC HS Hypothyroidism Continue levothyroxine H/o eye surgery yesterday Underwent procedure with Dr. Way yesterday under local anesthesia Ordered prescribed eye drops to be given while in-patient DVT Ppx: SQ heparin Code status: FULL PCP: Sona Dispo: Admitted to PCU Patient seen in collaboration with Dr. Rivera. Please see addendum. History of Present Illness Chief Complaint: Shortness of breath Primary Care Provider: Jose Magallanes MD This is a 61-year-old female with PMH of end-stage renal disease on hemodialysis TuThSa, nocturnal hypoxemia 2/2 pulmonary HTN on 2 L NC O2, type 2 diabetes, anemia of chronic disease, CAD, hypothyroidism, hypertension and other medical problems listed below who presents with shortness of breath. Started to feel poorly yesterday and increased her oxygen from 2 to 4 L overnight to feel comfortable. Attempted to go to dialysis this morning but felt too short of breath with associated substernal chest pressure and presented to ED instead. Did have a minor eye surgery yesterday under local anesthesia and therefore was unable to take her medications at normal times. Does note some increased swelling in legs this morning. Was evaluated once in dialysis unit and chest pain had subsided. Only took a few of her morning medications today. Medication compliance has been an issue in the past, per chart review. Currently resting comfortably. No fever, chills, lightheadedness, chest pain, nausea, vomiting, abdominal pain, dysuria, diarrhea constipation. Still makes urine. Was seen by Dr. Shah of nephrology in the ED and given a dose of IV Lasix. Allergies Allergy/AdvReac Type Severity Reaction Status Date / Time gabapentin Allergy Intermediate Dizziness Verified 05/13/22 11:50 lisinopril AdvReac Intermediate Cough Verified 05/13/22 11:50 Home Medications Medication Instructions Recorded Confirmed Type aspirin 81 mg tablet,delayed 81 mg PO HS 05/07/18 05/14/22 History release (Marika Low Dose Aspirin) insulin glargine 100 unit/mL (3 33 unit subcut HS 09/16/18 05/14/22 History mL) subcutaneous pen (Basaglar KwikPen U-100 Insulin) albuterol sulfate 90 mcg/actuation 2 puffs inhalation Q6H PRN 05/30/19 05/14/22 Rx aerosol inhaler (Proventil HFA) shortness of breath or wheezing #8 grams pregabalin 75 mg capsule 75 mg PO QAM 08/20/19 05/14/22 History pregabalin 25 mg capsule 25 mg PO UD PRN tingling 09/26/20 05/14/22 History cholecalciferol (vitamin D3) 25 0.75 mcg PO UD 09/24/21 05/14/22 History mcg (1,000 unit) tablet (Vitamin D3) lidocaine-prilocaine 2.5 %-2.5 % 1 applic topical UD 09/24/21 05/14/22 History topical cream sucroferric oxyhydroxide 500 mg 500 mg PO TID 09/24/21 05/14/22 History chewable tablet (Velphoro) cetirizine 5 mg chewable tablet 5 mg PO UD 12/01/21 05/14/22 History rosuvastatin 40 mg tablet 40 mg PO QAM 12/01/21 05/14/22 History amlodipine 2.5 mg tablet 2.5 mg PO QAM 03/15/22 05/14/22 History insulin aspart U-100 100 unit/mL 6 unit subcut TID 03/15/22 05/14/22 History (3 mL) subcutaneous pen (Novolog FlexPen U-100 Insulin aspart) ondansetron HCl 4 mg tablet 4 mg PO Q6H PRN Nausea 03/15/22 05/14/22 History levothyroxine 50 mcg tablet 50 mcg PO QAM 03/16/22 05/14/22 History metoprolol succinate 50 mg 50 mg PO QAM 05/08/22 05/14/22 History tablet,extended release 24 hr polymyxin B sulfate 10,000 1 drp OPL QID 05/14/22 05/14/22 History unit-trimethoprim 1 mg/mL eye drops prednisolone acetate 1 % eye 1 drp OPL UD 05/14/22 05/14/22 History drops,suspension sevelamer carbonate 800 mg tablet 800 mg PO UD 05/14/22 05/14/22 History (Renvela) Past Med/Surg History Medical History Anemia AV fistula Left arm Chronic kidney disease on chronic dialysis //Friday at [facility] 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 via [facility]. pt states she was critical, intubated and started hemodiaylsis at that point. states she then had to go to rehab to "learn to walk again" and currently is at home with and uses a cane, but can be unsteady without assistance. Hyperlipidemia Hyperparathyroidism due to renal insufficiency Hypertension Hypothyroidism Obesity (BMI 30-39.9) Osteoarthritis Peripheral neuropathy BILATERAL LEGS Renal mass, left pt unaware Splenic lesion pt unaware Subdural hematoma pt unaware Surgical History H/O bilateral salpingo-oophorectomy History of cataract extraction with lens replacement bilateral History of colonoscopy History of hysterectomy RENNY History of vitrectomy RT. Hx of cardiac catheterization fall 2021, brought to [facility] ER for shortness of breath>no stents, no findings; f/u dr anaya, [facility]>will be f/u w/ dr pulido il in near future S/P arteriovenous (AV) fistula creation Left arm with several revisions Family History Father Family history of diabetes mellitus Mother Family history of diabetes mellitus Social History Smoking Status: Never smoker Second Hand Exposure: Yes ( smokes); Hx Alcohol Use: No Hx Substance Use: No Preferred Language: Albanian Communication Ability: Effective Electronic Repair Troubleshooter Required: No Beliefs That Will Affect Care: None marital status: Current Living Situation: Spouse How many Children do You have: 1 Feels Safe at Home: Yes Assistive Devices: Cane, Glasses and Oxygen - at Night Review of Systems Review of Systems: At least ten systems reviewed and negative except as noted in the HPI. Physical Exam Physical Exam: Please see Dr. Rivera's addendum for physical exam. Results & Data Results & Data ([facility]) Vital Signs (Past 12 Hours) Vital Signs Temp Pulse Pulse Resp BP BP Pulse Ox 05/14/22 11:33 98 H 16 182/85 H 98 05/14/22 10:15 96 05/14/22 09:55 05/14/22 09:32 05/14/22 09:45 101 H 28 H 192/91 H 05/14/22 09:32 95 05/14/22 09:23 36.3 C L 99 H 18 187/78 H 95 O2 Del Method O2 Flow Rate 05/14/22 11:33 Nasal Cannula 6 05/14/22 10:15 Nasal Cannula 6 05/14/22 09:55 Nasal Cannula 2 05/14/22 09:32 Nasal Cannula 2 05/14/22 09:45 05/14/22 09:32 Nasal Cannula 2 05/14/22 09:23 Nasal Cannula 4 Laboratory Results Short CBC 05/14/22 Range/Units 10:05 WBC 11.84 H (4.8-10.8) K/ul Hgb 11.7 L (12.0-16.0) g/dl Hct 37.2 (34.1-44.9) % Plt Count 174 (130-400) K/uL BMP 05/14/22 10:05 Sodium 139 Potassium 5.6 H Chloride 94 L Carbon Dioxide 30 BUN 65 H Creatinine 6.32 H* Glucose 231 H Calcium 10.1 Liver Function 05/14/22 Range/Units 10:05 Total Bilirubin 0.5 (0.2-1.0) mg/dl AST 10 L (13-39) U/L ALT 5 L (7-52) U/L Alkaline Phosphatase 251 H (34-104) U/L Albumin 3.8 (3.4-5.0) gm/dl Diagnostic Findings Chest X-Ray 05/14/22 09:32 XR chest 1V portable HISTORY: 61 years-old Female Chest pain, nonspecific acute shortness breath with chest pain and cough COMPARISON: Chest radiograph 03/18/2022 TECHNIQUE: AP view of the chest FINDINGS: Cardiac silhouette is enlarged. Multifocal mixed interstitial and alveolar opacities. No pneumothorax or large pleural effusion. Mild right hemidiaphragmatic elevation. Degenerative changes of the shoulders and spine. IMPRESSION: Cardiomegaly with extensive bilateral intermixed interstitial and alveolar opacities suggestive of multifocal pneumonia. Pulmonary edema could appear similarly. ACT 112: Negative or not required by law. The above report was generated using voice recognition software. It may contain grammatical, syntax or spelling errors. Electronically signed by: Abimael Maldonado M.D. 05/14/2022 10:23 AM Code Status & VTE Plan VTE Prophylaxis Plan VTE Prophylaxis will be ordered: Yes Supervising Physician Co-Signing Physician Notes Pt is a 61 y/o F with hx of ESRD on HD (,,Sat), DMII, Hypothyroidism, HTN, anemia, HLD, HFpEF, severe mitral stenosis with pulm HTN admitted for acute respiratory failure. PE: Pt was seen while receiving dialysis NAD, well developed, NC in place Lungs: good air entry b/l, did not appreciate any crackle Cardiac: murmur, normal S1/S2 Abd: ND, soft, NT MSK: no LE edema Psych: AAOx3, normal affect A/p: Acute respiratory failure: -2/2 pulm edema -pt did have L eye Lamellar keratectomy with EDTA chelation yesterday ---- unsure whether she received any IVF during the procedure -at this time not suspecting any lung infection as the cause ---- even though her procal and wbc elevated (pt does have ESRD) ---- pt does not have any other respiratory symptoms -will repeat CXR shira with CBC (received HD today) ---- if the CXR is unchanged then will add abx for possible pneumonia ESRD on HD: -underwent dialysis today -will repeat BMP -Nephro consulted Recent L eye Lamellar keratectomy with EDTA chelation: -will continue the eye drops (pt's will bring in the medications) other chronic conditions: Plan as above Agree with A/P by Marry Marin PA-C (1) Diabetes mellitus Diabetes mellitus complication status: with unspecified complications Diabetes mellitus mcfp insulin use: unspecified mcfp insulin use status Diabetes mellitus type: other specified (including GERALD) Qualified Code(s): E13.8 - Other specified diabetes mellitus with unspecified complications
--- NOTE | 2022-05-14 14:36 | Electrocardiogram Report ---
Test Reason : Blood Pressure : / mmHG Vent. Rate : 103 BPM Atrial Rate : 103 BPM P-R Int : 162 ms QRS Dur : 086 ms QT Int : 350 ms P-R-T Axes : 060 001 018 degrees QTc Int : 458 ms Sinus tachycardia Possible Left atrial enlargement Poor R wave progression, consider anterior IA vs. lead placement vs. LVH Abnormal ECG Confirmed by Ata Alegria ([id number]) on 05/14/2022 2:35:37 PM Referred By: REFERRED SELF Confirmed By:Gregory Alegria
[2022-05-14] MEDS ORDERED: ALBUTEROL HFA 8 GM INHALER INH PRN (15:10)
[2022-05-14] MEDS ORDERED: NON-FORMULARY MEDICATION (Cholecalciferol (Vitamin D3) [Vitamin D3] 25 mcg (1,000 unit) Ta PO SCH (15:15)
[2022-05-14] MEDS ORDERED: GLUCOSE 10 TAB/TUBE PO PRN (15:38)
[2022-05-14] MEDS ORDERED: DEXTROSE 50% 50 ML SYRINGE IV PRN (15:38)
[2022-05-14] MEDS ORDERED: GLUCOSE 40% GEL 15 GM TUBE PO PRN (15:38)
[2022-05-14] MEDS ORDERED: CARBOHYDRATES FOR HYPOGLYCEMIA PO PRN (15:38)
[2022-05-14] MEDS ORDERED: GLUCAGON FOR INJ 1 MG VIAL SQ PRN (15:38)
[2022-05-14] MEDS ORDERED: amLODIPine BESYLATE 5 MG TAB PO STA (16:06)
[2022-05-14] MEDS ORDERED: METOPROLOL SUCC 50MG EXT REL TAB PO STA (16:09)
[2022-05-14] MEDS ORDERED: POLYETHYLENE (MIRALAX) 17 GM PACK PO PRN (19:21)
[2022-05-14] MEDS ORDERED: ACETAMINOPHEN 325 MG TAB PO PRN (19:21)
[2022-05-14] MEDS ORDERED: ONDANSETRON INJ 2 MG/ML 2 ML VIAL IV PRN (19:21)
[2022-05-14] MEDS ORDERED: SEVELAMER HCL 800 MG TABLET PO PRN (19:45)
[2022-05-14] MEDS: INSULIN ASPART PER UNIT SC SCH ×2 (20:35→20:49)
[2022-05-14] MEDS: TRIMETHOPRIM/POLYMYXIN B OPL SCH (20:45)
[2022-05-14] MEDS: HEPARIN SOD 5,000 UNIT/0.5 ML VIAL SQ SCH (20:47)
[2022-05-14] MEDS: prednisoLONE acetate 1% OP SUSP 5 ML BTL OPL SCH (20:47)
[2022-05-14] MEDS ORDERED: ASPIRIN 81 MG ECTAB PO SCH (21:00)
[2022-05-14] MEDS ORDERED: LANTUS PER UNIT CHARGE SQ SCH (21:00)
--- NOTE | 2022-05-15 00:45 | Consultation Report ---
NEPHROLOGY CONSULTATION NOTE DATE OF SERVICE: 05/14/2022 REASON FOR CONSULTATION: Dialysis patient admitted with pulmonary edema. HISTORY OF PRESENT ILLNESS: The patient is a 61-year-old female with extensive cardiac disease, specifically critical aortic stenosis, not amenable to any type of surgical intervention including TAVR. She has ESRD and gets dialysis Friday, , Friday and is my outpatient. She has extensive medical problems and she presented to the hospital emergency earlier today because of increasing shortness of breath, orthopnea. Today is her dialysis day, but she could not go to dialysis because she was getting very short of breath and instead decided to come to the Emergency Department. At this point, her blood pressure is high. Her chest x-ray is consistent with pulmonary edema and she is significantly more short of breath and requiring lot of oxygen at this point. She has an AV fistula for regular dialysis. Blood work showed a slightly high potassium. PAST MEDICAL AND SURGICAL HISTORY: Includes longstanding type 2 diabetes, on insulin, with all the complications of diabetes including end-stage renal disease - on dialysis, pulmonary hypertension, on chronic oxygen, hyperlipidemia, hypothyroidism, pulmonary nodule, sleep apnea, peripheral artery disease, severe aortic/mitral valve stenosis - not amenable to surgery, cardiac catheterization, endoscopies, ERCP, multiple injection to the eyes, partial hysterectomy. MEDICATIONS: Medication at home was reviewed and is as per the reconciliation list and the H and P. ALLERGY LIST: GABAPENTIN AND LISINOPRIL. REVIEW OF SYSTEMS: As detailed in HPI; unless stated otherwise, 12 systems were reviewed and negative. Positive review of systems include increasing shortness of breath, orthopnea. PHYSICAL EXAMINATION: GENERAL: A middle-aged white female, who appears chronically ill, but she is clearly more short of breath at this point and in significant respiratory distress. She has significant orthopnea at this time. VITAL SIGNS: Her blood pressure is high at 182/85, pulse rate 98, temperature 36.3, and 98% on 6 liters nasal cannula. CHEST: Bilateral decreased breath sounds, occasional crackles. CARDIOVASCULAR: S1 and S2 regular. Systolic murmur heard. ABDOMEN: Soft, nontender. EXTREMITIES: Show trace to 1+ edema. LABORATORY TEST: Hemoglobin 11.8, WBC count 11.8, platelet count 174. , potassium 5.6, bicarbonate 30, BUN 65, creatinine 6.3. IMAGING: Chest x-ray shows significant findings with cardiomegaly and extensive bilateral interstitial and alveolar opacities consistent with pulmonary edema/multifocal pneumonia. ASSESSMENT AND PLAN: A 61-year-old female with severe critical mitral valve stenosis/aortic valve stenosis, not amenable to surgery as well as end-stage renal disease, on chronic hemodialysis Friday, , Friday, now admitted with significantly worsened shortness of breath. End-stage renal disease. Today is her dialysis day and she clearly needs dialysis as soon as possible to help with her shortness of breath. We will try to do 4 hours of dialysis and take 4 kilos of fluid off. At this point, her blood pressure is quite high, so that will help with aggressive ultrafiltration. However, I cannot be certain that there is no concomitant infection given the chest x-ray finding can appear very similar. I would still do the full infection workup for all type of viral infection as well as pneumonia. I would like to do dialysis tomorrow again to more aggressively treat the fluid overload/pulmonary edema. She has to attend her [id number] on and desperately wants to go home by tomorrow to attend the . Case was discussed with the Emergency Department doctor regarding urgent dialysis and orders have been written and she will be taken to dialysis on an urgent basis. Thank you very much for the consult. Job ID: [id number] WANDA
[2022-05-15] MEDS: TRIMETHOPRIM/POLYMYXIN B OPL SCH ×3 (01:13→15:20)
[2022-05-15] MEDS: HEPARIN SOD 5,000 UNIT/0.5 ML VIAL SQ SCH ×2 (06:08→15:21)
[2022-05-15] MEDS ORDERED: LEVOTHYROXINE SODIUM 50 MCG TABLET PO SCH (06:30)
[2022-05-15 06:51] LABS: Hemoglobin 10.4 g/dl (12.0-16.0); Mean Corpuscular Hemoglobin 30.2 pg (25.0-34.0); Mean Corpuscular Hgb Conc 31.5 g/dL (32.0-36.0); Mean Corpuscular Volume 95.9 fL (80.0-100.0); Mean Platelet Volume 9.9 fL (9.4-12.3); Platelet Count 155 K/uL (130-400); RDW Coefficient of Variation 15.5 % (11.5-14.5); RDW Standard Deviation 54.5 fL (36.4-46.3); Red Blood Count 3.44 M/uL (3.93-5.22); White Blood Count 7.93 K/ul (4.8-10.8)
[2022-05-15 06:53] LABS: Creatinine Clr Calc Pharmacy 12.5 ml/min; Est GFR (African American) 10.2 ml/min; Est GFR (Non-African American) 8.8 ml/min
[2022-05-15 06:54] LABS: BUN Creatinine Ratio 8.1 (10-20); Calcium 10.2 mg/dl (8.5-10.1); Potassium 4.7 mmol/L (3.5-5.1)
[2022-05-15] MEDS: HEPARIN SOD (PORCINE) 1000 UNIT/ML IV SCH ×3 (07:56→11:16)
[2022-05-15] MEDS: SEVELAMER HCL 800 MG TABLET PO SCH ×2 (08:23→15:21)
[2022-05-15] MEDS: prednisoLONE acetate 1% OP SUSP 5 ML BTL OPL SCH ×2 (08:24→15:20)
[2022-05-15] MEDS: INSULIN ASPART PER UNIT SC SCH ×2 (08:28→15:23)
[2022-05-15] MEDS ORDERED: PREGABALIN 75 MG CAP PO SCH (09:00)
[2022-05-15] MEDS ORDERED: METOPROLOL SUCC 50MG EXT REL TAB PO SCH ×2 (09:00)
[2022-05-15] MEDS ORDERED: amLODIPine BESYLATE 5 MG TAB PO SCH ×2 (09:00)
[2022-05-15] MEDS ORDERED: ROSUVASTATIN CALCIUM 20 MG TAB PO SCH (09:00)
--- NOTE | 2022-05-15 11:20 | XRay Report ---
XR chest 1V portable CLINICAL HISTORY: Pulmonary edema. COMPARISON STUDY: Chest CT March 16, 2022. Chest radiograph May 14, 2022. FINDINGS: There is no pneumothorax. No pleural effusion is identified. Interstitial thickening and bi lateral airspace opacities have moderately improved since prior exam. Cardiomegaly is again noted. Ca rdiomediastinal silhouette is stable. IMPRESSION: Pulmonary edema, moderately improved since prior exam. ACT 112: Negative or not required by law. Electronically signed by: Sergo Figueroa M.D. 05/15/2022 9:40 AM
[2022-05-15] MEDS ORDERED: PREGABALIN 25 MG CAP PO PRN (12:00)
--- NOTE | 2022-05-15 12:45 | Dialysis Progress Note ---
Date of Service May 15, 2022 Assessment & Plan Admission and Anticipated Discharge Date Admission Date: May 14, 2022 Subjective S---seen during Dialysis. Somewhat better breathing. Less o2 now. AVF fine. BP not high now. PHYSICAL EXAMINATION: GENERAL: A middle-aged white female, who appears chronically ill, but she is clearly more short of breath at this point and in significant respiratory distress. She has significant orthopnea at this time. CHEST: Bilateral decreased breath sounds, occasional crackles. CARDIOVASCULAR: S1 and S2 regular. Systolic murmur heard. ABDOMEN: Soft, nontender. EXTREMITIES: Show trace to 1+ edema. LABORATORY TEST: reviewed. IMAGING: Chest x-ray shows significant findings with cardiomegaly and extensive bilateral interstitial and alveolar opacities consistent with pulmonary edema/multifocal pneumonia. ASSESSMENT AND PLAN: A 61-year-old female with severe critical mitral valve stenosis/aortic valve stenosis, not amenable to surgery as well as end-stage renal disease, on chronic hemodialysis Friday, , Friday, now admitted with significantly worsened shortness of breath. End-stage renal disease. We will try to do 3.5 hours of dialysis and take 3.5 kilos of fluid off as tolerated. She has to attend her [id number] on and desperately wants to go home soon to attend the . AVF fine. Now has critical VHD not amenable to surgery and unfortunately will be admitted every now and then for Pulm edema. Does not really make urine to make Difference with Iv lasix. Results & Data ([facility]) Vital Signs (Past 12 Hours) Vital Signs Temp Pulse Pulse Pulse Resp BP BP 05/15/22 12:30 72 104/55 L 05/15/22 12:00 75 111/69 05/15/22 11:30 74 124/60 05/15/22 11:00 80 143/71 H 05/15/22 10:34 83 133/69 05/15/22 08:30 05/15/22 10:20 36.7 C 85 05/15/22 07:37 20 05/15/22 07:17 36.6 C 92 H 18 144/77 H 05/15/22 07:12 88 05/15/22 01:30 05/15/22 03:27 36.6 C 93 H 22 147/77 H 05/15/22 02:35 95 H Pulse Ox O2 Del Method O2 Flow Rate 05/15/22 12:30 05/15/22 12:00 05/15/22 11:30 05/15/22 11:00 05/15/22 10:34 05/15/22 08:30 Nasal Cannula 2 05/15/22 10:20 05/15/22 07:37 95 Nasal Cannula 1.5 05/15/22 07:17 94 Nasal Cannula 1.5 05/15/22 07:12 05/15/22 01:30 95 Nasal Cannula 2 05/15/22 03:27 93 Nasal Cannula 1.5 05/15/22 02:35
--- NOTE | 2022-05-15 16:25 | Discharge Summary ---
Date of Service May 15, 2022 Admission HPI Per Admitting Provider This is a 61-year-old female with PMH of end-stage renal disease on hemodialysis TuThSa, nocturnal hypoxemia 2/2 pulmonary HTN on 2 L NC O2, type 2 diabetes, anemia of chronic disease, CAD, hypothyroidism, hypertension and other medical problems listed below who presents with shortness of breath. Started to feel poorly yesterday and increased her oxygen from 2 to 4 L overnight to feel comfortable. Attempted to go to dialysis this morning but felt too short of breath with associated substernal chest pressure and presented to ED instead. Did have a minor eye surgery yesterday under local anesthesia and therefore was unable to take her medications at normal times. Does note some increased swelling in legs this morning. Was evaluated once in dialysis unit and chest pain had subsided. Only took a few of her morning medications today. Medication compliance has been an issue in the past, per chart review. Currently resting comfortably. No fever, chills, lightheadedness, chest pain, nausea, vomiting, abdominal pain, dysuria, diarrhea constipation. Still makes urine. Was seen by Dr. Shah of nephrology in the ED and given a dose of IV Lasix. Admission Exam Per Admitting Provider Pt was seen while receiving dialysis NAD, well developed, NC in place Lungs: good air entry b/l, did not appreciate any crackle Cardiac: murmur, normal S1/S2 Abd: ND, soft, NT MSK: no LE edema Psych: AAOx3, normal affect Principal Diagnosis (1) Pulmonary edema: (2) Chronic kidney disease on chronic dialysis: (3) Anemia of chronic renal failure, stage 5: (4) Hypertension: (5) Diabetes mellitus: (6) Hypothyroidism: (7) H/O eye surgery: Discharge Exam General- No acute distress Head- atraumatic Eyes- PERRL, EOMI, ENT- oropharynx clear Neck- supple, no JVD Lungs- clear to auscultation Heart- regular rhythm; no murmur Abdomen- normal bowel sounds, soft, nontender Extremities- no calf tenderness Neuro- alert, oriented x 3; PERRL, EOMI; no facial palsy; no dysarthria Skin- warm & dry Discharge Data Allergies Allergy/AdvReac Type Severity Reaction Status Date / Time gabapentin Allergy Intermediate Dizziness Verified 05/13/22 11:50 lisinopril AdvReac Intermediate Cough Verified 05/13/22 11:50 Consultations 05/14/22 11:37 Consult Nephrology Stat ED Decision to Admit Stat Ordered Studies Laboratory Results WBC 7.93 K/ul (4.8-10.8) 05/15/22 06:05 RBC 3.44 M/uL (3.93-5.22) L 05/15/22 06:05 Hgb 10.4 g/dl (12.0-16.0) L 05/15/22 06:05 Hct 33.0 % (34.1-44.9) L 05/15/22 06:05 MCV 95.9 fL (80.0-100.0) 05/15/22 06:05 MCH 30.2 pg (25.0-34.0) 05/15/22 06:05 MCHC 31.5 g/dL (32.0-36.0) L 05/15/22 06:05 RDW Std Deviation 54.5 fL (36.4-46.3) H 05/15/22 06:05 RDW Coeff of Talisha 15.5 % (11.5-14.5) H 05/15/22 06:05 Plt Count 155 K/uL (130-400) 05/15/22 06:05 MPV 9.9 fL (9.4-12.3) 05/15/22 06:05 Immature Gran % (Auto) 0.3 % 05/14/22 10:05 Neut % (Auto) 84.8 % 05/14/22 10:05 Lymph % (Auto) 8.1 % 05/14/22 10:05 [place] % (Auto) 5.9 % 05/14/22 10:05 Eos % (Auto) 0.8 % 05/14/22 10:05 Baso % (Auto) 0.1 % 05/14/22 10:05 Neut # (Auto) 10.04 K/uL (1.4-6.5) H 05/14/22 10:05 Lymph # (Auto) 0.96 K/uL (1.2-3.4) L 05/14/22 10:05 [place] # (Auto) 0.70 K/uL (0.24-0.82) 05/14/22 10:05 Eos # (Auto) 0.10 K/uL (0-0.50) 05/14/22 10:05 Baso # (Auto) 0.01 K/uL (0-0.2) 05/14/22 10:05 Immature Gran # (Auto) 0.03 K/uL (0.00-0.02) H 05/14/22 10:05 Sodium 140 mmol/L (136-145) 05/15/22 06:05 Potassium 4.7 mmol/L (3.5-5.1) 05/15/22 06:05 Chloride 101 mmol/L (98-107) 05/15/22 06:05 Carbon Dioxide 29 mmol/L (21-32) 05/15/22 06:05 Anion Gap 10 (3-11) 05/15/22 06:05 BUN 40 mg/dl (6-23) H D 05/15/22 06:05 Creatinine 4.91 mg/dl (0.6-1.2) H* D 05/15/22 06:05 Est Cr Clr Drug Dosing 12.5 ml/min 05/15/22 06:05 Est GFR ( Amer) 10.2 ml/min 05/15/22 06:05 Est GFR (Non-Af Amer) 8.8 ml/min 05/15/22 06:05 BUN/Creatinine Ratio 8.1 (10-20) L 05/15/22 06:05 Glucose 91 mg/dl (70-99(Fasting)) 05/15/22 06:05 POC Glucose 127 mg/dl (70-99) H 05/15/22 14:55 Calcium 10.2 mg/dl (8.5-10.1) H 05/15/22 06:05 Total Bilirubin 0.5 mg/dl (0.2-1.0) 05/14/22 10:05 AST 10 U/L (13-39) L 05/14/22 10:05 ALT 5 U/L (7-52) L 05/14/22 10:05 Alkaline Phosphatase 251 U/L (34-104) H 05/14/22 10:05 Troponin I High Sens 22.1 pg/ml (0-14) H 05/14/22 10:05 Total Protein 7.4 gm/dl (6.0-8.3) 05/14/22 10:05 Albumin 3.8 gm/dl (3.4-5.0) 05/14/22 10:05 Globulin 3.6 gm/dl (2.5-4.0) 05/14/22 10:05 Albumin/Globulin Ratio 1.1 (0.9-2) 05/14/22 10:05 Lipase 30 U/L (11-82) 05/14/22 10:05 Procalcitonin 1.37 ng/ml (0-0.5) H 05/14/22 10:05 Nasal Screen MRSA (PCR) Negative (Negative) 05/14/22 22:27 SARS-CoV-2, RNA, NAAT NEGATIVE (NEGATIVE) 05/14/22 16:30 Impressions Chest X-Ray 05/15/22 07:00 XR chest 1V portable CLINICAL HISTORY: Pulmonary edema. COMPARISON STUDY: Chest CT March 16, 2022. Chest radiograph May 14, 2022. FINDINGS: There is no pneumothorax. No pleural effusion is identified. Interstitial thickening and bilateral airspace opacities have moderately improved since prior exam. Cardiomegaly is again noted. Cardiomediastinal silhouette is stable. IMPRESSION: Pulmonary edema, moderately improved since prior exam. ACT 112: Negative or not required by law. Electronically signed by: Sergo Figueroa M.D. 05/15/2022 9:40 AM Hospital Course (1) Pulmonary edema: (2) Chronic kidney disease on chronic dialysis: (3) Anemia of chronic renal failure, stage 5: (4) Hypertension: (5) Diabetes mellitus: (6) Hypothyroidism: (7) H/O eye surgery: Acute on chronic hypoxic respiratory failure Pulmonary edema ESRD on HD TuThSa In the setting of end-stage renal disease and possibly exacerbated by eye surgery yesterday Required increased oxygen support overnight from normal 2 L to 4 L. Currently saturating at 98% on 6 L nasal cannula Afebrile, mild leukocytosis of 11 point 8K, high-sensitivity troponin 22, Pro- Ziggy 1.37 (seems to be chronically elevated in setting of ESRD) Chest x-ray on admission showed cardiomegaly with extensive bilateral intermixed interstitial and alveolar opacities suggestive of multifocal pneumonia. Pt had HD done yesterday and she is getting HD done this morning repeat CXR showed Pulmonary edema, moderately improved since prior exam. elevated procalcitonin due to ESRD that seems to be chronic Since WBC normalized and afebrile, will hold on antibiotic for now Pt does not want to stay because he has to go to leave today to attend her father in law tomorrow morning She is ready to leave if I don't discharge her today Case discussed with nephrology and Ok to discharge Next HD schedule for Friday Anemia of chronic disease Given Epo by nephro in ED Hgb stable at 10.4 Stable Hypertension Continue amlodipine, Toprol DM II Most recent Hba1c 6.8 Will resume home agents on discharge Continue glycemic management Continue monitor BS Hypothyroidism Continue levothyroxine H/o eye surgery yesterday Underwent procedure with Dr. Way yesterday under local anesthesia Continue eye drops DVT Ppx: SQ heparin Code status: FULL Disposition Discharge home today Total Time Total Time Spent Total Time Spent (In Minutes): 35 minutes Discharge Plan Discharge Items Patient Disposition: Home - Self-Care Reason For Visit: SOB, ESRD ON DIALYSIS Discharge Diagnosis: (1) Pulmonary edema: (2) Chronic kidney disease on chronic dialysis: (3) Anemia of chronic renal failure, stage 5: (4) Hypertension: (5) Diabetes mellitus: (6) Hypothyroidism: (7) H/O eye surgery: Activity: Resume your previous activity Non-emergency contact: Primary Care Provider and Rehabilitation Construction Specialist Call non-emergency contact if: you have any medication questions, your symptoms worsen and your temperature is above 101 Follow-up/Referrals: Jose Magallanes MD [Primary Care Provider] - Diet: Dialysis Renal Addtl Attending Provider Instructions: Follow up with your primary care provider Dr. Magallanes in 1 week ( Please call for the follow up appointment) Follow up with your nephrology Continue Hemodialysis as schedule Continue oxygen supplement Seek medical attention if you develops any shortness of breath and fever Pending Studies at Discharge: No Stand-Alone Forms: My [employer], Smoking Cessation Medications and DC Order Prescriptions: Continued insulin glargine [Basaglar KwikPen U-100 Insulin] 100 unit/mL (3 mL) insulin pen 33 unit subcut HS pregabalin 75 mg capsule 75 mg PO QAM aspirin [Marika Low Dose Aspirin] 81 mg Tablet,Delayed Release (Dr/Ec) 81 mg PO HS albuterol sulfate [Proventil HFA] 90 mcg/actuation HFA aerosol inhaler 2 puffs INH Q6H PRN (Reason: shortness of breath or wheezing) Qty: 8 0RF pregabalin 25 mg capsule 25 mg PO UD PRN (Reason: tingling) Rx Instructions: daily at NOON rosuvastatin 40 mg tablet 40 mg PO QAM cetirizine 5 mg tablet,chewable 5 mg PO UD Rx Instructions: T, TH, Sat after dialysis ondansetron HCl 4 mg tablet 4 mg PO Q6H PRN (Reason: Nausea) amlodipine 2.5 mg tablet 2.5 mg PO QAM insulin aspart U-100 [Novolog FlexPen U-100 Insulin] 100 unit/mL (3 mL) insulin pen 6 unit SUBCUT TID levothyroxine 50 mcg tablet 50 mcg PO QAM metoprolol succinate 50 mg tablet extended release 24 hr 50 mg PO QAM lidocaine-prilocaine 2.5-2.5 % cream 1 applic topical UD Rx Instructions: Apply small amount to access site (AVF) 1-2 hours before dialysis. Cover with occlusive dressing (Saran Wrap). Friday,,Friday cholecalciferol (vitamin D3) [Vitamin D3] 25 mcg (1,000 unit) Tablet 0.75 mcg PO UD Label Comments: given to pt at dialysis Rx Instructions: Take on Dialysis days. Friday,,Friday Velphoro 500 mg tablet,chewable 500 mg PO TID sevelamer carbonate [Renvela] 800 mg Tablet 800 mg PO UD Rx Instructions: must administer with a meal/food and 2 tabs with each snack (total of 11 tabs each day) prednisolone acetate 1 % drops,suspension 1 drp OPL UD Rx Instructions: 1 drop into left eye as directed polymyxin B sulf-trimethoprim 10,000 unit- 1 mg/mL drops 1 drp OPL QID Discharge Orders: Discharge Order (Routine); Ordered 05/15/22 Ordered By: Carolina Brannon Admission Data Admit Date/Time: 05/14/22 12:27 Attending Provider: Carolina Brannon Admit Provider: Neisha Rivera Primary Care Provider: Jose Magallanes Other Providers: Mike Izquierdo ; Neisha Rivera
== END 2022-05-15 18:08 | disposition home or self-care (01) ==
LOC: ED 09:21 → INTOOBSV 12:27 → SUATTDRO 12:27 → 4W 12:27

== ENCOUNTER 2022-07-27 13:25 | Observation (INO) ==
--- NOTE | 2022-07-27 14:14 | Emergency Department Note ---
Impression & Plan Chest pain, Pulmonary edema, Anemia ED Provider Note NAME: JORDYN ADAM AGE: 61 SEX: F : 1960 ARRIVES VIA: Ambulance INFORMANT: Patient ED PROVIDER(S): Giovanni Stephens DO CHIEF COMPLAINT: chest pain HPI: Patient is a 61-year-old female with a past medical history of CHF, diabetes, CKD on dialysis, respiratory failure chronically on 2 L nasal cannula, CAD who presents the ER for midsternal shortness pressure. She notes it was associated with shortness of breath. Denies any arm or jaw pain. She did take nitro via EMS and went completely away. She notes she gets this once or twice a week. She did get this at dialysis today. Showing a half course/treatment with dialysis. Denies any belly pain, nausea, vomiting, or diarrhea. No dysuria, urgency, or frequency. She notes normally does not stay as long as it did today. PAST MEDICAL HISTORY:See Below PAST SURGICAL HISTORY:See Below FAMILY HISTORY:See Below SOCIAL HISTORY:See Below HOME MEDICATIONS:See Below ALLERGIES:See Below VITALS:See Below PHYSICAL EXAMINATION: GENERAL: Sitting up in bed, alert, well appearing, well nourished, no distress, non-toxic EYE EXAM: normal conjunctiva. OROPHARYNX:mucous membranes are moist LUNGS: Clear to auscultation. Normal chest wall mechanics HEART: no murmurs, S1 normal and S2 normal ABDOMEN: abdomen soft, non-tender, normo-active bowel sounds, no masses, no rebound or guarding. UPPER EXTREMITIES: upper extremities are grossly normal. Fistula in left arm. Positive thrill and bruit. Tape/dressing over top of access sites LOWER EXTREMITIES: No pitting edema. NEURO EXAM: Normal sensorium, cranial nerves II-XII grossly intact, normal speech, no gross weakness of arms, no gross weakness of legs. MEDICAL DECISION MAKING: Patient is a 61-year-old female dialysis dependent who presents ER from dialysis after receiving only half course of treatment for chest pressure. Does have a history of CAD, diabetes, hypertension and hyperlipidemia. IV was established blood work was obtained. Labs show no significant leukocytosis. Mild anemia at 9.5 fairly consistent with her baseline of 10. Creatinine was elevated at 2.9 again consistent with dialysis dependent. LFTs bilirubin was unremarkable. Troponin was negative. Lipase was negative. COVID was negative. EKG was nondiagnostic. Patient is currently pain-free following receiving a aspirin and nitro. Discharged to follow-up with PCP as an outpatient. Discussed with the hospitalist for further evaluation management and treatment Monae from [facility]. She chronically wears 2 L. She was in no respiratory distress while in the ER. Triage Nursing notes reviewed. Limited review of prior medical records performed Vital Signs: reviewed and remarkable for HTN Differential diagnosis: Cardiac ischemia, aortic dissection, pulmonary embolism, pneumothorax, pneumonia, pericarditis, myocarditis, esophageal rupture, GERD, cholecystitis, pancreatitis, musculoskeletal, as well as other pathologies. ER treatment provided: See below Diagnostics interpreted by me include EKG and cardiac monitoring as listed below: -Cardiac Monitoring: An order was placed for continuous cardiac monitoring. The monitor shows a rate of 85 with sinus rhythm. -ECG: Sinus rhythm rate 86 Normal axis No PVCs QTc 464 -Laboratory studies:Interpreted by me as stated above in MDM and shown below. Imaging studies: Xrays: As interpreted by me: Portable AP upright 1 view of the chest shows pulmonary edema CTs show: none Consultation(s): As described in MDM Procedures:none Critical Care: None Past Med/Surg History Medical History Anemia AV fistula Left arm Chronic kidney disease on chronic dialysis //Friday at [facility] 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 pt states she was critical, intubated and started hemodiaylsis at that point. states she then had to go to rehab to "learn to walk again" and currently is at home with and uses a cane, but can be unsteady without assistance. Hyperlipidemia Hyperparathyroidism due to renal insufficiency Hypertension Hypothyroidism Obesity (BMI 30-39.9) Osteoarthritis Peripheral neuropathy BILATERAL LEGS Renal mass, left pt unaware Splenic lesion pt unaware Subdural hematoma pt unaware Surgical History H/O bilateral salpingo-oophorectomy History of cataract extraction with lens replacement bilateral History of colonoscopy History of hysterectomy RENNY History of vitrectomy RT. Hx of cardiac catheterization fall 2021, brought to [facility] ER for shortness of breath>no stents, no findings; f/u dr anaya, [facility]>will be f/u w/ dr pulido ca in near future S/P arteriovenous (AV) fistula creation Left arm with several revisions Family History Father Family history of diabetes mellitus Mother Family history of diabetes mellitus Social History Smoking Status: Never smoker Second Hand Exposure: No; Hx Alcohol Use: No Hx Substance Use: No Preferred Language: Telugu Communication Ability: Effective Production Posting Clerk Required: No Beliefs That Will Affect Care: None marital status: Current Living Situation: Spouse How many Children do You have: 1 Feels Safe at Home: Yes Assistive Devices: Cane, Oxygen - at Night and Walker Allergies Allergies Allergy/AdvReac Type Severity Reaction Status Date / Time gabapentin Allergy Intermediate Dizziness Verified 07/27/22 16:10 lisinopril AdvReac Intermediate Cough Verified 07/27/22 16:10 Home Meds Home Medications Medication Instructions Recorded Confirmed aspirin 81 mg tablet,delayed 81 mg PO HS 05/07/18 07/27/22 release (Marika Low Dose Aspirin) insulin glargine 100 unit/mL (3 33 unit subcut HS 09/16/18 07/27/22 mL) subcutaneous pen (Coltonaglar KwikPen U-100 Insulin) pregabalin 75 mg capsule 75 mg PO QAM 08/20/19 05/14/22 pregabalin 25 mg capsule 25 mg PO UD PRN tingling 09/26/20 05/14/22 cholecalciferol (vitamin D3) 25 0.75 mcg PO UD 09/24/21 07/27/22 mcg (1,000 unit) tablet (Vitamin D3) lidocaine-prilocaine 2.5 %-2.5 % 1 applic topical UD 09/24/21 05/14/22 topical cream sucroferric oxyhydroxide 500 mg 500 mg PO TID 09/24/21 05/14/22 chewable tablet (Velphoro) rosuvastatin 40 mg tablet 40 mg PO QAM 12/01/21 05/14/22 amlodipine 2.5 mg tablet 2.5 mg PO QAM 03/15/22 07/27/22 insulin aspart U-100 100 unit/mL 6 unit subcut TIDWMEAL 03/15/22 07/27/22 (3 mL) subcutaneous pen (Novolog FlexPen U-100 Insulin aspart) ondansetron HCl 4 mg tablet 4 mg PO Q6H PRN Nausea 03/15/22 05/14/22 levothyroxine 50 mcg tablet 50 mcg PO QAM 03/16/22 05/14/22 metoprolol succinate 50 mg 50 mg PO QAM 05/08/22 05/14/22 tablet,extended release 24 hr polymyxin B sulfate 10,000 1 drp OPL QID 05/14/22 05/14/22 unit-trimethoprim 1 mg/mL eye drops prednisolone acetate 1 % eye 1 drp OPL UD 05/14/22 05/14/22 drops,suspension sevelamer carbonate 800 mg tablet 800 mg PO UD 05/14/22 05/14/22 (Renvela) Previous Rx's Medication Instructions Recorded albuterol sulfate 90 mcg/actuation 2 puffs inhalation Q6H PRN 05/30/19 aerosol inhaler (Proventil HFA) shortness of breath or wheezing #8 grams Results & Data (ED) Vital Signs Vital Signs - 24 hr 07/27/22 13:29 07/27/22 13:40 07/27/22 14:56 Temperature 36.5 C Temperature Source Oral Pulse Rate 86 83 Pulse Rate [Apical] 86 Respiratory Rate 18 18 Respiratory Effort / Characteristics Non-Labored Spontaneous Non-Labored Spontaneous Respiratory Depth Normal Normal Blood Pressure 162/72 H Blood Pressure [Right Arm] 162/70 H Blood Pressure Mean 102 Blood Pressure Mean [Right Arm] 100 Pulse Oximetry 93 93 Oxygen Delivery Method Room Air Room Air Sepsis Recent Fever Within 48 Hours No Sepsis New/Unexplained Change in Mental Status No Sepsis Action Taken by Nursing No Action Required Laboratory Data 07/27/22 14:24 07/27/22 14:24 Lab Results 07/27/22 07/27/22 07/27/22 Range/Units 14:00 14:24 14:24 WBC 7.19 (4.8-10.8) K/ul RBC 3.05 L (4.20-5.40) M/uL Hgb 9.4 L (12.0-16.0) g/dl Hct 30.4 L (37.0-47.0) % MCV 99.7 (80.0-100.0) fL MCH 30.8 (25.0-34.0) pg MCHC 30.9 L (32.0-36.0) g/dL RDW Std Deviation 55.3 H (36.4-46.3) fL RDW Coeff of Talisha 15.5 H (11.5-14.5) % Plt Count 193 (130-400) K/uL MPV 9.7 (9.4-12.4) fL Immature Gran % (Auto) 0.3 % Neut % (Auto) 65.7 % Lymph % (Auto) 22.4 % [place] % (Auto) 9.6 % Eos % (Auto) 1.9 % Baso % (Auto) 0.1 % Neut # (Auto) 4.72 (1.40-6.50) K/uL Lymph # (Auto) 1.61 (1.2-3.4) K/uL [place] # (Auto) 0.69 H (0.11-0.59) K/uL Eos # (Auto) 0.14 (0-0.50) K/uL Baso # (Auto) 0.01 (0-0.2) K/uL Immature Gran # (Auto) 0.02 (0.01-0.20) K/uL Sodium 139 (136-145) mmol/L Potassium 4.3 (3.5-5.1) mmol/L Chloride 96 L (98-107) mmol/L Carbon Dioxide 33 H (21-32) mmol/L Anion Gap 10 (3-11) BUN 22 (6-23) mg/dl Creatinine 2.92 H (0.6-1.2) mg/dl Est Cr Clr Drug Dosing 21.3 ml/min Est GFR ( Amer) 19.1 ml/min Est GFR (Non-Af Amer) 16.5 ml/min BUN/Creatinine Ratio 7.5 L (10-20) Glucose 122 H (70-99(Fasting)) mg/dl Calcium 8.9 (8.6-10.3) mg/dl Total Bilirubin 0.3 (0.2-1.0) mg/dl AST 11 L (13-39) U/L ALT 7 (7-52) U/L Alkaline Phosphatase 240 H (34-104) U/L Troponin I High Sens 12.3 (0-14) pg/ml Total Protein 7.2 (6.0-8.3) gm/dl Albumin 3.7 (3.4-5.0) gm/dl Globulin 3.5 (2.5-4.0) gm/dl Albumin/Globulin Ratio 1.1 (0.9-2) Lipase 40 (11-82) U/L SARS-CoV-2, RNA, NAAT NEGATIVE (NEGATIVE) Imaging Data Radiologist's Impression: Chest X-Ray 07/27/22 13:31 XR chest 1V portable CLINICAL HISTORY: Chest pain, nonspecific COMPARISON STUDY: Chest CT March 16, 2022. Chest radiograph May 15, 2022. FINDINGS: There is no pneumothorax. Possible small right pleural effusion. Interstitial thickening and bilateral airspace opacities are noted. Findings have slightly progressed when compared to exam of May 15, 2022. Cardiomegaly is unchanged. IMPRESSION: 1. Interstitial thickening and bilateral airspace opacities. The findings favor moderate pulmonary edema. An infectious process could appear similar. Radiographic follow up is recommended. 2. Small right pleural effusion. 3. Cardiomegaly. ACT 112: Negative or not required by law. Electronically signed by: Sergo Figueroa M.D. 07/27/2022 2:29 PM Discharge Plan Visit Data Chief Complaint: Chest Pain ED Provider: Giovanni Stephens Discharge Problem: Chest pain, Pulmonary edema, Anemia Forms Stand Alone Forms: My [facility] Prescriptions Prescriptions: No Action insulin glargine [Basaglar KwikPen U-100 Insulin] 100 unit/mL (3 mL) insulin pen 33 unit subcut HS pregabalin 75 mg capsule 75 mg PO QAM aspirin [Marika Low Dose Aspirin] 81 mg Tablet,Delayed Release (Dr/Ec) 81 mg PO HS albuterol sulfate [Proventil HFA] 90 mcg/actuation HFA aerosol inhaler 2 puffs INH Q6H PRN (Reason: shortness of breath or wheezing) Qty: 8 0RF pregabalin 25 mg capsule 25 mg PO UD PRN (Reason: tingling) Rx Instructions: daily at NOON rosuvastatin 40 mg tablet 40 mg PO QAM ondansetron HCl 4 mg tablet 4 mg PO Q6H PRN (Reason: Nausea) amlodipine 2.5 mg tablet 2.5 mg PO QAM insulin aspart U-100 [Novolog FlexPen U-100 Insulin] 100 unit/mL (3 mL) insulin pen 6 unit SUBCUT TIDWMEAL levothyroxine 50 mcg tablet 50 mcg PO QAM metoprolol succinate 50 mg tablet extended release 24 hr 50 mg PO QAM lidocaine-prilocaine 2.5-2.5 % cream 1 applic topical UD Rx Instructions: Apply small amount to access site (AVF) 1-2 hours before dialysis. Cover with occlusive dressing (Saran Wrap). Friday,,Friday cholecalciferol (vitamin D3) [Vitamin D3] 25 mcg (1,000 unit) Tablet 0.75 mcg PO UD Patient Comments: given to pt at dialysis Rx Instructions: Take on Dialysis days, after dialysis, Friday,,Friday. Velphoro 500 mg tablet,chewable 500 mg PO TID sevelamer carbonate [Renvela] 800 mg Tablet 800 mg PO UD Rx Instructions: must administer with a meal/food and 2 tabs with each snack (total of 11 tabs each day) prednisolone acetate 1 % drops,suspension 1 drp OPL UD Rx Instructions: 1 drop into left eye as directed polymyxin B sulf-trimethoprim 10,000 unit- 1 mg/mL drops 1 drp OPL QID Referrals Referrals: Jose Magallanes MD [Primary Care Provider] -
--- NOTE | 2022-07-27 14:31 | XRay Report ---
XR chest 1V portable CLINICAL HISTORY: Chest pain, nonspecific COMPARISON STUDY: Chest CT March 16, 2022. Chest radiograph May 15, 2022. FINDINGS: There is no pneumothorax. Possible small right pleural effusion. Interstitial thickening an d bilateral airspace opacities are noted. Findings have slightly progressed when compared to exam of May 15, 2022. Cardiomegaly is unchanged. IMPRESSION: 1. Interstitial thickening and bilateral airspace opacities. The findings favor moderate pulmonary ed eleazar. An infectious process could appear similar. Radiographic follow up is recommended. 2. Small right pleural effusion. 3. Cardiomegaly. ACT 112: Negative or not required by law. Electronically signed by: Sergo Figueroa M.D. 07/27/2022 2:29 PM
[2022-07-27 14:40] LABS: Basophils # (auto) 0.01 K/uL (0-0.2); Basophils % (auto) 0.1 %; Eosinophils # (auto) 0.14 K/uL (0-0.50); Eosinophils % (auto) 1.9 %; Hematocrit (blood only) 30.4 % (37.0-47.0); Hemoglobin 9.4 g/dl (12.0-16.0); Immature Granulocytes # (auto) 0.02 K/uL (0.01-0.20); Immature Granulocytes % (auto) 0.3 %; Lymphocytes # (auto) 1.61 K/uL (1.2-3.4); Lymphocytes % (auto) 22.4 %; Mean Corpuscular Hemoglobin 30.8 pg (25.0-34.0); Mean Corpuscular Hgb Conc 30.9 g/dL (32.0-36.0); Mean Corpuscular Volume 99.7 fL (80.0-100.0); Mean Platelet Volume 9.7 fL (9.4-12.4); Monocytes # (auto) 0.69 K/uL (0.11-0.59); Monocytes % (auto) 9.6 %; Neutrophils # (auto) 4.72 K/uL (1.40-6.50); Neutrophils % (auto) 65.7 %; Platelet Count 193 K/uL (130-400); RDW Coefficient of Variation 15.5 % (11.5-14.5); RDW Standard Deviation 55.3 fL (36.4-46.3); Red Blood Count 3.05 M/uL (4.20-5.40); White Blood Count 7.19 K/ul (4.8-10.8)
[2022-07-27 14:56] LABS: Albumin Globulin Ratio 1.1 (0.9-2); Albumin Level 3.7 gm/dl (3.4-5.0); BUN Creatinine Ratio 7.5 (10-20); Bilirubin,Total 0.3 mg/dl (0.2-1.0); Calcium 8.9 mg/dl (8.6-10.3); Creatinine Clr Calc Pharmacy 21.3 ml/min; Est GFR (African American) 19.1 ml/min; Est GFR (Non-African American) 16.5 ml/min; Globulin 3.5 gm/dl (2.5-4.0); Potassium 4.3 mmol/L (3.5-5.1); Total Protein 7.2 gm/dl (6.0-8.3)
[2022-07-27 15:02] LABS: Troponin I High Sensitivity 12.3 pg/ml (0-14)
--- NOTE | 2022-07-27 16:10 | History & Physical Report ---
Date of Service July 27, 2022 Assessment & Plan (1) Chest pain: (2) ESRD on dialysis: Plan: 61-year-old female with PMH of end-stage renal disease on hemodialysis TuThSa, nocturnal hypoxemia 2/2 pulmonary HTN on 2 L NC O2, type 2 diabetes, anemia of chronic disease, CAD, hypothyroidism, hypertension and other medical problems listed below who presents with shortness of breath and found to have pulmonary edema in setting of ESRD. Chest pain - atypical chest pain while on HD - been having left sided chest tightness about every 2 to 3 days, however usually it does not last long -Today developed left-sided sharp chest pain while on dialysis, and it was not relieved by giving nitro x3. Then received aspirin in route to the hospital, and chest pain resolved - CXR w/ poss. pulm. edema - reviewed personally -Initial troponin negative, ECG - sinus rhythm -Patient follows with [facility] cardiology - will repeat troponin and ECG, will observe on tele - will obtain echo and will further discuss w/ cardiology - will check procalcitonin - however pt denies any s/s of resp. infection, WBC normal ESRD on HD TuThSa Today got through about half of her dialysis, due to chest pain had to finish early Chest x-ray with some possible pulmonary edema, however patient is currently on room air, saturating 93%, and breathing comfortably Nephrology consulted for possible HD Anemia of chronic disease Current Hgb 9.4 -cont. to monitor Hypertension - cont. home mes - amlodipine, toprol - monitor BP DM II, on insulin -last a1c 6.8% -cont. home insulin -monitor BSG Hypothyroidism Continue levothyroxine DVT Ppx: SQ heparin Code status: FULL PCP: Dr. Magallanes Dispo: PCU History of Present Illness Chief Complaint: Chest pain Primary Care Provider: Jose Magallanes MD Pt is a 61-year-old female with ESRD on hemodialysis TuThSa, nocturnal hypoxemia 2/2 pulmonary HTN on 2 L NC O2, type 2 diabetes mellitus (on insulin), anemia of chronic disease, CAD, hypothyroidism, hypertension and who presents with left sided chest pain. Patient reports having chest tightness every 2 to 3 days, however usually it does not last long. Today she was having dialysis, and developed left-sided sharp chest pain, that was not relieved by nitro x3. She was brought into emergency room by ambulance, on route received aspirin. Then in the ED, chest pain resolved. Initial troponin negative. ECG obtained and pt placed on telemetry. CXR w/ likely pulm. edema. Patient reports she got through about half of her dialysis today. Reports having diarrhea on Friday, otherwise says that she felt okay. Denies any sick contacts. Denies fevers chills, rhinorrhea, shortness of breath. Says she has chronic cough, nonproductive. No abdominal pain nausea vomiting. Currently feels fairly comfortable. Pt's present a the bedside. Allergies Allergy/AdvReac Type Severity Reaction Status Date / Time gabapentin Allergy Intermediate Dizziness Verified 07/27/22 16:10 lisinopril AdvReac Intermediate Cough Verified 07/27/22 16:10 Home Medications Medication Instructions Recorded Confirmed Type aspirin 81 mg tablet,delayed 81 mg PO HS 05/07/18 07/27/22 History release (Marika Low Dose Aspirin) insulin glargine 100 unit/mL (3 33 unit subcut HS 09/16/18 07/27/22 History mL) subcutaneous pen (Basaglar KwikPen U-100 Insulin) albuterol sulfate 90 mcg/actuation 2 puffs inhalation Q6H PRN 05/30/19 07/27/22 Rx aerosol inhaler (Proventil HFA) shortness of breath or wheezing #8 grams pregabalin 75 mg capsule 75 mg PO QAM 08/20/19 07/27/22 History pregabalin 25 mg capsule 25 mg PO .DAILY IN AFTERNOON 09/26/20 07/27/22 History cholecalciferol (vitamin D3) 25 0.75 mcg PO UD 09/24/21 07/27/22 History mcg (1,000 unit) tablet (Vitamin D3) lidocaine-prilocaine 2.5 %-2.5 % 1 applic topical UD 09/24/21 07/27/22 History topical cream sucroferric oxyhydroxide 500 mg 500 mg PO TID 09/24/21 07/27/22 History chewable tablet (Velphoro) rosuvastatin 40 mg tablet 40 mg PO QAM 12/01/21 07/27/22 History amlodipine 2.5 mg tablet 2.5 mg PO QAM 03/15/22 07/27/22 History insulin aspart U-100 100 unit/mL 6 unit subcut TIDWMEAL 03/15/22 07/27/22 History (3 mL) subcutaneous pen (Novolog FlexPen U-100 Insulin aspart) levothyroxine 50 mcg tablet 50 mcg PO DAILYBB 03/16/22 07/27/22 History metoprolol succinate 50 mg 50 mg PO QAM 05/08/22 07/27/22 History tablet,extended release 24 hr vitamin B complex-vitamin C-folic 1 tab PO DAILY 07/27/22 07/27/22 History acid 0.8 mg tablet (Glendy-Agustin) Past Med/Surg History Medical History Anemia AV fistula Left arm Chronic kidney disease on chronic dialysis //Friday at [facility]. 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 pt states she was critical, intubated and started hemodiaylsis at that point. states she then had to go to rehab to "learn to walk again" and currently is at home with and uses a cane, but can be unsteady without assistance. Hyperlipidemia Hyperparathyroidism due to renal insufficiency Hypertension Hypothyroidism Obesity (BMI 30-39.9) Osteoarthritis Peripheral neuropathy BILATERAL LEGS Renal mass, left pt unaware Splenic lesion pt unaware Subdural hematoma pt unaware Surgical History H/O bilateral salpingo-oophorectomy History of cataract extraction with lens replacement bilateral History of colonoscopy History of hysterectomy RENNY History of vitrectomy RT. Hx of cardiac catheterization fall 2021, brought to [facility] ER for shortness of breath>no stents, no findings; f/u dr anaya, [facility] [place]>will be f/u w/ dr pulido in in near future S/P arteriovenous (AV) fistula creation Left arm with several revisions Family History Father Family history of diabetes mellitus Mother Family history of diabetes mellitus Social History Smoking Status: Never smoker Second Hand Exposure: No; Hx Alcohol Use: No Hx Substance Use: No Preferred Language: Nepali Communication Ability: Effective Flash Designer Required: No Beliefs That Will Affect Care: None marital status: Current Living Situation: Spouse How many Children do You have: 1 Feels Safe at Home: Yes Assistive Devices: Cane, Oxygen - at Night and Walker Review of Systems Review of Systems: All systems reviewed & are unremarkable except as noted in Subjective Physical Exam Constitutional: WD/WN, vitals as above Eyes: PERRL, conjunctivae normal, anicteric sclerae ENMT: external ear and nose normal, oropharynx normal Neck: normal visual inspection Respiratory: normal respiratory effort Auscultation: + crackles; no wheezes Cardiovascular: Rate/Rhythm: regular rate and regular rhythm Heart Sounds: normal S1, normal S2 and + murmur Chest (Breasts): Chest: normal inspection of chest Gastrointestinal (Abdomen): normal bowel sounds, soft, nontender, no hepatosplenomegaly Musculoskeletal: no cyanosis or clubbing, extremities motor strength 5/5 Skin: no rashes, warm and dry Neurologic: PERRL, EOMI, accommodation nl, no face palsy, no dysarthria Psychiatric: A+Ox3, euthymic affect Lymphatic: no lymphedema Results & Data Results & Data Vital Signs (Past 12 Hours) Vital Signs Temp Pulse Pulse Resp BP BP Pulse Ox 07/27/22 14:56 86 18 162/70 H 93 07/27/22 13:40 83 07/27/22 13:29 36.5 C 86 18 162/72 H 93 O2 Del Method 07/27/22 14:56 Room Air 07/27/22 13:40 07/27/22 13:29 Room Air Laboratory Results 07/27/22 07/27/22 07/27/22 Range/Units 14:24 14:24 14:00 WBC 7.19 (4.8-10.8) K/ul RBC 3.05 L (4.20-5.40) M/uL Hgb 9.4 L (12.0-16.0) g/dl Hct 30.4 L (37.0-47.0) % MCV 99.7 (80.0-100.0) fL MCH 30.8 (25.0-34.0) pg MCHC 30.9 L (32.0-36.0) g/dL RDW Std Deviation 55.3 H (36.4-46.3) fL RDW Coeff of Talisha 15.5 H (11.5-14.5) % Plt Count 193 (130-400) K/uL MPV 9.7 (9.4-12.4) fL Immature Gran % (Auto) 0.3 % Neut % (Auto) 65.7 % Lymph % (Auto) 22.4 % Piute % (Auto) 9.6 % Eos % (Auto) 1.9 % Baso % (Auto) 0.1 % Neut # (Auto) 4.72 (1.40-6.50) K/uL Lymph # (Auto) 1.61 (1.2-3.4) K/uL Piute # (Auto) 0.69 H (0.11-0.59) K/uL Eos # (Auto) 0.14 (0-0.50) K/uL Baso # (Auto) 0.01 (0-0.2) K/uL Immature Gran # (Auto) 0.02 (0.01-0.20) K/uL Sodium 139 (136-145) mmol/L Potassium 4.3 (3.5-5.1) mmol/L Chloride 96 L (98-107) mmol/L Carbon Dioxide 33 H (21-32) mmol/L Anion Gap 10 (3-11) BUN 22 (6-23) mg/dl Creatinine 2.92 H (0.6-1.2) mg/dl Est Cr Clr Drug Dosing 21.3 ml/min Est GFR ( Amer) 19.1 ml/min Est GFR (Non-Af Amer) 16.5 ml/min BUN/Creatinine Ratio 7.5 L (10-20) Glucose 122 H (70-99(Fasting)) mg/dl Calcium 8.9 (8.6-10.3) mg/dl Total Bilirubin 0.3 (0.2-1.0) mg/dl AST 11 L (13-39) U/L ALT 7 (7-52) U/L Alkaline Phosphatase 240 H (34-104) U/L Troponin I High Sens 12.3 (0-14) pg/ml Total Protein 7.2 (6.0-8.3) gm/dl Albumin 3.7 (3.4-5.0) gm/dl Globulin 3.5 (2.5-4.0) gm/dl Albumin/Globulin Ratio 1.1 (0.9-2) Lipase 40 (11-82) U/L SARS-CoV-2, RNA, NAAT NEGATIVE (NEGATIVE) Diagnostic Findings CXR IMPRESSION: 1. Interstitial thickening and bilateral airspace opacities. The findings favor moderate pulmonary edema. An infectious process could appear similar. Radiographic follow up is recommended. 2. Small right pleural effusion. 3. Cardiomegaly.
[2022-07-27] MEDS ORDERED: ACETAMINOPHEN 325 MG TAB PO PRN (16:43)
[2022-07-27] MEDS ORDERED: ALBUTEROL HFA 8 GM INHALER INH PRN (17:34)
[2022-07-27] MEDS ORDERED: PREGABALIN 25 MG CAP PO SCH (17:34)
[2022-07-27] MEDS ORDERED: amLODIPine BESYLATE 5 MG TAB PO ONE (18:32)
[2022-07-27] MEDS ORDERED: METOPROLOL SUCC 50MG EXT REL TAB PO STA (18:32)
[2022-07-27] MEDS: INSULIN ASPART PER UNIT CHARGE SQ SCH (18:38)
[2022-07-27] MEDS: HEPARIN SOD 5,000 UNIT/0.5 ML VIAL SQ SCH (20:24)
[2022-07-27] MEDS ORDERED: ASPIRIN 81 MG ECTAB PO SCH (21:00)
[2022-07-27] MEDS ORDERED: LANTUS PER UNIT CHARGE SQ SCH (21:00)
--- NOTE | 2022-07-27 22:13 | Electrocardiogram Report ---
Test Reason : Blood Pressure : / mmHG Vent. Rate : 086 BPM Atrial Rate : 086 BPM P-R Int : 152 ms QRS Dur : 080 ms QT Int : 388 ms P-R-T Axes : 049 -06 021 degrees QTc Int : 464 ms Poor data quality, interpretation may be adversely affected Normal sinus rhythm Possible Left atrial enlargement Poor R wave progression, consider anterior SD vs. lead placement vs. LVH Abnormal ECG When compared with ECG of 14-MAY-2022 09:37, Questionable change in initial forces of Septal leads Confirmed by Henry Veliz ([id number]) on 07/27/2022 10:13:08 PM Referred By: Confirmed By:Henry Veliz
[2022-07-28 05:05] LABS: Hematocrit (blood only) 28.9 % (37.0-47.0); Hemoglobin 9.1 g/dl (12.0-16.0); Mean Corpuscular Hemoglobin 30.8 pg (25.0-34.0); Mean Corpuscular Hgb Conc 31.5 g/dL (32.0-36.0); Mean Platelet Volume 9.7 fL (9.4-12.4); Platelet Count 219 K/uL (130-400); RDW Coefficient of Variation 15.6 % (11.5-14.5); RDW Standard Deviation 54.7 fL (36.4-46.3); Red Blood Count 2.95 M/uL (4.20-5.40); White Blood Count 7.57 K/ul (4.8-10.8)
[2022-07-28 05:21] LABS: Calcium 9.4 mg/dl (8.6-10.3); Creatinine Clr Calc Pharmacy 14.8 ml/min; Est GFR (African American) 12.5 ml/min; Est GFR (Non-African American) 10.8 ml/min; Magnesium 2.2 mg/dl (1.7-2.4); Phosphorus 7.2 mg/dl (2.5-4.9); Potassium 4.7 mmol/L (3.5-5.1)
[2022-07-28 05:27] LABS: Troponin I High Sensitivity 13.4 pg/ml (0-14)
[2022-07-28] MEDS ORDERED: LEVOTHYROXINE SODIUM 50 MCG TABLET PO SCH (06:30)
[2022-07-28] MEDS: INSULIN ASPART PER UNIT CHARGE SQ SCH ×2 (08:35→13:10)
[2022-07-28] MEDS: HEPARIN SOD 5,000 UNIT/0.5 ML VIAL SQ SCH (08:35)
[2022-07-28] MEDS ORDERED: PREGABALIN 75 MG CAP PO SCH (09:00)
[2022-07-28] MEDS ORDERED: ROSUVASTATIN CALCIUM 20 MG TAB PO SCH (09:00)
[2022-07-28] MEDS ORDERED: METOPROLOL SUCC 50MG EXT REL TAB PO SCH (09:00)
[2022-07-28] MEDS ORDERED: amLODIPine BESYLATE 5 MG TAB PO SCH (09:00)
--- NOTE | 2022-07-28 10:47 | Nephrology Consultation ---
Date of Consultation July 28, 2022 Assessment & Plan (1) ESRD on dialysis: No indication for emergency dialysis today: From a respiratory hemodynamic standpoint she is stable; not overloaded on exam to the point of needing emergency dialysis; chemistries acceptable >> after follow-up / care coordination with Dr. Toth, echocardiogram is without alarm findings and patient has not had recurrence for pain and remains stable. I placed a telephone call to [facility] asking them to arrange for a 2 hour t reatment for her on July 29 and then to resume her regular Friday schedule. I also asked them to contact the patient early on July 29 with a chair time for this. Since the dialysis unit is closed today, this is the best dialysis discharge plan available and is reasonable. Patient confirmed with me that her will be able to transport her to and from the treatment - she should resume her velforo, renal vitamins, routine antihypertensives unless cardiology has changes to these last meds (2) Chest pain: Per primary service and cardiology History of Present Illness Reason for Consultation: ESRD on dialysis Requesting Physician: Dr. Toth Attending Physician: Petros Toth MD History of Present Illness 61-year-old female whom I am asked to evaluate for dialysis needs is under observation since yesterday after presenting with atypical chest pain unrelieved by nitroglycerin while on dialysis and found to have pulmonary edema on imaging. Past medical history in addition to ESRD includes severe mitral stenosis and severe pulmonary hypertension, mild nonobstructive coronary artery disease on November 2021 catheterization, chronic heart failure with preserved ejection fraction, chronic respiratory failure on chronic 2 L nocturnal oxygen, longstanding type 2 diabetes, hypertension, sleep apnea hypothyroidism hyperlipidemia. Lately she has been having recurrent left-sided chest tightness every few days. She completed about 2 of her 4 hours of prescribed dialysis yesterday before developing symptoms. Her sharp left-sided chest pain resolved on route to the hospital. ECG with sinus rhythm and troponins negative. Chest x-ray with possible pulmonary edema. Echocardiogram and cardiology consultation pending. The patient has been on room air except for her nocturnal oxygen with stable hemodynamics since arrival. she has not had any further recurrence of the chest pain that she had on treatment. This pain was in her for outer quadrant of her left chest and was nonradiating. She has been having chest pain every few days but not as sharp as this 1 that was occurring on Friday and not infrequently has chest tightness which she thinks may relate to her allergies. No nausea vomiting, no edema, no orthopnea, no palpitations, no confusion. Allergies Allergy/AdvReac Type Severity Reaction Status Date / Time gabapentin Allergy Intermediate Dizziness Verified 07/27/22 16:10 lisinopril AdvReac Intermediate Cough Verified 07/27/22 16:10 Home Medications Medication Instructions Recorded Confirmed Type aspirin 81 mg tablet,delayed 81 mg PO HS 05/07/18 07/27/22 History release (Marika Low Dose Aspirin) insulin glargine 100 unit/mL (3 33 unit subcut HS 09/16/18 07/27/22 History mL) subcutaneous pen (Basaglar KwikPen U-100 Insulin) albuterol sulfate 90 mcg/actuation 2 puffs inhalation Q6H PRN 05/30/19 07/27/22 Rx aerosol inhaler (Proventil HFA) shortness of breath or wheezing #8 grams pregabalin 75 mg capsule 75 mg PO QAM 08/20/19 07/27/22 History pregabalin 25 mg capsule 25 mg PO .DAILY IN AFTERNOON 09/26/20 07/27/22 History cholecalciferol (vitamin D3) 25 0.75 mcg PO UD 09/24/21 07/27/22 History mcg (1,000 unit) tablet (Vitamin D3) lidocaine-prilocaine 2.5 %-2.5 % 1 applic topical UD 09/24/21 07/27/22 History topical cream sucroferric oxyhydroxide 500 mg 500 mg PO TID 09/24/21 07/27/22 History chewable tablet (Velphoro) rosuvastatin 40 mg tablet 40 mg PO QAM 12/01/21 07/27/22 History amlodipine 2.5 mg tablet 2.5 mg PO QAM 03/15/22 07/27/22 History insulin aspart U-100 100 unit/mL 6 unit subcut TIDWMEAL 03/15/22 07/27/22 History (3 mL) subcutaneous pen (Novolog FlexPen U-100 Insulin aspart) levothyroxine 50 mcg tablet 50 mcg PO DAILYBB 03/16/22 07/27/22 History metoprolol succinate 50 mg 50 mg PO QAM 05/08/22 07/27/22 History tablet,extended release 24 hr vitamin B complex-vitamin C-folic 1 tab PO DAILY 07/27/22 07/27/22 History acid 0.8 mg tablet (Glendy-Agustin) Patient History Medical History Anemia AV fistula Left arm Chronic kidney disease on chronic dialysis //Friday at [facility]. 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 pt states she was critical, intubated and started hemodiaylsis at that point. states she then had to go to rehab to "learn to walk again" and currently is at home with and uses a cane, but can be unsteady without assistance. Hyperlipidemia Hyperparathyroidism due to renal insufficiency Hypertension Hypothyroidism Mitral stenosis Severe and not a surgical candidate Obesity (BMI 30-39.9) Osteoarthritis Peripheral neuropathy BILATERAL LEGS Pulmonary hypertension Renal mass, left pt unaware Splenic lesion pt unaware Subdural hematoma pt unaware Surgical History H/O bilateral salpingo-oophorectomy History of cataract extraction with lens replacement bilateral History of colonoscopy History of hysterectomy RENNY History of vitrectomy RT. Hx of cardiac catheterization fall 2021, brought to [facility] ER for shortness of breath>no stents, no findings; f/u dr anaya, [facility] [place]>will be f/u w/ dr pulido mi in near future S/P arteriovenous (AV) fistula creation Left arm with several revisions Family History Father Family history of diabetes mellitus Mother Family history of diabetes mellitus Social History Smoking Status: Never smoker Second Hand Exposure: No; Hx Alcohol Use: No Hx Substance Use: No Preferred Language: Stateless Communication Ability: Effective Aircraft Maintenance Instructor Required: No Beliefs That Will Affect Care: None marital status: Current Living Situation: Spouse How many Children do You have: 1 Other Information That Helps Us Care for You: No Feels Safe at Home: Yes Safety Concerns: Feels Safe At This Time Assistive Devices: Cane and Oxygen - at Night Review of Systems Review of Systems: All systems reviewed & are unremarkable except as noted in Subjective Physical Exam Constitutional: well developed and well nourished ( Sitting up in a chair on O2 N/C) Eyes: EOM intact bilaterally ENMT: Ears: no external ear abnormality Nose: no external nose abnormality Mouth: + dry oral mucous membranes Neck: no nuchal rigidity Respiratory: normal respiratory effort Auscultation: + diminished lung sounds Cardiovascular: Rate/Rhythm: regular rate and regular rhythm Heart Sounds: + murmur Extremities: + edema (trace pretibial) and + AV fistula (+t/b) Gastrointestinal (Abdomen): Inspection/Auscultation: normal bowel sounds Percussion/Palpation: abdomen soft; abdomen nontender Musculoskeletal: Extremities: strength 5/5 throughout Skin: no rashes, warm and dry Neurologic: reyes, fluent speech, no tremor Psychiatric: Orientation: alert and oriented x 3 Speech: normal rate/rhythm/volume of speech Results & Data Vital Signs (Past 12 Hours) Vital Signs Temp Pulse Resp BP Pulse Ox O2 Del Method O2 Flow Rate 07/28/22 07:26 36.6 C 68 18 137/71 95 Room Air 07/28/22 04:06 36.6 C 95 H 19 137/73 94 Nasal Cannula 2 07/27/22 23:49 36.9 C 84 18 161/73 H 94 Room Air Laboratory Results 07/28/22 04:20 07/28/22 04:20 Diagnostic Findings cxr 1. Interstitial thickening and bilateral airspace opacities. The findings favor moderate pulmonary edema. An infectious process could appear similar. Radiographic follow up is recommended. 2. Small right pleural effusion. 3. Cardiomegaly.
[2022-07-28] MEDS ORDERED: NEPHROCAPS PO SCH (11:00)
--- NOTE | 2022-07-28 11:24 | Cardiology Consultation ---
Date of Consultation July 28, 2022 Assessment & Plan (1) Chest pain: (2) Coronary artery disease: (3) Mitral stenosis: (4) Pulmonary hypertension: (5) Anemia: (6) CKD (chronic kidney disease) stage 5, GFR less than 15 ml/min: Plan 61-year-old female presents with an episode of atypical chest discomfort. No evidence of acute coronary syndrome per ECG. High-sensitivity troponins are not significantly elevated in this dialysis patient. Recent cardiac catheterization demonstrating nonobstructive coronary disease. She appears euvolemic/compensated. No signs or symptoms of volume overload. I do not believe urgent dialysis treatment is indicated at this time. Consider possible noncardiac etiology of discomfort. Reviewed resting 2D transthoracic echocardiogram and images available. If there are no new regional wall motion abnormalities, recommend conservative medical management. Continue current cardiovascular medications including amlodipine, metoprolol, aspirin, and statin therapy. History of Present Illness Reason for Consultation: Chest pain Requesting Physician: Dr. Petros Toth Attending Physician: Petros Toth MD History of Present Illness 61-year-old female experienced episode of chest pain on dialysis yesterday, 07/27/2022. Discomfort described as a sharp pain near the left sternal border. Discomfort unaffected by activity or movement. No associated shortness of breath. Able to complete approximately half of her dialysis treatment. No recent weight gain, medication noncompliance, or noncompliance with dialysis treatment. Chest discomfort resolved upon arrival to the ER. She was given 3 sublingual nitroglycerin at dialysis with no improvement. ECG on presentation demonstrates sinus rhythm without ischemic ST changes. Currently resting comfortably. No recurrent chest pain overnight. Denies orthopnea, PND, or lower extremity edema. No significant weight changes or dietary indiscretions recently. Reports visit with [facility] valve clinic, Dr. Cerna. No invasive or surgical options available to the patient at this time. Conservative medical management recommended. Allergies Allergy/AdvReac Type Severity Reaction Status Date / Time gabapentin Allergy Intermediate Dizziness Verified 07/27/22 16:10 lisinopril AdvReac Intermediate Cough Verified 07/27/22 16:10 Home Medications Medication Instructions Recorded Confirmed Type aspirin 81 mg tablet,delayed 81 mg PO HS 05/07/18 07/27/22 History release (Marika Low Dose Aspirin) insulin glargine 100 unit/mL (3 33 unit subcut HS 09/16/18 07/27/22 History mL) subcutaneous pen (Basaglar KwikPen U-100 Insulin) albuterol sulfate 90 mcg/actuation 2 puffs inhalation Q6H PRN 05/30/19 07/27/22 Rx aerosol inhaler (Proventil HFA) shortness of breath or wheezing #8 grams pregabalin 75 mg capsule 75 mg PO QAM 08/20/19 07/27/22 History pregabalin 25 mg capsule 25 mg PO .DAILY IN AFTERNOON 09/26/20 07/27/22 History cholecalciferol (vitamin D3) 25 0.75 mcg PO UD 09/24/21 07/27/22 History mcg (1,000 unit) tablet (Vitamin D3) lidocaine-prilocaine 2.5 %-2.5 % 1 applic topical UD 09/24/21 07/27/22 History topical cream sucroferric oxyhydroxide 500 mg 500 mg PO TID 09/24/21 07/27/22 History chewable tablet (Velphoro) rosuvastatin 40 mg tablet 40 mg PO QAM 12/01/21 07/27/22 History amlodipine 2.5 mg tablet 2.5 mg PO QAM 03/15/22 07/27/22 History insulin aspart U-100 100 unit/mL 6 unit subcut TIDWMEAL 03/15/22 07/27/22 History (3 mL) subcutaneous pen (Novolog FlexPen U-100 Insulin aspart) levothyroxine 50 mcg tablet 50 mcg PO DAILYBB 03/16/22 07/27/22 History metoprolol succinate 50 mg 50 mg PO QAM 05/08/22 07/27/22 History tablet,extended release 24 hr vitamin B complex-vitamin C-folic 1 tab PO DAILY 07/27/22 07/27/22 History acid 0.8 mg tablet (Glendy-Agustin) Patient History Medical History Anemia AV fistula Left arm Chronic kidney disease on chronic dialysis //Friday at [facility]. 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 pt states she was critical, intubated and started hemodiaylsis at that point. states she then had to go to rehab to "learn to walk again" and currently is at home with and uses a cane, but can be unsteady without assistance. Hyperlipidemia Hyperparathyroidism due to renal insufficiency Hypertension Hypothyroidism Mitral stenosis Severe and not a surgical candidate Obesity (BMI 30-39.9) Osteoarthritis Peripheral neuropathy BILATERAL LEGS Pulmonary hypertension Renal mass, left pt unaware Splenic lesion pt unaware Subdural hematoma pt unaware Surgical History H/O bilateral salpingo-oophorectomy History of cataract extraction with lens replacement bilateral History of colonoscopy History of hysterectomy RENNY History of vitrectomy RT. Hx of cardiac catheterization fall 2021, brought to [facility] ER for shortness of breath>no stents, no findings; f/u dr anaya, [facility]>will be f/u w/ berto norton in near future S/P arteriovenous (AV) fistula creation Left arm with several revisions Family History Father Family history of diabetes mellitus Mother Family history of diabetes mellitus Social History Smoking Status: Never smoker Second Hand Exposure: No; Hx Alcohol Use: No Hx Substance Use: No Preferred Language: Vietnamese Communication Ability: Effective Probation Manager Required: No Beliefs That Will Affect Care: None marital status: Current Living Situation: Spouse How many Children do You have: 1 Other Information That Helps Us Care for You: No Feels Safe at Home: Yes Safety Concerns: Feels Safe At This Time Assistive Devices: Cane and Oxygen - at Night Review of Systems Review of Systems: All systems reviewed & are unremarkable except as noted in Subjective Physical Exam Constitutional: well developed and well nourished; no acute distress Respiratory: no respiratory distress, no labored breathing and no retractions Auscultation: no crackles, no rales, no rhonchi and no wheezes Cardiovascular: Rate/Rhythm: regular rate and regular rhythm Heart Sounds: normal S1, normal S2 and + murmur (2/6 medium pitched systolic ejection murmur heard best at the base) Vessels: radial pulses present; no JVD and no carotid bruit Extremities: no edema Gastrointestinal (Abdomen): Inspection/Auscultation: abdomen normal to inspection and normal bowel sounds; abdomen not distended Neurologic: CN's II-XI intact bilaterally; no focal motor deficits Psychiatric: A+Ox3, euthymic affect Results & Data Vital Signs (Past 12 Hours) Vital Signs Temp Pulse Pulse Resp BP Pulse Ox O2 Del Method 07/28/22 11:00 73 07/28/22 07:26 36.6 C 68 18 137/71 95 Room Air 07/28/22 04:06 36.6 C 95 H 19 137/73 94 Nasal Cannula 07/27/22 23:49 36.9 C 84 18 161/73 H 94 Room Air O2 Flow Rate 07/28/22 11:00 07/28/22 07:26 07/28/22 04:06 2 07/27/22 23:49 Laboratory Results Cardiac Enzymes 07/27/22 07/27/22 07/28/22 Range/Units 14:24 20:01 04:20 AST 11 L (13-39) U/L Troponin I High Sens 12.3 16.0 H 13.4 (0-14) pg/ml CBC 07/27/22 07/28/22 Range/Units 14:24 04:20 WBC 7.19 7.57 (4.8-10.8) K/ul RBC 3.05 L 2.95 L (4.20-5.40) M/uL Hgb 9.4 L 9.1 L (12.0-16.0) g/dl Hct 30.4 L 28.9 L (37.0-47.0) % Plt Count 193 219 (130-400) K/uL Neut # (Auto) 4.72 (1.40-6.50) K/uL Lymph # (Auto) 1.61 (1.2-3.4) K/uL Morrison # (Auto) 0.69 H (0.11-0.59) K/uL Eos # (Auto) 0.14 (0-0.50) K/uL Baso # (Auto) 0.01 (0-0.2) K/uL Comprehensive Metabolic Panel 07/27/22 07/28/22 Range/Units 14:24 04:20 Sodium 139 141 (136-145) mmol/L Potassium 4.3 4.7 (3.5-5.1) mmol/L Chloride 96 L 98 (98-107) mmol/L Carbon Dioxide 33 H 31 (21-32) mmol/L BUN 22 33 H (6-23) mg/dl Creatinine 2.92 H 4.15 H D (0.6-1.2) mg/dl Glucose 122 H 77 (70-99(Fasting)) mg/dl Calcium 8.9 9.4 (8.6-10.3) mg/dl AST 11 L (13-39) U/L ALT 7 (7-52) U/L Alkaline Phosphatase 240 H (34-104) U/L Total Protein 7.2 (6.0-8.3) gm/dl Albumin 3.7 (3.4-5.0) gm/dl Intake and Output 07/27/22 07/28/22 07/28/22 22:59 06:59 14:59 Other: Other Intake Source sips # Unmeasured Voids 1 Weight 87.9 kg 87.8 kg Weight Measurement Method Standing Scale Built in [facility]
--- NOTE | 2022-07-28 14:21 | Discharge Summary ---
Date of Service July 28, 2022 Admission HPI Per Admitting Provider Pt is a 61-year-old female with ESRD on hemodialysis TuThSa, nocturnal hypoxemia 2/2 pulmonary HTN on 2 L NC O2, type 2 diabetes mellitus (on insulin), anemia of chronic disease, CAD, hypothyroidism, hypertension and who presents with left sided chest pain. Patient reports having chest tightness every 2 to 3 days, however usually it does not last long. Today she was having dialysis, and developed left-sided sharp chest pain, that was not relieved by nitro x3. She was brought into emergency room by ambulance, on route received aspirin. Then in the ED, chest pain resolved. Initial troponin negative. ECG obtained and pt placed on telemetry. CXR w/ likely pulm. edema. Patient reports she got through about half of her dialysis today. Reports having diarrhea on Friday, otherwise says that she felt okay. Denies any sick contacts. Denies fevers chills, rhinorrhea, shortness of breath. Says she has chronic cough, nonproductive. No abdominal pain nausea vomiting. Currently feels fairly comfortable. Pt's present a the bedside. Admission Exam Per Admitting Provider Constitutional: WD/WN, vitals as above Eyes: PERRL, conjunctivae normal, anicteric sclerae ENMT: external ear and nose normal, oropharynx normal Neck: normal visual inspection Respiratory: normal respiratory effort Auscultation: + crackles; no wheezes Cardiovascular: Rate/Rhythm: regular rate and regular rhythm Heart Sounds: normal S1, normal S2 and + murmur Chest (Breasts): Chest: normal inspection of chest Gastrointestinal (Abdomen): normal bowel sounds, soft, nontender, no hepatosplenomegaly Musculoskeletal: no cyanosis or clubbing, extremities motor strength 5/5 Skin: no rashes, warm and dry Neurologic: PERRL, EOMI, accommodation nl, no face palsy, no dysarthria Psychiatric: A+Ox3, euthymic affect Lymphatic: no lymphedema Principal Diagnosis Atypical chest pain Discharge Exam Constitutional: WD/WN, f in NAD Eyes: PERRL, EOMI. conjunctivae normal, anicteric sclerae ENMT: external ear and nose normal, oropharynx normal Neck: normal visual inspection Respiratory: normal respiratory effort Auscultation: + crackles; no wheezes Cardiovascular: Rate/Rhythm: regular rate and regular rhythm Heart Sounds: normal S1, normal S2 and + murmur Chest (Breasts): Chest: normal inspection of chest Gastrointestinal (Abdomen): normal bowel sounds, soft, nontender Musculoskeletal: moves extremities Skin: no rashes, warm and dry Neurologic: PERRL, EOMI, no face palsy, no dysarthria, moves extremities Psychiatric: A+Ox3, euthymic affect Lymphatic: no lymphedema Discharge Data Allergies Allergy/AdvReac Type Severity Reaction Status Date / Time gabapentin Allergy Intermediate Dizziness Verified 07/27/22 16:10 lisinopril AdvReac Intermediate Cough Verified 07/27/22 16:10 Consultations 07/27/22 15:44 ED Decision to Admit Stat 07/27/22 16:05 Consult Nephrology Routine 07/27/22 16:34 Consult Cardiology Routine Hospital Course (1) Chest pain: (2) ESRD on dialysis: 61-year-old female with PMH of end-stage renal disease on hemodialysis TuTa, nocturnal hypoxemia 2/2 pulmonary HTN on 2 L NC O2, type 2 diabetes, anemia of chronic disease, CAD, hypothyroidism, hypertension who presents with shortness of breath while on dialysis. Chest pain - atypical chest pain while on HD - been having left sided chest tightness about every 2 to 3 days, however usually it does not last long -Today developed left-sided sharp chest pain while on dialysis, and it was not relieved by giving nitro x3. Then received aspirin in route to the hospital, and chest pain resolved - CXR w/ poss. pulm. edema - reviewed personally -Initial troponin negative, ECG - sinus rhythm, nonischemic changes- reviewed personally -Patient follows with [facility] cardiology - repeat troponin only mildly elevated, observed on tele - obtained echo -no regional wall motion abnormalities noted. Cardiology consulted - recommend to continue her home meds. -checked procalcitonin - elevated - however per chart review, it's always elevated. Pt denies any s/s of resp. infection, WBC normal, no fever, no rhinorrhea, cough, no shortness of breath - chest pain has resolved and pt had uneventful night ESRD on HD TuThSa Pt got through about half of her dialysis, due to chest pain had to finish early Chest x-ray on admission with some possible pulmonary edema, however patient on room air, saturating 93%, and breathing comfortably Currently 97% on RA Nephrology consulted for possible HD - discussed over the phone - plan for outpt HD tomorrow (Friday) Anemia of chronic disease Hgb 9.4 -cont. to monitor Hypertension - cont. home mes - amlodipine, toprol - monitor BP DM II, on insulin -last a1c 6.8% -cont. home insulin -monitor BSG Hypothyroidism Continue levothyroxine Total Time Total Time Spent Total Time Spent (In Minutes): 40 Discharge Plan Discharge Items Patient Disposition: Home - Self-Care Reason For Visit: CHEST PAIN Discharge Diagnosis: Atypical chest pain Activity: Per Instructions section Non-emergency contact: Primary Care Provider, Environmental Health Nurse and Spring Upholsterer Call non-emergency contact if: you have any medication questions and your symptoms worsen Follow-up/Referrals: Jose Magallanes MD [Primary Care Provider] - Diet: Dialysis Renal and Heart Healthy Addtl Attending Provider Instructions: Follow-up with your primary care doctor within 1 week. As discussed, your dialysis center should call you tomorrow, for possible dialysis tomorrow - Friday. Continue all your medications as prescribed, no medication changes were made. Pending Studies at Discharge: No Stand-Alone Forms: My [facility], Smoking Cessation Medications and DC Order Prescriptions: Continued insulin glargine [Basaglar KwikPen U-100 Insulin] 100 unit/mL (3 mL) insulin pen 33 unit subcut HS pregabalin 75 mg capsule 75 mg PO QAM aspirin [Marika Low Dose Aspirin] 81 mg Tablet,Delayed Release (Dr/Ec) 81 mg PO HS albuterol sulfate [Proventil HFA] 90 mcg/actuation HFA aerosol inhaler 2 puffs INH Q6H PRN (Reason: shortness of breath or wheezing) Qty: 8 0RF pregabalin 25 mg capsule 25 mg PO .DAILY IN AFTERNOON rosuvastatin 40 mg tablet 40 mg PO QAM amlodipine 2.5 mg tablet 2.5 mg PO QAM insulin aspart U-100 [Novolog FlexPen U-100 Insulin] 100 unit/mL (3 mL) insulin pen 6 unit SUBCUT TIDWMEAL levothyroxine 50 mcg tablet 50 mcg PO DAILYBB metoprolol succinate 50 mg tablet extended release 24 hr 50 mg PO QAM Glendy-Agustin 0.8 mg Tablet 1 tab PO DAILY lidocaine-prilocaine 2.5-2.5 % cream 1 applic topical UD Rx Instructions: Apply small amount to access site (AVF) 1-2 hours before dialysis. Cover with occlusive dressing (Saran Wrap). Friday,,Friday cholecalciferol (vitamin D3) [Vitamin D3] 25 mcg (1,000 unit) Tablet 0.75 mcg PO UD Patient Comments: given to pt at dialysis Rx Instructions: Take on Dialysis days, after dialysis, Friday,,Friday. Velphoro 500 mg tablet,chewable 500 mg PO TID Discharge Orders: Discharge Order (Routine); Ordered 07/28/22 Ordered By: Petros Toth Admission Data Admit Date/Time: 07/27/22 16:42 Attending Provider: Petros Toth Admit Provider: Petros Toth Primary Care Provider: Jose Magallanes Other Providers: Petros Toth ; Maria C Griffiths ; Joselo Thao
== END 2022-07-28 14:56 | disposition home or self-care (01) ==
LOC: 4W 13:25 → ED 13:25 → 4W 19:00